=== PATIENT | male | born 1965 | race Caucasian/White ===

== ENCOUNTER 2017-04-25 11:39 | Observation (INO) ==
[2017-04-25] MEDS ORDERED: 0.9 % Sodium Chloride 1,000 ML IVC ONE (11:46)
--- NOTE | 2017-04-25 11:48 | Emergency Department Note ---
Disposition Clinical Impression: Generalized seizure Disposition: Admitted As Inpatient Seizure HPI - General Chief Complaint: ED Seizure Stated Complaint: Seizure Time Seen by Provider: 04/25/17 11:42 Source: patient, EMS Limitations: no limitations Nursing Notes Reviewed: Yes Vital Signs Reviewed: Yes - History of Present Illness HPI Narrative: Is a 51-year-old male who presents today with a seizure. Patient admits to not being compliant with his medications he states he filled his meds but he did not take them last 2 days. When he arrives he was no longer postictal he did not receive any medication in the ambulance. He denies any other symptoms chest pain cough fevers chills nausea vomiting diarrhea Pt Subjective Complaint: seizure Description of Episode: tonic-clonic movement, post-event confusion Witnessed: yes - by bystander Associated trauma secondary to event: No Seizure History: known seizure disorder, history of non-compliance with treatment Place: home Associated symptoms: Reports: denies other symptoms Treatments prior to arrival: none - Related Data Home Medications Medication Instructions Recorded Confirmed Budesonide/Formoterol 160/4.5 2 puff IH BIDR PRN 05/14/16 05/14/16 [Symbicort 160/4.5] Previous Rx's Medication Instructions Recorded Folic Acid 1 mg PO DAILY #30 tablet 05/18/16 Multivit/Ca/Min/Fe/FA [Thera M 1 tab PO DAILY tablet 05/18/16 Plus] Thiamine (B-1) [Vitamin B-1] 100 mg PO DAILY tablet 05/18/16 levETIRAcetam [Keppra] 1,000 mg PO Q12HR #60 tablet 05/18/16 Albuterol Neb [Proventil Neb] 2.5 mg IH Q2H PRN #0 inhsol 08/03/16 Chlordiazepoxide [Librium] 100 mg PO TID #15 capsule 08/03/16 Haloperidol Lactate [Haldol] 1 mg IM Q6H PRN #1 vial 08/03/16 Nicotine Patch [Nicoderm] 21 mg TD DAILY patch.td24 08/03/16 Omeprazole [PriLOSEC] 40 mg PO DAILY@0630 capsule. 08/03/16 Phos-NaK [Neutra-Phos] 2 each PO DAILY PRN #0 powd.pack 08/03/16 Potassium Chloride 40 meq PO DAILY PRN #0 tab.er.prt 08/03/16 Quetiapine Fumarate [Seroquel] 50 mg PO QAM tablet 08/03/16 Quetiapine Fumarate [Seroquel] 100 mg PO HS tablet 08/03/16 Allergies Allergy/AdvReac Type Severity Reaction Status Date / Time No Known Allergies Allergy Verified 05/12/16 19:15 All systems ED: reviewed and negative except as stated. Constitutional: Denies: fever, chills, weakness Cardiovascular: Denies: chest pain Respiratory: Denies: cough Past Medical History - Past Medical History Source: patient, old records reviewed, nursing notes reviewed Medical history: Reports: cardiomyopathy, COPD, coronary artery disease, hypertension, liver disease, myocardial infarction, seizures, valvular heart disease, other Surgical history: Reports: coronary bypass (CABG), other Psychiatric history: Reports: no psych history - Social History Smoking Status: Current every day smoker Smokeless Tobacco Status: No Alcohol use: Reports: heavy, recent Drug use: Reports: none Physical Exam - General Limitations: no limitations General appearance: alert, in no apparent distress - Head Head exam: atraumatic, normocephalic, normal inspection - Eye Eye exam: Present: normal appearance, PERRL, EOMI - Expanded Eye Exam Pupils: Left: reactive - ENT ENT exam: normal exam, normal oropharynx, mucous membranes moist - Expanded ENT Exam External ear exam: Present: normal external inspection Mouth exam: Present: normal external inspection Teeth exam: Present: normal inspection Throat exam: Present: normal inspection - Neck Neck exam: Present: normal inspection, full ROM, trachea midline - Chest Chest inspection: Present: normal inspection, symmetric chest wall rise - Respiratory Respiratory exam: Present: normal lung sounds bilaterally - Cardiovascular Cardiovascular exam: Present: regular rate, normal rhythm, normal heart sounds - Abdominal Exam Abdominal exam: Present: soft, Non-Tender. Absent: tenderness, distention, guarding, rebound, rigidity - Extremities Exam Extremities exam: Present: normal inspection, full ROM. Absent: tenderness, pedal edema - Expanded Upper Extremity Exam Shoulder exam: Present: normal inspection, full ROM Arm exam: Present: normal inspection, full ROM Elbow exam: Present: normal inspection, full ROM Forearm/Wrist exam: Present: normal inspection, full ROM Hand exam: Present: normal inspection, full ROM Vascular exam: Normal: capillary refill, radial pulse - Expanded Lower Extremity Exam Hip/Pelvis exam: Present: normal inspection, full ROM Upper leg exam: Present: normal inspection, full ROM Knee exam: Present: normal inspection, full ROM Lower leg exam: Present: normal inspection, full ROM Ankle exam: Present: normal inspection, full ROM Foot/toe exam: Present: normal inspection, full ROM Neurovascular/Tendon exam: Absent: motor deficit, sensory deficit, tendon deficit - Back Exam Back exam: Present: normal inspection, full ROM. Absent: tenderness - Neurological Exam Neurological exam: Present: alert, oriented X3 - Expanded Neurological Exam Patient oriented to: Present: person, place, time Coma Scale Eye Opening: Spontaneous Coma Scale Motor Response: Obeys Commands Coma Scale Verbal Response: Oriented Coma Scale Total: 15 - Psychiatric Psychiatric exam: Present: normal affect, normal mood - Skin Skin exam: Present: warm, dry, intact, normal color Course Course Narrative: While patient was being administered Keppra he had another generalized seizure last approximately minute 1 mg of Ativan was given. Patient was reassessed again he is awake alert was unaware of the event IV Keppra has been infused. Vital Signs Temperature 98.2 F 04/25/17 11:41 Pulse Rate 98 04/25/17 11:41 Respiratory Rate 18 04/25/17 11:41 Blood Pressure 130/96 04/25/17 11:41 O2 Sat by Pulse Oximetry 100 04/25/17 11:41 Temperature 98.2 F 04/25/17 11:41 Pulse Rate 91 04/25/17 13:03 Respiratory Rate 12 04/25/17 13:03 Blood Pressure 131/89 04/25/17 13:03 O2 Sat by Pulse Oximetry 100 04/25/17 13:03 Oxygen Delivery Oxygen Delivery Non Rebreather Mask Seizure - Lab Data Result diagrams: 04/25/17 12:13 04/25/17 12:13 Lab Results 04/25/17 04/25/17 Range/Units 12:13 12:13 WBC 3.7 L (4.3-11.1) K/mcL RBC 4.82 (4.19-5.50) M/mcL Hgb 15.4 (12.9-16.9) g/dL Hct 44.5 (37.5-50.1) % MCV 92.3 (83.0-100.0) fL MCH 32.0 (28.0-33.3) pg MCHC 34.6 (31.6-35.5) g/dL RDW 14.4 (11.5-14.5) % Plt Count 162 (140-400) K/mcL MPV 11.1 (9.4-12.4) fL Immature Gran % 0.3 (0-4) % Seg Neutrophils % 52.9 % Lymphocytes % 34.3 % Monocytes % 9.5 % Eosinophils % 1.1 % Basophils % 1.9 % Neutrophils # 2.0 (1.6-8.9) K/mcL Lymphocytes # 1.3 (0.6-4.6) K/mcL Monocytes # 0.4 (0.0-1.3) K/mcL Eosinophils # 0.0 (0.0-0.6) K/mcL Basophils # 0.1 (0.0-0.2) K/mcL Sodium 137 (136-145) mEq/L Potassium 4.1 (3.5-4.5) mEq/L Chloride 104 (98-109) mEq/L Carbon Dioxide 18 L (19-29) mEq/L BUN 4 L (8-26) mg/dL Creatinine 0.75 (0.72-1.25) mg/dL Est GFR ( Amer) > 60 (> 60) Est GFR (Non-Af Amer) > 60 (> 60) BUN/Creatinine Ratio 5 L (6-26) Glucose 85 (70-99) mg/dL Calculated Osmolality 280 (280-300) Calcium 9.0 (8.6-10.8) mg/dL Magnesium 1.7 (1.6-2.6) mg/dL Total Bilirubin 0.4 (0.2-1.2) mg/dL AST 117 H (5-34) Units/L ALT 56 H (0-55) Units/L Alkaline Phosphatase 91 (38-126) Units/L Serum Total Protein 7.3 (6.0-8.3) g/dL Albumin 3.7 (3.5-5.0) g/dL Globulin 3.6 H (2.4-3.5) g/dL Albumin/Globulin Ratio 1.0 L (1.1-2.2) Critical Care Time Critical Care Time: Yes Total Critical Care Time: 35 Attestation: Critical care performed: Time is exclusive of separately billable procedures. Time includes: direct patient care, patient reassessment, coordination of patient care, interpretation of data (laboratory data, radiology data, and respiratory data), review of patient's medical records, medical consultation and documentation of patient care. Procedures included in critical care time: Procedures excluded from critical care time:
[2017-04-25] MEDS ORDERED: levETIRAcetam 1,000 MG in 0.9 % Sodium Chloride 100 ML IVPB ONE (11:53)
[2017-04-25 12:21] LABS: Basophils # 0.1 K/mcL (0.0-0.2); Basophils % 1.9 %; Eosinophils % 1.1 %; Hematocrit 44.5 % (37.5-50.1); Hemoglobin 15.4 g/dL (12.9-16.9); Immature Granulocytes % 0.3 % (0-4); Lymphocytes # 1.3 K/mcL (0.6-4.6); Lymphocytes % 34.3 %; Mean Corpuscular HGB Conc 34.6 g/dL (31.6-35.5); Mean Corpuscular Volume 92.3 fL (83.0-100.0); Mean Platelet Volume 11.1 fL (9.4-12.4); Monocytes # 0.4 K/mcL (0.0-1.3); Monocytes % 9.5 %; Platelet Count 162 K/mcL (140-400); Red Blood Count 4.82 M/mcL (4.19-5.50); Red Cell Distribution Width 14.4 % (11.5-14.5); Segmented Neutrophils % 52.9 %
[2017-04-25] MEDS ORDERED: *HR* LORazepam 2 MG/ML VIAL IVP ONE (12:46)
[2017-04-25] MEDS ORDERED: *HR* LORazepam 2 MG/ML VIAL ONE (12:48)
[2017-04-25 12:57] LABS: Alanine Aminotransferase 56 Units/L (0-55); Albumin 3.7 g/dL (3.5-5.0); Alkaline Phosphatase 91 Units/L (38-126); Aspartate Amino Transferase 117 Units/L (5-34); BUN/Creatinine Ratio 5 (6-26); Bilirubin,Total 0.4 mg/dL (0.2-1.2); Blood Urea Nitrogen 4 mg/dL (8-26); Carbon Dioxide 18 mEq/L (19-29); Chloride 104 mEq/L (98-109); Globulin 3.6 g/dL (2.4-3.5); Glucose 85 mg/dL (70-99); Magnesium 1.7 mg/dL (1.6-2.6); Osmolality,Calculated 280 (280-300); Potassium 4.1 mEq/L (3.5-4.5); Sodium 137 mEq/L (136-145); Total Protein 7.3 g/dL (6.0-8.3); eGFR For African Americans > 60 (> 60); eGFR For Non-African Americans > 60 (> 60)
--- NOTE | 2017-04-25 15:46 | Event Note ---
Date of Encounter: 04/25/17 Time of Encounter: 15:43 1. Seizure disorder with multiple episodes today likely secondary to noncompliance of medication Restart Keppra, use Ativan as needed Fall, aspiration and seizure precautions Consider neurology consult if the patient continues to have seizures 2. History of alcohol abuse and withdrawal in the past Use Ativan IV per CIWA scale 3. Tobacco abuse, nicotine patch and smoking cessation counseling 4. CAD, stable 5. History of aortic valve replacement 6. Mild dehydration, can explain tachycardia, continue the fluids Admit for observation, full code. 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
[2017-04-25] MEDS ORDERED: Naloxone 0.4 MG/ML INJ IVP PRN (16:48)
[2017-04-25] MEDS ORDERED: diazePAM 10 MG/2 ML SYRINGE IVP PRN (17:00)
[2017-04-25] MEDS ORDERED: *HR* LORazepam 2 MG/ML VIAL IVP PRN (17:00)
--- NOTE | 2017-04-25 17:11 | Internal Med History&Physical ---
<Ashkan Milian - Last Filed: 04/25/17 17:52> Date of Encounter: 04/25/17 Time of Encounter: 16:30 Assessment and Plan (1) Generalized seizure Current visit: Yes Status: Acute Assess: Patient presents from the ED today with multiple episodes of seizures. Patient states he did not take his Keppra for the past 48 hours but is unable to give a reason why. Patient has a history of seizures. Plan: Restart Keppra CT of the head w/o contrast ordered stat Falls precautions ordered Aspirations precautions ordered Seizure assessment and precautions ordered Consider neurology consult if patient continues to have seizures and/or based on results of CT scan (2) Mild dehydration Current visit: Yes Status: Acute Assess: Patient presents with mild dehydration which may explain his tachycardia. Reason for mild dehydration could be due to EtOH abuse Plan: IV fluids 0.9 NS ordered at 100 ml/HR Follow-up labs ordered and will be reviewed when available for electrolyte status (3) Alcohol abuse Current visit: Yes Status: Chronic Assess: Patient presents with history of alcohol abuse and withdrawal from the past. Plan: CIWA assessment and scale protocol ordered with Ativan PRN per protocol Monitor patient and patient's vital signs for symptoms of withdrawal Falls, aspiration, and seizure precautions ordered (4) CAD (coronary artery disease) Current visit: Yes Status: Chronic Assess: Patient presents with history of chronic coronary artery disease. Plan: Continuous cardiac telemetry ordered Stat EKG ordered Monitor patient/vital signs Cardiac diet Qualifiers: Coronary Disease-Associated Artery/Lesion type: [place] artery [place] vs. transplanted heart: [place] heart Associated angina: without angina Qualified Code(s): I25.10 - Atherosclerotic heart disease of [place] coronary artery without angina pectoris (5) History of aortic valve replacement with bioprosthetic valve Current visit: No Status: Acute Assess: Patient presents with history of chronic coronary artery disease. Plan: Continuous cardiac telemetry ordered Stat EKG ordered Monitor patient and his vital signs Cardiac diet (6) Tobacco abuse Current visit: Yes Status: Chronic Assess: Patient presents with history of chronic tobacco abuse. Patient reports smoking one half pack per day currently. Plan: Smoking cessation counseling provided Nicotine patch 14 mg ordered (7) DVT prophylaxis Current visit: No Status: Acute Assess: Patient received DVT prophylaxis due to inpatient status, history of coronary disease, and bedrest status. Plan: Heparin 5,000 units SQ Q8 ordered Internal Medicine - H&P: HPI Chief complaint: Seizure Admitted From: Emergency Dept Plans for Post Hospital Care: Home History of present illness: Mr. Rose is a 51 year old male who presents from the ED today with multiple episodes of seizures. Patient states he did not take his Keppra for the past 48 hours but is unable to give a reason why. Patient has a history of seizures and a lengthy history of cardiac issues and care including neuropathy, CAD, hypertension, myocardial infarction, valvular heart disease, and open-heart surgery. Patient reports he smokes one half pack per day and drinks approximately 2 beers per day. Mr. Rose states that he is currently experiencing some dizziness but denies shortness of breath, chest pain, cough, fever, chills, nausea, vomiting, diarrhea, recurrent confusion. Patient to be admitted as observation status with fall precautions, aspiration precautions and seizure precautions ordered. See was scale protocol be followed with Ativan when necessary as needed Katelyn was scale. IV fluids 0.9 NS to be continued at 100 mL per hour. Omeprazole ordered 40 mg daily for GI prophylaxis and heparin 5000 units SQ every 8 hours for DVT prophylaxis ordered. Neurological assessments ordered every 2 hours and continuous cardiac telemetry ordered per CIWA scale. Patient to be monitored closely. Past Med Surg Social Fam HX - Past Medical History Source: patient Medical history: cardiomyopathy, COPD, coronary artery disease, hypertension, liver disease, myocardial infarction, seizures, valvular heart disease, other Psychiatric history: no psych history - Past Surgical History Surgical History: coronary bypass (CABG), other - Social History Smoking Status: Current every day smoker Packs per day: 1/2 PPD Smokeless Tobacco Status: No Alcohol use: heavy, recent Drug use: none Occupational status: employed Current living situation: Home Activity Level: Independent ambulation Recent Out of Country Travel Within the Last 8 Weeks: No Exposure or Possible Exposure to Illness During Travel: No - Family History Father Race: Family Member Ethnicity: Non- Living Status: Age at : 70 Cause of : [place] Hx Family Cardiac Disorders: Yes ([place]) Mother Race: Family Member Ethnicity: Non- Living Status: Age at : 51 Cause of : [place] Hx Family Cardiac Disorders: Yes ([place]) Internal Medicine - H&P: Meds LevETIRAcetam [Keppra] 500 mg PO BID 04/25/17 [History] Allergies No Known Allergies Allergy (Verified 05/12/16 19:15) All Systems PM: A 10-system review of systems was performed and is negative for pertinent findings except as documented above in the HPI. - Constitutional Constitutional: no chills, no fever(s), no night sweats - EENT Eyes: no change in vision, no discharge, no pain, no photophobia Ears: no ear discharge, no ear pain, no tinnitus Nose, mouth and throat: no dysphagia, no nasal discharge, no neck pain, no sore throat - Breasts Breasts: as per HPI - Cardiovascular Cardiovascular ROS IM: no chest pain, no diaphoresis, no dyspnea, no lightheadedness, no palpitations, no syncope - Respiratory Respiratory: no cough, no dyspnea, no wheezing, no excessive phlegm production - Gastrointestinal Gastrointestinal: no abdominal pain, no diarrhea, no hematemesis, no hematochezia, no melena, no nausea, no vomiting - Genitourinary Genitourinary ROS male: as per HPI - Musculoskeletal Musculoskeletal ROS IM: no numbness, no tingling - Integumentary Integumentary IM: no rash, no unusual bruising - Neurological Neurological ROS: as per HPI (Multiple episodes of seizures today. Patient reports not taking Keppra for the past 48 hours.), no confusion, no convulsions , no focal weakness, no numbness, no tingling, no tremor(s) - Psychiatric Psychiatric: as per HPI - Endocrine Endocrine IM: as per HPI - Hematologic/Lymphatic Hematologic/Lymphatic: no easy bruising - Allergic/Immunologic Allergic/Immunologic: as per HPI - Constitutional Vitals: Temp Pulse Resp BP Pulse Ox 97.8 F 90 16 126/82 97 04/25/17 15:31 04/25/17 15:31 04/25/17 15:31 04/25/17 15:31 04/25/17 15:31 General appearance: Present: cooperative, A&O X 3, pleasant, no acute distress, answers questions appropriately - Head Head exam: Present: atraumatic, normocephalic - Eye Eye exam: Present: PERRL, conjuntiva pink, sclera anicteric Pupils: Present: PERRL - ENT ENT exam: Present: normal exam, normal external ear exam - Neck Neck exam general surgery: Present: supple, trachea midline. Absent: lymphadenopathy - Respiratory Respiratory exam: Present: CTAB. Absent: accessory muscle use, rales, rhonchi, wheezes - Cardiovascular Cardiovascular exam: Present: RRR, +S1, +S2. Absent: diastolic murmur, gallop, rubs, systolic murmur - GI/Abdominal GI/Abdominal exam: Present: normal bowel sounds, soft, no peritoneal signs. Absent: distended, tenderness - Rectal Rectal exam: Present: deferred - Additional comments: exam deferred. - Extremities Exam Extremities exam: Present: normal capillary refill, normal inspection, warm, radial pulses palpable and symetrical. Absent: calf tenderness, cyanotic, pedal edema - Back Exam Back exam: Present: normal inspection - Neurological Exam Neurological exam: Present: CN II-XII intact, oriented X3, no focal deficits. Absent: pronater drift, facial droop, speech deficit - Psychiatric Psychiatric exam: Present: normal affect, normal mood - Skin Skin exam: Present: dry, intact Internal Med - H&P Results - Labs CBC & Chem 7: 04/25/17 12:13 04/25/17 12:13 - EKG Data EKG comments: 04/25/17 17:29 EKG dated 07/17/16 shows sinus rhythm with diffuse T-wave inversion suggestive of neurological event. Cannot exclude ischemia. Prolonged QT. <Sharad Puente H - Last Filed: 04/25/17 18:18> Date of Encounter: 04/25/17 Internal Medicine - H&P: HPI History of present illness: Mr. Rose is a 51 year old male All Systems PM: A 10-system review of systems was performed and is negative for pertinent findings except as documented above in the HPI. - Constitutional Vitals: Temp Pulse Resp BP Pulse Ox 97.8 F 90 16 126/82 97 04/25/17 15:31 04/25/17 15:31 04/25/17 15:31 04/25/17 15:31 04/25/17 15:31 Internal Med - H&P Results - Labs CBC & Chem 7: 04/25/17 12:13 04/25/17 12:13 - Attending Attestation 1. Seizure disorder with multiple episodes today likely secondary to noncompliance of medication Restart Keppra, use Ativan as needed Fall, aspiration and seizure precautions Consider neurology consult if the patient continues to have seizures 2. History of alcohol abuse and withdrawal in the past Use Ativan IV per CIWA scale 3. Tobacco abuse, nicotine patch and smoking cessation counseling 4. CAD, stable 5. History of aortic valve replacement 6. Mild dehydration, can explain tachycardia, continue the fluids Admit for observation, full code. Time spent on this admission 40 minutes Omeprazole for GI prophylaxis and subcutaneous heparin for DVT prophylaxis I examined this patient and my medical decision-making was reviewed with the CONTRACT LOADER/PA/Advanced Practice Nurse/Resident Physician. I agree with the documented findings, disposition and treatment plan as described except to the extent set forth below.
[2017-04-25] MEDS: 0.9 % Sodium Chloride 1,000 ML IVC SCH (17:23)
[2017-04-25] MEDS: Thiamine (B-1) 100 MG, Folic Acid 1 MG, MVI, adult with vitamin K 10 ML in 0.9 % Sodi... IVPB SCH (17:42)
[2017-04-25 17:52] LABS: Amylase 106 Units/L (25-125); Lipase 26 Units/L (8-78)
[2017-04-25 19:13] LABS: Bilirubin,Urine Negative (Negative); Blood,Urine Negative (Negative); Clarity,Urine Clear (Clear); Color,Urine Yellow (Yellow); Glucose,Urine (UA) Normal (Normal); Ketones,Urine 15 mg/dL (Negative); Leukocyte Esterase,Urine Negative (Negative); Nitrite,Urine Negative (Negative); Protein,Urine Trace mg/dL (Neg-Trace); Specific Gravity,Urine 1.015 (1.010-1.025); Urobilinogen,Urine Normal (Normal)
[2017-04-25 19:14] LABS: Bacteria,Urine None Seen per hpf (None-Few); Hyaline Casts,Urine None Seen per lpf (None-Few); RBC,Urine 0-3 per hpf (0-3); Squamous Epithelial Cell,Urine Few per lpf (None-Few); WBC,Urine 0-3 per hpf (0-3)
[2017-04-25 19:19] LABS: Amphetamine Screen,Urine Negative ng/mL (Cutoff=1000); Barbiturate Screen,Urine Negative ng/mL (Cutoff=200); Benzodiazepines Screen,Urine Negative ng/mL (Cutoff=200); Cannabinoid Screen,Urine Negative ng/mL (Cutoff = 50); Cocaine Screen,Urine Negative ng/mL (Cutoff= 300); Opiate Screen,Urine Negative ng/mL (Cutoff=300); Phencyclidine Screen,Urine Negative ng/mL (Cutoff=25)
[2017-04-25] MEDS: *HR* Heparin 5,000 UNIT/ML VIAL SQ SCH (21:22)
[2017-04-25] MEDS: levETIRAcetam 250 MG TABLET PO SCH (21:22)
[2017-04-26] MEDS: 0.9 % Sodium Chloride 1,000 ML IVC SCH ×3 (03:23→23:37)
[2017-04-26 05:54] LABS: Basophils % 0.6 %; Eosinophils % 0.6 %; Hematocrit 41.8 % (37.5-50.1); Hemoglobin 14.2 g/dL (12.9-16.9); Immature Granulocytes % 0.3 % (0-4); Lymphocytes % 29.8 %; Mean Corpuscular Hemoglobin 31.3 pg (28.0-33.3); Mean Corpuscular Volume 92.3 fL (83.0-100.0); Mean Platelet Volume 11.3 fL (9.4-12.4); Monocytes # 0.6 K/mcL (0.0-1.3); Monocytes % 8.5 %; Platelet Count 143 K/mcL (140-400); Red Blood Count 4.53 M/mcL (4.19-5.50); Segmented Neutrophils % 60.2 %
[2017-04-26 05:57] LABS: INR 1.1; Prothrombin Time 11.4 Seconds (9.4-12.1)
[2017-04-26 06:00] LABS: Activated Partial Thrombo Time 28.9 Seconds (26.0-36.0)
[2017-04-26 06:08] LABS: Alanine Aminotransferase 38 Units/L (0-55); Albumin 3.1 g/dL (3.5-5.0); Albumin/Globulin Ratio 0.9 (1.1-2.2); Alkaline Phosphatase 81 Units/L (38-126); Aspartate Amino Transferase 61 Units/L (5-34); BUN/Creatinine Ratio 8 (6-26); Bilirubin,Direct 0.4 mg/dL (0.0-0.5); Bilirubin,Indirect 0.5 mg/dL (0.0-1.2); Bilirubin,Total 0.9 mg/dL (0.2-1.2); Calcium 8.4 mg/dL (8.6-10.8); Carbon Dioxide 20 mEq/L (19-29); Chloride 104 mEq/L (98-109); Chol/HDL Ratio 2.2 (0-4.9); Cholesterol 175 mg/dL (< 200); Globulin 3.3 g/dL (2.4-3.5); Glucose 76 mg/dL (70-99); HDL Cholesterol 81 mg/dL (40-59); LDL Cholesterol,Calculated 82 mg/dL (0-99); Magnesium 1.3 mg/dL (1.6-2.6); Osmolality,Calculated 274 (280-300); Potassium 3.5 mEq/L (3.5-4.5); Sodium 134 mEq/L (136-145); Total Protein 6.3 g/dL (6.0-8.3); Total Protein 6.4 g/dL (6.0-8.3); Triglycerides 62 mg/dL (< 150); eGFR For African Americans > 60 (> 60); eGFR For Non-African Americans > 60 (> 60)
[2017-04-26 06:10] LABS: Bilirubin,Total 0.9 mg/dL (0.2-1.2); Blood Urea Nitrogen 5 mg/dL (8-26)
[2017-04-26] MEDS: *HR* Heparin 5,000 UNIT/ML VIAL SQ SCH ×3 (06:23→21:17)
[2017-04-26] MEDS: Magnesium Oxide 400 MG TABLET PO SCH (09:46)
[2017-04-26] MEDS: Vitamin B Complex/Vit C/Vit E 1 EACH TABLET PO SCH (09:46)
[2017-04-26] MEDS: levETIRAcetam 250 MG TABLET PO SCH ×2 (09:46→18:37)
[2017-04-26] MEDS: Thiamine (B-1) 100 MG TABLET PO SCH (09:46)
[2017-04-26] MEDS: Nicotine 14 MG PATCH.TD24 TD SCH (09:46)
[2017-04-26] MEDS: Folic Acid 1 MG TABLET PO SCH (09:46)
--- NOTE | 2017-04-26 16:35 | Electrocardiograph Report ---
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
--- NOTE | 2017-04-26 17:08 | Neurology - Consult Note ---
Date of Encounter: 04/26/17 Time of Encounter: 17:04 Assessment and Plan (1) Generalized seizure Current Visit: Yes Status: Acute Seizure disorder likely complicated by alcoholism, since seizures only occurred since the last 2-3 years. Patient has not been compliant with Seizure disorder and has not been fully worked up in the past. Has recurrent seizure activity therefore will keep him on antiepileptic therapy in the form of Keppra 1000mg bid. He will follow up in neurology for an EEG and MRI of brain. History of Present Illness Chief complaint: seizure HPI: Mr. Rose is a 51 year old male with PMH significant for seizure disorder, alcoholism who developed multiple witnessed seizures. Patient says that he started experiencing seizures about 2-3 years ago, after he had open heart surgery about 5 years ago. He averages about 7-8 seizures this year alone. He has no recollection of his seizures. With his typical seizure, he loses his consciousness and has jerking activity. Was once on keppra 500mg bid but does not see a neurologist. has had numerous CT of head in the past. CT of head showed no acute intracranial abnormality, but mild cerebral atrophy noted. Currently he is feeling fine. He drinks alcohol on daily basis. He says that after work he drinks two beers and sometimes he does not. Past Med Surg Social Fam HX - Past Medical History Medical history: cardiomyopathy, COPD, coronary artery disease, hypertension, liver disease, myocardial infarction, seizures, valvular heart disease, other Psychiatric history: no psych history - Past Surgical History Surgical History: coronary bypass (CABG), other - Social History Smoking Status: Current every day smoker Packs per day: 1/2 PPD Smokeless Tobacco Status: No Alcohol use: heavy, recent Drug use: none - Family History Father Race: Family Member Ethnicity: Non- Living Status: Age at : 70 Cause of : [place] Hx Family Cardiac Disorders: Yes ([place]) Mother Race: Family Member Ethnicity: Non- Living Status: Age at : 51 Cause of : [place] Hx Family Cardiac Disorders: Yes ([place]) Medications and Allergies LevETIRAcetam [Keppra] 500 mg PO BID 04/25/17 [History] Allergies No Known Allergies Allergy (Verified 05/12/16 19:15) All Systems: A 10-system review of systems was performed and is negative for pertinent findings except as documented above in the HPI. Physical Examination - Vital Signs Vital Signs: Initial Vital Signs Temp Pulse Resp BP Pulse Ox 98.2 F 98 18 130/96 100 04/25/17 11:41 04/25/17 11:41 04/25/17 11:41 04/25/17 11:41 04/25/17 11:41 - Constitutional General appearance: comfortable - Neurologic Sensorimotor examination: intact Detailed motor examination: grossly full strength in all extremities Motor examination - right side: 5/5: deltoids, biceps, triceps, wrist flexion, wrist extension, teamsite developer, hip flexors, tibialis Anterior, quadriceps, toe extension (EHL), plantarflexion Motor examination - left side: 5/5: deltoids, biceps, triceps, wrist flexion, wrist extension, hip flexors, teamsite developer, quadriceps, tibialis Anterior, toe extension (EHL), plantarflexion Detailed sensory examination: intact Posture: other (None) Reflex and gait examination: intact Reflexes: Biceps: 1+, Triceps: 1+, Brachioradialis: 1+, Patella: 1+, Achilles: 1 + Mental Status Examination: awake, alert, oriented to person, oriented to place, oriented to time, follows commands appropriately, answers questions appropriately, no agnosia, no aphasia, no aproxia Cranial nerve examination: PERRL, EOMI, visual marr intact, corneal reflexes brisk symmetrically, sensory to face intact, mastication intact, no facial asymmetry is present, no dysarthria, hearing is intact symmetrically, soft palate elevates bilaterally upon phonation, gag reflex intact, flexes SCM and trapezius muscles symmetrically with full power, tongue protrudes midline, no atrophy or facial fasiculations present Results - Laboratory Findings CBC and BMP: 04/26/17 05:24 04/26/17 05:24 Abnormal lab findings: Abnormal lab results Sodium 134 mEq/L (136-145) L 04/26/17 05:24 BUN 5 mg/dL (8-26) L 04/26/17 05:24 Creatinine 0.64 mg/dL (0.72-1.25) L 04/26/17 05:24 Calculated Osmolality 274 (280-300) L 04/26/17 05:24 Calcium 8.4 mg/dL (8.6-10.8) L 04/26/17 05:24 Magnesium 1.3 mg/dL (1.6-2.6) L 04/26/17 05:24 AST 61 Units/L (5-34) H 04/26/17 05:24 Albumin 3.0 g/dL (3.5-5.0) L 04/26/17 05:24 Albumin/Globulin Ratio 0.9 (1.1-2.2) L 04/26/17 05:24 HDL Cholesterol 81 mg/dL (40-59) H 04/26/17 05:24 Urine Ketones 15 mg/dL (Negative) H 04/25/17 19:05 [place] < 0.1 mEq/L (0.6-1.2) L 04/25/17 12:12 Ethyl Alcohol 128 mg/dL (0-10) H 04/25/17 12:13 Consult Discharge Plan - Plan Referrals: Alistair Gutiérrez DO [Resident] - 05/08/17 2:00 pm
--- NOTE | 2017-04-26 17:25 | Internal Med Progress Note ---
Date of Encounter: 04/26/17 Time of Encounter: 09:35 - Assessment and plan (1) Generalized seizure Current Visit: Yes Status: Acute Assessment and plan: Patient reports seizure yesterday. Most likely complicated by alcoholism. He says that he drinks 224 ounce beers a day. He denies any recreational drug use. He is neurologically intact and has seizure pads on the bed. He says that his last seizure prior to this almost 2-1/2 months ago, and prior to that was 1 year ago. He was compliant with his medication regimen while he was in the skilled nursing, however when he was discharged 2 months ago he has not been able to keep up with his medications because he has not seen a primary care physician and does not have money for prescriptions. We will attempt to reestablish patient with his primary care physician Keppra 1000 mg twice daily Follow-up with neurology in 2 weeks for an MRI and EEG (2) Alcohol abuse Current Visit: No Status: Chronic Assessment and plan: Patient states that he drinks two 24 ounce beers daily. Says that he is able to go several days without drinking. He is not requiring CIWA protocol at this time. (3) COPD (chronic obstructive pulmonary disease) Current Visit: No Status: Chronic Assessment and plan: No acute exacerbation. Patient does not take any medications for this. May have duo nebs when necessary Qualifiers: COPD type: chronic bronchitis Chronic bronchitis type: unspecified Qualified Code(s): J42 - Unspecified chronic bronchitis (4) Tobacco abuse Current Visit: No Status: Chronic Assessment and plan: Patient states that he smokes approximately 1 pack per day. He is not interested in smoking cessation tools or materials at this time. (5) DVT prophylaxis Current Visit: No Status: Acute Assessment and plan: Heparin subcutaneous daily - Time Spent With Patient less than 15 minutes - Subjective Interval history: Patient was seen and assessed at about 935 this morning. Patient was resting quietly in a darkened room, seizure pads on bed. He says that he has been having seizures for 5-6 years and he has never seen a neurologist. He says he is unable to take his medication for the last 2 months due to not having a primary care physician. He says that someone, he is unsure who, gave him sample boxes of the Keppra that he has been taking. He says that Dr. Flaherty is his primary care physician he has not seen him for 1-1/2 years. He says that he was admitted here and was sent to [facility] for 7 months, he said he got out 2 months ago. He says he was compliant with his medication regimen while he was in [facility], but has not been able to since he was discharged. Patient is unsure why he was even at [facility]. He says he drinks about 224 ounce beers daily and smokes about one pack of cigarettes a day. He denies any recreational drugs. He says there is no pattern to his seizures, his last one was 2-1/2 months ago, prior to that the last one was one year ago. He is alert and oriented, his speech is clear, and he appears to have no deficits. - Constitutional Vitals: Temp Pulse Resp BP Pulse Ox 97.8 F 74 16 124/90 99 04/26/17 15:35 04/26/17 15:35 04/26/17 15:35 04/26/17 15:35 04/26/17 15:35 General appearance: Present: cooperative, A&O X 3, pleasant, no acute distress, answers questions appropriately - Head Head exam: Present: normal inspection - Eye Eye exam: Present: normal appearance, conjuntiva pink - ENT ENT exam: Present: mucous membranes moist, normal exam - Neck Neck exam general surgery: Absent: lymphadenopathy, tenderness - Respiratory Respiratory exam: Present: CTAB. Absent: rales, rhonchi, stridor, wheezes - Cardiovascular Cardiovascular exam: Present: RRR, +S1, +S2. Absent: diastolic murmur, systolic murmur - GI/Abdominal GI/Abdominal exam: Present: soft. Absent: distended, firm, hepatomegaly, tenderness - Neurological Exam Neurological exam: Present: alert, oriented X3, no focal deficits, strengths equal and symetr throughout. Absent: altered, motor sensory deficit, pronater drift, facial droop, speech deficit Internal Medicine: Result - Labs CBC & Chem 7: 04/26/17 05:24 04/26/17 05:24 Labs: Short CBC 04/26/17 Range/Units 05:24 WBC 6.6 D (4.3-11.1) K/mcL Hgb 14.2 (12.9-16.9) g/dL Hct 41.8 (37.5-50.1) % Plt Count 143 (140-400) K/mcL Neutrophils # 4.0 (1.6-8.9) K/mcL BMP 04/26/17 05:24 Sodium 134 L Potassium 3.5 Chloride 104 Carbon Dioxide 20 BUN 5 L Creatinine 0.64 L Glucose 76 Calcium 8.4 L Liver Function 04/26/17 04/26/17 Range/Units 05:24 05:24 Total Bilirubin 0.9 D 0.9 (0.2-1.2) mg/dL Direct Bilirubin 0.4 (0.0-0.5) mg/dL AST 61 H 61 H (5-34) Units/L ALT 38 37 (0-55) Units/L Alkaline Phosphatase 81 81 (38-126) Units/L Albumin 3.0 L 3.1 L (3.5-5.0) g/dL Urine 04/25/17 Range/Units 19:05 Urine Color Yellow (Yellow) Urine Clarity Clear (Clear) Urine pH 7.0 (5.0-8.0) pH Units Ur Specific [place] 1.015 (1.010-1.025) Urine Protein Trace (Neg-Trace) mg/dL Urine Glucose (UA) Normal (Normal) mg/dL - ABG Interpretation ABG results: PT/INR, D-dimer PT 11.4 Seconds (9.4-12.1) 04/26/17 05:24 - Impressions Impressions Head CT 04/25/17 17:32 IMPRESSION: No acute intracranial abnormality. Mild cerebral atrophy prominent for age. Mild chronic ischemic white matter changes age-appropriate. Some additional pontine ischemic changes noted. No significant change from the prior study. D/ / Davonte Melchor MD / Davonte Melchor MD Interpreting Provider: Davonte Melchor MD Consult Discharge Plan - Plan Referrals: Alistair Gutiérrez DO [Resident] - 05/08/17 2:00 pm
[2017-04-26] MEDS: Thiamine (B-1) 100 MG, Folic Acid 1 MG, MVI, adult with vitamin K 10 ML in 0.9 % Sodi... IVPB SCH (18:37)
[2017-04-27] MEDS: levETIRAcetam 250 MG TABLET PO SCH (04:59)
[2017-04-27] MEDS: *HR* Heparin 5,000 UNIT/ML VIAL SQ SCH (05:00)
[2017-04-27] MEDS: Nicotine 14 MG PATCH.TD24 TD SCH (07:39)
[2017-04-27] MEDS: Folic Acid 1 MG TABLET PO SCH (07:40)
[2017-04-27] MEDS: Magnesium Oxide 400 MG TABLET PO SCH (07:40)
[2017-04-27] MEDS: Thiamine (B-1) 100 MG TABLET PO SCH (07:40)
[2017-04-27] MEDS: Vitamin B Complex/Vit C/Vit E 1 EACH TABLET PO SCH (07:40)
--- NOTE | 2017-04-27 07:53 | Discharge Summary ---
Date of Encounter: 04/27/17 Time of Encounter: 07:40 - Discharge Diagnosis (1) Generalized seizure Priority: Primary Status: Acute Comments: Patient states he has been having seizures for 5-6 years. Last seizure was 2 days ago. Last seizure prior to this was 2-1/2 months ago, prior to that was 1 year ago. Patient states that he was in a fdc for 7 months and is unsure why, but he was able to take all of his medications at that time. Since leaving the facility he has had no primary care follow-up and has run out of his medications. Seizures most likely exacerbated by chronic alcoholism. Patient states that he drinks 2 24 ounce beers every day. He states that he used to be a patient of Dr. Flaherty, but has not seen him in about a year and half. He says that he would like to go back to Dr. Flaherty, a request has been entered by nurse discharge. Patient will be sent home with a prescription for Keppra 1000 mg by mouth twice a day. Patient is neurologically intact and gait is steady. He has had no seizure activity since he has been here. (2) Alcohol abuse Priority: Secondary Status: Chronic Comments: Patient drinks 2 24 ounce beers daily. He says that he is able to go several days without drinking. He is not requiring seawall protocol at this time. (3) COPD (chronic obstructive pulmonary disease) Priority: Secondary Status: Chronic Comments: No acute exacerbation. Patient is still a smoker. He is not interested in smoking cessation materials or tools at this time. He does not take any medications for this. Qualifiers: COPD type: chronic bronchitis Chronic bronchitis type: unspecified Qualified Code(s): J42 - Unspecified chronic bronchitis (4) Tobacco abuse Priority: Secondary Status: Chronic Comments: Patient smokes approximately 1 pack per day. He is not interested in smoking cessation at this time. I did discuss this with him again today. (5) DVT prophylaxis Priority: Secondary Status: Acute - Discharge Medications Prescriptions: LevETIRAcetam [Keppra] 1,000 mg PO BID #60 tablet Multivitamin with Folic Acid [Gnp One Daily Essential Tablet] 400 mcg PO DAILY # 30 tablet Home Medications: LevETIRAcetam [Keppra] 1,000 mg PO BID #60 tablet 04/27/17 [Rx] Multivitamin with Folic Acid [Gnp One Daily Essential Tablet] 400 mcg PO DAILY # 30 tablet 04/27/17 [Rx] Allergies/Adverse Reactions: Allergies No Known Allergies Allergy (Verified 05/12/16 19:15) Procedures/tests Complete & Pending: Procedures Performed prior 72 hours Category Date Time Status CT head/brain wo con [CT] Stat Cat Scan 04/25/17 17:32 Completed ECG 12 lead ECG [ECG] Stat Y 04/25/17 16:48 Completed Date of admission: 04/25/17 14:02 Primary care physician: PCP NO Consults: 04/25/17 17:01 Consult to Spool [facility]rier [CONS] Routine Reason for SW Consult: Patient has hx of EtOH abuse 04/26/17 16:06 Consult to Neurology [CONS] Routine Consulting Provider: Neurology [facility] Reason for Consult: Pt has seizures, has never been treated or seen by neurology. Onset about 5-6 years ago, does not follow up with PCP for seizures and does not take his medication regularly Call Completed: No Discharging clinician: Teresa Vernon Anticipated date of discharge: 04/27/17 - Patient Status Disposition: Home, Self-Care Condition: Good Functional capacity at discharge: independent ambulation Overall status at discharge: patient is back to baseline - Discharge Instructions Follow Up With: Alistair Gutiérrez DO [Resident] - 05/08/17 2:00 pm Additional Instructions: Please follow up with Dr. Gutiérrez on May 08 as scheduled at the [facility] Take your Keppra twice daily and your multivitamin every morning Return to the ER as needed for any new problems or concerns. - Diet and Activity Activity: increase activity as tolerated Diet: advance to your usual diet Hospital course: Mr. Rose is a 51 year old male with past medical history of seizures, alcohol use, COPD. Patient has a history of seizures for 5-6 years. He states that he has never seen a neurologist does not follow-up with neurology. Last seizure was 2 days ago on admission. Prior to that, he had a seizure 2-1/2 months ago, prior to that 1 year ago. Patient states that he is unable to take his medications on schedule because he has not followed up with primary care physician. He says that he was at a fdc for an unknown reason for 7 months and was just recently discharged 2-1/2 months ago. He says while he was in the fdc he got his medications every day, however has not had any follow-up image since being discharged from the [facility]. Patient admits to drinking at least two 24 ounce beers daily after work. His chronic alcoholism is most likely exacerbating his seizure disorder. He was seen by Dr. Euceda yesterday and his Keppra dose was increased to 1000 mg by mouth twice a day he will follow up with neurology in the next 2 weeks or so for an MRI and EEG. Patient will be sent home with a prescription for the Keppra increased dose and a multivitamin with folic acid. Labs have remained stable, as have his vital signs. Head CT on arrival showed no acute intracranial abnormality. He does have mild cerebral atrophy and age- appropriate chronic ischemic white matter changes. The CT demonstrates no significant changes from prior studies. 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 I went to see the patient immediately when the nurse said that the patient was going to leave. As I am dictating this now staff is attempting to get him to not leave the unit. He says he needs to go outside to smoke. I encouraged the patient to at least stay for breakfast. He states that he will not be able to call for his ride until 9:30, is now 8:10. He said his ride cannot come until noon. He is refusing to put on a nicotine patch. Patient is stable and appropriate for discharge. Time spent discussing smoking cessation with patient: 3 to 10 minutes - Time Spent with Patient Total time spent providing and/or coordinating discharge services: Less than 30 minutes - Constitutional Vitals: Temp Pulse Resp BP Pulse Ox 97.7 F 81 18 152/92 99 04/26/17 22:46 04/26/17 22:46 04/26/17 22:46 04/26/17 22:46 04/26/17 22:46 General appearance: Present: cooperative, A&O X 3, pleasant, no acute distress, answers questions appropriately - Head Head exam: Present: normal inspection - Eye Eye exam: Present: normal appearance, conjuntiva pink - ENT ENT exam: Present: mucous membranes moist, normal exam - Neck Neck exam general surgery: Present: normal inspection. Absent: lymphadenopathy , tenderness - Respiratory Respiratory exam: Present: decreased breath sounds, CTAB. Absent: rales, respiratory distress, rhonchi, stridor, wheezes - Cardiovascular Cardiovascular exam: Present: RRR, +S1, +S2. Absent: clicks, diastolic murmur, gallop, systolic murmur - GI/Abdominal GI/Abdominal exam: Present: normal bowel sounds, soft. Absent: tenderness - Extremities Exam Extremities exam: Present: warm. Absent: pedal edema - Neurological Exam Neurological exam: Present: alert, oriented X3, no focal deficits, strengths equal and symetr throughout. Absent: facial droop, speech deficit
[2017-04-27 07:56] VITALS: BP 112/76
== END 2017-04-27 09:33 | disposition home or self-care (01) ==
LOC: EMEROO 11:39 → 3BNU 11:39
PROVIDERS: ADMIT Internal Medicine; ATTEND Registered Nurse

== ENCOUNTER 2017-09-25 10:31 | Observation (INO) ==
[2017-09-25] MEDS ORDERED: *HR* LORazepam 2 MG/ML VIAL IVP ONE ×2 (10:39→11:43)
--- NOTE | 2017-09-25 10:42 | Emergency Department Note ---
Disposition Clinical Impression: Alcohol withdrawal seizure Qualifiers: Complication of substance-induced condition: with perceptual disturbance Qualified Code(s): F10.232 - Alcohol dependence with withdrawal with perceptual disturbance Disposition: Admitted As Inpatient Condition: Fair Forms: ED Satisfaction Letter Time of Disposition: 12:29 Seizure HPI - General Chief Complaint: ED Seizure Stated Complaint: Post ictal Time Seen by Provider: 09/25/17 10:37 Source: patient Mode of arrival: ambulatory Limitations: no limitations Nursing Notes Reviewed: Yes Vital Signs Reviewed: Yes - History of Present Illness HPI Narrative: 52-year-old who has had recurrent seizures related to alcohol withdrawal. Apparently had a seizure today. States he hasn't had alcohol since yesterday. Postictal on arrival. Pt Subjective Complaint: seizure Onset (ago): Just PATIENT SUPPORT ASSISTANT Description of Episode: tonic-clonic movement -: other (Unknown) Witnessed: yes - by bystander Associated trauma secondary to event: No Seizure History: history of withdrawal seizures Place: home Possible Precipitating Event: alcohol withdrawal Associated symptoms: Reports: denies other symptoms Treatments prior to arrival: none - Related Data Previous Rx's Medication Instructions Recorded Folic Acid 1 mg PO DAILY #30 tablet 09/12/17 Nicotine Patch [Nicoderm] 21 mg TD DAILY #14 patch.[id number] 09/12/17 Omeprazole 20 mg PO DAILY #30 tablet. 09/12/17 Thiamine (B-1) [Vitamin B-1] 100 mg PO DAILY #30 tablet 09/12/17 levETIRAcetam [Keppra] 1,000 mg PO Q12HR #60 tablet 09/12/17 Allergies Allergy/AdvReac Type Severity Reaction Status Date / Time No Known Allergies Allergy Verified 09/05/17 16:52 All systems ED: reviewed and negative except as stated. Constitutional: Denies: fever, chills, weakness, weight change Eyes: Denies: eye pain, eye discharge, vision change ENT ED: Denies: ear pain, throat pain, dental pain, hearing loss, epistaxis, congestion, dysphagia Cardiovascular: Denies: chest pain, palpitations, dyspnea on exertion, edema, syncope Respiratory: Denies: cough, dyspnea, wheezes, hemoptysis, stridor Gastrointestinal: Denies: abdominal pain, nausea, vomiting, diarrhea, constipation, hematemesis, melena, hematochezia Genitourinary: Denies: urgency, dysuria, frequency, hematuria Musculoskeletal: Denies: back pain, neck pain, arthralgia, myalgia Integumentary: Denies: rash, abrasion, lesions Neurological: Reports: other (Seizure). Denies: headache, weakness, numbness, paresthesias, confusion, abnormal gait, vertigo Psychiatric: Denies: anxiety, depression, suicidal thoughts, homicidal thoughts , auditory hallucinations, visual hallucinations Endocrine: Denies: fatigue Hematological/Lymphatic: Denies: easy bleeding, easy bruising Allergic/Immunologic: Denies: facial swelling, urticaria Past Medical History - Past Medical History Medical history: Reports: cardiomyopathy, CHF, COPD, coronary artery disease, hypertension, liver disease, myocardial infarction, seizures, valvular heart disease, other Surgical history: Reports: heart valve replacement, orthopedic, other Psychiatric history: Reports: no psych history - Social History Smoking Status: Current every day smoker Smokeless Tobacco Status: No Alcohol use: Reports: heavy, recent Drug use: Reports: marijuana Physical Exam - General Limitations: altered mental status (Postictal) General appearance: alert - Head Head exam: atraumatic, normocephalic, normal inspection - Eye Eye exam: Present: normal appearance, PERRL, EOMI - ENT ENT exam: normal exam, normal oropharynx, mucous membranes moist - Neck Neck exam: Present: normal inspection, full ROM, trachea midline - Chest Chest inspection: Present: normal inspection, symmetric chest wall rise - Respiratory Respiratory exam: Present: normal lung sounds bilaterally - Cardiovascular Cardiovascular exam: Present: regular rate, normal rhythm, normal heart sounds - Abdominal Exam Abdominal exam: Present: soft, Non-Tender. Absent: tenderness, distention, guarding, rebound, rigidity - Extremities Exam Extremities exam: Present: normal inspection, full ROM. Absent: tenderness, pedal edema - Expanded Lower Extremity Exam Neurovascular/Tendon exam: Absent: motor deficit, sensory deficit, tendon deficit Gait: not tested/not observed - Back Exam Back exam: Present: normal inspection, full ROM. Absent: tenderness - Neurological Exam Neurological exam: Present: alert, oriented X3 - Psychiatric Psychiatric exam: Present: normal affect, normal mood - Skin Skin exam: Present: warm, dry, intact, normal color Course - Reevaluation(s) Reevaluation #1: 42-year-old who comes in after having seizure and actually had a seizure here in the ER has a history of alcohol withdrawal seizures. Time: 12:28 - Consultations Consultation #1: Discussed with Dr. Mathew, admit Time: 12:29 Vital Signs Temperature 97.9 F 09/25/17 10:33 Pulse Rate 101 09/25/17 10:33 Respiratory Rate 14 09/25/17 10:33 Blood Pressure 147/96 09/25/17 10:33 O2 Sat by Pulse Oximetry 98 09/25/17 10:33 Temperature 97.9 F 09/25/17 10:33 Pulse Rate 92 09/25/17 12:12 Respiratory Rate 16 09/25/17 12:12 Blood Pressure 141/91 09/25/17 12:12 O2 Sat by Pulse Oximetry 100 09/25/17 12:12 Oxygen Delivery Oxygen Delivery Room Air Seizure - Lab Data Result diagrams: 09/25/17 11:16 09/25/17 11:16 Lab Results 09/25/17 09/25/17 Range/Units 11:16 11:16 WBC 7.6 (4.3-11.1) K/mcL RBC 4.41 (4.19-5.50) M/mcL Hgb 15.2 (12.9-16.9) g/dL Hct 44.4 (37.5-50.1) % MCV 100.7 H (83.0-100.0) fL MCH 34.5 H (28.0-33.3) pg MCHC 34.2 (31.6-35.5) g/dL RDW 12.6 (11.5-14.5) % Plt Count 271 (140-400) K/mcL MPV 10.1 (9.4-12.4) fL Immature Gran % 0.5 (0-4) % Seg Neutrophils % 83.1 % Lymphocytes % 9.2 % Monocytes % 5.6 % Eosinophils % 0.4 % Basophils % 1.2 % Neutrophils # 6.3 (1.6-8.9) K/mcL Lymphocytes # 0.7 (0.6-4.6) K/mcL Monocytes # 0.4 (0.0-1.3) K/mcL Eosinophils # 0.0 (0.0-0.6) K/mcL Basophils # 0.1 (0.0-0.2) K/mcL Sodium 141 (136-145) mEq/L Potassium 4.4 (3.5-4.5) mEq/L Chloride 106 (98-109) mEq/L Carbon Dioxide 23 (19-29) mEq/L BUN 5 L (8-26) mg/dL Creatinine 0.81 (0.72-1.25) mg/dL Est GFR ( Amer) > 60 (> 60) Est GFR (Non-Af Amer) > 60 (> 60) BUN/Creatinine Ratio 6 (6-26) Glucose 93 (70-99) mg/dL Calculated Osmolality 289 (280-300) Calcium 9.5 (8.6-10.8) mg/dL
[2017-09-25 11:31] LABS: Basophils # 0.1 K/mcL (0.0-0.2); Basophils % 1.2 %; Eosinophils % 0.4 %; Hematocrit 44.4 % (37.5-50.1); Hemoglobin 15.2 g/dL (12.9-16.9); Immature Granulocytes % 0.5 % (0-4); Lymphocytes # 0.7 K/mcL (0.6-4.6); Lymphocytes % 9.2 %; Mean Corpuscular HGB Conc 34.2 g/dL (31.6-35.5); Mean Corpuscular Hemoglobin 34.5 pg (28.0-33.3); Mean Corpuscular Volume 100.7 fL (83.0-100.0); Mean Platelet Volume 10.1 fL (9.4-12.4); Monocytes # 0.4 K/mcL (0.0-1.3); Monocytes % 5.6 %; Neutrophils # 6.3 K/mcL (1.6-8.9); Platelet Count 271 K/mcL (140-400); Red Blood Count 4.41 M/mcL (4.19-5.50); Red Cell Distribution Width 12.6 % (11.5-14.5); Segmented Neutrophils % 83.1 %
[2017-09-25 11:46] LABS: BUN/Creatinine Ratio 6 (6-26); Calcium 9.5 mg/dL (8.6-10.8); Carbon Dioxide 23 mEq/L (19-29); Chloride 106 mEq/L (98-109); Glucose 93 mg/dL (70-99); Osmolality,Calculated 289 (280-300); Potassium 4.4 mEq/L (3.5-4.5); Sodium 141 mEq/L (136-145); eGFR For African Americans > 60 (> 60); eGFR For Non-African Americans > 60 (> 60)
[2017-09-25 11:47] LABS: Blood Urea Nitrogen 5 mg/dL (8-26)
[2017-09-25] MEDS ORDERED: Ondansetron 4 MG/2 ML VIAL IVP PRN (12:34)
[2017-09-25] MEDS ORDERED: Naloxone 0.4 MG/ML INJ IVP PRN (12:34)
[2017-09-25] MEDS ORDERED: Acetaminophen 325 MG TABLET PO PRN (12:34)
[2017-09-25] MEDS ORDERED: *HR* LORazepam 2 MG/ML VIAL IVP PRN (12:39)
[2017-09-25 12:42] LABS: Ethanol < 10 mg/dL (0-10)
[2017-09-25] MEDS: Thiamine (B-1) 100 MG, Folic Acid 1 MG, MVI, adult with vitamin K 10 ML in 0.9 % Sodi... IVPB SCH (12:58)
[2017-09-25] MEDS ORDERED: 0.9 % Sodium Chloride 1,000 ML IVC SCH (13:00)
[2017-09-25] MEDS ORDERED: levETIRAcetam 1,000 MG in 0.9 % Sodium Chloride 100 ML IVPB ONE (13:10)
--- NOTE | 2017-09-25 13:18 | Internal Med History&Physical ---
Date of Encounter: 09/25/17 Time of Encounter: 12:00 Assessment and Plan (1) Seizure Current visit: Yes Status: Acute Acute on chronic seizure hx likely d/t alcohol abuse and withdrawal. Pt. reports last drinking yesterday. Had one seizure at [facility] today and one in ED. Pt. supposed to take Keppra daily but compliance may be an issue. Hx of heavy drinking per pt. report. Keppra level ordered stat. Will continue IVPB Keppra based on results. CIWA scale for alcohol withdrawal. Seizure precautions. Falls/safety precautions. Continuous telemetry. O2 PRN. NPO. Dysphagia screen ordered with communication order for no PO meds or diet until AMS improves and dysphagia screen passed. Monitor f/u labs. Neurology consult ordered and discussed with Dr. Euceda. EEG ordered. MRI of head/brain ordered to r/ o mass. Pt. high risk for further morbidity d/t current symptoms, hx of alcohol abuse and seizures, risk factors. Observation. (2) Confusion after a seizure Current visit: Yes Status: Acute Acute confusion and AMS following seizure. CIWA scale and seizure precautions ordered. Neuro checks Q2. Falls/safety precautions. NPO w/dysphagia screen. Monitor pt. closely for signs of withdrawal/neurological decline. (3) CHF (congestive heart failure) Current visit: Yes Status: Chronic Hx of chronic CHF. Stable. Pt. placed on continuous telemetry. Monitor patient for fluid overload/SOB. Qualifiers: Congestive heart failure type: unspecified congestive heart failure type Qualified Code(s): I50.9 - Heart failure, unspecified (4) Liver disease Current visit: Yes Status: Chronic Hx of chronic liver disease most likely r/t alcohol abuse. Amylase/lipase ordered. Monitor f/u labs. (5) CAD (coronary artery disease) Current visit: Yes Status: Chronic Hx of chronic CAD, however pt. does not currently take any HTN or HLD medications. Will begin aspirin therapy daily while hospitalized. Lipid panel ordered in a.m. labs. Continuous telemetry. Qualifiers: Coronary Disease-Associated Artery/Lesion type: unspecified vessel or lesion type [place] vs. transplanted heart: [place] heart Associated angina: angina presence unspecified Qualified Code(s): I25.10 - Atherosclerotic heart disease of [place] coronary artery without angina pectoris (6) ETOH abuse Current visit: Yes Status: Chronic Hx of alcohol abuse and alcohol withdrawal/seizures. Pt. reports previously he drinks heavily daily. Ethanol <10 today. Concern is for possible alcohol withdrawal seizures today based on previous hx and current sx. CIWA protocol, seizure precautions, Keppra level ordered stat, SW consult for possible rehabilitation placement post-discharge, Continue B vitamins. Amylase/lipase results pending. IV 0.9 NS @ 60 mL/HR. (7) COPD (chronic obstructive pulmonary disease) Current visit: Yes Status: Chronic Hx of chronic COPD most likely r/t tobacco abuse. DuoNebs Q6 PRN. Pt. currently 96% on RA. O2 PRN for SOB. Qualifiers: COPD type: emphysema Emphysema type: centrilobular Qualified Code(s): J43.2 - Centrilobular emphysema (8) Tobacco abuse Current visit: Yes Status: Chronic Hx of chronic tobacco abuse. Pt. reports smoking 2.5 PPD. No interest for quitting following counseling. Nicotine patch 21 mg daily ordered. (9) DVT prophylaxis Current visit: Yes Status: Acute Heparin 5,000 units SQ Q8 for DVT prophylaxis. Internal Medicine - H&P: HPI Chief complaint: Seizures Admitted From: Emergency Dept Plans for Post Hospital Care: Home History of present illness: Mr. Rose is a 52 year old male with medical history of cardiomyopathy, CHF, COPD, CAD, hypertension, liver disease, previous myocardial infarction, valvular heart disease requiring heart valve replacement, alcoholism, tobacco abuse, and seizures presents from the ED with chief complaint of seizure today 2 (one at [facility] and one in [facility]). States he hasn't had alcohol since yesterday. Pt. previously reported he drinks heavily daily. Postictal on arrival to ED. On exam, patient is difficult to rouse but does offer information after several attempts. Pt. reports seizure, cough, and confusion and is altered and oriented 1. Denies recent illness, fever, chills, nausea, vomiting, diarrhea, abdominal pain, chest pain, palpitations, changes in vision , headache, weakness, numbness, tingling, unusual bleeding, shortness of breath , dizziness, lightheadedness, or vertigo. Past Med Surg Social Fam HX - Past Medical History Source: patient, old records reviewed Medical history: cardiomyopathy, CHF, COPD, coronary artery disease, hypertension, liver disease, myocardial infarction, seizures, valvular heart disease, other Psychiatric history: no psych history - Past Surgical History Surgical History: heart valve replacement, orthopedic, other - Social History Smoking Status: Current every day smoker Packs per day: 2.5 PPD Smokeless Tobacco Status: No Alcohol use: heavy, recent Drug use: marijuana Current living situation: [facility] Activity Level: Independent ambulation Recent Out of Country Travel Within the Last 8 Weeks: No Exposure or Possible Exposure to Illness During Travel: No - Family History Father Race: Family Member Ethnicity: Non- Living Status: Hx Family Cardiac Disorders: Yes ([place]) Mother Race: Family Member Ethnicity: Non- Living Status: Hx Family Cardiac Disorders: Yes ([place]) Internal Medicine - H&P: Meds Unable To Obtain [Unable to Obtain] 09/25/17 [History] 3 Allergy/AdvReac Type Severity Reaction Status Date / Time No Known Allergies Allergy Verified 09/05/17 16:52 All Systems PM: A 10-system review of systems was performed and is negative for pertinent findings except as documented above in the HPI. - Constitutional Constitutional: no chills, no fever(s), no night sweats - EENT Eyes: no change in vision, no discharge, no pain, no photophobia Ears: no ear discharge, no ear pain, no tinnitus Nose, mouth and throat: no dysphagia, no nasal discharge, no neck pain, no sore throat - Breasts Breasts: as per HPI - Cardiovascular Cardiovascular ROS IM: no chest pain, no diaphoresis, no dyspnea, no lightheadedness, no palpitations, no syncope - Respiratory Respiratory: as per HPI, cough, no dyspnea, no wheezing, no excessive phlegm production - Gastrointestinal Gastrointestinal: no abdominal pain, no diarrhea, no hematemesis, no hematochezia, no melena, no nausea, no vomiting - Genitourinary Genitourinary ROS male: as per HPI - Musculoskeletal Musculoskeletal ROS IM: no numbness, no tingling - Integumentary Integumentary IM: no rash, no unusual bruising - Neurological Neurological ROS: as per HPI, confusion - Psychiatric Psychiatric: as per HPI - Endocrine Endocrine IM: as per HPI - Hematologic/Lymphatic Hematologic/Lymphatic: no easy bruising - Allergic/Immunologic Allergic/Immunologic: as per HPI - Constitutional Vitals: Temp Pulse Resp BP Pulse Ox 97.9 F 92 16 141/91 100 09/25/17 10:33 09/25/17 12:12 09/25/17 12:12 09/25/17 12:12 09/25/17 12:12 General appearance: Present: A&O X 1, no acute distress, answers questions appropriately (with multiple attempts) - Head Head exam: Present: atraumatic, normocephalic - Eye Eye exam: Present: PERRL, conjuntiva pink, sclera anicteric Pupils: Present: PERRL - ENT ENT exam: Present: normal exam - Neck Neck exam general surgery: Present: normal inspection - Respiratory Respiratory exam: Present: wheezes - Cardiovascular Cardiovascular exam: Present: RRR, +S1, +S2. Absent: diastolic murmur, gallop, rubs, systolic murmur - GI/Abdominal GI/Abdominal exam: Present: normal bowel sounds, soft, no peritoneal signs. Absent: distended, tenderness - Rectal Rectal exam: Present: deferred - Additional comments: exam deferred. - Extremities Exam Extremities exam: Present: warm, radial pulses palpable and symmetrical. Absent : calf tenderness, cyanotic, pedal edema - Back Exam Back exam: Present: normal inspection - Neurological Exam Neurological exam: Present: altered - Psychiatric Psychiatric exam: Present: flat affect - Skin Skin exam: Present: dry, intact Internal Med - H&P Results - Labs CBC & Chem 7: 09/25/17 11:16 09/25/17 11:16 Labs: Short CBC 09/25/17 Range/Units 11:16 WBC 7.6 (4.3-11.1) K/mcL Hgb 15.2 (12.9-16.9) g/dL Hct 44.4 (37.5-50.1) % Plt Count 271 (140-400) K/mcL Neutrophils # 6.3 (1.6-8.9) K/mcL BMP 09/25/17 11:16 Sodium 141 Potassium 4.4 Chloride 106 Carbon Dioxide 23 BUN 5 L Creatinine 0.81 Glucose 93 Calcium 9.5 - EKG Data EKG shows normal: sinus rhythm Rate: normal - EKG Data Prior EKG available for review: no Interpretation IM: normal EKG EKG comments: 09/25/17 13:47 EKG dated 09/25/17 shows sinus rhythm and normal ECG.
[2017-09-25] MEDS ORDERED: Ipratropium/Albuterol Neb 3 ML IH PRN (14:01)
[2017-09-25 15:52] LABS: Amylase 96 Units/L (25-125); Lipase 29 Units/L (8-78)
--- NOTE | 2017-09-25 16:20 | EEG/EMG/Oth Biometrics Report ---
EEG Procedure Report Date of procedure: 09/25/17 EEG Procedure: Routine EEG Procedure Note: This EEG was acquired with standard international 10-20 electrode placement system plus EKG recording. The background activity during this tracing was replaced by low amplitude fast activity. EEG record was contaminated by EMG activity diffusely. Sleep stages were characterized by the presence of eyeground slowing, presence of vertex waves, K complexes and sleep spindles. There are no electrographic seizures are identified during this tracing. No epileptiform discharges or focal slowing noted during this recording. Photic stimulation and hyperventilation produced no abnormalities. EKG tracing showed no significant cardiac dysrhythmia. Impression: This is normal awake and asleep EEG. Clinical correlation: Normal EEGs, however, does not exclude epilepsy. Clinical correlation is advised.
[2017-09-25] MEDS: Nicotine 21 MG PATCH.TD24 TD SCH (17:05)
[2017-09-25] MEDS: *HR* Heparin 5,000 UNIT/ML VIAL SQ SCH ×2 (17:06→20:37)
[2017-09-25] MEDS: 0.9 % Sodium Chloride 1,000 ML IVC SCH (17:06)
[2017-09-25 17:48] LABS: Bilirubin,Urine Negative (Negative); Blood,Urine Negative (Negative); Clarity,Urine Clear (Clear); Color,Urine Yellow (Yellow); Glucose,Urine (UA) Normal (Normal); Ketones,Urine Trace mg/dL (Negative); Leukocyte Esterase,Urine Negative (Negative); Nitrite,Urine Negative (Negative); Protein,Urine 30 mg/dL (Neg-Trace); Urobilinogen,Urine Normal (Normal)
[2017-09-25 17:57] LABS: Amphetamine Screen,Urine Negative ng/mL (Cutoff=1000); Bacteria,Urine Few per hpf (None-Few); Barbiturate Screen,Urine Negative ng/mL (Cutoff=200); Benzodiazepines Screen,Urine Negative ng/mL (Cutoff=200); Cannabinoid Screen,Urine Negative ng/mL (Cutoff = 50); Cocaine Screen,Urine Negative ng/mL (Cutoff= 300); Opiate Screen,Urine Negative ng/mL (Cutoff=300); Phencyclidine Screen,Urine Negative ng/mL (Cutoff=25); WBC,Urine 0-3 per hpf (0-3)
[2017-09-25] MEDS: Pantoprazole 40 MG VIAL IVP SCH (20:37)
[2017-09-26] MEDS: *HR* Heparin 5,000 UNIT/ML VIAL SQ SCH ×3 (05:07→20:24)
[2017-09-26] MEDS: 0.9 % Sodium Chloride 1,000 ML IVC SCH ×2 (05:08→18:11)
[2017-09-26 05:21] LABS: Basophils % 0.7 %; Eosinophils # 0.1 K/mcL (0.0-0.6); Eosinophils % 0.9 %; Hematocrit 40.4 % (37.5-50.1); Hemoglobin 13.9 g/dL (12.9-16.9); Immature Granulocytes % 0.3 % (0-4); Lymphocytes % 34.4 %; Mean Corpuscular HGB Conc 34.4 g/dL (31.6-35.5); Mean Corpuscular Hemoglobin 34.5 pg (28.0-33.3); Mean Corpuscular Volume 100.2 fL (83.0-100.0); Monocytes # 0.7 K/mcL (0.0-1.3); Monocytes % 11.1 %; Neutrophils # 3.1 K/mcL (1.6-8.9); Platelet Count 200 K/mcL (140-400); Red Blood Count 4.03 M/mcL (4.19-5.50); Red Cell Distribution Width 12.5 % (11.5-14.5); Segmented Neutrophils % 52.6 %
[2017-09-26 05:26] LABS: INR 1.1; Prothrombin Time 11.3 Seconds (9.4-12.1)
[2017-09-26 05:28] LABS: Activated Partial Thrombo Time 25.7 Seconds (26.0-36.0)
[2017-09-26 05:36] LABS: Alanine Aminotransferase 10 Units/L (0-55); Albumin 3.3 g/dL (3.5-5.0); Alkaline Phosphatase 58 Units/L (38-126); Aspartate Amino Transferase 27 Units/L (5-34); BUN/Creatinine Ratio 7 (6-26); Bilirubin,Total 0.8 mg/dL (0.2-1.2); Calcium 8.2 mg/dL (8.6-10.8); Carbon Dioxide 22 mEq/L (19-29); Chloride 107 mEq/L (98-109); Chol/HDL Ratio 2.4 (0-4.9); Cholesterol 175 mg/dL (< 200); Globulin 3.2 g/dL (2.4-3.5); Glucose 79 mg/dL (70-99); HDL Cholesterol 72 mg/dL (40-59); LDL Cholesterol,Calculated 87 mg/dL (0-99); Magnesium 1.7 mg/dL (1.6-2.6); Osmolality,Calculated 282 (280-300); Phosphorous 2.6 mg/dL (2.3-4.7); Sodium 138 mEq/L (136-145); Total Protein 6.5 g/dL (6.0-8.3); Triglycerides 81 mg/dL (< 150); eGFR For African Americans > 60 (> 60); eGFR For Non-African Americans > 60 (> 60)
[2017-09-26 05:39] LABS: Hemoglobin A1C 4.6 %
[2017-09-26 05:52] LABS: Blood Urea Nitrogen 5 mg/dL (8-26); Potassium 3.7 mEq/L (3.5-4.5)
[2017-09-26] MEDS: Aspirin Enteric Coated 81 MG Tablet PO SCH (08:42)
[2017-09-26] MEDS: Folic Acid 1 MG TABLET PO SCH (08:42)
[2017-09-26] MEDS: Pantoprazole 40 MG VIAL IVP SCH ×2 (08:42→20:23)
[2017-09-26] MEDS: Nicotine 21 MG PATCH.TD24 TD SCH (08:42)
--- NOTE | 2017-09-26 10:32 | Neurology - Consult Note ---
Date of Encounter: 09/26/17 Time of Encounter: 10:31 History of Present Illness Chief complaint: seizure HPI: Mr. Rose is a 52 year old male with PMH significant for alcoholism, seizure related to alcohol withdrawal on keppra who developed witnessed seizure. He was admitted to the hospital because he was still postictal after the seizure when in ER. Past Med Surg Social Fam HX - Past Medical History Medical history: cardiomyopathy, CHF, COPD, coronary artery disease, hypertension, liver disease, myocardial infarction, seizures, valvular heart disease, other Psychiatric history: no psych history - Past Surgical History Surgical History: heart valve replacement, orthopedic, other - Social History Smoking Status: Current every day smoker Packs per day: 2.5 PPD Smokeless Tobacco Status: No Alcohol use: heavy, recent Drug use: marijuana - Family History Father Race: Family Member Ethnicity: Non- Living Status: Hx Family Cardiac Disorders: Yes ([place]) Mother Race: Family Member Ethnicity: Non- Living Status: Hx Family Cardiac Disorders: Yes ([place]) Medications and Allergies Unable To Obtain [Unable to Obtain] 09/25/17 [History] 3 Allergy/AdvReac Type Severity Reaction Status Date / Time No Known Allergies Allergy Verified 09/05/17 16:52 All Systems: A 10-system review of systems was performed and is negative for pertinent findings except as documented above in the HPI. Physical Examination - Vital Signs Vital Signs: Initial Vital Signs Temp Pulse Resp BP Pulse Ox 97.9 F 101 14 147/96 98 09/25/17 10:33 09/25/17 10:33 09/25/17 10:33 09/25/17 10:33 09/25/17 10:33 Results - Laboratory Findings CBC and BMP: 09/26/17 05:00 09/26/17 05:00 Abnormal lab findings: Abnormal lab results RBC 4.03 M/mcL (4.19-5.50) L 09/26/17 05:00 MCV 100.2 fL (83.0-100.0) H 09/26/17 05:00 MCH 34.5 pg (28.0-33.3) H 09/26/17 05:00 APTT 25.7 Seconds (26.0-36.0) L 09/26/17 05:00 BUN 5 mg/dL (8-26) L 09/26/17 05:00 Calcium 8.2 mg/dL (8.6-10.8) L 09/26/17 05:00 Albumin 3.3 g/dL (3.5-5.0) L 09/26/17 05:00 Albumin/Globulin Ratio 1.0 (1.1-2.2) L 09/26/17 05:00 HDL Cholesterol 72 mg/dL (40-59) H 09/26/17 05:00 Urine Protein 30 mg/dL (Neg-Trace) H 09/25/17 17:00 Urine Ketones Trace mg/dL (Negative) H 09/25/17 17:00 Consult Discharge Plan - Plan Referrals: NONE,PCP [Primary Care Provider] -
--- NOTE | 2017-09-26 11:16 | Electrocardiograph Report ---
[address] [address] Test Date: 2017-09-25 Pat Name: Iban Rose Department: 103 Room: 3B Gender: M Promotions Intern: AM : 1965 Requested By: Nigel Parker Order Number: [id number] Reading MD: Rafa Estes MD Measurements Intervals [place] Rate: 93 P: 69 TX: 157 QRS: 81 QRSD: 84 T: 63 QT: 357 QTc: 408 Interpretive Statements SINUS RHYTHM Electronically Signed On 09-26-2017 11:14:45 EDT by Rafa Estes MD
--- NOTE | 2017-09-26 12:20 | Neurology - Consult Note ---
Date of Encounter: 09/26/17 Time of Encounter: 12:17 Assessment and Plan (1) Generalized seizure Current Visit: No Status: Acute Seizure likely related to alcohol withdrawal. If history of reduction of alcohol use is true then seizures may be related to alcohol withdrawal. Antiepileptic therapy is only optional and may not provide benefit but will at this time keep him on Keppra 1000mg bid. Continue DT prophylaxis and supportive care. Follow up with PCP. Okay to be discharged home from neurological perspective. Please call if any questions History of Present Illness Chief complaint: seizure HPI: Mr. Rose is a 52 year old male with PMH significant for alcoholism and alcohol withdrawal seizure who was admitted due to witnessed seizure and postictal state. Has known history of alcohlol abuse and had few what were thought to be alcohol withdrawal seizures. However, not sure if he was complaint with Keppra 1000mg bid. Patient is wide awake and alert. Says that he developed seizure for about a year. He has had about 10 seizures all together and he has had three seizures in the last 2 months. He says that he cut down his alcohol use as well. He no longer drinks whiskey and only 2 beer a day. EEG normal Past Med Surg Social Fam HX - Past Medical History Medical history: cardiomyopathy, CHF, COPD, coronary artery disease, hypertension, liver disease, myocardial infarction, seizures, valvular heart disease, other Psychiatric history: no psych history - Past Surgical History Surgical History: heart valve replacement, orthopedic, other - Social History Smoking Status: Current every day smoker Packs per day: 2.5 PPD Smokeless Tobacco Status: No Alcohol use: heavy, recent Drug use: marijuana - Family History Father Race: Family Member Ethnicity: Non- Living Status: Hx Family Cardiac Disorders: Yes ([place]) Mother Race: Family Member Ethnicity: Non- Living Status: Hx Family Cardiac Disorders: Yes ([place]) Medications and Allergies Unable To Obtain [Unable to Obtain] 09/25/17 [History] 3 Allergy/AdvReac Type Severity Reaction Status Date / Time No Known Allergies Allergy Verified 09/05/17 16:52 All Systems: A 10-system review of systems was performed and is negative for pertinent findings except as documented above in the HPI. Physical Examination - Vital Signs Vital Signs: Initial Vital Signs Temp Pulse Resp BP Pulse Ox 97.9 F 101 14 147/96 98 09/25/17 10:33 09/25/17 10:33 09/25/17 10:33 09/25/17 10:33 09/25/17 10:33 - Constitutional General appearance: comfortable - Neurologic Detailed motor examination: full strength in all major muscle groups Motor examination - right side: 5: deltoids, biceps, triceps, wrist flexion, wrist extension, director telemetry, hip flexors, tibialis Anterior, quadriceps, toe extension (EHL), plantarflexion Motor examination - left side: 04/05: deltoids, biceps, triceps, wrist flexion, wrist extension, hip flexors, director telemetry, quadriceps, tibialis Anterior, toe extension (EHL), plantarflexion Mental Status Examination: awake, alert, oriented to person, oriented to place, oriented to time, follows commands appropriately, answers questions appropriately, no agnosia, no aphasia, no aproxia Cranial nerve examination: PERRL, EOMI, visual marr intact, corneal reflexes brisk symmetrically, sensory to face intact, mastication intact, no facial asymmetry is present, no dysarthria, hearing is intact symmetrically, soft palate elevates bilaterally upon phonation, gag reflex intact, flexes SCM and trapezius muscles symmetrically with full power, tongue protrudes midline, no atrophy or facial fasiculations present Cerebellar examination: no dysmetria, performs finger to nose and heel to jeter symmetrically without ataxia, no gait ataxia, no truncal ataxia, no difficulty with rapid alternating movements Results - Laboratory Findings CBC and BMP: 09/26/17 05:00 09/26/17 05:00 Abnormal lab findings: Abnormal lab results RBC 4.03 M/mcL (4.19-5.50) L 09/26/17 05:00 MCV 100.2 fL (83.0-100.0) H 09/26/17 05:00 MCH 34.5 pg (28.0-33.3) H 09/26/17 05:00 APTT 25.7 Seconds (26.0-36.0) L 09/26/17 05:00 BUN 5 mg/dL (8-26) L 09/26/17 05:00 Calcium 8.2 mg/dL (8.6-10.8) L 09/26/17 05:00 Albumin 3.3 g/dL (3.5-5.0) L 09/26/17 05:00 Albumin/Globulin Ratio 1.0 (1.1-2.2) L 09/26/17 05:00 HDL Cholesterol 72 mg/dL (40-59) H 09/26/17 05:00 Urine Protein 30 mg/dL (Neg-Trace) H 09/25/17 17:00 Urine Ketones Trace mg/dL (Negative) H 09/25/17 17:00 Consult Discharge Plan - Plan Referrals: NONE,PCP [Primary Care Provider] -
--- NOTE | 2017-09-26 16:15 | Internal Med Progress Note ---
Date of Encounter: 09/26/17 Time of Encounter: 10:05 - Assessment and plan (1) Generalized seizure Current Visit: Yes Status: Acute Assessment and plan: Patient reports having a seizure where he lives in his longterm on day of admission, then 1 later in the emergency department on the same day. He reports a heavy drinking history and he was given IV Keppra for stabilization. Patient was admitted and CIWA protocol was initiated. Seizure likely due to alcohol withdrawal. Patient states he has been rapidly decreasing his alcohol intake. He says he still 2 beers a day. Says he is not always compliant with taking his antiepileptic therapy. We have restarted him on Keppra 1000 mg by mouth twice a day. Continue CIWA protocol as needed. We will monitor him again overnight to ensure effectiveness. Patient will most likely be discharged tomorrow. He is alert, oriented, answers questions appropriately. His only complaint is that he feels tired. He denies headache, blurred vision, stiff neck, chest pain, shortness of breath, abdominal pain, nausea, vomiting, or diarrhea. Continue Keppra 1000 mg by mouth twice a day Continue seizure precautions Continue CIWA protocol. (2) Alcohol withdrawal Current Visit: Yes Status: Chronic Assessment and plan: Patient reports that he has decreased his daily alcohol intake rather rapidly over time from 2 cases a day, to 2 beers as of the day of admission. Patient denies need for counseling or rehabilitation services or information. Continue CIWA protocol. Qualifiers: Complication of substance-induced condition: with delirium Qualified Code(s ): F10.231 - Alcohol dependence with withdrawal delirium (3) Alcohol abuse Current Visit: Yes Status: Chronic Assessment and plan: Plan as above. (4) Tobacco abuse Current Visit: Yes Status: Chronic Assessment and plan: Patient reports smoking approximately 2-1/2 packs per day. Patient has no interest in quitting. We will continue to encourage smoking cessation throughout admission. Nicotine patch ordered while in hospital. (5) DVT prophylaxis Current Visit: Yes Status: Acute (6) COPD (chronic obstructive pulmonary disease) Current Visit: Yes Status: Chronic Assessment and plan: History of chronic COPD. Duo nebs every 6 hours. Patient requiring supplemental oxygen at this time to maintain sats greater than 92%. Titrate as needed. Chest x-ray is ordered at this time due to increased cough and coarse rhonchi in posterior lung marr. Qualifiers: COPD type: emphysema Emphysema type: centrilobular Qualified Code(s): J43.2 - Centrilobular emphysema - Time Spent With Patient less than 15 minutes - Subjective Interval history: Patient was seen and assessed at 10:05 AM. She was alert, awake, engaging. Patient reports that he feels "down and out" he denies depression, states he just feels tired. He denies any suicidal or homicidal ideations. Patient apparently is incontinent, when I entered the room he was changing his attendant. Patient has rhonchi posteriorly in lung marr. He denies any new or worsening cough. Patient had chest x-ray on September 12, will check another one. - Constitutional Vitals: Temp Pulse Resp BP Pulse Ox 98.0 F 69 19 114/77 98 09/26/17 14:47 09/26/17 14:47 09/26/17 14:47 09/26/17 14:47 09/26/17 14:47 General appearance: Present: cooperative, A&O X 3, pleasant, no acute distress, answers questions appropriately (with multiple attempts) - Head Head exam: Present: atraumatic, normal inspection, normocephalic - Eye Eye exam: Present: normal appearance, conjuntiva pink, sclera anicteric - Neck Neck exam general surgery: Present: normal inspection, supple, trachea midline. Absent: lymphadenopathy, tenderness - Respiratory Respiratory exam: Present: decreased breath sounds, rhonchi. Absent: accessory muscle use, chest wall tenderness, rales, respiratory distress, wheezes - Cardiovascular Cardiovascular exam: Present: RRR, +S1, +S2. Absent: diastolic murmur, gallop, rubs, systolic murmur - GI/Abdominal GI/Abdominal exam: Present: normal bowel sounds, soft, no peritoneal signs. Absent: distended, hepatomegaly, tenderness - Extremities Exam Extremities exam: Present: normal capillary refill, normal inspection, warm, radial pulses palpable and symmetrical. Absent: calf tenderness, cyanotic, pedal edema, tenderness - Neurological Exam Neurological exam: Present: alert, oriented X3, no focal deficits, pronater drift. Absent: facial droop, speech deficit - Skin Skin exam: Present: dry, intact, normal color, warm. Absent: rash Internal Medicine: Result - Labs CBC & Chem 7: 09/26/17 05:00 09/26/17 05:00 Labs: Short CBC 09/26/17 Range/Units 05:00 WBC 5.9 (4.3-11.1) K/mcL Hgb 13.9 (12.9-16.9) g/dL Hct 40.4 (37.5-50.1) % Plt Count 200 (140-400) K/mcL Neutrophils # 3.1 (1.6-8.9) K/mcL BMP 09/26/17 05:00 Sodium 138 Potassium 3.7 Chloride 107 Carbon Dioxide 22 BUN 5 L Creatinine 0.76 Glucose 79 Calcium 8.2 L Liver Function 09/26/17 Range/Units 05:00 Total Bilirubin 0.8 (0.2-1.2) mg/dL AST 27 (5-34) Units/L ALT 10 (0-55) Units/L Alkaline Phosphatase 58 (38-126) Units/L Albumin 3.3 L (3.5-5.0) g/dL Urine 09/25/17 Range/Units 17:00 Urine Color Yellow (Yellow) Urine Clarity Clear (Clear) Urine pH 7.0 (5.0-8.0) pH Units Ur Specific [place] 1.020 (1.010-1.025) Urine Protein 30 H (Neg-Trace) mg/dL Urine Glucose (UA) Normal (Normal) mg/dL - ABG Interpretation ABG results: PT/INR, D-dimer PT 11.3 Seconds (9.4-12.1) 09/26/17 05:00 Consult Discharge Plan - Plan Referrals: NONE,PCP [Primary Care Provider] -
[2017-09-26] MEDS: levETIRAcetam 250 MG TABLET PO SCH (18:10)
[2017-09-26] MEDS: Thiamine (B-1) 100 MG, Folic Acid 1 MG, MVI, adult with vitamin K 10 ML in 0.9 % Sodi... IVPB SCH (18:10)
[2017-09-27] MEDS ORDERED: Nicotine 14 MG PATCH.TD24 TD ONE (00:15)
[2017-09-27] MEDS ORDERED: Haloperidol Lactate 5 MG/ML VIAL IM ONE (00:47)
[2017-09-27] MEDS: levETIRAcetam 250 MG TABLET PO SCH (05:17)
[2017-09-27] MEDS: *HR* Heparin 5,000 UNIT/ML VIAL SQ SCH (05:19)
[2017-09-27 07:16] LABS: Alanine Aminotransferase 13 Units/L (0-55); Albumin 3.8 g/dL (3.5-5.0); Albumin/Globulin Ratio 1.2 (1.1-2.2); Alkaline Phosphatase 60 Units/L (38-126); Aspartate Amino Transferase 35 Units/L (5-34); BUN/Creatinine Ratio 9 (6-26); Bilirubin,Total 0.7 mg/dL (0.2-1.2); Blood Urea Nitrogen 7 mg/dL (8-26); Calcium 9.6 mg/dL (8.6-10.8); Carbon Dioxide 24 mEq/L (19-29); Chloride 105 mEq/L (98-109); Globulin 3.2 g/dL (2.4-3.5); Glucose 89 mg/dL (70-99); Osmolality,Calculated 283 (280-300); Potassium 3.8 mEq/L (3.5-4.5); Sodium 138 mEq/L (136-145); eGFR For African Americans > 60 (> 60); eGFR For Non-African Americans > 60 (> 60)
[2017-09-27 07:43] LABS: Basophils % 0.6 %; Eosinophils # 0.1 K/mcL (0.0-0.6); Eosinophils % 1.5 %; Hematocrit 40.2 % (37.5-50.1); Hemoglobin 13.9 g/dL (12.9-16.9); Immature Granulocytes % 0.2 % (0-4); Lymphocytes # 2.6 K/mcL (0.6-4.6); Lymphocytes % 39.9 %; Mean Corpuscular HGB Conc 34.6 g/dL (31.6-35.5); Mean Corpuscular Hemoglobin 34.5 pg (28.0-33.3); Mean Corpuscular Volume 99.8 fL (83.0-100.0); Mean Platelet Volume 11.2 fL (9.4-12.4); Monocytes # 0.5 K/mcL (0.0-1.3); Monocytes % 7.7 %; Neutrophils # 3.2 K/mcL (1.6-8.9); Platelet Count 203 K/mcL (140-400); Red Blood Count 4.03 M/mcL (4.19-5.50); Red Cell Distribution Width 12.3 % (11.5-14.5); Segmented Neutrophils % 50.1 %
[2017-09-27 08:37] VITALS: BP 103/72
[2017-09-27] MEDS: Folic Acid 1 MG TABLET PO SCH (08:44)
[2017-09-27] MEDS: Aspirin Enteric Coated 81 MG Tablet PO SCH (08:44)
[2017-09-27] MEDS: Pantoprazole 40 MG VIAL IVP SCH (08:45)
--- NOTE | 2017-09-27 10:06 | Discharge Summary ---
Date of Encounter: 09/27/17 Time of Encounter: 08:45 - Discharge Diagnosis (1) Generalized seizure Priority: Primary Status: Chronic Comments: Patient reports having a seizure where he lives in his shelter on day of admission, then 1 later in the emergency department on the same day. He reports a heavy drinking history and he was given IV Keppra for stabilization. Patient was admitted and CIWA protocol was initiated. Seizure likely due to alcohol withdrawal. Patient states he has been rapidly decreasing his alcohol intake. He says he still 2 beers a day. Says he is not always compliant with taking his antiepileptic therapy. We have restarted him on Keppra 1000 mg by mouth twice a day. Continue CIWA protocol as needed. We will monitor him again overnight to ensure effectiveness. He is alert, oriented , answers questions appropriately. He denies headache, blurred vision, stiff neck, chest pain, shortness of breath, abdominal pain, nausea, vomiting, or diarrhea. Patient had normal asleep and awake EEG. Head CT negative for acute intracranial abnormality. Brain MRI negative. Continue Keppra 1000 mg by mouth twice a day Head CT 09/25/17 10:37 IMPRESSION: No acute intracranial abnormality. Mild cerebral atrophy advanced for patient age. Slight to mild chronic ischemic white matter changes probably appropriate for age. No significant change from the prior study. D/ / Davonte Melchor MD / Davonte Melchor MD Interpreting Provider: Davonte Melchor MD Brain MRI 09/25/17 13:24 IMPRESSION: No intracranial mass identified. D/ / Lucas Yi MD / Lucas Yi MD Interpreting Provider: Lucas Yi MD (2) Alcohol withdrawal Priority: Secondary Status: Acute Comments: Patient reports that he has decreased his daily alcohol intake rather rapidly over time from 2 cases a day, to 2 beers as of the day of admission. Patient denies need for counseling or rehabilitation services or information. Qualifiers: Complication of substance-induced condition: with delirium Qualified Code(s ): F10.231 - Alcohol dependence with withdrawal delirium (3) Alcohol abuse Priority: Secondary Status: Chronic Comments: Plan as above. (4) Tobacco abuse Priority: Secondary Status: Chronic Comments: Patient denies desire for smoking cessation. He says he cannot wait to be discharged he can go buy a pack of cigarettes. We discussed benefits of smoking cessation, he does not want any information, medication, patches etc. (5) DVT prophylaxis Priority: Secondary Status: Acute Comments: Patient has been ambulatory. (6) COPD (chronic obstructive pulmonary disease) Priority: Secondary Status: Chronic Comments: History of chronic COPD. Pt with worsening cough, congestion. CXR ordered yesterday, negative. Pt will continue home medications and inhalers as needed. Pt is not interested in smoking cessation. Chest X-Ray 09/26/17 16:14 IMPRESSION: No acute cardiopulmonary process. D/ / 09/26/2017 16:57:25 Joshua Barbosa MD / meagan Interpreting Provider: Joshua Barbosa MD Qualifiers: COPD type: emphysema Emphysema type: centrilobular Qualified Code(s): J43.2 - Centrilobular emphysema - Discharge Medications Prescriptions: LevETIRAcetam [Keppra] 1,000 mg PO BID #60 tablet Home Medications: LevETIRAcetam [Keppra] 1,000 mg PO BID #60 tablet 09/27/17 [Rx] Allergies/Adverse Reactions: 3 Allergy/AdvReac Type Severity Reaction Status Date / Time No Known Allergies Allergy Verified 09/05/17 16:52 Date of admission: 09/25/17 13:55 Primary care physician: PCP NONE Consults: 09/25/17 14:20 Consult to Nutrition [CONS] Routine Comment: Consulting Provider: NUTRITION Reason for Dietary Consult: PO Supplementation Other:: D/T hx of alcohol abuse 09/25/17 16:20 Consult to Weatherization Specialist [CONS] Routine Reason for SW Consult: ETOH 09/25/17 16:22 Consult to Interpret Exam [CONS] Routine Consulting Provider: Charisma Euceda Consult to Interpret Exam: Interpret EEG - Patient Status Disposition: Home, Self-Care Condition: Good Functional capacity at discharge: independent ambulation Overall status at discharge: patient is back to baseline - Discharge Instructions Follow Up With: NONE,PCP [Primary Care Provider] - Additional Instructions: Please follow-up with her primary care provider in the next 7-10 days. I have sent her prescription for Keppra to [facility]. You will need to follow-up with primary care for a refill. Resume your normal activities as tolerated. Please try to stop smoking and drinking alcohol. Return to the emergency department as needed for any other problems or concerns , or if symptoms return or worsen. - Diet and Activity Activity: increase activity as tolerated Diet: advance to your usual diet Hospital course: Mr. Rose is a 52 year old male with history of alcoholism who presented to the emergency department with seizure most likely related to alcohol withdrawal. He had a witnessed seizure at his shelter, as well as in the emergency department. He did have postictal state. Patient reports that he had decreased his alcohol consumption significantly in the last few days. Patient reports that he is not always compliant with taking his antiepileptic medications. He has been started on Keppra 1000 mg twice a day. He is not interested in smoking cessation, and he has not had a pneumonia vaccine, he is not interested in flu vaccine. His vital signs are stable, his labs are within normal limits. Patient is appropriate for discharge. Please see assessment and plan per hospital course. Time spent discussing smoking cessation with patient: 3 to 10 minutes - Time Spent with Patient Total time spent providing and/or coordinating discharge services: Less than 30 minutes - Constitutional Vitals: Temp Pulse Resp BP Pulse Ox 97.5 F L 79 16 103/72 97 09/27/17 08:36 09/27/17 08:36 09/27/17 08:36 09/27/17 08:36 09/27/17 08:36 General appearance: Present: cooperative, A&O X 3, pleasant, no acute distress, answers questions appropriately (with multiple attempts) - Head Head exam: Present: atraumatic, normal inspection, normocephalic - Eye Eye exam: Present: conjuntiva pink, sclera anicteric - Neck Neck exam general surgery: Present: supple, trachea midline. Absent: lymphadenopathy - Respiratory Respiratory exam: Present: CTAB. Absent: accessory muscle use, rales, rhonchi, wheezes - Cardiovascular Cardiovascular exam: Present: RRR, +S1, +S2. Absent: diastolic murmur, gallop, rubs, systolic murmur - GI/Abdominal GI/Abdominal exam: Present: normal bowel sounds, soft. Absent: distended, hepatomegaly, tenderness - Extremities Exam Extremities exam: Present: normal capillary refill, normal inspection, warm, radial pulses palpable and symmetrical. Absent: calf tenderness, cyanotic, pedal edema, tenderness - Neurological Exam Neurological exam: Present: alert, oriented X3, no focal deficits, strengths equal and symetr throughout. Absent: facial droop, speech deficit - Skin Skin exam: Present: dry, intact, normal color, warm. Absent: rash
== END 2017-09-27 12:14 | disposition home or self-care (01) ==
LOC: 3BNU 10:31 → EMEROO 10:31 → 3BNU 14:53
PROVIDERS: ADMIT Registered Nurse; ATTEND Registered Nurse

== ENCOUNTER 2017-10-07 11:26 | Inpatient (IN) ==
[2017-10-07] MEDS ORDERED: 0.9 % Sodium Chloride 1,000 ML IVC ONE (11:35)
[2017-10-07] MEDS ORDERED: Folic Acid 1 MG in D5% in Water 50 ML IVPB STA (11:37)
[2017-10-07] MEDS ORDERED: Thiamine (B-1) 100 MG in D5% in Water 50 ML IVPB STA (11:38)
[2017-10-07] MEDS ORDERED: Folic Acid 1 MG, Thiamine (B-1) 100 MG in D5% in Water 50 ML IVPB STA (11:52)
[2017-10-07] MEDS ORDERED: *HR* LORazepam 2 MG/ML VIAL IVP ONE ×2 (11:53→12:13)
--- NOTE | 2017-10-07 12:03 | Emergency Department Note ---
Disposition Clinical Impression: Generalized seizure, At risk for fall due to comorbid condition Alcohol withdrawal seizure Qualifiers: Complication of substance-induced condition: uncomplicated Qualified Code(s): F10.230 - Alcohol dependence with withdrawal, uncomplicated Alcohol withdrawal Qualifiers: Complication of substance-induced condition: uncomplicated Qualified Code(s): F10.230 - Alcohol dependence with withdrawal, uncomplicated Disposition: Admitted As Inpatient Condition: Fair Time of Disposition: 13:46 Seizure HPI - General Chief Complaint: ED Fall Stated Complaint: seizure/fall Time Seen by Provider: 10/07/17 11:33 Source: patient, EMS Mode of arrival: EMS Limitations: no limitations Nursing Notes Reviewed: Yes Vital Signs Reviewed: Yes - History of Present Illness HPI Narrative: 52-year-old male presents to the ED via EMS after he was found on the ground behind an establishment said to be having a seizure. Patient does have a seizure disorder. When EMS arrived they said he was not postictal. They said he did have a laceration on his forehead and it looked like he did fall. Patient is noted to be a chronic alcoholic. Talk to the patient he states that he did not drink but he does not remember. He does not remember falling or hitting his head. He is not complaining of any pain at this time. Patient does not take any medications for his seizures. Patient does not remember the last time he had a seizure. Patient is not having any other symptoms he slammed no headache, blurry vision, nausea or vomiting, chest pain, shortness of breath, abdominal pain, constipation or diarrhea or pain with urination or pain or tingling going down the arms and legs. There is no numbness. There is no change in mental status. Patient has no other complaints at this time. - Related Data Previous Rx's Medication Instructions Recorded LevETIRAcetam [Keppra] 1,000 mg PO BID #60 tablet 09/27/17 Allergies Allergy/AdvReac Type Severity Reaction Status Date / Time No Known Allergies Allergy Verified 09/05/17 16:52 Review of Systems: 10 point review of systems done and negative unless otherwise stated in history of present illness. All systems ED: reviewed and negative except as stated. Review of Systems: As Per HPI Past Medical History - Past Medical History Attestation: Yes The following information was validated with the patient. Medical history: Reports: cardiomyopathy, CHF, COPD, coronary artery disease, hypertension, liver disease, myocardial infarction, seizures, valvular heart disease, other Surgical history: Reports: heart valve replacement, orthopedic, other Psychiatric history: Reports: no psych history - Social History Smoking Status: Current every day smoker Smokeless Tobacco Status: No Alcohol use: Reports: heavy, recent Drug use: Reports: marijuana Physical Exam - General Limitations: no limitations General appearance: alert - Head Head exam: atraumatic, normocephalic, normal inspection ( in the frontal portion of the head lisy small hematoma around that area.), other - Eye Eye exam: Present: normal appearance, PERRL, EOMI - ENT ENT exam: normal exam, normal oropharynx, mucous membranes moist - Neck Neck exam: Present: normal inspection, full ROM, trachea midline - Chest Chest inspection: Present: normal inspection, symmetric chest wall rise - Respiratory Respiratory exam: Present: wheezes - Expanded Respiratory Exam Location: rhonchi: Left, Right, Upper, Lower - Cardiovascular Cardiovascular exam: Present: regular rate, normal rhythm, normal heart sounds - Abdominal Exam Abdominal exam: Present: soft, Non-Tender. Absent: tenderness, distention, guarding, rebound, rigidity - Extremities Exam Extremities exam: Present: normal inspection, full ROM. Absent: tenderness, pedal edema - Back Exam Back exam: Present: normal inspection, full ROM. Absent: tenderness, CVA tenderness (R), CVA tenderness (L) - Neurological Exam Neurological exam: Present: alert, CN II-XII intact, motor sensory deficit - Expanded Neurological Exam Motor strength - LUE: 5/5 Motor strength - RUE: 5/5 Motor strength - LLE: 5/5 Motor strength - RLE: 5/5 Upper motor neuron exam: giselle neglect: Absent bilaterally, pronator drift: Absent bilaterally, sensory extinction: Absent bilaterally Sensory exam upper extremity: light touch: Normal Sensory exam lower extremity: light touch: Normal Coma Scale Eye Opening: Spontaneous Coma Scale Motor Response: Obeys Commands Coma Scale Verbal Response: Oriented Coma Scale Total: 15 - Skin Skin exam: Present: warm, dry, intact, normal color Course Course Narrative: 52-year-old male presents to the ED after a fall and also seizure-like activity. We will get basic labs including CBC, CMP, lipase and lactate. We will also get urinalysis. We will get a CT of his head and neck to rule out any pathology. Chest x-rays his lung exam did sound like rails. We gave him folate and thiamin to help with his chronic alcoholism. Patient is okay with this plan. - Reevaluation(s) Reevaluation #1: Was witnessed to have a seizure while in bed we gave him 2 mg Ativan he did come out of the seizure he was postictal but now is doing better he is currently on nonrebreather and now satting at 100%. Vital Signs Temperature 97.5 F L 10/07/17 11:29 Pulse Rate 101 10/07/17 11:29 Respiratory Rate 16 10/07/17 11:29 Blood Pressure 137/105 10/07/17 11:29 O2 Sat by Pulse Oximetry 94 10/07/17 11:29 Temperature 97.5 F L 10/07/17 11:29 Pulse Rate 87 10/07/17 13:36 Respiratory Rate 16 10/07/17 13:36 Blood Pressure 138/89 10/07/17 13:36 O2 Sat by Pulse Oximetry 96 10/07/17 13:36 Oxygen Delivery Oxygen Delivery Room Air Seizure - MDM Narrative Medical decision making narrative: 52-year-old male presents to the ED for seizures in a fall. Patient supposedly had a seizure prior to arrival and was found on the ground. EMS said that he was not postictal. Patient supposedly has a history of seizures but does not take any medications. Patient is in chronic alcoholic states his last drink was yesterday at 9 AM. He said he did not drink at all today. We did CT of his head and neck which came back negative. We also did basic labs including ethanol level. CBC and CMP are both normal and he denied any alcohol in his system. While here he did have 1 seizure we did give him 2 mg of Ativan he did not stop the seizure after that. Seizure pads were placed on the bed. We did give him folate and thiamine due to the chronic alcoholism. Also given 1 L of fluid. Due to seizures most likely coming from withdrawal from alcohol will admit the patient under [facility] protocol. Spoke with the hospitalist who agreed to admit the patient Dr. Ambriz. Patient is okay with the admission. Patient admitted in stable condition. Cervical Spine CT 10/07/17 11:35 IMPRESSION: No acute abnormality of the cervical spine. D/ / Rob Vicente MD / Rob Vicente MD Interpreting Provider: Rob Vicente MD Head CT 10/07/17 11:35 IMPRESSION: 1. No acute intracranial abnormality. 2. Anterior soft tissue swelling. No fracture. D/ / Rob Vicente MD / Rob Vicente MD Interpreting Provider: Rob Vicente MD Chest X-Ray 10/07/17 11:55 IMPRESSION: No acute cardiopulmonary disease. D/ / Rob Vicente MD / Rob Vicente MD Interpreting Provider: Rob Vicente MD - Medical Records Medical records reviewed: Yes I reviewed the patient's medical records. - Lab Data Lab results reviewed: Yes I reviewed the patient's lab results. Result diagrams: 10/07/17 12:54 10/07/17 12:54 Lab Results 10/07/17 10/07/17 10/07/17 Range/Units 12:51 12:54 12:54 WBC 7.6 (4.3-11.1) K/mcL RBC 4.24 (4.19-5.50) M/mcL Hgb 14.2 (12.9-16.9) g/dL Hct 42.3 (37.5-50.1) % MCV 99.8 (83.0-100.0) fL MCH 33.5 H (28.0-33.3) pg MCHC 33.6 (31.6-35.5) g/dL RDW 13.0 (11.5-14.5) % Plt Count 174 (140-400) K/mcL MPV 10.3 (9.4-12.4) fL Immature Gran % 0.4 (0-4) % Seg Neutrophils % 83.5 % Lymphocytes % 8.9 % Monocytes % 6.2 % Eosinophils % 0.3 % Basophils % 0.7 % Neutrophils # 6.4 (1.6-8.9) K/mcL Lymphocytes # 0.7 (0.6-4.6) K/mcL Monocytes # 0.5 (0.0-1.3) K/mcL Eosinophils # 0.0 (0.0-0.6) K/mcL Basophils # 0.1 (0.0-0.2) K/mcL Sodium 142 (136-145) mEq/L Potassium 4.2 (3.5-4.5) mEq/L Chloride 107 (98-109) mEq/L Carbon Dioxide 21 (19-29) mEq/L BUN 7 L (8-26) mg/dL Creatinine 0.73 (0.72-1.25) mg/dL Est GFR ( Amer) > 60 (> 60) Est GFR (Non-Af Amer) > 60 (> 60) BUN/Creatinine Ratio 10 (6-26) Glucose 103 H (70-99) mg/dL POC Glucose 99 H (58-89) Calculated Osmolality 292 (280-300) Calcium 8.9 (8.6-10.8) mg/dL Total Bilirubin 0.7 (0.2-1.2) mg/dL AST 34 (5-34) Units/L ALT 16 (0-55) Units/L Alkaline Phosphatase 53 (38-126) Units/L Serum Total Protein 6.6 (6.0-8.3) g/dL Albumin 3.5 (3.5-5.0) g/dL Globulin 3.1 (2.4-3.5) g/dL Albumin/Globulin Ratio 1.1 (1.1-2.2) Ethyl Alcohol < 10 (0-10) mg/dL - Radiology Data Radiology results reviewed: Yes I reviewed the patient's radiology results. - EKG Data EKG attestation: Yes I reviewed and interpreted this EKG. EKG results narrative: EKG done at 1133 reviewed by myself and the attending shows normal sinus rhythm at a rate of 95, WI interval 133, QRS 88, QTC 414 with a normal axis. There is no acute ST changes. No acute T-wave changes. No signs of any heart strain or hypertrophy no signs of heart block. No signs of WPW/Brugada syndrome. Last EKG was compared with was done 09/25/17 also normal sinus rhythm with no acute changes. Attestation Statement - Attestation Attestation: I, Dario Lucero DO, examined this patient [id number] and my medical decision-making was reviewed with Dr. Hernán Nogueira, Resident Physician. I agree with the documented findings, disposition and treatment plan as described except to the extent set forth below. Please see my progress notes for details. 52-year-old chronic alcoholic presents with seizure-like activity 2 events. EMS noted a seizure prior to arrival with a fall closed head injury. Patient also had one seizure in the emergency room a focal [id number] episodes. He responded to Ativan and then came back to baseline within several minutes to half hour. Vital signs are reviewed and otherwise a normal. Patient has multiple medical issues including COPD and cardiac disease. Thiamine and Carrera given at this time Accu-Chek collected. Ativan started. Concern is noted for withdrawal seizure secondary to alcohol abuse. Screening workup and evaluation to be completed at this time. Patient will most likely need admission after CT imaging of the head and neck are completed and chest x-ray. Patient has had 2 witnessed seizures here today with unknown etiology in a closed head injury. Disposition pending workup and treatment course. See detailed documentation of physical exam, medical intervention, medical decision making and disposition and the resident physician's note 1400 Patient found to have negative alcohol at this time. Labs otherwise unremarkable. CT of the head and neck are negative. Patient will be admitted for what appears to be withdrawal seizure and 2 episodes today a closed head injury.
[2017-10-07] MEDS ORDERED: *HR* LORazepam 2 MG/ML VIAL ONE (12:15)
[2017-10-07 13:05] LABS: Basophils # 0.1 K/mcL (0.0-0.2); Basophils % 0.7 %; Eosinophils % 0.3 %; Hematocrit 42.3 % (37.5-50.1); Hemoglobin 14.2 g/dL (12.9-16.9); Immature Granulocytes % 0.4 % (0-4); Lymphocytes # 0.7 K/mcL (0.6-4.6); Lymphocytes % 8.9 %; Mean Corpuscular HGB Conc 33.6 g/dL (31.6-35.5); Mean Corpuscular Hemoglobin 33.5 pg (28.0-33.3); Mean Corpuscular Volume 99.8 fL (83.0-100.0); Mean Platelet Volume 10.3 fL (9.4-12.4); Monocytes # 0.5 K/mcL (0.0-1.3); Monocytes % 6.2 %; Neutrophils # 6.4 K/mcL (1.6-8.9); Platelet Count 174 K/mcL (140-400); Red Blood Count 4.24 M/mcL (4.19-5.50); Segmented Neutrophils % 83.5 %
[2017-10-07 13:18] LABS: Alanine Aminotransferase 16 Units/L (0-55); Albumin 3.5 g/dL (3.5-5.0); Albumin/Globulin Ratio 1.1 (1.1-2.2); Alkaline Phosphatase 53 Units/L (38-126); Aspartate Amino Transferase 34 Units/L (5-34); BUN/Creatinine Ratio 10 (6-26); Bilirubin,Total 0.7 mg/dL (0.2-1.2); Blood Urea Nitrogen 7 mg/dL (8-26); Calcium 8.9 mg/dL (8.6-10.8); Carbon Dioxide 21 mEq/L (19-29); Chloride 107 mEq/L (98-109); Ethanol < 10 mg/dL (0-10); Globulin 3.1 g/dL (2.4-3.5); Glucose 103 mg/dL (70-99); Osmolality,Calculated 292 (280-300); Potassium 4.2 mEq/L (3.5-4.5); Sodium 142 mEq/L (136-145); Total Protein 6.6 g/dL (6.0-8.3); eGFR For African Americans > 60 (> 60); eGFR For Non-African Americans > 60 (> 60)
[2017-10-07] MEDS ORDERED: Naloxone 0.4 MG/ML INJ IVP PRN (14:12)
[2017-10-07] MEDS ORDERED: diazePAM 10 MG/2 ML SYRINGE IVP PRN ×5 (14:18)
[2017-10-07] MEDS ORDERED: *HR* OxyCODONE/APAP 5/325 TABLET PO PRN (14:24)
--- NOTE | 2017-10-07 14:24 | Internal Med History&Physical ---
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 transplanted heart: [place] heart Associated angina: angina presence unspecified Qualified Code(s): I25.10 - Atherosclerotic heart disease of [place] coronary artery without angina pectoris Internal Medicine - H&P: HPI Chief complaint: seizure History of present illness: Mr. Rose is a 52 year old male who presents with a witnessed seizure. Patient is in postictal state with limited history. But based upon collateral reports and limited patient history he does have a history of CAD status post CABG. He also reported a history of seizure several years ago but is not on AED. He is unable to recall his medicine list but he is on pain medicines, heart medicines, Valium per patient report. He tells me that he drinks 2 beers / day , last drink yesterday morning. He was found down on the streets and was taken to the ED. In the ED, he developed a witnessed and what was reported as a grand mal seizure ? lasting 1 min that got better with abortive valium. He is currently post-ictal and medicated. He was able to tell me that he has another episode of seizure 2 days ago at home. EKG personally reviewed with rate of 95, normal sinus. XR/XR chest 1V portable IMPRESSION: No acute cardiopulmonary disease. CT/CT head/brain wo con IMPRESSION: 1. No acute intracranial abnormality. 2. Anterior soft tissue swelling. No fracture. CT/CT cervical spine wo con IMPRESSION: No acute abnormality of the cervical spine. Past Med Surg Social Fam HX - Past Medical History Medical history: cardiomyopathy, CHF, COPD, coronary artery disease, hypertension, liver disease, myocardial infarction, seizures, valvular heart disease, other Psychiatric history: no psych history - Past Surgical History Surgical History: heart valve replacement, orthopedic, other - Social History Smoking Status: Current every day smoker Smokeless Tobacco Status: No Alcohol use: heavy, recent Drug use: marijuana - Family History Father Family Member Ethnicity: Non- Living Status: Hx Family Cardiac Disorders: Yes ([place]) Mother Family Member Ethnicity: Non- Living Status: Hx Family Cardiac Disorders: Yes ([place]) Internal Medicine - H&P: Meds LevETIRAcetam [Keppra] 1,000 mg PO BID #60 tablet 09/27/17 [Rx] 3 Allergy/AdvReac Type Severity Reaction Status Date / Time No Known Allergies Allergy Verified 09/05/17 16:52 All Systems PM: A 10-system review of systems was performed and is negative for pertinent findings except as documented above in the HPI. - Constitutional Vitals: Temp Pulse Resp BP Pulse Ox 97.5 F L 87 16 138/89 96 10/07/17 11:29 10/07/17 13:36 10/07/17 13:36 10/07/17 13:36 10/07/17 13:36 Internal Med - H&P Results - Labs CBC & Chem 7: 10/07/17 12:54 10/07/17 12:54
[2017-10-07] MEDS ORDERED: levETIRAcetam 750 MG in 0.9 % Sodium Chloride 100 ML IVPB SCH (15:00)
[2017-10-07] MEDS: 0.9 % Sodium Chloride 1,000 ML IVC SCH (15:52)
[2017-10-07] MEDS: levETIRAcetam 750 MG in 0.9 % Sodium Chloride 100 ML IVPB SCH (15:53)
--- NOTE | 2017-10-07 16:36 | Electrocardiograph Report ---
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
--- NOTE | 2017-10-07 16:40 | Neurology - Consult Note ---
Date of Encounter: 10/07/17 Time of Encounter: 16:37 Assessment and Plan (1) Generalized seizure Current Visit: Yes Status: Chronic It is quite possible that this gentleman may be experiencing alcohol withdrawal seizures, however he does have a tremendous amount of cortical atrophy likely due to excessive alcohol abuse over the years. This in and of itself can cause seizures. I recommend that he should be on an antiepileptic medication indefinitely. Apparently he was supposedly taking levetiracetam and so I will check a level. Certainly this gentleman will likely continue to have problems with compliance) seizures whether or not due to alcohol withdrawal or otherwise. Further recommendations will be made pending the levetiracetam level. I do not believe is necessary to order EEGs or other testing at this juncture. History of Present Illness HPI: Mr. Rose is a 52 year old male who is being seen for neurologic evaluation secondary to seizure. He has a long history of ethanol abuse, was recently seen here at [facility] at the end of September for seizures. At that time he was seen by my associate Dr. Escoto. He is a chronic alcoholic, the question is whether or not he is having withdrawal seizures or whether or not he is developing epilepsy. I did review the MRI scan of his brain completed on 09/25/2017 which revealed significant cortical atrophy particularly considering he is only 52. He looks much older than his stated age. CT scan of the brain completed today reveals significant cortical atrophy however no evidence of acute infarct, hemorrhage, mass effect. He was last year he had an EEG performed and read by Dr. Escoto and it was normal. Apparently at some point he was started on levetiracetam and however has been noncompliant with taking it as it was subtherapeutic when his level was checked at the time of last admission. He was sleeping when I entered the room however was easily arousable to voice and was able to follow commands. He does seem a bit lethargic and perhaps postictal. He has had several lacerations and bruises on his forehead apparently he fell with this episode of seizure. Past Med Surg Social Fam HX - Past Medical History Medical history: cardiomyopathy, CHF, COPD, coronary artery disease, hypertension, liver disease, myocardial infarction, seizures, valvular heart disease, other Psychiatric history: no psych history - Past Surgical History Surgical History: heart valve replacement, orthopedic, other - Social History Smoking Status: Current every day smoker Smokeless Tobacco Status: No Alcohol use: heavy, recent Drug use: marijuana - Family History Father Family Member Ethnicity: Non- Living Status: Hx Family Cardiac Disorders: Yes ([place]) Mother Family Member Ethnicity: Non- Living Status: Hx Family Cardiac Disorders: Yes Medications and Allergies LevETIRAcetam [Keppra] 1,000 mg PO BID #60 tablet 09/27/17 [Rx] 3 Allergy/AdvReac Type Severity Reaction Status Date / Time No Known Allergies Allergy Verified 09/05/17 16:52 All Systems: A 10-system review of systems was performed and is negative for pertinent findings except as documented above in the HPI. Review of Systems: 10 point review of systems is consistent with history of present illness and is otherwise negative. Physical Examination - Vital Signs Vital Signs: Initial Vital Signs Temp Pulse Resp BP Pulse Ox 97.5 F L 101 16 137/105 94 10/07/17 11:29 10/07/17 11:29 10/07/17 11:29 10/07/17 11:29 10/07/17 11:29 - Neurologic Detailed motor examination: full strength in all major muscle groups Motor examination - right side: 5/5: deltoids, biceps, triceps, wrist flexion, wrist extension, metalworking specialist, hip flexors, tibialis Anterior, quadriceps, toe extension (EHL), plantarflexion Motor examination - left side: 5/5: deltoids, biceps, triceps, wrist flexion, wrist extension, hip flexors, metalworking specialist, quadriceps, tibialis Anterior, toe extension (EHL), plantarflexion Reflexes: Biceps: 1+, Triceps: 1+, Brachioradialis: 1+, Patella: 1+, Achilles: 1 + Mental Status Examination: oriented to person, oriented to place, oriented to time, follows commands appropriately, answers questions appropriately, no agnosia, no aphasia, no aproxia, drowsy Cranial nerve examination: PERRL, EOMI, visual marr intact, corneal reflexes brisk symmetrically, sensory to face intact, mastication intact, no facial asymmetry is present, no dysarthria, hearing is intact symmetrically, soft palate elevates bilaterally upon phonation, gag reflex intact, flexes SCM and trapezius muscles symmetrically with full power, tongue protrudes midline, no atrophy or facial fasiculations present Cerebellar examination: no dysmetria, performs finger to nose and heel to jeter symmetrically without ataxia, no gait ataxia, no truncal ataxia, no difficulty with rapid alternating movements Results - Laboratory Findings CBC and BMP: 10/07/17 12:54 10/07/17 12:54 Abnormal lab findings: Abnormal lab results MCH 33.5 pg (28.0-33.3) H 10/07/17 12:54 BUN 7 mg/dL (8-26) L 10/07/17 12:54 Glucose 103 mg/dL (70-99) H 10/07/17 12:54 POC Glucose 99 (58-89) H 10/07/17 12:51 Consult Discharge Plan - Plan Referrals: NONE,PCP [Primary Care Provider] -
[2017-10-08] MEDS: levETIRAcetam 750 MG in 0.9 % Sodium Chloride 100 ML IVPB SCH (04:20)
[2017-10-08] MEDS: 0.9 % Sodium Chloride 1,000 ML IVC SCH ×2 (04:21→08:02)
[2017-10-08 05:16] LABS: Basophils # 0.1 K/mcL (0.0-0.2); Basophils % 0.7 %; Eosinophils # 0.1 K/mcL (0.0-0.6); Eosinophils % 1.3 %; Hematocrit 43.3 % (37.5-50.1); Hemoglobin 14.9 g/dL (12.9-16.9); Immature Granulocytes % 0.3 % (0-4); Lymphocytes # 2.2 K/mcL (0.6-4.6); Lymphocytes % 32.4 %; Mean Corpuscular HGB Conc 34.4 g/dL (31.6-35.5); Mean Corpuscular Hemoglobin 34.3 pg (28.0-33.3); Mean Corpuscular Volume 99.8 fL (83.0-100.0); Mean Platelet Volume 10.5 fL (9.4-12.4); Monocytes # 0.7 K/mcL (0.0-1.3); Monocytes % 10.3 %; Neutrophils # 3.7 K/mcL (1.6-8.9); Platelet Count 149 K/mcL (140-400); Red Blood Count 4.34 M/mcL (4.19-5.50); Red Cell Distribution Width 12.5 % (11.5-14.5)
[2017-10-08 05:31] LABS: BUN/Creatinine Ratio 11 (6-26); Bilirubin,Total 0.8 mg/dL (0.2-1.2); Blood Urea Nitrogen 7 mg/dL (8-26); Calcium 8.5 mg/dL (8.6-10.8); Carbon Dioxide 21 mEq/L (19-29); Chloride 106 mEq/L (98-109); Glucose 77 mg/dL (70-99); Magnesium 1.7 mg/dL (1.6-2.6); Osmolality,Calculated 279 (280-300); Potassium 3.6 mEq/L (3.5-4.5); Sodium 136 mEq/L (136-145); eGFR For African Americans > 60 (> 60); eGFR For Non-African Americans > 60 (> 60)
[2017-10-08 05:32] LABS: Alanine Aminotransferase 13 Units/L (0-55); Albumin 3.2 g/dL (3.5-5.0); Albumin/Globulin Ratio 1.1 (1.1-2.2); Alkaline Phosphatase 51 Units/L (38-126); Aspartate Amino Transferase 27 Units/L (5-34); Total Protein 6.2 g/dL (6.0-8.3)
[2017-10-08] MEDS ORDERED: *HR* Enoxaparin 40 MG/0.4 ML SYRINGE SQ SCH (06:00)
--- NOTE | 2017-10-08 09:21 | Discharge Summary ---
Date of Encounter: 10/08/17 Time of Encounter: 08:25 - Discharge Diagnosis (1) Generalized seizure Priority: Primary Status: Chronic Comments: Patient was brought to the emergency department by EMS after he was found in the street. In the emergency department he had a witnessed, reported grand mal seizure lasting approximately 1 minute that was resolved with Valium. When he was seen by the admitting physician he was postictal. He reports another episode of seizures at home 2 days prior to admission. He has been seen by neurology again this visit. Dr. Viera suggested that on MRI from 09/25/17, he has a tremendous amount of cortical atrophy, which could be the cause of seizures. He recommended the patient be on antiepileptic medication indefinitely. Keppra level has been received by the lab result is pending. This is the third time this year have seen this patient for generalized seizures. Each time he has been given a prescription for Keppra. I spoke with the pharmacist at [facility] who states that the prescriptions have been E prescribed, and they have had to put the medications back on the shelf due to patient never picking them up. Patient reports compliance with taking Keppra and states that he takes 17 medications daily and reports that he has been "eating his pills like I'm supposed to." He reports he gets his medications filled at [facility], [facility] has not filled any medications for him since prior to when I saw him the first time. When questioned again, he states that he uses [facility]. I called [facility] pharmacy, they have never filled a prescription for him. On discharge, patient will be given a hard copy prescription this time. I discussed alcohol cessation with him, he rolled his eyes and told me no. Patient has no white count, he is afebrile, pulse is within normal limits, respirations are within normal limits, he is normotensive. He is not requiring supple oxygen. There are no signs of infection. Head CT 10/07/17 11:35 IMPRESSION: 1. No acute intracranial abnormality. 2. Anterior soft tissue swelling. No fracture. D/ / Rob Vicente MD / Rob Vicente MD Interpreting Provider: Rob Vicente MD Chest X-Ray 10/07/17 11:55 IMPRESSION: No acute cardiopulmonary disease. D/ / Rob Vicente MD / Rob Vicente MD Interpreting Provider: Rob Vicente MD (2) Alcohol withdrawal Priority: Secondary Status: Acute Comments: Patient is not requiring any medication for the CIWA protocol. Patient does not have any tremors, diaphoresis, anxiety. He reports to me he does not remember when his last drink was. Qualifiers: Complication of substance-induced condition: with delirium Qualified Code(s ): F10.231 - Alcohol dependence with withdrawal delirium (3) Alcohol abuse Priority: Secondary Status: Chronic Comments: Patient admits to chronic alcoholism, states he has been drinking for 10+ years. He reports drinking daily, "whenever I get my hands on". I discussed cessation with him, he shook his head and said no. (4) Tobacco abuse Priority: Secondary Status: Chronic Comments: Patient smokes daily. Says he is not ready to quit smoking. He does not have a nicotine patch here, denies needing one. (5) COPD (chronic obstructive pulmonary disease) Priority: Secondary Status: Chronic Comments: No acute exacerbation at this time. Lungs are clear diminished throughout. Patient is still active smoker. Qualifiers: COPD type: emphysema Emphysema type: centrilobular Qualified Code(s): J43.2 - Centrilobular emphysema (6) DVT prophylaxis Priority: Secondary Status: Acute Comments: Lovenox SQ daily. - Discharge Medications Prescriptions: LevETIRAcetam [Keppra] 1,000 mg PO BID #60 tablet Home Medications: LevETIRAcetam [Keppra] 1,000 mg PO BID #60 tablet 10/08/17 [Rx] Allergies/Adverse Reactions: 3 Allergy/AdvReac Type Severity Reaction Status Date / Time No Known Allergies Allergy Verified 09/05/17 16:52 Date of admission: 10/07/17 15:33 Primary care physician: PCP NONE Discharging clinician: Teresa Vernon Anticipated date of discharge: 10/08/17 - Patient Status Disposition: Home, Self-Care Condition: Fair Functional capacity at discharge: independent ambulation Overall status at discharge: patient is back to baseline - Discharge Instructions Follow Up With: NONE,PCP [Primary Care Provider] - Additional Instructions: Please start taking your Keppra. Take your prescription to the pharmacy when you leave. Take the Keppra as written. Please return to the emergency department as needed for any other problems or concerns, or if symptoms return or worsen. Follow-up with your primary care provider for continued evaluation and monitoring and medication refills. Please stop drinking and please stop smoking. - Diet and Activity Activity: increase activity as tolerated Diet: advance to your usual diet Hospital course: Mr. Rose is a 52 year old male with past medical history of COPD, chronic alcoholism, hypertension, seizure disorder. It is unclear if patient is developing epilepsy or if these are alcohol withdrawal seizure. This is the third time this year have seen the patient for the same. He has been given prescriptions for Keppra 1000 mg by mouth twice a day each time he has been here , the pharmacy indicates that he uses denies that he has picked up any of the prescriptions after they have been filled. Patient states he takes 17 pills a day, however the pharmacy states that they do not feel any medications for him. His home list also indicates that he is not taking any medications other than the Keppra. Patient states that he does not want to stop smoking or drinking. Compliance is certainly going to be an issue with this patient. He denies headache, nausea, vomiting, diarrhea, shortness of breath, chest pain , dizziness, diaphoresis. He states that he feels well. His vital signs are stable, labs are within normal limits. Please see assessment and plan for hospital course. Time spent discussing smoking cessation with patient: 3 to 10 minutes - Time Spent with Patient Total time spent providing and/or coordinating discharge services: Less than 30 minutes - Constitutional Vitals: Temp Pulse Resp BP Pulse Ox 98.1 F 81 16 125/78 97 10/08/17 06:52 10/08/17 06:52 10/08/17 06:52 10/08/17 06:52 10/08/17 06:52 General appearance: Present: cooperative, disheveled, A&O X 3, pleasant, no acute distress, answers questions appropriately - Head Head exam: Present: normocephalic. Absent: atraumatic - Eye Eye exam: Present: normal appearance, conjuntiva pink, sclera anicteric Pupils: Present: PERRL - Neck Neck exam general surgery: Present: supple, trachea midline. Absent: lymphadenopathy - Respiratory Respiratory exam: Present: CTAB. Absent: accessory muscle use, rales, rhonchi, wheezes - Cardiovascular Cardiovascular exam: Present: RRR, +S1, +S2. Absent: diastolic murmur, gallop, rubs, systolic murmur - GI/Abdominal GI/Abdominal exam: Present: normal bowel sounds, soft, no peritoneal signs. Absent: distended, tenderness - Extremities Exam Extremities exam: Present: warm, radial pulses palpable and symmetrical. Absent : calf tenderness, cyanotic, pedal edema - Neurological Exam Neurological exam: Present: alert, oriented X3, no focal deficits. Absent: pronater drift, facial droop, speech deficit - Skin Skin exam: Present: abrasion, dry, normal color, warm. Absent: rash Additional comments: Abrasion noted to mid forehead. No drainage, bleeding, or signs of infection.
[2017-10-08 14:37] VITALS: BP 130/77
== END 2017-10-08 16:38 | disposition home or self-care (01) | DRG 53 ==
LOC: 3BNU 11:26 → EMEROO 11:26 → 3BNU 15:05
PROVIDERS: ADMIT Registered Nurse; ATTEND Registered Nurse

== ENCOUNTER 2017-11-28 13:36 | Observation (INO) ==
[2017-11-28] MEDS ORDERED: levETIRAcetam 250 MG TABLET PO ONE (13:57)
[2017-11-28 14:08] LABS: Basophils # 0.1 K/mcL (0.0-0.2); Basophils % 0.8 %; Eosinophils % 0.1 %; Hematocrit 43.5 % (37.5-50.1); Hemoglobin 14.9 g/dL (12.9-16.9); Immature Granulocytes % 0.4 % (0-4); Lymphocytes # 0.9 K/mcL (0.6-4.6); Lymphocytes % 12.7 %; Mean Corpuscular HGB Conc 34.3 g/dL (31.6-35.5); Mean Corpuscular Hemoglobin 33.7 pg (28.0-33.3); Mean Corpuscular Volume 98.4 fL (83.0-100.0); Mean Platelet Volume 10.3 fL (9.4-12.4); Monocytes # 0.5 K/mcL (0.0-1.3); Monocytes % 7.2 %; Neutrophils # 5.8 K/mcL (1.6-8.9); Platelet Count 152 K/mcL (140-400); Red Blood Count 4.42 M/mcL (4.19-5.50); Red Cell Distribution Width 13.7 % (11.5-14.5); Segmented Neutrophils % 78.8 %
[2017-11-28 14:21] LABS: Alanine Aminotransferase 49 Units/L (7-52); Albumin 4.7 g/dL (3.5-5.7); Albumin/Globulin Ratio 1.8 (1.1-2.2); Alkaline Phosphatase 70 Units/L (34-104); Aspartate Amino Transferase 111 Units/L (13-39); BUN/Creatinine Ratio 11 (6-26); Bilirubin,Total 0.6 mg/dL (0.3-1.0); Blood Urea Nitrogen 8 mg/dL (6-20); Calcium 9.5 mg/dL (8.6-10.3); Carbon Dioxide 19 mEq/L (23-29); Chloride 105 mEq/L (98-107); Globulin 2.6 g/dL (2.4-3.5); Glucose 104 mg/dL (70-105); Magnesium 1.7 mg/dL (1.6-2.6); Osmolality,Calculated 285 (280-300); Phosphorous 3.5 mg/dL (2.7-4.5); Potassium 4.1 mEq/L (3.5-5.1); Sodium 138 mEq/L (136-145); Total Protein 7.3 g/dL (6.4-8.9); eGFR For African Americans > 60 (> 60); eGFR For Non-African Americans > 60 (> 60)
[2017-11-28] MEDS ORDERED: *HR* LORazepam 2 MG/ML VIAL IM STA (14:23)
[2017-11-28] MEDS ORDERED: *HR* LORazepam 2 MG/ML VIAL ONE (14:23)
--- NOTE | 2017-11-28 16:53 | Emergency Department Note ---
Disposition Clinical Impression: Seizures, Noncompliance with medication regimen, Alcohol abuse Disposition: Admitted As Inpatient Condition: Good Time of Disposition: 17:00 Seizure HPI - General Chief Complaint: ED Seizure Stated Complaint: Seizure Time Seen by Provider: 11/28/17 13:39 Source: EMS Mode of arrival: EMS Limitations: no limitations Nursing Notes Reviewed: Yes Vital Signs Reviewed: Yes - History of Present Illness HPI Narrative: 52-year-old male brought in secondary to seizure. Patient is noncompliant on medications and continues to abuse alcohol. Patient states he knows he is supposed to be on Keppra but does not take it. Patient is noncompliant on any his cardiac meds or hypertensive medications. Patient was found in his home with empty beer bottles. - Related Data Home Medications Medication Instructions Recorded Confirmed Unable To Obtain [Unable to Obtain] 11/28/17 11/28/17 Allergies Allergy/AdvReac Type Severity Reaction Status Date / Time No Known Allergies Allergy Verified 09/05/17 16:52 All systems ED: reviewed and negative except as stated. Review of Systems: As Per HPI Constitutional: Denies: fever, weakness ENT ED: Denies: congestion Cardiovascular: Denies: chest pain Respiratory: Denies: cough Gastrointestinal: Denies: abdominal pain, nausea, vomiting, diarrhea Past Medical History - Past Medical History Attestation: Yes The following information was validated with the patient. Source: patient, nursing notes reviewed Medical history: Reports: cardiomyopathy, CHF, COPD, coronary artery disease, hypertension, liver disease, myocardial infarction, seizures, valvular heart disease, other Surgical history: Reports: heart valve replacement, orthopedic, other Psychiatric history: Reports: no psych history - Social History Smoking Status: Current every day smoker Smokeless Tobacco Status: No Alcohol use: Reports: heavy, recent Drug use: Reports: marijuana Physical Exam Vital Signs Temperature 97.9 F 11/28/17 13:45 Pulse Rate 107 11/28/17 13:45 Respiratory Rate 14 11/28/17 13:45 Blood Pressure 138/90 11/28/17 13:45 O2 Sat by Pulse Oximetry 96 11/28/17 13:45 Temperature 98.9 F 11/28/17 23:17 Pulse Rate 68 11/28/17 23:17 Respiratory Rate 18 11/28/17 23:17 Blood Pressure 125/83 11/28/17 23:17 O2 Sat by Pulse Oximetry 98 11/28/17 23:17 Oxygen Delivery Oxygen Delivery Room Air 52-year-old male very thin but alert and oriented 3 and in no acute distress. Patient had urinary incontinence and has soiled pants - General Limitations: no limitations General appearance: alert, in no apparent distress - Head Head exam: atraumatic, normocephalic, normal inspection - Eye Eye exam: Present: normal appearance, PERRL, EOMI - ENT ENT exam: normal exam, normal oropharynx, mucous membranes moist, other (No bite cesar on the tongue) - Neck Neck exam: Present: normal inspection, full ROM, trachea midline - Respiratory Respiratory exam: Present: normal lung sounds bilaterally - Cardiovascular Cardiovascular exam: Present: normal rhythm, tachycardia, normal heart sounds - Abdominal Exam Abdominal exam: Present: soft, Non-Tender. Absent: tenderness, distention, guarding, rebound, rigidity - Extremities Exam Extremities exam: Present: normal inspection, full ROM, normal capillary refill. Absent: tenderness, pedal edema - Back Exam Back exam: Present: normal inspection, full ROM. Absent: tenderness, CVA tenderness (R), CVA tenderness (L) - Neurological Exam Neurological exam: Present: alert, oriented X3 Course Vital Signs Temperature 97.9 F 11/28/17 13:45 Pulse Rate 107 11/28/17 13:45 Respiratory Rate 14 11/28/17 13:45 Blood Pressure 138/90 11/28/17 13:45 O2 Sat by Pulse Oximetry 96 11/28/17 13:45 Temperature 98.9 F 11/28/17 23:17 Pulse Rate 68 11/28/17 23:17 Respiratory Rate 18 11/28/17 23:17 Blood Pressure 125/83 11/28/17 23:17 O2 Sat by Pulse Oximetry 98 11/28/17 23:17 Oxygen Delivery Oxygen Delivery Room Air Seizure - MDM Narrative Medical decision making narrative: Seizure secondary to medication noncompliance and continued alcohol abuse. Patient sent for CT head to rule out any acute intracranial abnormalities. Patient was given Keppra 1 g by mouth after review of patient's previous notes by Dr. Viera who requests the patient be placed on Keppra 1 g twice a day indefinitely. Patient had witnessed seizure. Patient came out of seizure before requiring Ativan. Patient was watched closely and have any more seizures. Patient being admitted for seizure activity and I will call intoxication. Patient seizure refractory to Keppra. Patient will need monitoring and observation and continued treatment to help with seizure prevention. I discussed the case with Dr. Euceda of neurology states patient will be seen once he is admitted. Patient's labs were unremarkable. Patient's tox screen was negative with exception of having an ethyl alcohol level of 95. Patient accepts the decision for admission. Patient was accepted for admission by Dr. Kowalski the hospitalist. - Lab Data Result diagrams: 11/28/17 13:58 11/28/17 13:58 Lab Results 11/28/17 11/28/17 11/28/17 Range/Units 13:58 13:58 13:58 WBC 7.4 (4.3-11.1) K/mcL RBC 4.42 (4.19-5.50) M/mcL Hgb 14.9 (12.9-16.9) g/dL Hct 43.5 (37.5-50.1) % MCV 98.4 (83.0-100.0) fL MCH 33.7 H (28.0-33.3) pg MCHC 34.3 (31.6-35.5) g/dL RDW 13.7 (11.5-14.5) % Plt Count 152 (140-400) K/mcL MPV 10.3 (9.4-12.4) fL Immature Gran % 0.4 (0-4) % Seg Neutrophils % 78.8 % Lymphocytes % 12.7 % Monocytes % 7.2 % Eosinophils % 0.1 % Basophils % 0.8 % Neutrophils # 5.8 (1.6-8.9) K/mcL Lymphocytes # 0.9 (0.6-4.6) K/mcL Monocytes # 0.5 (0.0-1.3) K/mcL Eosinophils # 0.0 (0.0-0.6) K/mcL Basophils # 0.1 (0.0-0.2) K/mcL Sodium 138 (136-145) mEq/L Potassium 4.1 (3.5-5.1) mEq/L Chloride 105 (98-107) mEq/L Carbon Dioxide 19 L (23-29) mEq/L BUN 8 (6-20) mg/dL Creatinine 0.72 (0.70-1.30) mg/dL Est GFR ( Amer) > 60 (> 60) Est GFR (Non-Af Amer) > 60 (> 60) BUN/Creatinine Ratio 11 (6-26) Glucose 104 (70-105) mg/dL POC Glucose (58-89) Calculated Osmolality 285 (280-300) Calcium 9.5 (8.6-10.3) mg/dL Phosphorus 3.5 (2.7-4.5) mg/dL Magnesium 1.7 (1.6-2.6) mg/dL Total Bilirubin 0.6 (0.3-1.0) mg/dL AST 111 H (13-39) Units/L ALT 49 (7-52) Units/L Alkaline Phosphatase 70 (34-104) Units/L Serum Total Protein 7.3 (6.4-8.9) g/dL Albumin 4.7 (3.5-5.7) g/dL Globulin 2.6 (2.4-3.5) g/dL Albumin/Globulin Ratio 1.8 (1.1-2.2) Urine Color (Yellow) Urine Clarity (Clear) Urine pH (5.0-8.0) pH Units Ur Specific Jackson (1.010-1.025) Urine Protein (Neg-Trace) mg/dL Urine Glucose (UA) (Normal) mg/dL Urine Ketones (Negative) mg/dL Urine Blood (Negative) Urine Nitrite (Negative) Urine Bilirubin (Negative) Urine Urobilinogen (Normal) mg/dL Ur Leukocyte Esterase (Negative) Urine Microscopic RBC (0-3) per hpf Urine Microscopic WBC (0-3) per hpf Ur Squamous Epith Cells (None-Few) per lpf Urine Bacteria (None-Few) per hpf Hyaline Casts (None-Few) per lpf Urine Opiates Screen (Rlnhlz=249) ng/mL Ur Barbiturates Screen (Cqzvty=485) ng/mL Ur Phencyclidine Scrn (Cutoff=25) ng/mL Ur Amphetamines Screen (Oizwft=9073) ng/mL U Benzodiazepines Scrn (Yfypcf=520) ng/mL Urine Cocaine Screen (Cutoff= 300) ng/mL U Marijuana (THC) Screen (Cutoff = 50) ng/mL Ethyl Alcohol 95 H (0-10) mg/dL 11/28/17 11/28/17 11/28/17 Range/Units 14:09 16:41 16:41 WBC (4.3-11.1) K/mcL RBC (4.19-5.50) M/mcL Hgb (12.9-16.9) g/dL Hct (37.5-50.1) % MCV (83.0-100.0) fL MCH (28.0-33.3) pg MCHC (31.6-35.5) g/dL RDW (11.5-14.5) % Plt Count (140-400) K/mcL MPV (9.4-12.4) fL Immature Gran % (0-4) % Seg Neutrophils % % Lymphocytes % % Monocytes % % Eosinophils % % Basophils % % Neutrophils # (1.6-8.9) K/mcL Lymphocytes # (0.6-4.6) K/mcL Monocytes # (0.0-1.3) K/mcL Eosinophils # (0.0-0.6) K/mcL Basophils # (0.0-0.2) K/mcL Sodium (136-145) mEq/L Potassium (3.5-5.1) mEq/L Chloride (98-107) mEq/L Carbon Dioxide (23-29) mEq/L BUN (6-20) mg/dL Creatinine (0.70-1.30) mg/dL Est GFR ( Amer) (> 60) Est GFR (Non-Af Amer) (> 60) BUN/Creatinine Ratio (6-26) Glucose (70-105) mg/dL POC Glucose 87 (58-89) Calculated Osmolality (280-300) Calcium (8.6-10.3) mg/dL Phosphorus (2.7-4.5) mg/dL Magnesium (1.6-2.6) mg/dL Total Bilirubin (0.3-1.0) mg/dL AST (13-39) Units/L ALT (7-52) Units/L Alkaline Phosphatase (34-104) Units/L Serum Total Protein (6.4-8.9) g/dL Albumin (3.5-5.7) g/dL Globulin (2.4-3.5) g/dL Albumin/Globulin Ratio (1.1-2.2) Urine Color Yellow (Yellow) Urine Clarity Clear (Clear) Urine pH 6.5 (5.0-8.0) pH Units Ur Specific Jackson 1.020 (1.010-1.025) Urine Protein 30 H (Neg-Trace) mg/dL Urine Glucose (UA) Normal (Normal) mg/dL Urine Ketones 15 H (Negative) mg/dL Urine Blood Negative (Negative) Urine Nitrite Negative (Negative) Urine Bilirubin Negative (Negative) Urine Urobilinogen Normal (Normal) mg/dL Ur Leukocyte Esterase Negative (Negative) Urine Microscopic RBC 0-3 (0-3) per hpf Urine Microscopic WBC 0-3 (0-3) per hpf Ur Squamous Epith Cells Moderate H (None-Few) per lpf Urine Bacteria None Seen (None-Few) per hpf Hyaline Casts None Seen (None-Few) per lpf Urine Opiates Screen Negative (Nfepnt=206) ng/mL Ur Barbiturates Screen Negative (Citzhj=600) ng/mL Ur Phencyclidine Scrn Negative (Cutoff=25) ng/mL Ur Amphetamines Screen Negative (Kldcjy=3507) ng/mL U Benzodiazepines Scrn Negative (Ilawjf=209) ng/mL Urine Cocaine Screen Negative (Cutoff= 300) ng/mL U Marijuana (THC) Screen Negative (Cutoff = 50) ng/mL Ethyl Alcohol (0-10) mg/dL - Radiology Data Radiology results reviewed: Yes I reviewed the patient's radiology results. Head CT 11/28/17 13:42 IMPRESSION: No acute intracranial abnormality. D/ / Renate Heller MD / Renate Heller MD Interpreting Provider: Renate Heller MD - EKG Data EKG attestation: Yes I reviewed and interpreted this EKG. EKG shows normal: sinus rhythm Rate: normal When compared to previous EKG there are: previous EKG unavailable Interpretation: normal EKG Attestation Statement - Attestation Attestation: I examined this patient and my medical decision-making was reviewed with the Resident Physician, Dr. Miranda. I agree with the documented findings, disposition and treatment plan as described except to the extent set forth below. Patient is a 52-year-old homeless white male who is brought to us by EMS today for generalized seizure activity. Patient has been here on prior occasions brought in for breakthrough seizures due to medication noncompliance as he cannot afford his Keppra. Patient is also a chronic alcoholic although has not had seizures related to withdrawal. Patient has been hospitalized here in the past and seen by neurology who recommended he is on lifelong Keppra due to diffuse cerebral atrophy but they feel is causing his seizure activity. EMS report that they were called to the scene for his seizure activity when they arrived patient was postictal but responsive, on arrival to the ED patient was awake alert and oriented 4 with a GCS of 15 and no focal neurologic deficits. Patient was complaining of some tongue abrasions and he did have urinary incontinence during the episode. Patient states he has no recollection of what happened he just remembers waking up on the ground and based on his incontinence and tongue biting new he had another seizure. Patient states he has not been taking his Keppra and carried him for the last time he took a dose. Patient has no complaints of pain or trauma secondary to seizure activity. I agree patient's physical exam findings as documented. For me patient has normal neurologic function and no acute abnormalities with the exception of poor hygiene. Shortly after patient arrived he had a subsequent generalized tonic-clonic seizure lasting one to 2 minutes in stopping spontaneously. Patient was placed on desk monitor and continuous pulse ox and following a brief postictal period had returned to baseline of his mental status without any focal deficits. Patient was loaded on Keppra orally. Patient underwent CT imaging and chest x-ray which was unremarkable. EKG was normal sinus rhythm without acute ischemia. Labs were within normal limits. Patient with positive EtOH. Patient will be hospitalized for further neurologic evaluation and social media content specialist assistance for help with his medications. Case was discussed with the hospitalist who accepted the patient for admission.
[2017-11-28 16:57] LABS: Bilirubin,Urine Negative (Negative); Blood,Urine Negative (Negative); Clarity,Urine Clear (Clear); Color,Urine Yellow (Yellow); Glucose,Urine (UA) Normal (Normal); Ketones,Urine 15 mg/dL (Negative); Leukocyte Esterase,Urine Negative (Negative); Nitrite,Urine Negative (Negative); PH,Urine 6.5 pH Units (5.0-8.0); Protein,Urine 30 mg/dL (Neg-Trace); Urobilinogen,Urine Normal (Normal)
[2017-11-28 16:58] LABS: Bacteria,Urine None Seen per hpf (None-Few); Hyaline Casts,Urine None Seen per lpf (None-Few); RBC,Urine 0-3 per hpf (0-3); Squamous Epithelial Cell,Urine Moderate per lpf (None-Few); WBC,Urine 0-3 per hpf (0-3)
[2017-11-28 17:08] LABS: Amphetamine Screen,Urine Negative ng/mL (Cutoff=1000); Barbiturate Screen,Urine Negative ng/mL (Cutoff=200); Benzodiazepines Screen,Urine Negative ng/mL (Cutoff=200); Cannabinoid Screen,Urine Negative ng/mL (Cutoff = 50); Cocaine Screen,Urine Negative ng/mL (Cutoff= 300); Opiate Screen,Urine Negative ng/mL (Cutoff=300); Phencyclidine Screen,Urine Negative ng/mL (Cutoff=25)
[2017-11-28] MEDS ORDERED: *HR* OxyCODONE Immed Rel 5 MG TABLET PO PRN (17:13)
[2017-11-28] MEDS ORDERED: *HR* Promethazine 25 MG/ML VIAL IVP PRN (17:13)
[2017-11-28] MEDS ORDERED: *HR* Morphine 2 MG/ML SYRINGE IVP PRN (17:13)
[2017-11-28] MEDS ORDERED: Ondansetron 4 MG/2 ML VIAL IVP PRN (17:13)
[2017-11-28] MEDS ORDERED: Naloxone 0.4 MG/ML INJ IVP PRN (17:13)
[2017-11-28] MEDS ORDERED: *HR* LORazepam 2 MG/ML VIAL IVP PRN ×2 (17:15)
--- NOTE | 2017-11-28 17:42 | Internal Med History&Physical ---
Date of Encounter: 11/28/17 Time of Encounter: 17:38 Assessment and Plan (1) Alcohol withdrawal seizure Current visit: No Status: Acute Will place the pt into Tele for observation his seizure activity is due to alcohol intoxication and non compliance with medication I counseled the pt important of taking his medication on regular basis. He mentioned some social issues and unable to afford his Keppra Resumed his Keppra at 100mg BID Reviewed his EEG from 09/25/2017 showed normal awake and asleep EEG Will consult SW to provide rx for him to go home in AM will place him on seizure precautions Qualifiers: Complication of substance-induced condition: with delirium Qualified Code(s ): F10.231 - Alcohol dependence with withdrawal delirium (2) Alcohol intoxication Current visit: No Status: Acute His alcohol level @ 95 Started him on IV fluids CIWA protocol thiamine , folic acid Scheduled librium on monitor does not look like he is in any active withdrawl symptoms now Qualifiers: Complication of substance-induced condition: with unspecified complication Qualified Code(s): F10.929 - Alcohol use, unspecified with intoxication, unspecified (3) Recurrent seizures Current visit: No Status: Chronic due to non compliance with meds counseled the pt (4) COPD (chronic obstructive pulmonary disease) Current visit: No Status: Chronic stable not in exacerbation Qualifiers: COPD type: chronic bronchitis Chronic bronchitis type: unspecified Qualified Code(s): J42 - Unspecified chronic bronchitis (5) Generalized seizure Current visit: No Status: Chronic (6) Tobacco abuse Current visit: No Status: Chronic counseled to quit on nicotine patch (7) Hypertension Current visit: No Status: Chronic stable and well controlled with out any medications Qualifiers: Hypertension type: essential hypertension Qualified Code(s): I10 - Essential (primary) hypertension Internal Medicine - H&P: HPI Chief complaint: Seizure Admitted From: Emergency Dept Plans for Post Hospital Care: Home History of present illness: Mr. Rose is a 52 year old male with known PMH of HTN, Cardiomyopathy, COPD, not home O2 dependent, chronic heavy alcoholic, who had alcoholic withdrawal seizure disorder and non compliance with medication was brought into ER by EMS stating that he was found to have generalized tonic clonic seizure at home. Also there were few empty beer bottles next to him. He does seem to be alcohol intoxicated with alcohol level in 90's, he also had another brief clonic seizure episode in the ER. Now he is alert, awake and O x 3. Denied any CP / SOB. he does not remember about seizure episode. Past Med Surg Social Fam HX - Past Medical History Medical history: cardiomyopathy, CHF, COPD, coronary artery disease, hypertension, liver disease, myocardial infarction, seizures, valvular heart disease, other Psychiatric history: no psych history - Past Surgical History Surgical History: heart valve replacement, orthopedic, other - Social History Smoking Status: Current every day smoker Smokeless Tobacco Status: No Alcohol use: heavy, recent Drug use: marijuana - Family History Father Family Member Ethnicity: Non- Living Status: Hx Family Cardiac Disorders: Yes ([place]) Mother Family Member Ethnicity: Non- Living Status: Hx Family Cardiac Disorders: Yes Internal Medicine - H&P: Meds LevETIRAcetam [Keppra] 1,000 mg PO BID #60 tablet 11/29/17 [Rx] Nicotine Patch [Nicoderm] 21 mg TD DAILY #30 patch.td24 11/29/17 [Rx] 3 Allergy/AdvReac Type Severity Reaction Status Date / Time No Known Allergies Allergy Verified 09/05/17 16:52 All Systems PM: A 10-system review of systems was performed and is negative for pertinent findings except as documented above in the HPI. Review of systems: Reviewed all the systems everything is benign except the systems and symptoms I mentioned in HPI - Constitutional Vitals: Temp Pulse Resp BP Pulse Ox 97.9 F 107 14 147/92 96 11/28/17 13:45 11/28/17 13:45 11/28/17 17:09 11/28/17 17:09 11/28/17 13:45 General appearance: Present: A&O X 3, no acute distress, answers questions appropriately - Head Head exam: Present: atraumatic, normal inspection - Neck Neck exam general surgery: Present: supple - Respiratory Respiratory exam: Present: decreased breath sounds. Absent: rales, respiratory distress, rhonchi, wheezes - Cardiovascular Cardiovascular exam: Present: RRR, +S1, +S2. Absent: tachycardia - GI/Abdominal GI/Abdominal exam: Present: normal bowel sounds, soft. Absent: rebound, rigid, tenderness - Extremities Exam Extremities exam: Absent: calf tenderness, pedal edema, tenderness - Back Exam Back exam: Absent: CVA tenderness (L), CVA tenderness (R) - Neurological Exam Neurological exam: Present: alert, CN II-XII intact, oriented X3, no focal deficits, strengths equal and symetr throughout. Absent: pronater drift, facial droop, speech deficit - Psychiatric Psychiatric exam: Present: normal affect, normal mood - Skin Skin exam: Absent: rash Internal Med - H&P Results - Labs CBC & Chem 7: 11/29/17 03:29 11/29/17 03:29
[2017-11-28] MEDS: levETIRAcetam 250 MG TABLET PO SCH (18:29)
[2017-11-28] MEDS: 0.9 % Sodium Chloride 1,000 ML IVC SCH (18:30)
[2017-11-28] MEDS ORDERED: Benzonatate 100 MG CAPSULE PO PRN (23:27)
[2017-11-29 04:38] LABS: Basophils # 0.1 K/mcL (0.0-0.2); Basophils % 0.9 %; Eosinophils % 0.4 %; Hematocrit 41.4 % (37.5-50.1); Hemoglobin 14.3 g/dL (12.9-16.9); Immature Granulocytes % 0.4 % (0-4); Lymphocytes # 1.8 K/mcL (0.6-4.6); Lymphocytes % 31.4 %; Mean Corpuscular HGB Conc 34.5 g/dL (31.6-35.5); Mean Corpuscular Hemoglobin 33.9 pg (28.0-33.3); Mean Corpuscular Volume 98.1 fL (83.0-100.0); Mean Platelet Volume 11.5 fL (9.4-12.4); Monocytes # 0.7 K/mcL (0.0-1.3); Monocytes % 11.7 %; Neutrophils # 3.1 K/mcL (1.6-8.9); Platelet Count 126 K/mcL (140-400); Red Blood Count 4.22 M/mcL (4.19-5.50); Red Cell Distribution Width 13.2 % (11.5-14.5); Segmented Neutrophils % 55.2 %
[2017-11-29 04:52] LABS: Alanine Aminotransferase 37 Units/L (7-52); Albumin 3.9 g/dL (3.5-5.7); Albumin/Globulin Ratio 1.6 (1.1-2.2); Alkaline Phosphatase 63 Units/L (34-104); Aspartate Amino Transferase 69 Units/L (13-39); BUN/Creatinine Ratio 13 (6-26); Bilirubin,Total 0.9 mg/dL (0.3-1.0); Blood Urea Nitrogen 8 mg/dL (6-20); Calcium 8.8 mg/dL (8.6-10.3); Carbon Dioxide 23 mEq/L (23-29); Chloride 107 mEq/L (98-107); Globulin 2.4 g/dL (2.4-3.5); Glucose 68 mg/dL (70-105); Magnesium 1.6 mg/dL (1.6-2.6); Osmolality,Calculated 279 (280-300); Potassium 3.7 mEq/L (3.5-5.1); Sodium 136 mEq/L (136-145); Total Protein 6.3 g/dL (6.4-8.9); eGFR For African Americans > 60 (> 60); eGFR For Non-African Americans > 60 (> 60)
[2017-11-29] MEDS: levETIRAcetam 250 MG TABLET PO SCH (05:48)
[2017-11-29] MEDS: 0.9 % Sodium Chloride 1,000 ML IVC SCH (05:50)
--- NOTE | 2017-11-29 06:44 | Electrocardiograph Report ---
[place] [employer] Test Date: 2017-11-28 Pat Name: Iban Rose Department: 104 Room: [facility] Gender: M Registration Representative: : [id number] Requested By: Marbella Reyes Order Number: [id number] Reading MD: Sameer Flaherty MD Measurements Intervals [place] Rate: 85 P: 74 MO: 163 QRS: 80 QRSD: 86 T: 72 QT: 359 QTc: 401 Interpretive Statements SINUS RHYTHM Electronically Signed On 11-29-2017 6:43:05 EST by Sameer Flaherty MD
[2017-11-29] MEDS ORDERED: Folic Acid 1 MG TABLET PO SCH (09:00)
[2017-11-29] MEDS ORDERED: Thiamine (B-1) 100 MG TABLET PO SCH (09:00)
[2017-11-29 11:12] VITALS: BP 119/75
--- NOTE | 2017-11-29 11:55 | Discharge Summary ---
Date of Encounter: 11/29/17 Time of Encounter: 11:53 - Discharge Diagnosis (1) Alcohol intoxication Priority: Primary Status: Acute Qualifiers: Complication of substance-induced condition: with unspecified complication Qualified Code(s): F10.929 - Alcohol use, unspecified with intoxication, unspecified (2) Alcohol withdrawal seizure Priority: Primary Status: Acute Qualifiers: Complication of substance-induced condition: with delirium Qualified Code(s ): F10.231 - Alcohol dependence with withdrawal delirium (3) Recurrent seizures Priority: Primary Status: Chronic (4) COPD (chronic obstructive pulmonary disease) Priority: Secondary Status: Chronic Qualifiers: COPD type: chronic bronchitis Chronic bronchitis type: unspecified Qualified Code(s): J42 - Unspecified chronic bronchitis (5) Generalized seizure Priority: Secondary Status: Chronic (6) Tobacco abuse Priority: Secondary Status: Chronic - Discharge Medications Prescriptions: LevETIRAcetam [Keppra] 1,000 mg PO BID #60 tablet Nicotine Patch [Nicoderm] 21 mg TD DAILY #30 patch.td24 Home Medications: LevETIRAcetam [Keppra] 1,000 mg PO BID #60 tablet 11/29/17 [Rx] Nicotine Patch [Nicoderm] 21 mg TD DAILY #30 patch.td24 11/29/17 [Rx] Allergies/Adverse Reactions: 3 Allergy/AdvReac Type Severity Reaction Status Date / Time No Known Allergies Allergy Verified 09/05/17 16:52 Date of admission: 11/28/17 17:03 Primary care physician: PCP NONE Consults: 11/28/17 17:15 Consult to [employer] [CONS] Routine Reason for SW Consult: alcohol dependence - Patient Status Disposition: Home, Self-Care Condition: Good Overall status at discharge: patient is back to baseline - Discharge Instructions Follow Up With: NONE,PCP [Primary Care Provider] - Charisma Euceda MD [Partnered Physician] - - Diet and Activity Activity: increase activity as tolerated Diet: low salt diet Hospital course: Mr. Rose is a 52 year old male with known PMH of HTN, Cardiomyopathy, COPD, not home O2 dependent, chronic heavy alcoholic, who had alcoholic withdrawal seizure disorder and non compliance with medication was brought into ER by EMS stating that he was found to have generalized tonic clonic seizure at home. Also there were few empty beer bottles next to him. He does seem to be alcohol intoxicated with alcohol level in 90's, he also had another brief clonic seizure episode in the ER. Now he is alert, awake and O x 3. Denied any CP / SOB. he does not remember about seizure episode.Pt was admitted in the hospital and started him on CIWA protocol and placed him n electrician underground. Performed frequent neuro checks, he did not have any more seizure activity. I did counseled the pt to quit drinking alcohol, however he refused to quit and refused to go any rehab center also. I did consult SW to provide him rx for Seizure medication Keppra, since pt mentioned he was not able afford his seizure medication. So we did fill his next month supply through our pharmacy here and provided all the instructions to pt. Will d/c him home in stable condition today. - Time Spent with Patient Total time spent providing and/or coordinating discharge services: - Constitutional Vitals: Temp Pulse Resp BP Pulse Ox 98.1 F 55 14 119/75 98 11/29/17 11:11 11/29/17 11:11 11/29/17 11:11 11/29/17 11:11 11/29/17 11:11 General appearance: Present: A&O X 3, no acute distress, answers questions appropriately - Head Head exam: Present: atraumatic, normal inspection - Neck Neck exam general surgery: Present: supple - Respiratory Respiratory exam: Present: decreased breath sounds. Absent: rales, respiratory distress, rhonchi, wheezes - Cardiovascular Cardiovascular exam: Present: RRR, +S1, +S2. Absent: diastolic murmur, gallop, rubs, systolic murmur - GI/Abdominal GI/Abdominal exam: Present: normal bowel sounds, soft. Absent: rebound, rigid, tenderness - Extremities Exam Extremities exam: Absent: calf tenderness, pedal edema, tenderness - Back Exam Back exam: Absent: CVA tenderness (L), CVA tenderness (R) - Neurological Exam Neurological exam: Present: alert, oriented X3 - Psychiatric Psychiatric exam: Present: normal affect, normal mood
== END 2017-11-29 16:09 | disposition home or self-care (01) ==
LOC: EMEROO 13:36 → 2NENU 13:36
PROVIDERS: ADMIT Internal Medicine Nephrology; ATTEND Family Medicine

== ENCOUNTER 2018-01-06 14:17 | Observation (INO) ==
--- NOTE | 2018-01-06 14:56 | Emergency Department Note ---
Disposition Clinical Impression: Auditory hallucinations, Visual hallucinations, History of alcoholism, Acute kidney injury Disposition: Admitted As Inpatient Condition: Good Referrals: Sameer Flaherty MD [Primary Care Provider] - Forms: ED Satisfaction Letter Time of Disposition: 17:43 Psych HPI - General Chief Complaint: ED Psychiatric Symptoms Stated Complaint: Hallucinations Time Seen by Provider: 01/06/18 14:27 Source: patient, police Mode of arrival: other Limitations: no limitations Nursing Notes Reviewed: Yes Vital Signs Reviewed: Yes - History of Present Illness HPI Narrative: Patient is a 52-year-old male who presented today via police due to visual and auditory hallucinations. The patient states that his brother called police because he has been seeing things that are not there, hearing voices. He will not tell me what the voices are telling him. Denies any suicidal or homicidal ideation. He denies any history of bipolar disorder, anxiety, depression, any other psychiatric history. Denies any chest pain, shortness breath, nausea, vomiting, diarrhea, abdominal pain. He does admit to chronic drinking history. He states he drinks 6 beers a day. However, he says that he has not had any alcohol since the beginning of December due to being incarcerated for being intoxicated in public. He said that he had his first 1-2 drinks last night for the first time since the beginning of December. Denies any shaking, any symptoms of withdrawal at this time. - Related Data Previous Rx's Medication Instructions Recorded LevETIRAcetam [Keppra] 1,000 mg PO BID #60 tablet 11/29/17 Allergies Allergy/AdvReac Type Severity Reaction Status Date / Time No Known Allergies Allergy Verified 09/05/17 16:52 All systems ED: reviewed and negative except as stated. Constitutional: Denies: fever Cardiovascular: Denies: chest pain Respiratory: Denies: dyspnea Gastrointestinal: Denies: abdominal pain, nausea, vomiting, diarrhea, constipation Genitourinary: Denies: urgency, dysuria, frequency Integumentary: Denies: rash Neurological: Denies: headache, weakness, numbness, paresthesias Psychiatric: Reports: auditory hallucinations, visual hallucinations. Denies: anxiety, depression, suicidal thoughts, homicidal thoughts Past Medical History - Past Medical History Attestation: Yes The following information was validated with the patient. Source: patient Medical history: Reports: cardiomyopathy, CHF, COPD, coronary artery disease, hypertension, liver disease, myocardial infarction, seizures, valvular heart disease, other Surgical history: Reports: heart valve replacement, orthopedic, other Psychiatric history: Reports: no psych history - Social History Smoking Status: Current every day smoker Smokeless Tobacco Status: No Alcohol use: Reports: heavy, recent Drug use: Reports: marijuana Physical Exam - General Limitations: no limitations General appearance: alert, in no apparent distress, other (disheveled, unkempt) - Head Head exam: atraumatic, normocephalic, normal inspection - Eye Eye exam: Present: normal appearance, PERRL, EOMI - ENT ENT exam: normal exam, normal oropharynx, mucous membranes moist - Neck Neck exam: Present: normal inspection, full ROM, trachea midline - Chest Chest inspection: Present: normal inspection, symmetric chest wall rise - Respiratory Respiratory exam: Present: normal lung sounds bilaterally. Absent: respiratory distress, wheezes, stridor, accessory muscle use - Cardiovascular Cardiovascular exam: Present: normal rhythm, tachycardia, normal heart sounds - Abdominal Exam Abdominal exam: Present: soft, Non-Tender. Absent: tenderness, distention, guarding, rebound, rigidity - Extremities Exam Extremities exam: Present: normal inspection, full ROM. Absent: tenderness, pedal edema - Neurological Exam Neurological exam: Present: alert, oriented X3. Absent: motor sensory deficit - Psychiatric Psychiatric exam: Present: normal mood, flat affect. Absent: homicidal ideation , suicidal ideation - Skin Skin exam: Present: warm, dry, intact, normal color Course Course Narrative: Patient was mildly tachycardic, mildly hypertensive. Otherwise, the rest of the vitals were within normal limits. Physical exam shows a disheveled patient is having active visual and auditory hallucinations. Denies any homicidal or suicidal ideation at this time. Otherwise, lungs clear to auscultation, heart regular rate and rhythm, abdomen soft and nontender. We will obtain medical clearance labs along with head CT and chest x-ray to assess for any source of hallucinations. We will then have 1A see the patient. 17:37 Patient has evidence of IVANA on labs, otherwise, no other major abnormalities. CXR and CT head negative for acute processes. Cannot medically clear the patient for 1A eval. WIll start the patient on maintenance fluids and banana bag with thiamine. Currently waiting on urine tox and then will admit for further care. Patient is [place] slipped due to hallucinations, being mildly combative, possible danger to self. He has been given 1mg ativan and is now noncombative, sitting calmly on bed. Sitter ordered. WIll admit to hospitalist after urine tox back. Vital Signs Temperature 98.3 F 01/06/18 14:18 Pulse Rate 103 01/06/18 14:18 Respiratory Rate 18 01/06/18 14:18 Blood Pressure 130/83 01/06/18 14:18 O2 Sat by Pulse Oximetry 95 01/06/18 14:18 Temperature 98.3 F 01/06/18 14:18 Pulse Rate 103 01/06/18 14:18 Respiratory Rate 18 01/06/18 14:18 Blood Pressure 130/83 01/06/18 14:18 O2 Sat by Pulse Oximetry 95 01/06/18 14:18 Oxygen Delivery Oxygen Delivery Room Air Psych - MDM Narrative Medical decision making narrative: Patient was mildly tachycardic, mildly hypertensive. Otherwise, the rest of the vitals were within normal limits. Physical exam shows a disheveled patient is having active visual and auditory hallucinations. Denies any homicidal or suicidal ideation at this time. Otherwise, lungs clear to auscultation, heart regular rate and rhythm, abdomen soft and nontender. We will obtain medical clearance labs along with head CT and chest x-ray to assess for any source of hallucinations. We will then have 1A see the patient. 17:37 Patient has evidence of IVANA on labs, otherwise, no other major abnormalities. CXR and CT head negative for acute processes. Cannot medically clear the patient for 1A eval. WIll start the patient on maintenance fluids and banana bag with thiamine. Currently waiting on urine tox and then will admit for further care. Patient is [place] slipped due to hallucinations, being mildly combative, possible danger to self. He has been given 1mg ativan and is now noncombative, sitting calmly on bed. Sitter ordered. WIll admit to hospitalist after urine tox back. 17:54 Urine tox negative. Will proceed with above plan. - Medical Records Medical records reviewed: Yes I reviewed the patient's medical records. - Lab Data Lab results reviewed: Yes I reviewed the patient's lab results. Result diagrams: 01/06/18 15:35 01/06/18 15:35 Lab Results 01/06/18 01/06/18 01/06/18 Range/Units 15:35 15:35 17:00 WBC 11.5 H (4.3-11.1) K/mcL RBC 4.39 (4.19-5.50) M/mcL Hgb 15.1 (12.9-16.9) g/dL Hct 43.3 (37.5-50.1) % MCV 98.6 (83.0-100.0) fL MCH 34.4 H (28.0-33.3) pg MCHC 34.9 (31.6-35.5) g/dL RDW 12.6 (11.5-14.5) % Plt Count 140 (140-400) K/mcL MPV 11.0 (9.4-12.4) fL Immature Gran % 0.5 (0-4) % Seg Neutrophils % 79.2 % Lymphocytes % 8.6 % Monocytes % 11.4 % Eosinophils % 0.0 % Basophils % 0.3 % Neutrophils # 9.1 H (1.6-8.9) K/mcL Lymphocytes # 1.0 (0.6-4.6) K/mcL Monocytes # 1.3 (0.0-1.3) K/mcL Eosinophils # 0.0 (0.0-0.6) K/mcL Basophils # 0.0 (0.0-0.2) K/mcL Sodium 145 (136-145) mEq/L Potassium 3.6 (3.5-5.1) mEq/L Chloride 109 H (98-107) mEq/L Carbon Dioxide 21 L (23-29) mEq/L BUN 42 H (6-20) mg/dL Creatinine 2.19 H (0.70-1.30) mg/dL Est GFR ( Amer) 38 L (> 60) Est GFR (Non-Af Amer) 32 L (> 60) BUN/Creatinine Ratio 19 (6-26) Glucose 86 (70-105) mg/dL Calculated Osmolality 310 H (280-300) Calcium 10.4 H (8.6-10.3) mg/dL Urine Color Dark Yellow (Yellow) Urine Clarity Cloudy A (Clear) Urine pH 5.5 (5.0-8.0) pH Units Ur Specific [place] > 1.030 H (1.010-1.025) Urine Protein 100 H (Neg-Trace) mg/dL Urine Glucose (UA) Normal (Normal) mg/dL Urine Ketones Trace H (Negative) mg/dL Urine Blood Negative (Negative) Urine Nitrite Negative (Negative) Urine Bilirubin Small H (Negative) Urine Urobilinogen Normal (Normal) mg/dL Ur Leukocyte Esterase Negative (Negative) Urine Microscopic RBC 5-15 H (0-3) per hpf Urine Microscopic WBC 3-5 H (0-3) per hpf Ur Squamous Epith Cells Many H (None-Few) per lpf Urine Bacteria None Seen (None-Few) per hpf Hyaline Casts Moderate H (None-Few) per lpf Salicylates < 5.0 L (15.0-30.0) mg/dL Urine Opiates Screen (Urjufa=681) ng/mL Acetaminophen < 1.0 L (10-30) mcg/mL Ur Barbiturates Screen (Hvxizx=030) ng/mL Ur Phencyclidine Scrn (Cutoff=25) ng/mL Ur Amphetamines Screen (Awrkbr=3787) ng/mL U Benzodiazepines Scrn (Hplzgi=347) ng/mL Urine Cocaine Screen (Cutoff= 300) ng/mL U Marijuana (THC) Screen (Cutoff = 50) ng/mL Ethyl Alcohol < 10 (0-10) mg/dL 01/06/18 Range/Units 17:00 WBC (4.3-11.1) K/mcL RBC (4.19-5.50) M/mcL Hgb (12.9-16.9) g/dL Hct (37.5-50.1) % MCV (83.0-100.0) fL MCH (28.0-33.3) pg MCHC (31.6-35.5) g/dL RDW (11.5-14.5) % Plt Count (140-400) K/mcL MPV (9.4-12.4) fL Immature Gran % (0-4) % Seg Neutrophils % % Lymphocytes % % Monocytes % % Eosinophils % % Basophils % % Neutrophils # (1.6-8.9) K/mcL Lymphocytes # (0.6-4.6) K/mcL Monocytes # (0.0-1.3) K/mcL Eosinophils # (0.0-0.6) K/mcL Basophils # (0.0-0.2) K/mcL Sodium (136-145) mEq/L Potassium (3.5-5.1) mEq/L Chloride (98-107) mEq/L Carbon Dioxide (23-29) mEq/L BUN (6-20) mg/dL Creatinine (0.70-1.30) mg/dL Est GFR ( Amer) (> 60) Est GFR (Non-Af Amer) (> 60) BUN/Creatinine Ratio (6-26) Glucose (70-105) mg/dL Calculated Osmolality (280-300) Calcium (8.6-10.3) mg/dL Urine Color (Yellow) Urine Clarity (Clear) Urine pH (5.0-8.0) pH Units Ur Specific [place] (1.010-1.025) Urine Protein (Neg-Trace) mg/dL Urine Glucose (UA) (Normal) mg/dL Urine Ketones (Negative) mg/dL Urine Blood (Negative) Urine Nitrite (Negative) Urine Bilirubin (Negative) Urine Urobilinogen (Normal) mg/dL Ur Leukocyte Esterase (Negative) Urine Microscopic RBC (0-3) per hpf Urine Microscopic WBC (0-3) per hpf Ur Squamous Epith Cells (None-Few) per lpf Urine Bacteria (None-Few) per hpf Hyaline Casts (None-Few) per lpf Salicylates (15.0-30.0) mg/dL Urine Opiates Screen Negative (Vzkhbc=668) ng/mL Acetaminophen (10-30) mcg/mL Ur Barbiturates Screen Negative (Endcil=059) ng/mL Ur Phencyclidine Scrn Negative (Cutoff=25) ng/mL Ur Amphetamines Screen Negative (Mfhjdj=1586) ng/mL U Benzodiazepines Scrn Negative (Kkzopl=494) ng/mL Urine Cocaine Screen Negative (Cutoff= 300) ng/mL U Marijuana (THC) Screen Negative (Cutoff = 50) ng/mL Ethyl Alcohol (0-10) mg/dL - Radiology Data Radiology results reviewed: Yes I reviewed the patient's radiology results. Chest X-Ray 01/06/18 14:40 IMPRESSION: No acute process. D/ / Gildardo Garcia MD / Gildardo Garcia MD Interpreting Provider: Gildardo Garcia MD Head CT 01/06/18 14:40 IMPRESSION: No evidence of acute intracranial abnormality. D/ / 01/06/2018 15:24:47 Tushar Pritchard MD / guillermo Interpreting Provider: Tushar Pritchard MD Psychiatric Medical Clearance - Medical Clearance Checklist Medical History: Generalized seizure (Chronic) Alcohol withdrawal (Acute) Delirium tremens (Acute) Alcohol abuse (Chronic) Seizure (Acute) Breakthrough seizure (Acute) FTT (failure to thrive) in adult (Acute) UTI (urinary tract infection) (Acute) Thrush, oral (Chronic) Clostridium difficile colitis (Acute) Tobacco abuse (Chronic) Alcoholic encephalopathy (Acute) Protein-calorie malnutrition, severe (Chronic) Debility (Acute) DVT prophylaxis (Acute) Alcohol withdrawal seizure (Acute) COPD (chronic obstructive pulmonary disease) (Chronic) Alcohol withdrawal seizure (Acute) Metabolic acidosis (Resolved) Alcohol withdrawal delirium (Acute) Epileptic seizure (Acute) COPD (chronic obstructive pulmonary disease) (Chronic) Neutrophilic leukocytosis (Acute) Delirium tremens (Acute) Tobacco abuse counseling (Acute) Recurrent seizures (Chronic) Alcohol abuse (Chronic) DVT prophylaxis (Acute) Hypokalemia (Acute) Tobacco abuse (Chronic) Alcohol abuse with other alcohol-induced disorder (Chronic) 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) Ambulatory dysfunction (Acute) Gait disturbance (Acute) At risk for fall due to comorbid condition (Acute) Seizure (Acute) ETOH abuse (Chronic) Status epilepticus (Acute) Seizure (Acute) ETOH abuse (Acute) Metabolic acidosis (Acute) Thrombocytopenia (Chronic) DVT prophylaxis (Acute) Alcohol intoxication (Acute) Alcohol related seizure (Acute) Swelling of scrotum (Acute) Status epilepticus (Acute) Lactic acidosis (Acute) Acute respiratory acidosis (Acute) Toxic metabolic encephalopathy (Acute) Respiratory failure (Resolved) Mild anemia (Acute) Rhabdomyolysis (Acute) Acute metabolic encephalopathy (Acute) Discharge planning issues (Acute) Encephalopathy (Acute) Mild dehydration (Acute) Alcoholic (Acute) Acute psychosis (Acute) Alcohol withdrawal (Acute) Shoulder pain, left (Acute) Ribs, multiple fractures (Acute) Hypertension (Chronic) Altered level of consciousness (Acute) Alcohol withdrawal seizure without complication (Acute) Hypokalemia (Acute) Chest pain (Acute) CHF (congestive heart failure) (Chronic) Liver disease (Chronic) Confusion after a seizure (Acute) CAD (coronary artery disease) (Chronic) Noncompliance with medication regimen (Acute) Auditory hallucinations (Acute) Visual hallucinations (Acute) History of alcoholism (Acute) Alcohol abuse (Inactive) Non compliance w medication regimen (Inactive) Seizure (Inactive) No Social History Section defined Current Vitals: Last Vital Signs Temp 98.3 F 01/06/18 14:18 Pulse 103 01/06/18 14:18 Resp 18 01/06/18 14:18 BP 130/83 01/06/18 14:18 Pulse Ox 95 01/06/18 14:18 Psychiatric Lab Panel: Drug Levels and Toxicity 01/06/18 01/06/18 15:35 17:00 Urine Opiates Screen Negative Acetaminophen < 1.0 L Ur Barbiturates Screen Negative Ur Phencyclidine Scrn Negative Ur Amphetamines Screen Negative U Benzodiazepines Scrn Negative Urine Cocaine Screen Negative U Marijuana (THC) Screen Negative Ethyl Alcohol < 10 Abnormal Labs: Abnormal lab results WBC 11.5 K/mcL (4.3-11.1) H 01/06/18 15:35 MCH 34.4 pg (28.0-33.3) H 01/06/18 15:35 Neutrophils # 9.1 K/mcL (1.6-8.9) H 01/06/18 15:35 Chloride 109 mEq/L (98-107) H 01/06/18 15:35 Carbon Dioxide 21 mEq/L (23-29) L 01/06/18 15:35 BUN 42 mg/dL (6-20) H 01/06/18 15:35 Creatinine 2.19 mg/dL (0.70-1.30) H 01/06/18 15:35 Est GFR ( Amer) 38 (> 60) L 01/06/18 15:35 Est GFR (Non-Af Amer) 32 (> 60) L 01/06/18 15:35 Calculated Osmolality 310 (280-300) H 01/06/18 15:35 Calcium 10.4 mg/dL (8.6-10.3) H 01/06/18 15:35 Urine Clarity Cloudy (Clear) A 01/06/18 17:00 Ur Specific [place] > 1.030 (1.010-1.025) H 01/06/18 17:00 Urine Protein 100 mg/dL (Neg-Trace) H 01/06/18 17:00 Urine Ketones Trace mg/dL (Negative) H 01/06/18 17:00 Urine Bilirubin Small (Negative) H 01/06/18 17:00 Urine Microscopic RBC 5-15 per hpf (0-3) H 01/06/18 17:00 Urine Microscopic WBC 3-5 per hpf (0-3) H 01/06/18 17:00 Ur Squamous Epith Cells Many per lpf (None-Few) H 01/06/18 17:00 Hyaline Casts Moderate per lpf (None-Few) H 01/06/18 17:00 Salicylates < 5.0 mg/dL (15.0-30.0) L 01/06/18 15:35 Acetaminophen < 1.0 mcg/mL (10-30) L 01/06/18 15:35 Statement of Medical Clearance: I have evaluated the patient, reviewed diagnostic information, and certify that the patient's medical condition is sufficiently stable that transfer to the psychiatric unit does not pose a significant risk of deterioration.
--- NOTE | 2018-01-06 15:34 | Emergency Department Note ---
START Narrative - START START: I examined this patient and my medical decision-making was reviewed with the Resident Physician. I agree with the documented findings, disposition and treatment plan as described except to the extent set forth below. 52-year-old male presented to the ER for hallucinations. Patient's family member called the police as he has been having some auditory and visual hallucinations. Patient is seeing and hearing things that are not there. He does have a history of psychiatric disease. He is currently not homicidal or suicidal. We will do a complete medical workup on him including a head CT as well as lab work and urinalysis. If all that is okay patient can be cleared from medical standpoint to go to psychiatry for further treatment.
[2018-01-06 15:42] LABS: Basophils % 0.3 %; Hematocrit 43.3 % (37.5-50.1); Hemoglobin 15.1 g/dL (12.9-16.9); Immature Granulocytes % 0.5 % (0-4); Lymphocytes % 8.6 %; Mean Corpuscular HGB Conc 34.9 g/dL (31.6-35.5); Mean Corpuscular Hemoglobin 34.4 pg (28.0-33.3); Mean Corpuscular Volume 98.6 fL (83.0-100.0); Monocytes # 1.3 K/mcL (0.0-1.3); Monocytes % 11.4 %; Neutrophils # 9.1 K/mcL (1.6-8.9); Platelet Count 140 K/mcL (140-400); Red Blood Count 4.39 M/mcL (4.19-5.50); Red Cell Distribution Width 12.6 % (11.5-14.5); Segmented Neutrophils % 79.2 %
[2018-01-06 16:00] LABS: Acetaminophen < 1.0 mcg/mL (10-30); Ethanol < 10 mg/dL (0-10); Salicylate < 5.0 mg/dL (15.0-30.0)
[2018-01-06] MEDS: *HR* LORazepam 2 MG/ML VIAL IM ONE (16:02)
[2018-01-06 16:08] LABS: BUN/Creatinine Ratio 19 (6-26); Blood Urea Nitrogen 42 mg/dL (6-20); Calcium 10.4 mg/dL (8.6-10.3); Carbon Dioxide 21 mEq/L (23-29); Chloride 109 mEq/L (98-107); Glucose 86 mg/dL (70-105); Osmolality,Calculated 310 (280-300); Potassium 3.6 mEq/L (3.5-5.1); Sodium 145 mEq/L (136-145); eGFR For African Americans 38 (> 60); eGFR For Non-African Americans 32 (> 60)
[2018-01-06] MEDS ORDERED: *HR* LORazepam 2 MG/ML VIAL IM ONE (17:07)
[2018-01-06 17:17] LABS: Bilirubin,Urine Small (Negative); Blood,Urine Negative (Negative); Clarity,Urine Cloudy (Clear); Color,Urine Dark Yellow (Yellow); Glucose,Urine (UA) Normal (Normal); Ketones,Urine Trace mg/dL (Negative); Leukocyte Esterase,Urine Negative (Negative); Nitrite,Urine Negative (Negative); PH,Urine 5.5 pH Units (5.0-8.0); Protein,Urine 100 mg/dL (Neg-Trace); Specific Gravity,Urine > 1.030 (1.010-1.025); Urobilinogen,Urine Normal (Normal)
[2018-01-06 17:19] LABS: Bacteria,Urine None Seen per hpf (None-Few); Squamous Epithelial Cell,Urine Many per lpf (None-Few)
[2018-01-06 17:35] LABS: Hyaline Casts,Urine Moderate per lpf (None-Few)
[2018-01-06 17:47] LABS: Amphetamine Screen,Urine Negative ng/mL (Cutoff=1000); Barbiturate Screen,Urine Negative ng/mL (Cutoff=200); Benzodiazepines Screen,Urine Negative ng/mL (Cutoff=200); Cannabinoid Screen,Urine Negative ng/mL (Cutoff = 50); Cocaine Screen,Urine Negative ng/mL (Cutoff= 300); Opiate Screen,Urine Negative ng/mL (Cutoff=300); Phencyclidine Screen,Urine Negative ng/mL (Cutoff=25)
[2018-01-06] MEDS: Thiamine (B-1) 100 MG, Folic Acid 1 MG, MVI, adult with vitamin K 10 ML in 0.9 % Sodi... IVPB SCH (18:57)
[2018-01-06] MEDS ORDERED: Naloxone 0.4 MG/ML INJ IVP PRN (20:04)
[2018-01-06] MEDS ORDERED: *HR* LORazepam 2 MG/ML VIAL IVP PRN ×3 (20:08)
--- NOTE | 2018-01-06 20:50 | Internal Med History&Physical ---
Date of Encounter: 01/06/18 Time of Encounter: 19:30 Assessment and Plan (1) Acute renal failure Current visit: Yes Status: Acute Pt has acute renal failure with Cr increase from baseline wnl to 2.19. Etiology is undetermined. - Assuming prerenal and will cont IVF 125 ml/hr, pt has empty bladder on exam. - US retroperitoneal to r/o obstruction. - Avoid nephrotoxic meds. - Consider nephro consult if renal function not improve after hydration. Qualifiers: Acute renal failure type: unspecified Qualified Code(s): N17.9 - Acute kidney failure, unspecified (2) History of alcoholism Current visit: Yes Status: Acute Place pt on CIWA protocol, no signs of withdraw now. (3) Acute psychosis Current visit: No Status: Acute Etiology is undetermined. - Closely monitoring to prevent alcohol withdraw. - Cont 1:1 sitter - Consult psychiatry (4) Alcohol related seizure Current visit: No Status: Acute Cont home meds keppra. (5) DVT prophylaxis Current visit: No Status: Acute Heparin sc. (6) CAD (coronary artery disease) Current visit: No Status: Chronic Denies chest pain. Not on any home meds?, need pharmacy to further confirm home meds in AM Qualifiers: Coronary Disease-Associated Artery/Lesion type: bypass graft [place] vs. transplanted heart: [place] heart Associated angina: angina presence unspecified Qualified Code(s): I25.810 - Atherosclerosis of coronary artery bypass graft(s) without angina pectoris (7) Tobacco abuse Current visit: No Status: Chronic Smoking cessation education, place pt on nicotine patch. Internal Medicine - H&P: HPI Chief complaint: Hallucination Admitted From: Home Plans for Post Hospital Care: Home History of present illness: Mr. Rose is a 52 year old male with Hx of CAD s/p CABG, HTN, Alcoholism, and tobacco abuse, sent to ER by family for hallucination. When I saw pt in ER, he is AAO x3, denies hallucination but keep talking to "Estefani" although there is only pt and me in the room. Pt denies nausea, vomiting, tremor, or diaphoresis. Pt denies any discomfort. When asked why he is in ER, he said he come for cardiac checking but denies any CP or SOB. Pt denies suicidal idea or homicidal idea. Pt was admitted for concern of alcohol withdraw. Past Med Surg Social Fam HX - Past Medical History Medical history: cardiomyopathy, CHF, COPD, coronary artery disease, hypertension, liver disease, myocardial infarction, seizures, valvular heart disease, other Psychiatric history: no psych history - Past Surgical History Surgical History: heart valve replacement, orthopedic, other - Social History Smoking Status: Current every day smoker Smokeless Tobacco Status: No Alcohol use: heavy, recent Drug use: marijuana - Family History Father Family Member Ethnicity: Non- Living Status: Hx Family Cardiac Disorders: Yes ([place]) Mother Family Member Ethnicity: Non- Living Status: Hx Family Cardiac Disorders: Yes Internal Medicine - H&P: Meds LevETIRAcetam [Keppra] 1,000 mg PO BID #60 tablet 11/29/17 [Rx] 3 Allergy/AdvReac Type Severity Reaction Status Date / Time No Known Allergies Allergy Verified 09/05/17 16:52 All Systems PM: A 10-system review of systems was performed and is negative for pertinent findings except as documented above in the HPI. - Constitutional Vitals: Temp Pulse Resp BP Pulse Ox 97.8 F 93 17 114/81 97 01/06/18 20:05 01/06/18 20:05 01/06/18 20:05 01/06/18 20:05 01/06/18 20:05 General appearance: Present: A&O X 3, no acute distress, answers questions appropriately - Head Head exam: Present: atraumatic, normocephalic - Eye Eye exam: Present: PERRL, conjuntiva pink, sclera anicteric Pupils: Present: PERRL - Neck Neck exam general surgery: Present: supple, trachea midline. Absent: lymphadenopathy - Respiratory Respiratory exam: Present: CTAB. Absent: accessory muscle use, rales, rhonchi, wheezes - Cardiovascular Cardiovascular exam: Present: RRR, +S1, +S2. Absent: diastolic murmur, gallop, rubs, systolic murmur - GI/Abdominal GI/Abdominal exam: Present: normal bowel sounds, soft, no peritoneal signs. Absent: distended, tenderness - Extremities Exam Extremities exam: Present: warm, radial pulses palpable and symmetrical. Absent : calf tenderness, cyanotic, pedal edema - Neurological Exam Neurological exam: Present: CN II-XII intact, oriented X3, no focal deficits. Absent: pronater drift, facial droop, speech deficit - Skin Skin exam: Present: dry, intact Internal Med - H&P Results - Labs CBC & Chem 7: 01/06/18 15:35 01/06/18 15:35
[2018-01-06] MEDS: Nicotine 21 MG PATCH.TD24 TD SCH (21:59)
[2018-01-06] MEDS: levETIRAcetam 250 MG TABLET PO SCH (21:59)
[2018-01-06] MEDS ORDERED: Haloperidol Lactate 5 MG/ML VIAL IVP ONE (22:33)
[2018-01-06] MEDS ORDERED: Dexmedetomidine HCl 400 MCG/100 ML MLS IVC ONE (23:54)
[2018-01-07] MEDS: *HR* LORazepam 2 MG/ML VIAL IM ONE (00:01)
[2018-01-07] MEDS: Dexmedetomidine HCl 400 MCG/100 ML MLS IVC SCH ×2 (00:04→09:56)
[2018-01-07] MEDS: 0.9 % Sodium Chloride 1,000 ML IVC SCH ×4 (00:07→20:52)
[2018-01-07] MEDS: *HR* Heparin 5,000 UNIT/ML VIAL SQ SCH ×2 (05:02→17:23)
[2018-01-07 05:30] LABS: Basophils # 0.1 K/mcL (0.0-0.2); Basophils % 0.9 %; Eosinophils % 0.6 %; Hematocrit 38.1 % (37.5-50.1); Immature Granulocytes % 0.3 % (0-4); Lymphocytes % 28.4 %; Mean Corpuscular HGB Conc 35.2 g/dL (31.6-35.5); Mean Corpuscular Hemoglobin 34.6 pg (28.0-33.3); Mean Corpuscular Volume 98.4 fL (83.0-100.0); Mean Platelet Volume 11.1 fL (9.4-12.4); Monocytes # 0.8 K/mcL (0.0-1.3); Platelet Count 114 K/mcL (140-400); Red Blood Count 3.87 M/mcL (4.19-5.50); Red Cell Distribution Width 12.6 % (11.5-14.5); Segmented Neutrophils % 57.8 %
[2018-01-07 05:31] LABS: Hemoglobin 13.4 g/dL (12.9-16.9)
[2018-01-07 05:45] LABS: BUN/Creatinine Ratio 33 (6-26); Blood Urea Nitrogen 37 mg/dL (6-20); Calcium 8.6 mg/dL (8.6-10.3); Carbon Dioxide 20 mEq/L (23-29); Chloride 112 mEq/L (98-107); Glucose 84 mg/dL (70-105); Magnesium 2.2 mg/dL (1.6-2.6); Osmolality,Calculated 298 (280-300); Potassium 3.5 mEq/L (3.5-5.1); Sodium 140 mEq/L (136-145); eGFR For African Americans > 60 (> 60); eGFR For Non-African Americans > 60 (> 60)
[2018-01-07] MEDS: levETIRAcetam 250 MG TABLET PO SCH ×2 (08:00→20:01)
[2018-01-07] MEDS: Nicotine 21 MG PATCH.TD24 TD SCH (08:01)
[2018-01-07] MEDS: Thiamine (B-1) 100 MG, Folic Acid 1 MG, MVI, adult with vitamin K 10 ML in 0.9 % Sodi... IVPB SCH (17:23)
--- NOTE | 2018-01-07 17:45 | Internal Med Progress Note ---
Date of Encounter: 01/07/18 Time of Encounter: 08:30 - Assessment and plan (1) Acute kidney injury Current Visit: Yes Status: Resolved Assessment and plan: Due to alcohol abuse. Serum creatinine currently improved with IV hydration. Renal ultrasound showed prostatomegaly, normal kidneys. Continue to monitor serum creatinine and urine output. (2) Acute metabolic encephalopathy Current Visit: Yes Status: Acute Assessment and plan: Urine drug screen, serum alcohol level negative. Likely due to alcohol withdrawal. Continue supportive care and when necessary IV Ativan. (3) Acute psychosis Current Visit: Yes Status: Acute Assessment and plan: Probably due to chronic alcohol abuse, consider underlying psychiatric issue. No evidence of agitation at this time. Continue one-on-one sitter for patient safety. Follow-up psychiatric consult. (4) Alcohol dependence Current Visit: Yes Status: Chronic Assessment and plan: Patient is noted to have multiple similar admissions with alcohol withdrawal and delirium. Does not seem to have close family. Has been provided with resources regarding alcohol rehabilitation in the past. We will consult social services aide when patient is more alert. Qualifiers: Substance use status: in withdrawal Complication of substance-induced condition: with delirium Qualified Code(s): F10.231 - Alcohol dependence with withdrawal delirium (5) Alcohol related seizure Current Visit: Yes Status: Chronic Assessment and plan: Continue Keppra. Seizure precautions. (6) CAD (coronary artery disease) Current Visit: Yes Status: Chronic Assessment and plan: Home medication reconciliation not available at this time. Suspect noncompliance. Qualifiers: Coronary Disease-Associated Artery/Lesion type: bypass graft [place] vs. transplanted heart: [place] heart Associated angina: without angina Qualified Code(s): I25.810 - Atherosclerosis of coronary artery bypass graft(s) without angina pectoris (7) COPD (chronic obstructive pulmonary disease) Current Visit: Yes Status: Chronic Assessment and plan: Not in acute exacerbation. Continue when necessary bronchodilators and supplemental oxygen. Qualifiers: COPD type: emphysema Emphysema type: unspecified Qualified Code(s): J43.9 - Emphysema, unspecified (8) Tobacco abuse Current Visit: Yes Status: Chronic Assessment and plan: Continue nicotine transdermal patch. - Subjective Interval history: Noted to be drowsy, keeps eyes closed, cannot provide any history. - Constitutional Vitals: Temp Pulse Resp BP Pulse Ox 97.0 F L 72 20 107/69 92 01/07/18 15:28 01/07/18 17:00 01/07/18 17:00 01/07/18 17:00 01/07/18 17:00 General appearance: Present: A&O X 1, no acute distress. Absent: answers questions appropriately - Respiratory Respiratory exam: Present: CTAB (Coarse breath sounds bilaterally anterolaterally). Absent: accessory muscle use, rales, rhonchi, wheezes - Cardiovascular Cardiovascular exam: Present: RRR, +S1, +S2, tachycardia. Absent: diastolic murmur, gallop, rubs, systolic murmur - GI/Abdominal GI/Abdominal exam: Present: normal bowel sounds, soft, no peritoneal signs. Absent: distended, tenderness - Extremities Exam Extremities exam: Present: full ROM, warm, radial pulses palpable and symmetrical. Absent: calf tenderness, cyanotic, pedal edema - Neurological Exam Neurological exam: Present: altered, no focal deficits (Further exam cannot be completed due to altered mental status. Cannot follow commands.). Absent: pronater drift, facial droop, speech deficit Internal Medicine: Result - Labs CBC & Chem 7: 01/08/18 05:38 01/08/18 05:38 Labs: Short CBC 01/07/18 Range/Units 04:58 WBC 6.9 (4.3-11.1) K/mcL Hgb 13.4 D (12.9-16.9) g/dL Hct 38.1 (37.5-50.1) % Plt Count 114 L (140-400) K/mcL Neutrophils # 4.0 (1.6-8.9) K/mcL BMP 01/07/18 04:58 Sodium 140 Potassium 3.5 Chloride 112 H Carbon Dioxide 20 L BUN 37 H Creatinine 1.11 Glucose 84 Calcium 8.6 - Impressions Impressions Retroperitoneum Ultrasound 01/06/18 22:15 IMPRESSION: 1. Normal kidneys. 2. No hydronephrosis. 3. Urinary bladder volume of 27 cc. The patient was unable to void for the examination. 4. Prostatomegaly. D/ / Ramy Gonzalez / Ramy Gonzalez Interpreting Provider: Ramy Gonzalez - VTE Documentation of Mechanical Device: Intermittent pneumatic compression device Consult Discharge Plan - Plan Additional Instructions: Needs to avoid alcohol use and be compliant with medications. Encourage a rehab center placement but doubt he will go Referrals: Sameer Flaherty MD [Primary Care Provider] -
--- NOTE | 2018-01-07 19:38 | Consult Note ---
Date of Encounter: 01/08/18 Time of Encounter: 19:00 Assessment & Recommendation (1) Delirium tremens Current visit: Yes Status: Acute (2) Alcohol dependence Current visit: Yes Status: Acute Assessment & Recommendation: I did not see a liver function lab assessment in the lab results. With his history of alcohol use/dep, I'd strongly encourage ordering that and reviewing his liver function as well as Vit B1 and B 12 study to consider also a diagnosis of Wernicke's Encephalopathy vs Alcohol related dementia vs Hepatic Encephalopathy as a diagnosis of his current/ongoing cognitive decline and issues. History of Present Illness Patient: new to practice Requesting Physician: Loretta Mathew MD Reason for consult: Hallucinations History of present illness: Mr. Rose is a 52 year old male whom I was asked to consult on secondary to "hallucinations". It is reported that patient when brought into the emergency room and while in his ER bed was talking to 'Cherie' when there was no one else there. I asked the patient how he was doing and he told me "tired". He denied having any mental health problems or treatment. He denies ability to read minds. He is able to repeat back to me with his current location, day and date. He is able to repeat back to me my name after I introduced myself. He is not able to recall historical information. His cognition, attention and concentration are greatly decreased. I asked him if he ever had a history of seizures and he told me no, but records show differently. He tells me he is supposed to be taking medications for something but does not take them. Records show his PCP is Dr. Plata. I asked the patient what happened that brought him to the hospital this time. Review of his history in the last 6 months he has had 7 hospital evaluations and /or admissions for alcohol-related issues, seizures and delirium. He states that he has conversations with people that are not there any sees people that are not in his room. When I asked him about his alcohol use he tells me that he drinks a case a day, but tells me then he quit 3 months ago. When I bring to his attention is recent hospital admissions and his alcohol levels at the time of evaluation, he tells me "well I only drank a 6 pack a day. The case a day get me into trouble". He states when he was drinking a case of day he would have blackouts. He tells me that he has been arrested for 5 times last in the 2 weeks for public intoxication. He states that he was put in senior living Saturday night and got out Saturday. He then came to the ER by ambulance. He is not sure why the ambulance was called for him. He states he was discharged from the hospital on Saturday, went home and then the police showed up to his house and brought him back to the ED. He states that he only had one beer from the time he left Saturday morning before the police showed up and brought him in. (Even though he insists that he quit drinking 3 months ago.) The information that he provides is highly unreliable. When I asked him about his run-ins with the police and he tells me that the FBI is working with the local police, "everybody's out to get me". When I asked him if he understands any of his medical issues and having seizures, he tells me sees Dr. Plata prescribes him medication but he has not been taking them. He states that he does not think that they are helpful nor that he needs. I explained to him that they are seizure medications to help him from having seizures. He tells me "I'm fine". He has a difficult time staying focused on the conversation. While I am was interviewing him, he had a bowel movement while lying in his bed. He is not wearing adult protective undergarments. He tells me he has been having diarrhea which I explained to him is highly likely from alcohol use and going through withdrawal. He states he needs to get cleaned up and does not want to talk anymore. He tells me he is doing fine, he is just waiting to be discharged and ended the intake. CC: Loretta Mathew MD Past Med Surg Social Fam HX - Past Medical History Medical history: cardiomyopathy, CHF, COPD, coronary artery disease, hypertension, liver disease, myocardial infarction, seizures, valvular heart disease, other - Past Psychiatric History Psychiatric history: Reports: other (Alcohol Delirium/Dependence ) Family psychiatric history: Unknown Family History of Suicide: Unknown - Past Surgical History Surgical History: heart valve replacement, orthopedic, other - Social History Smoking Status: Current every day smoker Smokeless Tobacco Status: No Alcohol use: heavy, recent Drug use: marijuana - Family History Father Family Member Ethnicity: Non- Living Status: Hx Family Cardiac Disorders: Yes ([place]) Mother Family Member Ethnicity: Non- Living Status: Hx Family Cardiac Disorders: Yes Medications & Allergies LevETIRAcetam [Keppra] 1,000 mg PO BID #60 tablet 11/29/17 [Rx] 3 Allergy/AdvReac Type Severity Reaction Status Date / Time No Known Allergies Allergy Verified 09/05/17 16:52 Review of Systems Genitourinary male: Reports: other (Acute Renal Failure) Mental Status Exam Patient orientation: Yes Person, Yes Time, Yes Place Level of alertness: Sedated Patient appearance: Disheveled, Thin Additional observations: He drank two large cups of coffee during the time I was there for the interview. He appears much older than his reported age. He was unable to hold his bowels and had a bowel movement while lying in his bed while I was there interviewing him. Behavior: nervous Psychomotor activity: Increased Eye contact: Fleeting Contact Mood description: Anxious Affect description: congruent with mood Speech pattern: Normal rate, Normal rhythm, Normal tone, Confabulation Speech volume: Soft/Quiet Thought process: Tangential, Evasive Thought content: Yes Paranoid delusion (Regarding the FBI working with the local police to arrest him.) Attention span: Unable to Focus, Unable to Sustain Attention Memory description: Immediate Intact, Recent Impaired, Remote Impaired Patient reliability: Not Reliable Historian Intelligence estimate: Below Average Judgment: Poor Insight: Minimal Results - Vital Signs Vital signs: Temp Pulse Resp BP Pulse Ox 97.0 F L 75 20 98/73 97 01/07/18 15:28 01/07/18 18:56 01/07/18 18:56 01/07/18 18:56 01/07/18 18:56 - Labs Labs: Laboratory Last Values WBC 6.9 K/mcL (4.3-11.1) 01/07/18 04:58 RBC 3.87 M/mcL (4.19-5.50) L 01/07/18 04:58 Hgb 13.4 g/dL (12.9-16.9) D 01/07/18 04:58 Hct 38.1 % (37.5-50.1) 01/07/18 04:58 MCV 98.4 fL (83.0-100.0) 01/07/18 04:58 MCH 34.6 pg (28.0-33.3) H 01/07/18 04:58 MCHC 35.2 g/dL (31.6-35.5) 01/07/18 04:58 RDW 12.6 % (11.5-14.5) 01/07/18 04:58 Plt Count 114 K/mcL (140-400) L 01/07/18 04:58 MPV 11.1 fL (9.4-12.4) 01/07/18 04:58 Immature Gran % 0.3 % (0-4) 01/07/18 04:58 Seg Neutrophils % 57.8 % 01/07/18 04:58 Lymphocytes % 28.4 % 01/07/18 04:58 Monocytes % 12.0 % 01/07/18 04:58 Eosinophils % 0.6 % 01/07/18 04:58 Basophils % 0.9 % 01/07/18 04:58 Neutrophils # 4.0 K/mcL (1.6-8.9) 01/07/18 04:58 Lymphocytes # 2.0 K/mcL (0.6-4.6) 01/07/18 04:58 Monocytes # 0.8 K/mcL (0.0-1.3) 01/07/18 04:58 Eosinophils # 0.0 K/mcL (0.0-0.6) 01/07/18 04:58 Basophils # 0.1 K/mcL (0.0-0.2) 01/07/18 04:58 Sodium 140 mEq/L (136-145) 01/07/18 04:58 Potassium 3.5 mEq/L (3.5-5.1) 01/07/18 04:58 Chloride 112 mEq/L (98-107) H 01/07/18 04:58 Carbon Dioxide 20 mEq/L (23-29) L 01/07/18 04:58 BUN 37 mg/dL (6-20) H 01/07/18 04:58 Creatinine 1.11 mg/dL (0.70-1.30) 01/07/18 04:58 Est GFR ( Amer) > 60 (> 60) 01/07/18 04:58 Est GFR (Non-Af Amer) > 60 (> 60) 01/07/18 04:58 BUN/Creatinine Ratio 33 (6-26) H 01/07/18 04:58 Glucose 84 mg/dL (70-105) 01/07/18 04:58 POC Glucose 111 (58-89) H 01/07/18 15:27 Calculated Osmolality 298 (280-300) 01/07/18 04:58 Calcium 8.6 mg/dL (8.6-10.3) 01/07/18 04:58 Magnesium 2.2 mg/dL (1.6-2.6) 01/07/18 04:58 Urine Color Dark Yellow (Yellow) 01/06/18 17:00 Urine Clarity Cloudy (Clear) A 01/06/18 17:00 Urine pH 5.5 pH Units (5.0-8.0) 01/06/18 17:00 Ur Specific [place] > 1.030 (1.010-1.025) H 01/06/18 17:00 Urine Protein 100 mg/dL (Neg-Trace) H 01/06/18 17:00 Urine Glucose (UA) Normal mg/dL (Normal) 01/06/18 17:00 Urine Ketones Trace mg/dL (Negative) H 01/06/18 17:00 Urine Blood Negative (Negative) 01/06/18 17:00 Urine Nitrite Negative (Negative) 01/06/18 17:00 Urine Bilirubin Small (Negative) H 01/06/18 17:00 Urine Urobilinogen Normal mg/dL (Normal) 01/06/18 17:00 Ur Leukocyte Esterase Negative (Negative) 01/06/18 17:00 Urine Microscopic RBC 5-15 per hpf (0-3) H 01/06/18 17:00 Urine Microscopic WBC 3-5 per hpf (0-3) H 01/06/18 17:00 Ur Squamous Epith Cells Many per lpf (None-Few) H 01/06/18 17:00 Urine Bacteria None Seen per hpf (None-Few) 01/06/18 17:00 Hyaline Casts Moderate per lpf (None-Few) H 01/06/18 17:00 Salicylates < 5.0 mg/dL (15.0-30.0) L 01/06/18 15:35 Urine Opiates Screen Negative ng/mL (Jiynhm=950) 01/06/18 17:00 Acetaminophen < 1.0 mcg/mL (10-30) L 01/06/18 15:35 Ur Barbiturates Screen Negative ng/mL (Uwtihs=039) 01/06/18 17:00 Ur Phencyclidine Scrn Negative ng/mL (Cutoff=25) 01/06/18 17:00 Ur Amphetamines Screen Negative ng/mL (Tqynyj=9878) 01/06/18 17:00 U Benzodiazepines Scrn Negative ng/mL (Pwddvy=121) 01/06/18 17:00 Urine Cocaine Screen Negative ng/mL (Cutoff= 300) 01/06/18 17:00 U Marijuana (THC) Screen Negative ng/mL (Cutoff = 50) 01/06/18 17:00 Ethyl Alcohol < 10 mg/dL (0-10) 01/06/18 15:35 - Impressions Impressions Retroperitoneum Ultrasound 01/06/18 22:15 IMPRESSION: 1. Normal kidneys. 2. No hydronephrosis. 3. Urinary bladder volume of 27 cc. The patient was unable to void for the examination. 4. Prostatomegaly. D/ / Ramy Gonzalez / Ramy Gonzalez Interpreting Provider: Ramy Gonzalez Consult Discharge Plan - Plan Additional Instructions: Needs to avoid alcohol use and be compliant with medications. Encourage a rehab center placement but doubt he will go Referrals: Sameer Flaherty MD [Primary Care Provider] -
[2018-01-08] MEDS: 0.9 % Sodium Chloride 1,000 ML IVC SCH ×3 (02:12→23:17)
[2018-01-08] MEDS: Dexmedetomidine HCl 400 MCG/100 ML MLS IVC SCH ×2 (02:13→03:13)
[2018-01-08] MEDS: *HR* Heparin 5,000 UNIT/ML VIAL SQ SCH ×2 (05:33→17:47)
[2018-01-08 06:04] LABS: Basophils # 0.1 K/mcL (0.0-0.2); Eosinophils # 0.1 K/mcL (0.0-0.6); Eosinophils % 1.4 %; Hematocrit 36.8 % (37.5-50.1); Hemoglobin 12.5 g/dL (12.9-16.9); Immature Granulocytes % 0.3 % (0-4); Lymphocytes # 1.7 K/mcL (0.6-4.6); Lymphocytes % 28.9 %; Mean Corpuscular Hemoglobin 34.1 pg (28.0-33.3); Mean Corpuscular Volume 100.3 fL (83.0-100.0); Mean Platelet Volume 10.8 fL (9.4-12.4); Monocytes # 0.6 K/mcL (0.0-1.3); Neutrophils # 3.4 K/mcL (1.6-8.9); Platelet Count 109 K/mcL (140-400); Red Blood Count 3.67 M/mcL (4.19-5.50); Red Cell Distribution Width 12.5 % (11.5-14.5); Segmented Neutrophils % 58.4 %
[2018-01-08 06:32] LABS: BUN/Creatinine Ratio 21 (6-26); Blood Urea Nitrogen 15 mg/dL (6-20); Calcium 7.9 mg/dL (8.6-10.3); Carbon Dioxide 22 mEq/L (23-29); Chloride 110 mEq/L (98-107); Glucose 112 mg/dL (70-105); Magnesium 1.8 mg/dL (1.6-2.6); Osmolality,Calculated 282 (280-300); Potassium 3.3 mEq/L (3.5-5.1); Sodium 135 mEq/L (136-145); eGFR For African Americans > 60 (> 60); eGFR For Non-African Americans > 60 (> 60)
[2018-01-08] MEDS ORDERED: Potassium Chloride Elixir 20 MEQ/15 ML UDC PO ONE (08:55)
[2018-01-08] MEDS: Nicotine 21 MG PATCH.TD24 TD SCH (09:10)
[2018-01-08] MEDS: levETIRAcetam 250 MG TABLET PO SCH ×2 (09:10→20:17)
[2018-01-08 09:51] LABS: Albumin 3.2 g/dL (3.5-5.7); Albumin/Globulin Ratio 1.4 (1.1-2.2); Bilirubin,Direct 0.2 mg/dL (0.0-0.2); Bilirubin,Indirect 0.3 mg/dL (0.0-1.2); Bilirubin,Total 0.5 mg/dL (0.3-1.0); Globulin 2.3 g/dL (2.4-3.5); Total Protein 5.5 g/dL (6.4-8.9)
--- NOTE | 2018-01-08 17:01 | Internal Med Progress Note ---
Date of Encounter: 01/08/18 Time of Encounter: 09:20 - Assessment and plan (1) Acute kidney injury Current Visit: Yes Status: Resolved (2) Acute metabolic encephalopathy Current Visit: Yes Status: Resolved Assessment and plan: Improving mental status, at baseline currently. Continue supportive care and IV hydration. (3) Acute psychosis Current Visit: Yes Status: Resolved Assessment and plan: Psychiatric evaluation appreciated. Recommend to rule out Wernicke's encephalopathy, alcohol related dementia. Hepatic function panel noted to be normal, serum vitamin B12 normal, pending vitamin B1 levels. (4) Alcohol dependence Current Visit: Yes Status: Chronic Assessment and plan: Improving. No evidence of withdrawal at this time. [facility] protocol. Physical and occupational therapy evaluation. financial services representative consult. Continue thiamine and folate supplements. IV hydration, PPI. Continue to monitor and replete electrolytes. Qualifiers: Substance use status: in withdrawal Complication of substance-induced condition: with delirium Qualified Code(s): F10.231 - Alcohol dependence with withdrawal delirium (5) Alcohol related seizure Current Visit: Yes Status: Chronic Assessment and plan: Continue Keppra. Seizure precautions. (6) CAD (coronary artery disease) Current Visit: Yes Status: Chronic Assessment and plan: Home medication reconciliation not available at this time. Patient reports that he does take cardiac medications but he does not remember the names. Suspect noncompliance. Qualifiers: Coronary Disease-Associated Artery/Lesion type: bypass graft [place] vs. transplanted heart: [place] heart Associated angina: without angina Qualified Code(s): I25.810 - Atherosclerosis of coronary artery bypass graft(s) without angina pectoris (7) COPD (chronic obstructive pulmonary disease) Current Visit: Yes Status: Chronic Assessment and plan: Not in acute exacerbation. Continue when necessary bronchodilators and supplemental oxygen. Qualifiers: COPD type: emphysema Emphysema type: unspecified Qualified Code(s): J43.9 - Emphysema, unspecified (8) Tobacco abuse Current Visit: Yes Status: Chronic Assessment and plan: Continue nicotine transdermal patch. - Subjective Interval history: Alert and oriented today, answers appropriately. Feels lousy. Reports nausea and generalized weakness. No chest or abdominal pain, vomiting or diarrhea. - Constitutional Vitals: Temp Pulse Resp BP Pulse Ox 97.6 F 73 18 91/59 97 01/08/18 11:59 01/08/18 15:00 01/08/18 15:00 01/08/18 15:00 01/08/18 12:00 General appearance: Present: A&O X 2, no acute distress, answers questions appropriately - Respiratory Respiratory exam: Present: CTAB. Absent: accessory muscle use, rales, rhonchi, wheezes - Cardiovascular Cardiovascular exam: Present: RRR, +S1, +S2. Absent: diastolic murmur, gallop, rubs, systolic murmur - GI/Abdominal GI/Abdominal exam: Present: normal bowel sounds, soft, no peritoneal signs. Absent: distended, tenderness - Extremities Exam Extremities exam: Present: full ROM, warm, radial pulses palpable and symmetrical. Absent: calf tenderness, cyanotic, pedal edema - Neurological Exam Neurological exam: Present: CN II-XII intact, oriented X3, no focal deficits. Absent: pronater drift, facial droop, speech deficit Internal Medicine: Result - Labs CBC & Chem 7: 01/08/18 05:38 01/08/18 05:38 Labs: Short CBC 01/08/18 Range/Units 05:38 WBC 5.9 (4.3-11.1) K/mcL Hgb 12.5 L (12.9-16.9) g/dL Hct 36.8 L (37.5-50.1) % Plt Count 109 L (140-400) K/mcL Neutrophils # 3.4 (1.6-8.9) K/mcL BMP 01/08/18 05:38 Sodium 135 L Potassium 3.3 L Chloride 110 H Carbon Dioxide 22 L BUN 15 Creatinine 0.71 Glucose 112 H Calcium 7.9 L Liver Function 01/08/18 Range/Units 09:16 Total Bilirubin 0.5 (0.3-1.0) mg/dL Direct Bilirubin 0.2 (0.0-0.2) mg/dL AST 36 (13-39) Units/L ALT 19 (7-52) Units/L Alkaline Phosphatase 59 (34-104) Units/L Albumin 3.2 L (3.5-5.7) g/dL - VTE Documentation of Mechanical Device: Intermittent pneumatic compression device Consult Discharge Plan - Plan Additional Instructions: Needs to avoid alcohol use and be compliant with medications. Encourage a rehab center placement but doubt he will go Referrals: Sameer Flaherty MD [Primary Care Provider] -
[2018-01-08] MEDS: Thiamine (B-1) 100 MG, Folic Acid 1 MG, MVI, adult with vitamin K 10 ML in 0.9 % Sodi... IVPB SCH (17:47)
[2018-01-09 08:23] LABS: Basophils % 0.8 %; Eosinophils # 0.1 K/mcL (0.0-0.6); Eosinophils % 1.2 %; Hematocrit 38.8 % (37.5-50.1); Hemoglobin 12.8 g/dL (12.9-16.9); Immature Granulocytes % 0.2 % (0-4); Lymphocytes # 1.9 K/mcL (0.6-4.6); Lymphocytes % 36.2 %; Mean Corpuscular Volume 102.9 fL (83.0-100.0); Mean Platelet Volume 10.9 fL (9.4-12.4); Monocytes # 0.9 K/mcL (0.0-1.3); Monocytes % 16.5 %; Neutrophils # 2.3 K/mcL (1.6-8.9); Platelet Count 128 K/mcL (140-400); Red Blood Count 3.77 M/mcL (4.19-5.50); Red Cell Distribution Width 12.6 % (11.5-14.5); Segmented Neutrophils % 45.1 %
[2018-01-09 08:41] LABS: Alanine Aminotransferase 19 Units/L (7-52); Albumin/Globulin Ratio 1.3 (1.1-2.2); Alkaline Phosphatase 51 Units/L (34-104); Aspartate Amino Transferase 30 Units/L (13-39); BUN/Creatinine Ratio 12 (6-26); Bilirubin,Total 0.4 mg/dL (0.3-1.0); Blood Urea Nitrogen 7 mg/dL (6-20); Calcium 7.9 mg/dL (8.6-10.3); Carbon Dioxide 23 mEq/L (23-29); Chloride 113 mEq/L (98-107); Globulin 2.4 g/dL (2.4-3.5); Glucose 91 mg/dL (70-105); Magnesium 1.5 mg/dL (1.6-2.6); Osmolality,Calculated 286 (280-300); Potassium 3.8 mEq/L (3.5-5.1); Sodium 139 mEq/L (136-145); Total Protein 5.4 g/dL (6.4-8.9); eGFR For African Americans > 60 (> 60); eGFR For Non-African Americans > 60 (> 60)
--- NOTE | 2018-01-09 08:55 | Discharge Summary ---
Date of Encounter: 01/09/18 Time of Encounter: 08:53 - Discharge Diagnosis (1) Acute kidney injury Priority: Primary Status: Resolved (2) Acute metabolic encephalopathy Priority: Primary Status: Resolved (3) Acute psychosis Priority: Primary Status: Resolved (4) Alcohol dependence Priority: Secondary Status: Chronic Qualifiers: Substance use status: unspecified alcohol-induced disorder Qualified Code(s ): F10.29 - Alcohol dependence with unspecified alcohol-induced disorder (5) Alcohol related seizure Priority: Secondary Status: Chronic (6) CAD (coronary artery disease) Priority: Secondary Status: Chronic Qualifiers: Coronary Disease-Associated Artery/Lesion type: bypass graft [place] vs. transplanted heart: [place] heart Associated angina: without angina Qualified Code(s): I25.810 - Atherosclerosis of coronary artery bypass graft(s) without angina pectoris (7) COPD (chronic obstructive pulmonary disease) Priority: Secondary Status: Chronic Qualifiers: COPD type: emphysema Emphysema type: unspecified Qualified Code(s): J43.9 - Emphysema, unspecified (8) Tobacco abuse Priority: Secondary Status: Chronic - Discharge Medications Prescriptions: Folic Acid 1 mg PO DAILY #30 tablet Thiamine (B-1) [Vitamin B-1] 100 mg PO DAILY #30 tablet Home Medications: LevETIRAcetam [Keppra] 1,000 mg PO BID #60 tablet 11/29/17 [Rx] Folic Acid 1 mg PO DAILY #30 tablet 01/09/18 [Rx] Thiamine (B-1) [Vitamin B-1] 100 mg PO DAILY #30 tablet 01/09/18 [Rx] Allergies/Adverse Reactions: 3 Allergy/AdvReac Type Severity Reaction Status Date / Time No Known Allergies Allergy Verified 09/05/17 16:52 Procedures/tests Complete & Pending: Procedures Performed prior 72 hours Category Date Time Status US retroperitoneal comp [US] Stat Exams 01/06/18 22:15 Completed Date of admission: 01/06/18 19:33 Primary care physician: Sameer Flaherty MD Consults: 01/06/18 20:08 Consult to Psychiatry [CONS] Routine Consulting Provider: Silvia Stack Reason for Consult: hallucination Call Completed: No 01/06/18 20:09 Consult to Hardware Assembler [CONS] Routine Reason for SW Consult: Alcoholism 01/08/18 12:21 Consult to Occupational Therapy [CONS] Routine Comment: Evaluate, develop and implement POC Reason for Consult: Generalized weakness, deconditioning, alcoholism Consult to Physical Therapy [CONS] Routine Comment: Evaluate, develop and implement POC Reason for Consult: Generalized weakness, deconditioning, alcoholism Discharging clinician: Loretta Mathew Anticipated date of discharge: 01/09/18 - Patient Status Disposition: Home, Self-Care Condition: Good Functional capacity at discharge: independent ambulation Overall status at discharge: patient is progressing back to baseline - Discharge Instructions Instructions: Chronic Obstructive Pulmonary Disease (DC) Follow Up With: Sameer Flaherty MD [Primary Care Provider] - Additional Instructions: Needs to avoid alcohol use and be compliant with medications. Encourage a rehab center placement but doubt he will go - Diet and Activity Activity: resume usual activities as tolerated Diet: advance to your usual diet, low fat, low cholesterol, low salt diet Hospital course: Mr. Rose is a 52 year old male with the above medical problems including alcohol abuse, was admitted with altered mental status and hallucinations. Patient was noted to have auditory and visual hallucinations along with mild psychosis in the emergency room. There was concern for alcohol withdrawal and delirium tremens due to his chronic history of heavy alcohol consumption. Patient was started on CIWA protocol but continued to improve and did not require any IV Ativan doses. He was initially maintained on IV Precedex strip for agitation, which was later weaned off. He was noted to have electrolyte abnormalities like hypokalemia and hypomagnesemia and electrolytes were repleted appropriately. Psychiatry was consulted and recommended checking liver function tests, serum vitamin B1 and B12 to rule out Wernicke's encephalopathy, alcohol related dementia. Liver enzymes and vitamin B12 noted to be normal. Patient's mental status gradually returned to baseline, he is noted to be alert and oriented. He refuses to participate in physical therapy as he wanted to rest. He was not interested in outpatient alcohol rehabilitation as he claims that he has cut down a lot on his own and would continue to do so. Patient is noted to have a long history of medical noncompliance with missed PCP appointments, noncompliance with home medications. He was encouraged to keep up his next follow-up appointment with his PCP. He is otherwise medically stable for discharge. - Time Spent with Patient Total time spent providing and/or coordinating discharge services: Greater than 30 minutes (40 min) - Constitutional Vitals: Temp Pulse Resp BP Pulse Ox 98.6 F 72 18 123/76 97 01/09/18 07:00 01/09/18 07:30 01/09/18 07:00 01/09/18 07:00 01/08/18 12:00 General appearance: Present: A&O X 2, answers questions appropriately - Cardiovascular Cardiovascular exam: Present: RRR, +S1, +S2. Absent: diastolic murmur, gallop, rubs, systolic murmur - VTE Documentation of Mechanical Device: Intermittent pneumatic compression device
[2018-01-09] MEDS ORDERED: Multivit/Ca/Min/Fe/FA 1 TAB TABLET PO SCH (09:00)
[2018-01-09] MEDS ORDERED: Folic Acid 1 MG TABLET PO SCH (09:00)
[2018-01-09] MEDS ORDERED: Thiamine (B-1) 100 MG TABLET PO SCH (09:00)
[2018-01-09] MEDS: *HR* Heparin 5,000 UNIT/ML VIAL SQ SCH (09:28)
[2018-01-09] MEDS: levETIRAcetam 250 MG TABLET PO SCH (09:39)
[2018-01-09] MEDS: Nicotine 21 MG PATCH.TD24 TD SCH (09:39)
[2018-01-09 12:38] VITALS: BP 125/82
== END 2018-01-09 14:00 | disposition home or self-care (01) ==
LOC: 3BNU 14:17 → EMEROO 14:17 → SUATTDRO 19:33 → 3BNU 19:47 → ICNU 01-07 00:05
PROVIDERS: ADMIT Internal Medicine; ATTEND Internal Medicine

== ENCOUNTER 2018-01-15 14:48 | Observation (INO) ==
[2018-01-15] MEDS ORDERED: levETIRAcetam 250 MG TABLET PO STA (15:32)
--- NOTE | 2018-01-15 15:38 | Emergency Department Note ---
Disposition Clinical Impression: Seizure Disposition: Admitted As Inpatient Condition: Good Seizure HPI - General Chief Complaint: ED Seizure Stated Complaint: Multiple Seizures Time Seen by Provider: 01/15/18 14:59 Source: EMS Limitations: no limitations Nursing Notes Reviewed: Yes Vital Signs Reviewed: Yes - History of Present Illness HPI Narrative: Patient presents today for evaluation of seizure and "possible cold". Patient states that he had a seizure earlier today around 12:00. Family called EMS. Patient is unable to give significant history of what happened. EMS reports postictal period. The patient did not have any tongue biting or urinary incontinence. Patient on my evaluation is awake alert oriented 3 without any distress. Patient is at normal mental baseline. Patient complains of a cold which he describes as a runny nose for the past 2 days. Patient has had occasional nonproductive cough which he uses from stuff running down the back of his throat. Patient has had no respiratory distress or wheezing. Cough is nonproductive. Patient has not had any fevers or chills. Patient has no other complaints. - Related Data Previous Rx's Medication Instructions Recorded LevETIRAcetam [Keppra] 1,000 mg PO BID #60 tablet 01/15/18 Allergies Allergy/AdvReac Type Severity Reaction Status Date / Time No Known Allergies Allergy Verified 09/05/17 16:52 Review of Systems: CONSTITUTIONAL: No weight loss, fever, chills, weakness or fatigue. HEENT: Eyes: No visual changes. Ears, Nose, Throat: Rhinorrhea No hearing loss, difficulty talking or unable to swallow. SKIN: No rash or itching. CARDIOVASCULAR: No chest pain, chest pressure or chest discomfort. No palpitations or edema. RESPIRATORY: No shortness of breath, cough or sputum. GASTROINTESTINAL: No anorexia, nausea, vomiting or diarrhea. No abdominal pain or blood. GENITOURINARY: No burning on urination or hematuria. NEUROLOGICAL: Seizure No headache, dizziness, paralysis, ataxia, numbness or tingling in the extremities. No change in bowel or bladder control. MUSCULOSKELETAL: No muscle pain, back pain, joint pain or stiffness. Past Medical History - Past Medical History Medical history: Reports: cardiomyopathy, CHF, COPD, coronary artery disease, hypertension, liver disease, myocardial infarction, seizures, valvular heart disease, other Surgical history: Reports: heart valve replacement, orthopedic, other Psychiatric history: Reports: other - Social History Smoking Status: Current every day smoker Smokeless Tobacco Status: No Alcohol use: Reports: heavy, recent Drug use: Reports: marijuana Physical Exam General: Well appearing, nontoxic, no acute distress Head: Normocephalic Atraumatic Eyes: PERRL, EOMI ENT: Airway patent, no stridor; TMs clear bilaterally. Nasal turbinates without congestion. Neck: supple, no meningismus Chest: Lungs clear to auscultation bilateral Cardiac: Regular rate and rhythm, no murmurs, rubs or gallops Abdomen: soft, nontender, nondistended; no guarding, rebound, or tenderness to percussion Musculoskeletal: Calves symmetric, nontender, no palpable cord Skin: No rash, normal skin tone Neuro: Alert and Oriented to person, place, and time; No focal deficit, CN 2-12 symmetric and intact - General Limitations: no limitations General appearance: alert, in no apparent distress Course Course Narrative: Seizures that will likely need seizure medication indefinitely. The patient was recently admitted to the hospital and was treated for that of ENCEPHALOPATHY thought to be related to alcohol use. The patient did not require significant benzos while in the hospital. Patient continues to cut down on alcohol use and is down to 2 beers per week. The patient has no signs of encephalopathy. Patient is no longer postictal and is at baseline mentation. Patient has not been taking medications and did not realize that he had a seizure disorder he should be taking medications for. The Keppra prescription of 1 g twice a day as previously recommended by neurology has been given to the patient by mouth while in the emergency department. His prescription was sent to social work who sent this to pharmacy so that the patient will pick this up upon leaving. Significant bedside education regards to seizure precautions as well as a few medications been given. Patient understands that his prescription is waiting for him upon discharge. Vital Signs Temperature 98.1 F 01/15/18 14:49 Pulse Rate 85 01/15/18 14:49 Respiratory Rate 18 01/15/18 14:49 Blood Pressure 144/94 01/15/18 14:49 O2 Sat by Pulse Oximetry 98 01/15/18 14:49 Temperature 98.8 F 01/15/18 19:59 Pulse Rate 80 01/15/18 19:59 Respiratory Rate 16 01/15/18 19:59 Blood Pressure 136/85 01/15/18 19:59 O2 Sat by Pulse Oximetry 98 01/15/18 19:59 Oxygen Delivery Oxygen Delivery Room Air Seizure - Lab Data Result diagrams: 01/15/18 16:46 01/15/18 16:46 Lab Results 01/15/18 01/15/18 01/15/18 Range/Units 16:46 16:46 17:34 WBC 7.6 (4.3-11.1) K/mcL RBC 3.89 L (4.19-5.50) M/mcL Hgb 13.2 (12.9-16.9) g/dL Hct 39.4 (37.5-50.1) % MCV 101.3 H (83.0-100.0) fL MCH 33.9 H (28.0-33.3) pg MCHC 33.5 (31.6-35.5) g/dL RDW 12.9 (11.5-14.5) % Plt Count 224 D (140-400) K/mcL MPV 10.6 (9.4-12.4) fL Immature Gran % 0.3 (0-4) % Seg Neutrophils % 71.3 % Lymphocytes % 16.2 % Monocytes % 10.8 % Eosinophils % 0.1 % Basophils % 1.3 % Neutrophils # 5.4 (1.6-8.9) K/mcL Lymphocytes # 1.2 (0.6-4.6) K/mcL Monocytes # 0.8 (0.0-1.3) K/mcL Eosinophils # 0.0 (0.0-0.6) K/mcL Basophils # 0.1 (0.0-0.2) K/mcL VBG pH (7.32-7.42) pH Units VBG pCO2 (41-51) mmHg VBG pO2 (25-50) mmHg VBG HCO3 (21-27) mEq/L Sodium 137 (136-145) mEq/L Potassium 4.1 (3.5-5.1) mEq/L Chloride 105 (98-107) mEq/L Carbon Dioxide 22 L (23-29) mEq/L BUN 8 (6-20) mg/dL Creatinine 0.77 (0.70-1.30) mg/dL Est GFR ( Amer) > 60 (> 60) Est GFR (Non-Af Amer) > 60 (> 60) BUN/Creatinine Ratio 10 (6-26) Glucose 93 (70-105) mg/dL Calculated Osmolality 282 (280-300) Calcium 9.2 (8.6-10.3) mg/dL Total Bilirubin 0.5 (0.3-1.0) mg/dL AST 29 (13-39) Units/L ALT 20 (7-52) Units/L Alkaline Phosphatase 59 (34-104) Units/L Ammonia 38 (16-53) mcmol/L Serum Total Protein 6.9 (6.4-8.9) g/dL Albumin 4.0 (3.5-5.7) g/dL Globulin 2.9 (2.4-3.5) g/dL Albumin/Globulin Ratio 1.4 (1.1-2.2) TSH (0.340-5.600) mcIU/mL Salicylates (15.0-30.0) mg/dL Acetaminophen (10-30) mcg/mL 01/15/18 01/15/18 Range/Units 17:34 17:55 WBC (4.3-11.1) K/mcL RBC (4.19-5.50) M/mcL Hgb (12.9-16.9) g/dL Hct (37.5-50.1) % MCV (83.0-100.0) fL MCH (28.0-33.3) pg MCHC (31.6-35.5) g/dL RDW (11.5-14.5) % Plt Count (140-400) K/mcL MPV (9.4-12.4) fL Immature Gran % (0-4) % Seg Neutrophils % % Lymphocytes % % Monocytes % % Eosinophils % % Basophils % % Neutrophils # (1.6-8.9) K/mcL Lymphocytes # (0.6-4.6) K/mcL Monocytes # (0.0-1.3) K/mcL Eosinophils # (0.0-0.6) K/mcL Basophils # (0.0-0.2) K/mcL VBG pH 7.41 (7.32-7.42) pH Units VBG pCO2 43 (41-51) mmHg VBG pO2 89 H (25-50) mmHg VBG HCO3 27 (21-27) mEq/L Sodium (136-145) mEq/L Potassium (3.5-5.1) mEq/L Chloride (98-107) mEq/L Carbon Dioxide (23-29) mEq/L BUN (6-20) mg/dL Creatinine (0.70-1.30) mg/dL Est GFR ( Amer) (> 60) Est GFR (Non-Af Amer) (> 60) BUN/Creatinine Ratio (6-26) Glucose (70-105) mg/dL Calculated Osmolality (280-300) Calcium (8.6-10.3) mg/dL Total Bilirubin (0.3-1.0) mg/dL AST (13-39) Units/L ALT (7-52) Units/L Alkaline Phosphatase (34-104) Units/L Ammonia (16-53) mcmol/L Serum Total Protein (6.4-8.9) g/dL Albumin (3.5-5.7) g/dL Globulin (2.4-3.5) g/dL Albumin/Globulin Ratio (1.1-2.2) TSH 1.227 (0.340-5.600) mcIU/mL Salicylates < 5.0 L (15.0-30.0) mg/dL Acetaminophen < 1.0 L (10-30) mcg/mL Attestation Statement - Attestation Attestation: I examined this patient and my medical decision-making was reviewed with the Resident Physician. I agree with the documented findings, disposition and treatment plan as described except to the extent set forth below. Findings consistent with seizure disorder. We will admit for EEG. Patient was loaded with Keppra. Patient had prolonged postictal period. Critical care performed:35 Time is exclusive of separately billable procedures. Time includes: direct patient care, patient reassessment, coordination of patient care, interpretation of data (laboratory data, radiology data, and respiratory data), review of patient's medical records, medical consultation and documentation of patient care. Procedures included in critical care time:0 Procedures excluded from critical care time:0 .
[2018-01-15] MEDS ORDERED: levETIRAcetam 1,000 MG in 0.9 % Sodium Chloride 100 ML IVPB ONE (16:08)
[2018-01-15] MEDS ORDERED: 0.9 % Sodium Chloride 1,000 ML IVC ONE (16:08)
[2018-01-15] MEDS ORDERED: *HR* LORazepam 2 MG/ML VIAL IVP ONE (16:22)
--- NOTE | 2018-01-15 16:22 | Emergency Department Note ---
Disposition Clinical Impression: Seizure Disposition: Admitted As Inpatient Condition: Good Instructions: Recurrent Seizures in Adults (ED) Reasons to Return/Additional Instructions: You have a history of seizures that were evaluated and treated by Neurology ( brain specialist). You have been placed on medication in the past. This medication is Keppra. It needs to be taken twice a day. You need to have a primary care physician to follow-up on this and provide you with refills of this medication. Please call the below number to obtain primary care. Prescriptions: LevETIRAcetam [Keppra] 1,000 mg PO BID #60 tablet Referrals: [facility] [Outside] Sameer Flaherty MD [Primary Care Provider] - Forms: ED Satisfaction Letter Seizure HPI - General Chief Complaint: ED Seizure Stated Complaint: Multiple Seizures Time Seen by Provider: 01/15/18 14:59 Source: EMS Limitations: no limitations - Related Data Previous Rx's Medication Instructions Recorded LevETIRAcetam [Keppra] 1,000 mg PO BID #60 tablet 01/15/18 Allergies Allergy/AdvReac Type Severity Reaction Status Date / Time No Known Allergies Allergy Verified 09/05/17 16:52 ENT ED: Reports: epistaxis Past Medical History - Past Medical History Medical history: Reports: cardiomyopathy, CHF, COPD, coronary artery disease, hypertension, liver disease, myocardial infarction, seizures, valvular heart disease, other Surgical history: Reports: heart valve replacement, orthopedic, other Psychiatric history: Reports: other - Social History Smoking Status: Current every day smoker Smokeless Tobacco Status: No Alcohol use: Reports: heavy, recent Drug use: Reports: marijuana Physical Exam - General Limitations: no limitations General appearance: alert, in no apparent distress Course Course Narrative: Please see previous note for further history and physical exam. Prior to the patient being discharged patient had a seizure. The seizure lasted for minutes and resolved. Patient is currently postictal. Patient has a history of seizures and had a seizure earlier in the day which had returned to baseline. Patient was going to be loaded with a gram of Keppra by mouth monitored and then discharged. The patient's recurrent seizure is now going to require 2 mg IV Ativan as well as IV loading dose Keppra. Patient will receive head CT and blood work as well as urinalysis prior to admission to the hospital for further evaluation. His seizure medications which been sent to pharmacy will be given to the patient so that he may have them upon discharge. - Consultations Consultation #1: Discussed with hospitalist. Patient accepted for admission. Vital Signs Temperature 98.1 F 01/15/18 14:49 Pulse Rate 85 01/15/18 14:49 Respiratory Rate 18 01/15/18 14:49 Blood Pressure 144/94 01/15/18 14:49 O2 Sat by Pulse Oximetry 98 01/15/18 14:49 Temperature 98.1 F 01/15/18 14:49 Pulse Rate 76 01/15/18 17:17 Respiratory Rate 18 01/15/18 17:17 Blood Pressure 138/87 01/15/18 17:17 O2 Sat by Pulse Oximetry 100 01/15/18 17:17 Oxygen Delivery Oxygen Delivery Room Air Seizure - Medical Records Medical records reviewed: Yes I reviewed the patient's medical records. - Lab Data Lab results reviewed: Yes I reviewed the patient's lab results. Result diagrams: 01/15/18 16:46 01/15/18 16:46 Lab Results 01/15/18 01/15/18 01/15/18 Range/Units 16:46 16:46 17:34 WBC 7.6 (4.3-11.1) K/mcL RBC 3.89 L (4.19-5.50) M/mcL Hgb 13.2 (12.9-16.9) g/dL Hct 39.4 (37.5-50.1) % MCV 101.3 H (83.0-100.0) fL MCH 33.9 H (28.0-33.3) pg MCHC 33.5 (31.6-35.5) g/dL RDW 12.9 (11.5-14.5) % Plt Count 224 D (140-400) K/mcL MPV 10.6 (9.4-12.4) fL Immature Gran % 0.3 (0-4) % Seg Neutrophils % 71.3 % Lymphocytes % 16.2 % Monocytes % 10.8 % Eosinophils % 0.1 % Basophils % 1.3 % Neutrophils # 5.4 (1.6-8.9) K/mcL Lymphocytes # 1.2 (0.6-4.6) K/mcL Monocytes # 0.8 (0.0-1.3) K/mcL Eosinophils # 0.0 (0.0-0.6) K/mcL Basophils # 0.1 (0.0-0.2) K/mcL VBG pH (7.32-7.42) pH Units VBG pCO2 (41-51) mmHg VBG pO2 (25-50) mmHg VBG HCO3 (21-27) mEq/L Sodium 137 (136-145) mEq/L Potassium 4.1 (3.5-5.1) mEq/L Chloride 105 (98-107) mEq/L Carbon Dioxide 22 L (23-29) mEq/L BUN 8 (6-20) mg/dL Creatinine 0.77 (0.70-1.30) mg/dL Est GFR ( Amer) > 60 (> 60) Est GFR (Non-Af Amer) > 60 (> 60) BUN/Creatinine Ratio 10 (6-26) Glucose 93 (70-105) mg/dL Calculated Osmolality 282 (280-300) Calcium 9.2 (8.6-10.3) mg/dL Total Bilirubin 0.5 (0.3-1.0) mg/dL AST 29 (13-39) Units/L ALT 20 (7-52) Units/L Alkaline Phosphatase 59 (34-104) Units/L Ammonia 38 (16-53) mcmol/L Serum Total Protein 6.9 (6.4-8.9) g/dL Albumin 4.0 (3.5-5.7) g/dL Globulin 2.9 (2.4-3.5) g/dL Albumin/Globulin Ratio 1.4 (1.1-2.2) TSH (0.340-5.600) mcIU/mL Salicylates (15.0-30.0) mg/dL Acetaminophen (10-30) mcg/mL 01/15/18 01/15/18 Range/Units 17:34 17:55 WBC (4.3-11.1) K/mcL RBC (4.19-5.50) M/mcL Hgb (12.9-16.9) g/dL Hct (37.5-50.1) % MCV (83.0-100.0) fL MCH (28.0-33.3) pg MCHC (31.6-35.5) g/dL RDW (11.5-14.5) % Plt Count (140-400) K/mcL MPV (9.4-12.4) fL Immature Gran % (0-4) % Seg Neutrophils % % Lymphocytes % % Monocytes % % Eosinophils % % Basophils % % Neutrophils # (1.6-8.9) K/mcL Lymphocytes # (0.6-4.6) K/mcL Monocytes # (0.0-1.3) K/mcL Eosinophils # (0.0-0.6) K/mcL Basophils # (0.0-0.2) K/mcL VBG pH 7.41 (7.32-7.42) pH Units VBG pCO2 43 (41-51) mmHg VBG pO2 89 H (25-50) mmHg VBG HCO3 27 (21-27) mEq/L Sodium (136-145) mEq/L Potassium (3.5-5.1) mEq/L Chloride (98-107) mEq/L Carbon Dioxide (23-29) mEq/L BUN (6-20) mg/dL Creatinine (0.70-1.30) mg/dL Est GFR ( Amer) (> 60) Est GFR (Non-Af Amer) (> 60) BUN/Creatinine Ratio (6-26) Glucose (70-105) mg/dL Calculated Osmolality (280-300) Calcium (8.6-10.3) mg/dL Total Bilirubin (0.3-1.0) mg/dL AST (13-39) Units/L ALT (7-52) Units/L Alkaline Phosphatase (34-104) Units/L Ammonia (16-53) mcmol/L Serum Total Protein (6.4-8.9) g/dL Albumin (3.5-5.7) g/dL Globulin (2.4-3.5) g/dL Albumin/Globulin Ratio (1.1-2.2) TSH 1.227 (0.340-5.600) mcIU/mL Salicylates < 5.0 L (15.0-30.0) mg/dL Acetaminophen < 1.0 L (10-30) mcg/mL - Radiology Data Radiology results reviewed: Yes I reviewed the patient's radiology results. - EKG Data EKG attestation: Yes I reviewed and interpreted this EKG. EKG results narrative: EKG shows sinus rhythm with ventricular rate of 79. PR166. QRS 80. QTC 405. No evidence of arrhythmia or ischemia
[2018-01-15 17:05] LABS: Basophils # 0.1 K/mcL (0.0-0.2); Basophils % 1.3 %; Eosinophils % 0.1 %; Hematocrit 39.4 % (37.5-50.1); Hemoglobin 13.2 g/dL (12.9-16.9); Immature Granulocytes % 0.3 % (0-4); Lymphocytes # 1.2 K/mcL (0.6-4.6); Lymphocytes % 16.2 %; Mean Corpuscular HGB Conc 33.5 g/dL (31.6-35.5); Mean Corpuscular Hemoglobin 33.9 pg (28.0-33.3); Mean Corpuscular Volume 101.3 fL (83.0-100.0); Mean Platelet Volume 10.6 fL (9.4-12.4); Monocytes # 0.8 K/mcL (0.0-1.3); Monocytes % 10.8 %; Neutrophils # 5.4 K/mcL (1.6-8.9); Platelet Count 224 K/mcL (140-400); Red Blood Count 3.89 M/mcL (4.19-5.50); Red Cell Distribution Width 12.9 % (11.5-14.5); Segmented Neutrophils % 71.3 %
[2018-01-15 17:50] LABS: Alanine Aminotransferase 20 Units/L (7-52); Albumin/Globulin Ratio 1.4 (1.1-2.2); Alkaline Phosphatase 59 Units/L (34-104); Aspartate Amino Transferase 29 Units/L (13-39); BUN/Creatinine Ratio 10 (6-26); Bilirubin,Total 0.5 mg/dL (0.3-1.0); Blood Urea Nitrogen 8 mg/dL (6-20); Calcium 9.2 mg/dL (8.6-10.3); Carbon Dioxide 22 mEq/L (23-29); Chloride 105 mEq/L (98-107); Globulin 2.9 g/dL (2.4-3.5); Glucose 93 mg/dL (70-105); Osmolality,Calculated 282 (280-300); Potassium 4.1 mEq/L (3.5-5.1); Sodium 137 mEq/L (136-145); Total Protein 6.9 g/dL (6.4-8.9); eGFR For African Americans > 60 (> 60); eGFR For Non-African Americans > 60 (> 60)
[2018-01-15 18:00] LABS: VBG HCO3 27 mEq/L (21-27); VBG PCO2 43 mmHg (41-51); VBG PH 7.41 pH Units (7.32-7.42); VBG PO2 89 mmHg (25-50)
[2018-01-15 18:13] LABS: Acetaminophen < 1.0 mcg/mL (10-30); Salicylate < 5.0 mg/dL (15.0-30.0)
[2018-01-15 18:20] LABS: Thyroid Stimulating Hormone 1.227 mcIU/mL (0.340-5.600)
[2018-01-15 19:01] LABS: Bilirubin,Urine Negative (Negative); Blood,Urine Negative (Negative); Clarity,Urine Clear (Clear); Color,Urine Yellow (Yellow); Glucose,Urine (UA) Normal (Normal); Ketones,Urine Negative (Negative); Leukocyte Esterase,Urine Negative (Negative); Nitrite,Urine Negative (Negative); PH,Urine 7.5 pH Units (5.0-8.0); Protein,Urine 30 mg/dL (Neg-Trace); Specific Gravity,Urine 1.016 (1.010-1.025); Urobilinogen,Urine Normal (Normal)
[2018-01-15 19:03] LABS: Bacteria,Urine None Seen per hpf (None-Few); Hyaline Casts,Urine None Seen per lpf (None-Few); Squamous Epithelial Cell,Urine Moderate per lpf (None-Few); WBC,Urine 0-3 per hpf (0-3)
--- NOTE | 2018-01-15 20:48 | Internal Med History&Physical ---
<Jameson Guevara - Last Filed: 01/15/18 22:26> Date of Encounter: 01/15/18 Internal Medicine - H&P: HPI History of present illness: Mr. Rose is a 52 year old male Internal Medicine - H&P: Meds LevETIRAcetam [Keppra] 1,000 mg PO BID #60 tablet 01/15/18 [Rx] 3 Allergy/AdvReac Type Severity Reaction Status Date / Time No Known Allergies Allergy Verified 09/05/17 16:52 All Systems PM: A 10-system review of systems was performed and is negative for pertinent findings except as documented above in the HPI. - Constitutional Vitals: Temp Pulse Resp BP Pulse Ox 98.8 F 80 16 136/85 98 01/15/18 19:59 01/15/18 19:59 01/15/18 19:59 01/15/18 19:59 01/15/18 19:59 Internal Med - H&P Results - Labs CBC & Chem 7: 01/15/18 16:46 01/15/18 16:46 Labs: Urine 01/15/18 Range/Units 18:46 Urine Color Yellow (Yellow) Urine Clarity Clear (Clear) Urine pH 7.5 (5.0-8.0) pH Units Ur Specific Goehner 1.016 (1.010-1.025) Urine Protein 30 H (Neg-Trace) mg/dL Urine Glucose (UA) Normal (Normal) mg/dL - Attending Attestation I examined this patient and my medical decision-making was reviewed with the Resident Physician. I agree with the documented findings, disposition and treatment plan as described except to the extent set forth below. Findings consistent with seizure disorder. We will admit for EEG. Patient was loaded with Keppra. Patient had prolonged postictal period. Critical care performed:35 Time is exclusive of separately billable procedures. Time includes: direct patient care, patient reassessment, coordination of patient care, interpretation of data (laboratory data, radiology data, and respiratory data), review of patient's medical records, medical consultation and documentation of patient care. Procedures included in critical care time:0 Procedures excluded from critical care time:0 <Anirudh Campbell - Last Filed: 01/15/18 22:47> Date of Encounter: 01/15/18 Time of Encounter: 20:43 Assessment and Plan (1) Seizure Current visit: No Status: Acute secondary to medication noncompliance. patient loaded with Keppra in the ED after second seizure. Continue home keppra regimen of 1g BID. No need for CIWA protocol at this time. PRN ativan incase of breakthrough seizure, but unlikely now that he has been loaded. Internal Medicine - H&P: HPI Chief complaint: Seizure Admitted From: Emergency Dept Plans for Post Hospital Care: Home History of present illness: Mr. Rose is a 52 year old male c PMHx of Seizure disorder, CHF, COPD, CAD, HTN , Liver Disease, Alcohol abuse reports to the [facility] ED Brought in by EMS for a seizure. Patient has a long standing history of seizures. Based on chart review initially seizure history was in the setting of alcohol withdrawl seizures, however developed non withdrawl seizures over the years. Patient is supposed to be on Keppra at home but has not been taking it or any other medications. He has no showed or canceled his last 13 out patient appointments. He has not been seen as an out patient since 2013. Today patient had witnessed seizure at home. Patient was evaluated in the ED restarted on his home Keppra dose and set to be discharged, but patient had a second seizure in the ED. Patient was loaded with IV keppra and admitted. Patient has no complaints at this time. Patient's blood work was unremarkable. CT head showed no acute pathology and no changes from prior. Patient reports cutting down his alcohol consumption and reports only drinking 2 beers a week. Patient did not require significant benzos during last hospitalization. Past Med Surg Social Fam HX - Past Medical History Medical history: cardiomyopathy, CHF, COPD, coronary artery disease, hypertension, liver disease, myocardial infarction, seizures, valvular heart disease, other Psychiatric history: other - Past Surgical History Surgical History: heart valve replacement, orthopedic, other - Social History Smoking Status: Current every day smoker Smokeless Tobacco Status: No Alcohol use: heavy, recent Drug use: marijuana - Family History Father Family Member Ethnicity: Non- Living Status: Hx Family Cardiac Disorders: Yes ([place]) Mother Family Member Ethnicity: Non- Living Status: Hx Family Cardiac Disorders: Yes All Systems PM: A 10-system review of systems was performed and is negative for pertinent findings except as documented above in the HPI. - Constitutional Vitals: Temp Pulse Resp BP Pulse Ox 98.8 F 80 16 136/85 98 01/15/18 19:59 01/15/18 19:59 01/15/18 19:59 01/15/18 19:59 01/15/18 19:59 General appearance: Present: A&O X 3, no acute distress, answers questions appropriately Exam: appears older than stated age - Head Head exam: Present: atraumatic, normocephalic - Eye Eye exam: Present: PERRL, conjuntiva pink, sclera anicteric Pupils: Present: PERRL - Neck Neck exam general surgery: Present: supple, trachea midline. Absent: lymphadenopathy - Respiratory Respiratory exam: Present: CTAB. Absent: accessory muscle use, rales, rhonchi, wheezes - Cardiovascular Cardiovascular exam: Present: RRR, +S1, +S2. Absent: diastolic murmur, gallop, rubs, systolic murmur - GI/Abdominal GI/Abdominal exam: Present: normal bowel sounds, soft, no peritoneal signs. Absent: distended, tenderness - Extremities Exam Extremities exam: Present: warm, radial pulses palpable and symmetrical. Absent : calf tenderness, cyanotic, pedal edema - Neurological Exam Neurological exam: Present: alert, CN II-XII intact, oriented X3, no focal deficits. Absent: facial droop, speech deficit - Skin Skin exam: Present: dry, intact Internal Med - H&P Results - Labs CBC & Chem 7: 01/15/18 16:46 01/15/18 16:46 Labs: Urine 01/15/18 Range/Units 18:46 Urine Color Yellow (Yellow) Urine Clarity Clear (Clear) Urine pH 7.5 (5.0-8.0) pH Units Ur Specific Goehner 1.016 (1.010-1.025) Urine Protein 30 H (Neg-Trace) mg/dL Urine Glucose (UA) Normal (Normal) mg/dL <Hebert Erickson P - Last Filed: 01/16/18 05:09> Date of Encounter: 01/16/18 Internal Medicine - H&P: HPI History of present illness: Mr. Rose is a 52 year old male All Systems PM: A 10-system review of systems was performed and is negative for pertinent findings except as documented above in the HPI. - Constitutional Vitals: Temp Pulse Resp BP Pulse Ox 98.5 F 81 16 122/79 98 01/16/18 04:10 01/16/18 04:10 01/16/18 04:10 01/16/18 04:10 01/16/18 04:10 Internal Med - H&P Results - Labs CBC & Chem 7: 01/15/18 16:46 01/15/18 16:46 Labs: Urine 01/15/18 Range/Units 18:46 Urine Color Yellow (Yellow) Urine Clarity Clear (Clear) Urine pH 7.5 (5.0-8.0) pH Units Ur Specific Goehner 1.016 (1.010-1.025) Urine Protein 30 H (Neg-Trace) mg/dL Urine Glucose (UA) Normal (Normal) mg/dL - Attending Attestation I examined this patient and my medical decision-making was reviewed with the Resident Physician. I agree with the documented findings, disposition and treatment plan as described except to the extent set forth below. I have examined this patient on 01/16/2018. I agree with the assessment and plan drawn by the resident physician. If needed please consider a neurology opinion.
[2018-01-15] MEDS ORDERED: *HR* LORazepam 2 MG/ML VIAL IVP PRN (21:19)
[2018-01-16] MEDS: levETIRAcetam 250 MG TABLET PO SCH ×2 (05:08→17:22)
[2018-01-16] MEDS ORDERED: *HR* LORazepam 2 MG/ML VIAL IVP PRN (08:08)
[2018-01-16] MEDS: Vitamin B Complex/Vit C/Vit E 1 EACH TABLET PO SCH (09:36)
[2018-01-16] MEDS: Thiamine (B-1) 100 MG TABLET PO SCH (09:37)
[2018-01-16] MEDS: Folic Acid 1 MG TABLET PO SCH (09:37)
[2018-01-16] MEDS: *HR* LORazepam 2 MG/ML VIAL IVP PRN ×2 (15:29→20:21)
[2018-01-16] MEDS ORDERED: Ondansetron 4 MG/2 ML VIAL IVP PRN (20:05)
[2018-01-17 05:43] LABS: Basophils # 0.1 K/mcL (0.0-0.2); Basophils % 1.1 %; Eosinophils # 0.1 K/mcL (0.0-0.6); Eosinophils % 1.2 %; Hematocrit 44.2 % (37.5-50.1); Immature Granulocytes % 0.3 % (0-4); Lymphocytes # 1.8 K/mcL (0.6-4.6); Lymphocytes % 27.5 %; Mean Corpuscular HGB Conc 33.5 g/dL (31.6-35.5); Mean Corpuscular Hemoglobin 33.6 pg (28.0-33.3); Mean Corpuscular Volume 100.2 fL (83.0-100.0); Mean Platelet Volume 10.4 fL (9.4-12.4); Monocytes # 0.6 K/mcL (0.0-1.3); Monocytes % 9.2 %; Platelet Count 265 K/mcL (140-400); Red Blood Count 4.41 M/mcL (4.19-5.50); Red Cell Distribution Width 12.2 % (11.5-14.5); Segmented Neutrophils % 60.7 %
[2018-01-17] MEDS: levETIRAcetam 250 MG TABLET PO SCH (05:43)
[2018-01-17 06:03] LABS: Hemoglobin 14.8 g/dL (12.9-16.9)
[2018-01-17 06:15] LABS: BUN/Creatinine Ratio 17 (6-26); Blood Urea Nitrogen 11 mg/dL (6-20); Calcium 9.5 mg/dL (8.6-10.3); Carbon Dioxide 22 mEq/L (23-29); Chloride 106 mEq/L (98-107); Glucose 109 mg/dL (70-105); Osmolality,Calculated 280 (280-300); Potassium 4.4 mEq/L (3.5-5.1); Sodium 135 mEq/L (136-145); eGFR For African Americans > 60 (> 60); eGFR For Non-African Americans > 60 (> 60)
[2018-01-17 07:40] VITALS: BP 146/80
[2018-01-17] MEDS: Thiamine (B-1) 100 MG TABLET PO SCH (09:03)
[2018-01-17] MEDS: Folic Acid 1 MG TABLET PO SCH (09:03)
[2018-01-17] MEDS: Vitamin B Complex/Vit C/Vit E 1 EACH TABLET PO SCH (09:03)
--- NOTE | 2018-01-17 09:52 | Discharge Summary ---
Date of Encounter: 01/17/18 Time of Encounter: 09:49 - Discharge Diagnosis (1) Seizure Priority: Primary Status: Acute (2) Debility Priority: Secondary Status: Acute (3) ETOH abuse Priority: Primary Status: Acute - Discharge Medications Prescriptions: LevETIRAcetam [Keppra] 1,000 mg PO BID #60 tablet Home Medications: LevETIRAcetam [Keppra] 1,000 mg PO BID #60 tablet 01/17/18 [Rx] Allergies/Adverse Reactions: 3 Allergy/AdvReac Type Severity Reaction Status Date / Time No Known Allergies Allergy Verified 09/05/17 16:52 Procedures/tests Complete & Pending: Procedures Performed prior 72 hours Category Date Time Status EKG [ECG 12 lead ECG] [ECG] Stat Y 01/16/18 12:41 Completed Date of admission: 01/15/18 18:38 Primary care physician: Sameer Flaherty MD Consults: 01/16/18 10:33 Consult to Neurology [CONS] Routine Consulting Provider: Neurology [facility] Reason for Consult: seizures Call Completed: No Consult to Physical Therapy [CONS] Routine Comment: Evaluate, develop and implement POC Reason for Consult: PT eval - Patient Status Disposition: Home, Self-Care Condition: Fair Overall status at discharge: patient is progressing back to baseline - Discharge Instructions Instructions: Levetiracetam (By mouth) Follow Up With: Sameer Flaherty MD [Primary Care Provider] - Danis Viera DO [Partnered Physician] - (2 weeks) - Diet and Activity Activity: increase activity as tolerated Diet: regular diet Hospital course: Mr. Rose is a 52 year old male with PMHx of Seizure disorder, CHF, COPD, CAD, HTN, Liver Disease, Alcohol abuse is at 2 [facility] ED as he was Brought in by EMS for a seizure. Patient has a long standing history of seizures. Based on chart review , initial seizure history was in the setting of alcohol withdrawl seizures, however developed non withdrawal seizures over the years. Patient was supposed to be on Keppra at home but has not been taking it or any other medications. He has not showed up or canceled his last 13 out patient appointments. He has not been seen as an out patient since 2013. He had a witnessed seizure at home. Patient was evaluated in the ED and restarted on his home Keppra dose and set to be discharged, but patient had a second seizure in the ED. Patient was loaded with IV keppra and admitted. He had no recurrence of his seizures while admitted. We spoke to neurology saw the patient previously and recommended no changes. The patient was discharged on Keppra with recommendations to follow-up. He was stable for discharge on 01/17/2018. - Time Spent with Patient Total time spent providing and/or coordinating discharge services: Greater than 30 minutes - Constitutional Vitals: Temp Pulse Resp BP Pulse Ox 98.3 F 73 18 146/80 98 01/17/18 07:39 01/17/18 07:39 01/17/18 07:39 01/17/18 07:39 01/17/18 07:39 General appearance: Present: A&O X 3, no acute distress, answers questions appropriately Exam: GEN: NAD CVS: RRR. S1, S2, No m/r/g RESP: CTAB ABD: Soft, NT, ND, +BS EXT: No edema. 2+ DP. No rashes NEURO: Nonfocal
--- NOTE | 2018-01-19 11:31 | Electrocardiograph Report ---
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
--- NOTE | 2018-01-19 18:04 | Electrocardiograph Report ---
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
== END 2018-01-17 10:49 | disposition home or self-care (01) ==
LOC: 3BNU 14:48 → EMEROO 14:48 → 3BNU 19:21
PROVIDERS: ADMIT Internal Medicine; ATTEND Registered Nurse

== ENCOUNTER 2018-01-17 22:25 | Inpatient (IN) ==
[2018-01-17 23:05] LABS: Bilirubin,Urine Negative (Negative); Blood,Urine Negative (Negative); Clarity,Urine Clear (Clear); Color,Urine Yellow (Yellow); Glucose,Urine (UA) Normal (Normal); Ketones,Urine Negative (Negative); Leukocyte Esterase,Urine Negative (Negative); Nitrite,Urine Negative (Negative); PH,Urine 6.5 pH Units (5.0-8.0); Protein,Urine Negative (Neg-Trace); Specific Gravity,Urine 1.013 (1.010-1.025); Urobilinogen,Urine Normal (Normal)
[2018-01-17 23:08] LABS: Amphetamine Screen,Urine Negative ng/mL (Cutoff=1000); Barbiturate Screen,Urine Negative ng/mL (Cutoff=200); Benzodiazepines Screen,Urine Negative ng/mL (Cutoff=200); Cannabinoid Screen,Urine Negative ng/mL (Cutoff = 50); Cocaine Screen,Urine Negative ng/mL (Cutoff= 300); Opiate Screen,Urine Negative ng/mL (Cutoff=300); Phencyclidine Screen,Urine Negative ng/mL (Cutoff=25)
[2018-01-17 23:13] LABS: Basophils # 0.1 K/mcL (0.0-0.2); Basophils % 1.1 %; Eosinophils # 0.1 K/mcL (0.0-0.6); Hematocrit 48.1 % (37.5-50.1); Hemoglobin 16.2 g/dL (12.9-16.9); Immature Granulocytes % 0.4 % (0-4); Lymphocytes # 2.7 K/mcL (0.6-4.6); Mean Corpuscular HGB Conc 33.7 g/dL (31.6-35.5); Mean Corpuscular Volume 101.1 fL (83.0-100.0); Mean Platelet Volume 10.1 fL (9.4-12.4); Monocytes # 0.7 K/mcL (0.0-1.3); Monocytes % 8.3 %; Neutrophils # 4.6 K/mcL (1.6-8.9); Platelet Count 308 K/mcL (140-400); Red Blood Count 4.76 M/mcL (4.19-5.50); Red Cell Distribution Width 12.3 % (11.5-14.5); Segmented Neutrophils % 56.2 %
[2018-01-17 23:30] LABS: BUN/Creatinine Ratio 10 (6-26); Blood Urea Nitrogen 8 mg/dL (6-20); Calcium 10.3 mg/dL (8.6-10.3); Carbon Dioxide 24 mEq/L (23-29); Chloride 107 mEq/L (98-107); Glucose 96 mg/dL (70-105); Osmolality,Calculated 290 (280-300); Potassium 4.8 mEq/L (3.5-5.1); Sodium 141 mEq/L (136-145); eGFR For African Americans > 60 (> 60); eGFR For Non-African Americans > 60 (> 60)
[2018-01-17 23:31] LABS: Ethanol 266 mg/dL (0-10)
[2018-01-17 23:46] LABS: Thyroid Stimulating Hormone 1.552 mcIU/mL (0.340-5.600)
[2018-01-17 23:54] LABS: Acetaminophen < 1.0 mcg/mL (10-30); Salicylate < 5.0 mg/dL (15.0-30.0)
[2018-01-18] MEDS ORDERED: *HR* LORazepam 2 MG/ML VIAL IM ONE (00:08)
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
[2018-01-18] MEDS ORDERED: Ziprasidone injection 20 MG/ML VIAL IM ONE ×2 (01:28→01:29)
[2018-01-18] MEDS ORDERED: *HR* LORazepam 2 MG/ML VIAL ONE (01:28)
[2018-01-18] MEDS ORDERED: Water for inj. (sterile) 10 ML IV ONE ×2 (01:29→01:32)
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
[2018-01-18] MEDS ORDERED: Thiamine (B-1) 100 MG in D5% in Water 50 ML IVPB ONE (06:58)
[2018-01-18] MEDS ORDERED: MVI, adult with vitamin K 10 ML, Folic Acid 1 MG, Thiamine (B-1) 100 MG in 0.9 % Sodi... IVC ONE (06:58)
[2018-01-18] MEDS ORDERED: Folic Acid 1 MG in D5% in Water 50 ML IVPB ONE (06:58)
[2018-01-18 07:27] LABS: Magnesium 1.8 mg/dL (1.6-2.6); Phosphorous 4.4 mg/dL (2.7-4.5)
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
[2018-01-18] MEDS ORDERED: Naloxone 0.4 MG/ML INJ IVP PRN (10:23)
[2018-01-18] MEDS ORDERED: Acetaminophen 325 MG TABLET PO PRN (10:23)
[2018-01-18] MEDS ORDERED: *HR* LORazepam 2 MG/ML VIAL IVP PRN (10:26)
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
[2018-01-19] MEDS: Folic Acid 1 MG TABLET PO SCH (08:29)
[2018-01-19] MEDS: Thiamine (B-1) 100 MG TABLET PO SCH (08:29)
[2018-01-19] MEDS: Vitamin B Complex/Vit C/Vit E 1 EACH TABLET PO SCH (08:29)
--- NOTE | 2018-01-19 10:44 | Internal Med Progress Note ---
Date of Encounter: 01/19/18 Time of Encounter: 08:45 - Assessment and plan (1) Acute psychosis Current Visit: Yes Status: Acute Assessment and plan: Resolved. Pt is calm, pleasant, oriented, alert. Continue to monitor for withdrawl symptoms (2) Elevated ETOH level Current Visit: Yes Status: Acute Assessment and plan: ETOH mildly elevated this a.m. at 67. Recheck level and monitor for safety. Qualifiers: Blood alcohol level: 240 mg/100 ml or more Qualified Code(s): Y90.8 - Blood alcohol level of 240 mg/100 ml or more (3) Alcohol intoxication Current Visit: Yes Status: Acute Assessment and plan: Pt presented to the ED with etoh intoxication. Encourage po intake. Monitor for safety. Pt has been evaluated by psychiatry, no mental health issues and recommend providing referrals for inpatient rehab. May use low dose Haldol if eh becomes aggressive again. Monitor labs. Continue Thiamine and B complex vitamins po Qualifiers: Complication of substance-induced condition: with delirium Qualified Code(s ): F10.921 - Alcohol use, unspecified with intoxication delirium (4) Alcohol withdrawal Current Visit: Yes Status: Acute Assessment and plan: Pt with obvious tremors and visual hallucinations. CIWA protocol in place. Pt has had seizures in the past when withdrawing. Monitor for safety. Qualifiers: Complication of substance-induced condition: with delirium Qualified Code(s ): F10.231 - Alcohol dependence with withdrawal delirium (5) ETOH abuse Current Visit: Yes Status: Chronic Assessment and plan: Chronic. Plan as above. (6) Tobacco abuse Current Visit: Yes Status: Chronic Assessment and plan: Nicotine patch for replacement therapy. Pt was found smoking cigarette in a side hallway by nursing staff. Cigarettes removed from room. (7) DVT prophylaxis Current Visit: Yes Status: Acute Assessment and plan: Pt ambulatory, encourage ambulation with assistance. - Time Spent With Patient less than 15 minutes - Subjective Interval history: Pt was seen and assessed at 0845. He was pleasant and calm. Pt reports that he is having visual hallucinations and thought that his IV pole was a man on the roof. He states that he thought the mirror in his room was a TV. He denies headache, n/v/d, diaphoresis, abdominal pain, chest pain or SOB. He reports normal appetite and is eating breakfast during assessment. Pt was given the option to go home and he states that he doesn't feel well enough to go home and would like to stay. - Constitutional Vitals: Temp Pulse Resp BP Pulse Ox 97.4 F L 79 16 143/90 99 01/19/18 08:58 01/19/18 08:58 01/19/18 08:58 01/19/18 08:58 01/19/18 08:58 General appearance: Present: cooperative, A&O X 3, pleasant, no acute distress, answers questions appropriately - Head Head exam: Present: atraumatic, normal inspection, normocephalic - Eye Eye exam: Present: normal appearance, conjuntiva pink, sclera anicteric - Neck Neck exam general surgery: Present: normal inspection, supple, trachea midline. Absent: lymphadenopathy, tenderness - Respiratory Respiratory exam: Present: decreased breath sounds, CTAB. Absent: accessory muscle use, chest wall tenderness, rales, respiratory distress, rhonchi, wheezes - Cardiovascular Cardiovascular exam: Present: RRR, +S1, +S2. Absent: diastolic murmur, gallop, rubs, systolic murmur - GI/Abdominal GI/Abdominal exam: Present: normal bowel sounds, soft. Absent: distended, hepatomegaly, tenderness - Extremities Exam Extremities exam: Present: normal capillary refill, normal inspection, warm, radial pulses palpable and symmetrical. Absent: calf tenderness, cyanotic, pedal edema, tenderness - Neurological Exam Neurological exam: Present: alert, oriented X3, no focal deficits. Absent: facial droop, speech deficit - Skin Skin exam: Present: dry, intact, normal color, warm. Absent: rash Internal Medicine: Result - Labs CBC & Chem 7: 01/17/18 23:04 01/17/18 23:04 Consult Discharge Plan - Plan Referrals: Sameer Flaherty MD [Primary Care Provider] -
[2018-01-19] MEDS: Nicotine 21 MG PATCH.TD24 TD SCH (10:54)
[2018-01-19] MEDS ORDERED: *HR* Promethazine 25 MG/ML VIAL IVP PRN (20:05)
[2018-01-20 05:06] LABS: BUN/Creatinine Ratio 20 (6-26); Blood Urea Nitrogen 18 mg/dL (6-20); Calcium 9.4 mg/dL (8.6-10.3); Carbon Dioxide 23 mEq/L (23-29); Chloride 108 mEq/L (98-107); Glucose 103 mg/dL (70-105); Osmolality,Calculated 288 (280-300); Potassium 3.6 mEq/L (3.5-5.1); Sodium 138 mEq/L (136-145); eGFR For African Americans > 60 (> 60); eGFR For Non-African Americans > 60 (> 60)
[2018-01-20 07:11] VITALS: BP 111/74
[2018-01-20] MEDS: Thiamine (B-1) 100 MG TABLET PO SCH (09:19)
[2018-01-20] MEDS: Vitamin B Complex/Vit C/Vit E 1 EACH TABLET PO SCH (09:19)
[2018-01-20] MEDS: Folic Acid 1 MG TABLET PO SCH (09:19)
[2018-01-20] MEDS: Nicotine 21 MG PATCH.TD24 TD SCH (09:19)
--- NOTE | 2018-01-20 10:45 | Discharge Summary ---
Date of Encounter: 01/20/18 Time of Encounter: 08:10 - Discharge Diagnosis (1) Acute psychosis Priority: Secondary Status: Resolved Comments: Acute psychosis related to alcohol intoxication. Pt has returned to baseline. Resolved. (2) Elevated ETOH level Priority: Secondary Status: Acute Comments: Resolved. Qualifiers: Blood alcohol level: 240 mg/100 ml or more Qualified Code(s): Y90.8 - Blood alcohol level of 240 mg/100 ml or more (3) Alcohol intoxication Priority: Primary Status: Chronic Comments: Presented to ED with ETOH intoxication. Chronic. Pt reports that he normally drinks daily. Pt expresses desire to stop "at times" and "will think about" AA meetings or inpatient rehab. Pt denies acute withdrawl symptoms and utilized CITX protocol once. Pt is alert and awake, interactive, and pleasant. Safe for discharge. Qualifiers: Complication of substance-induced condition: with delirium Qualified Code(s ): F10.921 - Alcohol use, unspecified with intoxication delirium (4) Alcohol withdrawal Priority: Secondary Status: Acute Comments: Plan as above. Qualifiers: Complication of substance-induced condition: with delirium Qualified Code(s ): F10.231 - Alcohol dependence with withdrawal delirium (5) ETOH abuse Priority: Secondary Status: Chronic Comments: Chronic. Plan as above. (6) Tobacco abuse Priority: Secondary Status: Chronic Comments: Chronic. Nicotine patch while here. Pt admits that he will not use them at home and is not ready to stop smoking. Pt was found smoking in the corner of a hallway by nursing staff during admission. (7) DVT prophylaxis Priority: Secondary Status: Acute Comments: Pt is ambulatory. - Discharge Medications Home Medications: LevETIRAcetam [Keppra] 1,000 mg PO BID #60 tablet 01/17/18 [Rx] Allergies/Adverse Reactions: 3 Allergy/AdvReac Type Severity Reaction Status Date / Time No Known Allergies Allergy Verified 09/05/17 16:52 Date of admission: 01/19/18 14:05 Primary care physician: Sameer Flaherty MD Discharging clinician: Teresa Vernon Anticipated date of discharge: 01/20/18 - Patient Status Disposition: Home, Self-Care Condition: Good Functional capacity at discharge: independent ambulation Overall status at discharge: patient is back to baseline - Discharge Instructions Follow Up With: Sameer Flaherty MD [Primary Care Provider] - Additional Instructions: Continue to take more Keppra as directed. Follow up with your primary care provider. Please try to stop drinking. Return to the emergency department as needed for any other problems or concerns Return to your normal diet and activities as tolerated. - Diet and Activity Activity: increase activity as tolerated Diet: advance to your usual diet Hospital course: Mr. Rose is a 52 year old male - Time Spent with Patient Total time spent providing and/or coordinating discharge services: - Constitutional Vitals: Temp Pulse Resp BP Pulse Ox 97.6 F 82 20 111/74 98 01/20/18 07:10 01/20/18 07:10 01/20/18 07:10 01/20/18 07:10 01/20/18 07:10 General appearance: Present: cooperative, A&O X 3, pleasant, no acute distress, answers questions appropriately - Head Head exam: Present: atraumatic, normal inspection, normocephalic - Eye Eye exam: Present: normal appearance, conjuntiva pink, sclera anicteric - Neck Neck exam general surgery: Present: supple, trachea midline. Absent: lymphadenopathy - Respiratory Respiratory exam: Present: decreased breath sounds, CTAB. Absent: accessory muscle use, rales, respiratory distress, rhonchi, wheezes - Cardiovascular Cardiovascular exam: Present: RRR, +S1, +S2. Absent: diastolic murmur, gallop, rubs, systolic murmur - GI/Abdominal GI/Abdominal exam: Present: normal bowel sounds, soft. Absent: distended, hepatomegaly, tenderness - Extremities Exam Extremities exam: Present: normal capillary refill, normal inspection, warm, radial pulses palpable and symmetrical. Absent: calf tenderness, cyanotic, pedal edema, tenderness - Neurological Exam Neurological exam: Present: alert, oriented X3, no focal deficits. Absent: facial droop, speech deficit - Skin Skin exam: Present: dry, intact, normal color, warm. Absent: rash
== END 2018-01-20 17:20 | disposition home or self-care (01) | DRG 775 ==
LOC: 3BNU 22:25 → EMEROO 22:25 → 3BNU 01-18 09:06
PROVIDERS: ADMIT Internal Medicine; ATTEND Registered Nurse

== ENCOUNTER 2018-03-14 11:22 | Observation (INO) ==
[2018-03-14] MEDS ORDERED: *HR* LORazepam 2 MG/ML VIAL ONE (11:45)
[2018-03-14] MEDS ORDERED: *HR* LORazepam 2 MG/ML VIAL IVP ONE (11:51)
--- NOTE | 2018-03-14 11:55 | Emergency Department Note ---
Disposition Clinical Impression: Generalized seizure Alcohol withdrawal Qualifiers: Complication of substance-induced condition: with unspecified complication Qualified Code(s): F10.239 - Alcohol dependence with withdrawal, unspecified Disposition: Admitted As Inpatient Condition: Fair General Adult HPI - General Chief complaint: ED Seizure Stated complaint: Seizure Time Seen by Provider: 03/14/18 11:36 Source: EMS - History of Present Illness Pain Scale: 0 - Related Data Previous Rx's Medication Instructions Recorded LevETIRAcetam [Keppra] 1,000 mg PO BID #60 tablet 01/17/18 Allergies Allergy/AdvReac Type Severity Reaction Status Date / Time No Known Allergies Allergy Verified 03/14/18 12:34 Past Medical History - Past Medical History Medical history: Reports: cardiomyopathy, CHF, COPD, coronary artery disease, hypertension, liver disease, myocardial infarction, seizures, valvular heart disease, other Surgical history: Reports: heart valve replacement, orthopedic, other Psychiatric history: Reports: no psych history - Social History Smoking Status: Current every day smoker Smokeless Tobacco Status: No Alcohol use: Reports: heavy, recent Drug use: Reports: none Physical Exam - General General appearance: alert, in no apparent distress Course Vital Signs Temperature 98.2 F 03/14/18 11:23 Pulse Rate 76 03/14/18 11:23 Respiratory Rate 18 03/14/18 11:23 Blood Pressure 146/90 03/14/18 11:23 O2 Sat by Pulse Oximetry 96 03/14/18 11:23 Temperature 98.0 F 03/14/18 15:55 Pulse Rate 79 03/14/18 15:55 Respiratory Rate 16 03/14/18 15:55 Blood Pressure 146/84 03/14/18 15:55 O2 Sat by Pulse Oximetry 91 03/14/18 15:55 Oxygen Delivery Oxygen Delivery Room Air Medical Decision Making - Lab Data Result diagrams: 03/14/18 11:58 03/14/18 11:58 Lab Results 03/14/18 03/14/18 03/14/18 Range/Units 11:29 11:58 11:58 WBC (4.3-11.1) K/mcL RBC (4.19-5.50) M/mcL Hgb (12.9-16.9) g/dL Hct (37.5-50.1) % MCV (83.0-100.0) fL MCH (28.0-33.3) pg MCHC (31.6-35.5) g/dL RDW (11.5-14.5) % Plt Count (140-400) K/mcL MPV (9.4-12.4) fL Immature Gran % (0-4) % Seg Neutrophils % % Lymphocytes % % Monocytes % % Eosinophils % % Basophils % % Neutrophils # (1.6-8.9) K/mcL Lymphocytes # (0.6-4.6) K/mcL Monocytes # (0.0-1.3) K/mcL Eosinophils # (0.0-0.6) K/mcL Basophils # (0.0-0.2) K/mcL Sodium 137 (136-145) mEq/L Potassium 3.9 (3.5-5.1) mEq/L Chloride 103 (98-107) mEq/L Carbon Dioxide 17 L (23-29) mEq/L BUN 7 (6-20) mg/dL Creatinine 0.75 (0.70-1.30) mg/dL Est GFR ( Amer) > 60 (> 60) Est GFR (Non-Af Amer) > 60 (> 60) BUN/Creatinine Ratio 9 (6-26) Glucose 99 (70-105) mg/dL POC Glucose 113 H (70-99) mg/dL Calculated Osmolality 282 (280-300) Calcium 9.4 (8.6-10.3) mg/dL Magnesium 1.8 (1.6-2.6) mg/dL Urine Color (Yellow) Urine Clarity (Clear) Urine pH (5.0-8.0) pH Units Ur Specific Wright (1.010-1.025) Urine Protein (Neg-Trace) mg/dL Urine Glucose (UA) (Normal) mg/dL Urine Ketones (Negative) mg/dL Urine Blood (Negative) Urine Nitrite (Negative) Urine Bilirubin (Negative) Urine Urobilinogen (Normal) mg/dL Ur Leukocyte Esterase (Negative) Urine Microscopic RBC (0-3) per hpf Urine Microscopic WBC (0-3) per hpf Ur Squamous Epith Cells (None-Few) per lpf Urine Bacteria (None-Few) per hpf Hyaline Casts (None-Few) per lpf Urine Opiates Screen (Zzxzup=937) ng/mL Ur Barbiturates Screen (Wvmnns=211) ng/mL Ur Phencyclidine Scrn (Cutoff=25) ng/mL Ur Amphetamines Screen (Bmdujn=1616) ng/mL U Benzodiazepines Scrn (Okikhu=775) ng/mL Urine Cocaine Screen (Cutoff= 300) ng/mL U Marijuana (THC) Screen (Cutoff = 50) ng/mL Ethyl Alcohol 28 H (Less than 10) mg/dL 03/14/18 03/14/18 03/14/18 Range/Units 11:58 13:37 13:37 WBC 7.6 (4.3-11.1) K/mcL RBC 4.29 (4.19-5.50) M/mcL Hgb 15.0 (12.9-16.9) g/dL Hct 45.0 (37.5-50.1) % MCV 104.9 H (83.0-100.0) fL MCH 35.0 H (28.0-33.3) pg MCHC 33.3 (31.6-35.5) g/dL RDW 13.2 (11.5-14.5) % Plt Count 156 (140-400) K/mcL MPV 10.6 (9.4-12.4) fL Immature Gran % 0.7 (0-4) % Seg Neutrophils % 71.3 % Lymphocytes % 16.0 % Monocytes % 11.0 % Eosinophils % 0.1 % Basophils % 0.9 % Neutrophils # 5.4 (1.6-8.9) K/mcL Lymphocytes # 1.2 (0.6-4.6) K/mcL Monocytes # 0.8 (0.0-1.3) K/mcL Eosinophils # 0.0 (0.0-0.6) K/mcL Basophils # 0.1 (0.0-0.2) K/mcL Sodium (136-145) mEq/L Potassium (3.5-5.1) mEq/L Chloride (98-107) mEq/L Carbon Dioxide (23-29) mEq/L BUN (6-20) mg/dL Creatinine (0.70-1.30) mg/dL Est GFR ( Amer) (> 60) Est GFR (Non-Af Amer) (> 60) BUN/Creatinine Ratio (6-26) Glucose (70-105) mg/dL POC Glucose (70-99) mg/dL Calculated Osmolality (280-300) Calcium (8.6-10.3) mg/dL Magnesium (1.6-2.6) mg/dL Urine Color Yellow (Yellow) Urine Clarity Clear (Clear) Urine pH 6.0 (5.0-8.0) pH Units Ur Specific Wright 1.023 (1.010-1.025) Urine Protein 100 H (Neg-Trace) mg/dL Urine Glucose (UA) Normal (Normal) mg/dL Urine Ketones Negative (Negative) mg/dL Urine Blood Trace H (Negative) Urine Nitrite Negative (Negative) Urine Bilirubin Negative (Negative) Urine Urobilinogen Normal (Normal) mg/dL Ur Leukocyte Esterase Negative (Negative) Urine Microscopic RBC 0-3 (0-3) per hpf Urine Microscopic WBC 0-3 (0-3) per hpf Ur Squamous Epith Cells Few (None-Few) per lpf Urine Bacteria None Seen (None-Few) per hpf Hyaline Casts None Seen (None-Few) per lpf Urine Opiates Screen Negative (Afuvpy=651) ng/mL Ur Barbiturates Screen Negative (Xlttif=981) ng/mL Ur Phencyclidine Scrn Negative (Cutoff=25) ng/mL Ur Amphetamines Screen Negative (Frddvd=3762) ng/mL U Benzodiazepines Scrn Negative (Cacpnb=620) ng/mL Urine Cocaine Screen Negative (Cutoff= 300) ng/mL U Marijuana (THC) Screen Negative (Cutoff = 50) ng/mL Ethyl Alcohol (Less than 10) mg/dL Attestation Statement - Attestation Attestation: I examined this patient and my medical decision-making was reviewed with the MANAGER FITNESS/PA/Advanced Practice Nurse/Resident Physician. I agree with the documented findings, disposition and treatment plan as described except to the extent set forth below. I did see the patient in the [facility] and the patient does have a history of heavy alcohol use and I did review his record did have a seizure at 1040 per his roommate who is not here this is the report and then just a few minutes ago had another generalized tonic-clonic seizure which lasted for 1 minute with some frothing at the mouth and the patient was placed on oxygen and he will be given Ativan 2 mg IM. The patient does have a history of intravenous drug use in the distant past initial attempt at IV placement was not successful. To room #10 is time. The patient will be admitted due to concern for alcohol withdrawal seizure. He says he has not drank today. [id number]
[2018-03-14] MEDS ORDERED: *HR* LORazepam 2 MG/ML VIAL IM ONE (12:02)
[2018-03-14 12:26] LABS: Basophils # 0.1 K/mcL (0.0-0.2); Basophils % 0.9 %; Eosinophils % 0.1 %; Immature Granulocytes % 0.7 % (0-4); Lymphocytes # 1.2 K/mcL (0.6-4.6); Mean Corpuscular HGB Conc 33.3 g/dL (31.6-35.5); Mean Corpuscular Volume 104.9 fL (83.0-100.0); Mean Platelet Volume 10.6 fL (9.4-12.4); Monocytes # 0.8 K/mcL (0.0-1.3); Neutrophils # 5.4 K/mcL (1.6-8.9); Platelet Count 156 K/mcL (140-400); Red Blood Count 4.29 M/mcL (4.19-5.50); Red Cell Distribution Width 13.2 % (11.5-14.5); Segmented Neutrophils % 71.3 %
[2018-03-14 12:42] LABS: BUN/Creatinine Ratio 9 (6-26); Blood Urea Nitrogen 7 mg/dL (6-20); Calcium 9.4 mg/dL (8.6-10.3); Carbon Dioxide 17 mEq/L (23-29); Chloride 103 mEq/L (98-107); Glucose 99 mg/dL (70-105); Magnesium 1.8 mg/dL (1.6-2.6); Osmolality,Calculated 282 (280-300); Potassium 3.9 mEq/L (3.5-5.1); Sodium 137 mEq/L (136-145); eGFR For African Americans > 60 (> 60); eGFR For Non-African Americans > 60 (> 60)
[2018-03-14 13:53] LABS: Bilirubin,Urine Negative (Negative); Blood,Urine Trace (Negative); Clarity,Urine Clear (Clear); Color,Urine Yellow (Yellow); Glucose,Urine (UA) Normal (Normal); Ketones,Urine Negative (Negative); Leukocyte Esterase,Urine Negative (Negative); Nitrite,Urine Negative (Negative); Protein,Urine 100 mg/dL (Neg-Trace); Specific Gravity,Urine 1.023 (1.010-1.025); Urobilinogen,Urine Normal (Normal)
[2018-03-14 13:59] LABS: Bacteria,Urine None Seen per hpf (None-Few); Hyaline Casts,Urine None Seen per lpf (None-Few); RBC,Urine 0-3 per hpf (0-3); Squamous Epithelial Cell,Urine Few per lpf (None-Few); WBC,Urine 0-3 per hpf (0-3)
[2018-03-14 14:20] LABS: Amphetamine Screen,Urine Negative ng/mL (Cutoff=1000); Barbiturate Screen,Urine Negative ng/mL (Cutoff=200); Benzodiazepines Screen,Urine Negative ng/mL (Cutoff=200); Cannabinoid Screen,Urine Negative ng/mL (Cutoff = 50); Cocaine Screen,Urine Negative ng/mL (Cutoff= 300); Opiate Screen,Urine Negative ng/mL (Cutoff=300); Phencyclidine Screen,Urine Negative ng/mL (Cutoff=25)
--- NOTE | 2018-03-14 14:44 | Emergency Department Note ---
Disposition Clinical Impression: Generalized seizure Alcohol withdrawal Qualifiers: Complication of substance-induced condition: with unspecified complication Qualified Code(s): F10.239 - Alcohol dependence with withdrawal, unspecified Disposition: Admitted As Inpatient Condition: Fair Forms: ED Satisfaction Letter Time of Disposition: 14:44 Seizure HPI - General Chief Complaint: ED Seizure Stated Complaint: Seizure Time Seen by Provider: 03/14/18 11:36 Source: EMS Mode of arrival: EMS Limitations: altered mental status Nursing Notes Reviewed: Yes Vital Signs Reviewed: Yes - History of Present Illness HPI Narrative: Patient is a 42-year-old male who presents to [facility] ED with a chief complaint of recurrent seizure. Patient has a past medical history of seizures and is supposed to be on Keppra. However patient denies being on any medications. States he does not know why he is here and feels fine. Patient's roommate called EMS because patient had a seizure. Unsure of details of the actual seizure. Patient is also daily alcohol drinker. States his last drink was yesterday. Patient currently denying any chest pain, difficulty breathing, abdominal pain, problems with urination or bowel movements. Pt Subjective Complaint: seizure Onset (ago): Just [employer]ARD [employer]UR[employer] Description of Episode: tonic-clonic movement Duration of Episode: 1 -: minutes(s) Witnessed: yes - by bystander Associated trauma secondary to event: No Seizure History: known seizure disorder, history of withdrawal seizures Place: home Possible Precipitating Event: alcohol withdrawal Associated symptoms: Denies: chest pain, cough, fever/chills, loss of appetite, shortness of breath, weakness Pain Scale: 0 Treatments prior to arrival: none - Related Data Previous Rx's Medication Instructions Recorded LevETIRAcetam [Keppra] 1,000 mg PO BID #60 tablet 01/17/18 Allergies Allergy/AdvReac Type Severity Reaction Status Date / Time No Known Allergies Allergy Verified 03/14/18 12:34 All systems ED: reviewed and negative except as stated. Past Medical History - Past Medical History Attestation: Yes The following information was validated with the patient. Source: patient Medical history: Reports: cardiomyopathy, CHF, COPD, coronary artery disease, hypertension, liver disease, myocardial infarction, seizures, valvular heart disease, other Surgical history: Reports: heart valve replacement, orthopedic, other Psychiatric history: Reports: no psych history - Social History Smoking Status: Current every day smoker Smokeless Tobacco Status: No Alcohol use: Reports: heavy, recent Drug use: Reports: none Physical Exam - General Limitations: altered mental status General appearance: alert, in no apparent distress - Head Head exam: atraumatic, normocephalic, normal inspection - Eye Eye exam: Present: normal appearance, PERRL, EOMI - ENT ENT exam: normal exam, normal oropharynx, mucous membranes moist - Neck Neck exam: Present: normal inspection, full ROM, trachea midline - Chest Chest inspection: Present: normal inspection, symmetric chest wall rise - Respiratory Respiratory exam: Present: normal lung sounds bilaterally - Cardiovascular Cardiovascular exam: Present: regular rate, normal rhythm, normal heart sounds - Abdominal Exam Abdominal exam: Present: soft, Non-Tender. Absent: tenderness, distention, guarding, rebound, rigidity - Extremities Exam Extremities exam: Present: normal inspection, full ROM. Absent: tenderness, pedal edema - Back Exam Back exam: Present: normal inspection, full ROM. Absent: tenderness - Neurological Exam Neurological exam: Present: alert, other (oriented to self and president; thought year 2014) - Expanded Neurological Exam Patient oriented to: Present: person Speech: Present: fluid speech Motor strength - LUE: 5/5 Motor strength - RUE: 5/5 Motor strength - LLE: 5/5 Motor strength - RLE: 5/5 Coma Scale Eye Opening: Spontaneous Coma Scale Motor Response: Obeys Commands Coma Scale Verbal Response: Confused Coma Scale Total: 14 - Psychiatric Psychiatric exam: Present: normal affect, normal mood - Skin Skin exam: Present: warm, dry, intact, normal color Course Course Narrative: Patient seen and examined. Recurrent seizure. Due to patient's history of alcohol abuse, we will go ahead and get labwork, ethanol level, CT of the head. Unknown if patient had any trauma. We did witness a second seizure after my initial evaluation. Witness approximately 1 minute laying of tonic-clonic movements. Patient was post ictal afterwards. Patient was given 2 mg of IM Ativan to prophylactically treat as alcohol withdrawal. - Reevaluation(s) Reevaluation #1: Labwork unremarkable. CT of the head unremarkable. I discussed with the hospitalist Dr. Ordoñez who has accepted patient for admission. Time: 14:44 Vital Signs Temperature 98.2 F 03/14/18 11:23 Pulse Rate 76 03/14/18 11:23 Respiratory Rate 18 03/14/18 11:23 Blood Pressure 146/90 03/14/18 11:23 O2 Sat by Pulse Oximetry 96 03/14/18 11:23 Temperature 98.2 F 03/14/18 11:23 Pulse Rate 75 03/14/18 13:48 Respiratory Rate 15 03/14/18 13:48 Blood Pressure 157/103 03/14/18 13:48 O2 Sat by Pulse Oximetry 94 03/14/18 13:48 Oxygen Delivery Oxygen Delivery Room Air Seizure - Medical Records Medical records reviewed: Yes I reviewed the patient's medical records. - Lab Data Lab results reviewed: Yes I reviewed the patient's lab results. Result diagrams: 03/14/18 11:58 03/14/18 11:58 Lab Results 03/14/18 03/14/18 03/14/18 Range/Units 11:29 11:58 11:58 WBC (4.3-11.1) K/mcL RBC (4.19-5.50) M/mcL Hgb (12.9-16.9) g/dL Hct (37.5-50.1) % MCV (83.0-100.0) fL MCH (28.0-33.3) pg MCHC (31.6-35.5) g/dL RDW (11.5-14.5) % Plt Count (140-400) K/mcL MPV (9.4-12.4) fL Immature Gran % (0-4) % Seg Neutrophils % % Lymphocytes % % Monocytes % % Eosinophils % % Basophils % % Neutrophils # (1.6-8.9) K/mcL Lymphocytes # (0.6-4.6) K/mcL Monocytes # (0.0-1.3) K/mcL Eosinophils # (0.0-0.6) K/mcL Basophils # (0.0-0.2) K/mcL Sodium 137 (136-145) mEq/L Potassium 3.9 (3.5-5.1) mEq/L Chloride 103 (98-107) mEq/L Carbon Dioxide 17 L (23-29) mEq/L BUN 7 (6-20) mg/dL Creatinine 0.75 (0.70-1.30) mg/dL Est GFR ( Amer) > 60 (> 60) Est GFR (Non-Af Amer) > 60 (> 60) BUN/Creatinine Ratio 9 (6-26) Glucose 99 (70-105) mg/dL POC Glucose 113 H (70-99) mg/dL Calculated Osmolality 282 (280-300) Calcium 9.4 (8.6-10.3) mg/dL Magnesium 1.8 (1.6-2.6) mg/dL Urine Color (Yellow) Urine Clarity (Clear) Urine pH (5.0-8.0) pH Units Ur Specific [place] (1.010-1.025) Urine Protein (Neg-Trace) mg/dL Urine Glucose (UA) (Normal) mg/dL Urine Ketones (Negative) mg/dL Urine Blood (Negative) Urine Nitrite (Negative) Urine Bilirubin (Negative) Urine Urobilinogen (Normal) mg/dL Ur Leukocyte Esterase (Negative) Urine Microscopic RBC (0-3) per hpf Urine Microscopic WBC (0-3) per hpf Ur Squamous Epith Cells (None-Few) per lpf Urine Bacteria (None-Few) per hpf Hyaline Casts (None-Few) per lpf Urine Opiates Screen (Myzxwi=651) ng/mL Ur Barbiturates Screen (Kwzopn=482) ng/mL Ur Phencyclidine Scrn (Cutoff=25) ng/mL Ur Amphetamines Screen (Wbdtub=2065) ng/mL U Benzodiazepines Scrn (Tfvgqk=360) ng/mL Urine Cocaine Screen (Cutoff= 300) ng/mL U Marijuana (THC) Screen (Cutoff = 50) ng/mL Ethyl Alcohol 28 H (Less than 10) mg/dL 03/14/18 03/14/18 03/14/18 Range/Units 11:58 13:37 13:37 WBC 7.6 (4.3-11.1) K/mcL RBC 4.29 (4.19-5.50) M/mcL Hgb 15.0 (12.9-16.9) g/dL Hct 45.0 (37.5-50.1) % MCV 104.9 H (83.0-100.0) fL MCH 35.0 H (28.0-33.3) pg MCHC 33.3 (31.6-35.5) g/dL RDW 13.2 (11.5-14.5) % Plt Count 156 (140-400) K/mcL MPV 10.6 (9.4-12.4) fL Immature Gran % 0.7 (0-4) % Seg Neutrophils % 71.3 % Lymphocytes % 16.0 % Monocytes % 11.0 % Eosinophils % 0.1 % Basophils % 0.9 % Neutrophils # 5.4 (1.6-8.9) K/mcL Lymphocytes # 1.2 (0.6-4.6) K/mcL Monocytes # 0.8 (0.0-1.3) K/mcL Eosinophils # 0.0 (0.0-0.6) K/mcL Basophils # 0.1 (0.0-0.2) K/mcL Sodium (136-145) mEq/L Potassium (3.5-5.1) mEq/L Chloride (98-107) mEq/L Carbon Dioxide (23-29) mEq/L BUN (6-20) mg/dL Creatinine (0.70-1.30) mg/dL Est GFR ( Amer) (> 60) Est GFR (Non-Af Amer) (> 60) BUN/Creatinine Ratio (6-26) Glucose (70-105) mg/dL POC Glucose (70-99) mg/dL Calculated Osmolality (280-300) Calcium (8.6-10.3) mg/dL Magnesium (1.6-2.6) mg/dL Urine Color Yellow (Yellow) Urine Clarity Clear (Clear) Urine pH 6.0 (5.0-8.0) pH Units Ur Specific [place] 1.023 (1.010-1.025) Urine Protein 100 H (Neg-Trace) mg/dL Urine Glucose (UA) Normal (Normal) mg/dL Urine Ketones Negative (Negative) mg/dL Urine Blood Trace H (Negative) Urine Nitrite Negative (Negative) Urine Bilirubin Negative (Negative) Urine Urobilinogen Normal (Normal) mg/dL Ur Leukocyte Esterase Negative (Negative) Urine Microscopic RBC 0-3 (0-3) per hpf Urine Microscopic WBC 0-3 (0-3) per hpf Ur Squamous Epith Cells Few (None-Few) per lpf Urine Bacteria None Seen (None-Few) per hpf Hyaline Casts None Seen (None-Few) per lpf Urine Opiates Screen Negative (Hqhndg=663) ng/mL Ur Barbiturates Screen Negative (Ftpzhp=859) ng/mL Ur Phencyclidine Scrn Negative (Cutoff=25) ng/mL Ur Amphetamines Screen Negative (Hrtvco=4594) ng/mL U Benzodiazepines Scrn Negative (Dssjrd=672) ng/mL Urine Cocaine Screen Negative (Cutoff= 300) ng/mL U Marijuana (THC) Screen Negative (Cutoff = 50) ng/mL Ethyl Alcohol (Less than 10) mg/dL - Radiology Data Radiology results reviewed: Yes I reviewed the patient's radiology results. Head CT 03/14/18 11:55 IMPRESSION: No acute intracranial abnormality. Mild cerebral atrophy. D/ / Julio Cesar Moraes MD / Julio Cesar Moraes MD Interpreting Provider: Julio Cesar Moraes MD
[2018-03-14] MEDS ORDERED: Naloxone 0.4 MG/ML INJ IVP PRN (17:22)
[2018-03-14] MEDS ORDERED: *HR* LORazepam 2 MG/ML VIAL IVP PRN (20:01)
--- NOTE | 2018-03-14 21:48 | Internal Med History&Physical ---
Date of Encounter: 03/14/18 Time of Encounter: 21:46 Internal Medicine - H&P: HPI Chief complaint: seizure History of present illness: Mr. Rose is a 52 year old male history of alcohol abuse who presents with seizure-like activity witnessed by his roommate. Patient was brought to the hospital for further evaluation. In the emergency department patient had a seizure per ER report. Patient given Ativan. This time patient mental status appears to be improving. Patient notes that his last drink was approximately 2 days ago. Patient notes that he is also taking Keppra as well. At this time patient denies headache, visual disturbance, neck pain or focal weakness. He denies chest pain, shortness of breath or palpitations. Denies abdominal pain, nausea or vomiting. He denies fever, chills or rigors. Patient voices no other complaints. Patient to be admitted for further evaluation. Past Med Surg Social Fam HX - Past Medical History Medical history: cardiomyopathy, CHF, COPD, coronary artery disease, hypertension, liver disease, myocardial infarction, seizures, valvular heart disease, other Psychiatric history: no psych history - Past Surgical History Surgical History: heart valve replacement, orthopedic, other - Social History Smoking Status: Current every day smoker Smokeless Tobacco Status: No Alcohol use: heavy, recent Drug use: none - Family History Father Family Member Ethnicity: Non- Living Status: Hx Family Cardiac Disorders: Yes ([place]) Mother Family Member Ethnicity: Non- Living Status: Cause of : heart atttack Hx Family Cardiac Disorders: Yes (mother heart atttack) Hx Family Respiratory Disorders: No Hx Family Cancer: No Hx Family GI Disorders: No Hx Family Genitourinary Disorders: No Hx Family Endocrine Disorder: No Hx Family Musculoskeletal Disorders: No Hx Family Neuromuscular Disorders: No Hx Family Neurologic Disorders: No Hx Family HEENT Disorders: No Hx Family Autoimmune Disorders: No Hx Family Reproductive Disorders: No Hx Family Psychosocial Disorders: No Hx Family Medical Disorders: No Internal Medicine - H&P: Meds LevETIRAcetam [Keppra] 1,000 mg PO BID #60 tablet 01/17/18 [Rx] 3 Allergy/AdvReac Type Severity Reaction Status Date / Time No Known Allergies Allergy Verified 03/14/18 12:34 All Systems PM: A 10-system review of systems was performed and is negative for pertinent findings except as documented above in the HPI. Review of systems: All systems reviewed and negative except for as mentioned in history of present illness. - Constitutional Vitals: Temp Pulse Resp BP Pulse Ox 97.2 F L 78 18 135/82 97 03/14/18 18:42 03/14/18 18:42 03/14/18 18:42 03/14/18 18:42 03/14/18 18:42 Vital signs as above Gen.: On process, cooperative, able to speak in full sentences HEENT: Atraumatic, normocephalic, extra movements are intact, PERRL, there is no scleral icterus Neck: No JVD, no pain to palpation, full range of motion Heart: Normal S1-S2 regular rate and rhythm Lungs: Clear to auscultation Abdomen: Soft, nontender, nondistended, positive bowel sounds, no guarding, no rigidity Musculoskeletal: Patient moves all 4 extremities freely Neuro: This time patient is alert and oriented 3, nonfocal, no lateralization, able to move all 4 extremities. Postictal state appears to be improving. Psychiatry: Normal affect, currently no signs of withdrawal Internal Med - H&P Results - Labs CBC & Chem 7: 03/14/18 11:58 03/14/18 11:58 Labs: Cardiac Enzymes 03/14/18 Range/Units 17:49 Troponin I 0.03 (< 0.04) ng/mL - Assessment and plan (1) Breakthrough seizure Current Visit: No Status: Acute Assessment and plan: The patient patient has history of epilepsy Patient also has a component of ETOH abuse, possible alcohol withdrawal seizure. CT brain negative for acute intracranial pathology. Patient admits mediates currently taking his Keppra We will continue Keppra Alcohol withdrawal protocol, seizure precautions (2) Alcohol abuse Current Visit: No Status: Chronic Assessment and plan: Check drug screen ETOH withdrawal protocol Nutritional support (3) DVT prophylaxis Current Visit: Yes Status: Acute Assessment and plan: SCD's Hold chemical prophylaxis for now pending stable CBC. - Time Spent With Patient Total time spent is greater than 50% in coordination of care (as documented) at patient's floor/unit and/or counseling patient:
[2018-03-14] MEDS: Nicotine 14 MG PATCH.TD24 TD SCH (23:34)
[2018-03-15 05:56] LABS: INR 1.1; Prothrombin Time 11.8 Seconds (9.4-12.1)
[2018-03-15 06:07] LABS: Basophils % 0.6 %; Eosinophils % 0.3 %; Hematocrit 43.6 % (37.5-50.1); Hemoglobin 15.6 g/dL (12.9-16.9); Immature Granulocytes % 0.3 % (0-4); Lymphocytes # 1.5 K/mcL (0.6-4.6); Lymphocytes % 22.8 %; Mean Corpuscular HGB Conc 35.8 g/dL (31.6-35.5); Mean Corpuscular Hemoglobin 35.3 pg (28.0-33.3); Mean Corpuscular Volume 98.6 fL (83.0-100.0); Mean Platelet Volume 11.3 fL (9.4-12.4); Monocytes # 0.7 K/mcL (0.0-1.3); Monocytes % 10.7 %; Neutrophils # 4.4 K/mcL (1.6-8.9); Platelet Count 159 K/mcL (140-400); Red Blood Count 4.42 M/mcL (4.19-5.50); Red Cell Distribution Width 12.6 % (11.5-14.5); Segmented Neutrophils % 65.3 %
[2018-03-15 06:12] LABS: Alanine Aminotransferase 29 Units/L (7-52); Albumin 4.3 g/dL (3.5-5.7); Albumin/Globulin Ratio 1.3 (1.1-2.2); Alkaline Phosphatase 89 Units/L (34-104); Aspartate Amino Transferase 49 Units/L (13-39); BUN/Creatinine Ratio 12 (6-26); Bilirubin,Total 1.1 mg/dL (0.3-1.0); Blood Urea Nitrogen 8 mg/dL (6-20); Calcium 9.3 mg/dL (8.6-10.3); Carbon Dioxide 22 mEq/L (23-29); Chloride 103 mEq/L (98-107); Chol/HDL Ratio 1.8 (0-4.9); Cholesterol 205 mg/dL (< 200); Globulin 3.2 g/dL (2.4-3.5); Glucose 90 mg/dL (70-105); HDL Cholesterol 116 mg/dL (40-59); LDL Cholesterol,Calculated 72 mg/dL (0-99); Magnesium 1.8 mg/dL (1.6-2.6); Osmolality,Calculated 274 (280-300); Potassium 3.5 mEq/L (3.5-5.1); Sodium 133 mEq/L (136-145); Total Protein 7.5 g/dL (6.4-8.9); Triglycerides 85 mg/dL (< 150); eGFR For African Americans > 60 (> 60); eGFR For Non-African Americans > 60 (> 60)
[2018-03-15] MEDS: Nicotine 14 MG PATCH.TD24 TD SCH (07:19)
[2018-03-15 07:48] VITALS: BP 128/67
--- NOTE | 2018-03-15 08:40 | Discharge Summary ---
Orders not resulted at time of discharge: Pending orders 03/14/18 20:01 Drug Screen, Urine [UCHEM] Routine Date of Encounter: 03/15/18 Time of Encounter: 08:38 - Discharge Diagnosis (1) Alcohol abuse Priority: Primary Status: Chronic (2) Breakthrough seizure Priority: Primary Status: Acute Hospital course: Mr. Rose is a 52 year old male history of alcohol abuse and seizures who presents with seizure-like activity witnessed by his roommate. Patient was brought to the hospital for further evaluation. In the emergency department patient had a seizure per ER report. Patient given Ativan. He was admitted to the hospitalist service. CT head with nothing acute. He is supposed to be on Keppra but he admitted noncompliance. He has had previous issues with noncompliance in the past. He had extensive workup for seizures in the past 4 months including EEG and an MRI of brain which were all unremarkable. He was seen by neurology at some point while he was hospitalized here in the past. This time around I spoke to Dr. Ahmadi from neurology over the phone about the patient and he recommended no further workup. The patient was advised to be compliant with his Keppra and was advised not to drive as well. He was also advised to stop alcohol use as well. He was discharged on 03/15 in a stable condition. - Time Spent with Patient Total time spent providing and/or coordinating discharge services: Greater than 30 minutes - Discharge Medications Prescriptions: Folic Acid 1 mg PO DAILY #30 tablet LevETIRAcetam [Keppra] 1,000 mg PO BID #60 tablet Thiamine (B-1) [Vitamin B-1] 100 mg PO DAILY #30 tablet Home Medications: Folic Acid 1 mg PO DAILY #30 tablet 03/15/18 [Rx] LevETIRAcetam [Keppra] 1,000 mg PO BID #60 tablet 03/15/18 [Rx] Thiamine (B-1) [Vitamin B-1] 100 mg PO DAILY #30 tablet 03/15/18 [Rx] Allergies/Adverse Reactions: 3 Allergy/AdvReac Type Severity Reaction Status Date / Time No Known Allergies Allergy Verified 03/14/18 12:34 Date of admission: 03/14/18 15:07 Primary care physician: Sameer Flaherty MD - Constitutional Vitals: Temp Pulse Resp BP Pulse Ox 97.8 F 62 18 128/67 97 03/15/18 07:43 03/15/18 07:43 03/15/18 07:43 03/15/18 07:43 03/15/18 07:43 Exam: GEN: NAD CVS: RRR. S1, S2, No m/r/g RESP: CTAB ABD: Soft, NT, ND, +BS EXT: No edema. 2+ DP. No rashes NEURO: Nonfocal - Patient Status Disposition: Home, Self-Care Condition: Fair Overall status at discharge: patient is progressing back to baseline - Discharge Instructions Instructions: Thiamine (Vitamin B-1) (By mouth), Folic Acid (By mouth), Levetiracetam (By mouth) Follow Up With: Sameer Flaherty MD [Primary Care Provider] - (web request sent on 03/15/18. Please call your PCP on Saturday morning if they have not called and scheduled you an appointment ye. Thank you!) Additional Instructions: You are not permitted to drive due to risk of seizures - Diet and Activity Activity: increase activity as tolerated Diet: regular diet
[2018-03-15] MEDS ORDERED: Thiamine (B-1) 100 MG, Folic Acid 1 MG, MVI, adult with vitamin K 10 ML in 0.9 % Sodi... IVPB SCH (18:00)
[2018-03-15] MEDS ORDERED: levETIRAcetam 250 MG TABLET PO SCH (18:00)
[2018-03-15] MEDS ORDERED: Folic Acid 1 MG TABLET PO SCH (20:15)
== END 2018-03-15 11:03 | disposition home or self-care (01) ==
LOC: EMEROO 11:22 → 2ANU 11:22
PROVIDERS: ADMIT Internal Medicine; ATTEND Internal Medicine

== ENCOUNTER 2018-03-17 05:02 | Observation (INO) ==
[2018-03-17] MEDS ORDERED: 0.9 % Sodium Chloride 1,000 ML IVC ONE (05:04)
[2018-03-17 05:42] LABS: Basophils # 0.1 K/mcL (0.0-0.2); Basophils % 0.5 %; Hematocrit 38.9 % (37.5-50.1); Immature Granulocytes % 0.5 % (0-4); Lymphocytes # 1.7 K/mcL (0.6-4.6); Lymphocytes % 16.9 %; Mean Corpuscular HGB Conc 35.5 g/dL (31.6-35.5); Mean Corpuscular Hemoglobin 35.1 pg (28.0-33.3); Mean Platelet Volume 11.1 fL (9.4-12.4); Monocytes # 1.2 K/mcL (0.0-1.3); Monocytes % 11.8 %; Neutrophils # 6.9 K/mcL (1.6-8.9); Platelet Count 191 K/mcL (140-400); Red Blood Count 3.93 M/mcL (4.19-5.50); Red Cell Distribution Width 12.5 % (11.5-14.5); Segmented Neutrophils % 70.3 %
[2018-03-17 05:44] LABS: Hemoglobin 13.8 g/dL (12.9-16.9)
[2018-03-17] MEDS ORDERED: *HR* LORazepam 2 MG/ML VIAL IVP ONE (05:44)
[2018-03-17] MEDS ORDERED: Thiamine (B-1) 100 MG, Folic Acid 1 MG in 0.9 % Sodium Chloride 50 ML IVPB ONE (05:48)
--- NOTE | 2018-03-17 05:49 | Emergency Department Note ---
Disposition Clinical Impression: Acute psychosis Disposition: Still a Patient Condition: Undetermined Referrals: NONE,PCP [Primary Care Provider] - Forms: ED Satisfaction Letter General Adult HPI - General Chief complaint: ED Psychiatric Symptoms Stated complaint: Psych Eval Time Seen by Provider: 03/17/18 05:04 Source: patient, EMS Mode of arrival: EMS Limitations: altered mental status Nursing Notes Reviewed: Yes Vital Signs Reviewed: Yes - History of Present Illness HPI Narrative: Patient presents to ED via EMS with the chief complaint of altered mental status and sent for psychiatric evaluation. There is conflicting stories from EMS which states that the patient was found at the [facility] alcohol intoxication holding tank and brought in for potential alcohol intoxication. However, the patient denies this. He does state that he was just admitted to our psychiatric unit here, but was discharged recently. He is denying any alcohol use or drug ingestion. Not really making any sense. I do not think he is a reliable historian. Essentially, they were called for odd behavior strange speech and suspected intoxication as the patient is a known alcoholic. Pain Scale: 0 - Related Data Previous Rx's Medication Instructions Recorded Folic Acid 1 mg PO DAILY #30 tablet 03/15/18 LevETIRAcetam [Keppra] 1,000 mg PO BID #60 tablet 03/15/18 Thiamine (B-1) [Vitamin B-1] 100 mg PO DAILY #30 tablet 03/15/18 Allergies Allergy/AdvReac Type Severity Reaction Status Date / Time No Known Allergies Allergy Verified 03/17/18 05:05 Limitations: ROS unobtainable due to patients medical condition Past Medical History - Past Medical History Source: old records reviewed Medical history: Reports: cardiomyopathy, CHF, COPD, coronary artery disease, hypertension, liver disease, myocardial infarction, seizures, valvular heart disease, other Surgical history: Reports: heart valve replacement, orthopedic, other Psychiatric history: Reports: no psych history - Social History Smoking Status: Current every day smoker Smokeless Tobacco Status: No Alcohol use: Reports: heavy Drug use: Reports: none Physical Exam - General Limitations: altered mental status General appearance: alert, appears intoxicated - Head Head exam: atraumatic - Eye Eye exam: Present: normal appearance, PERRL - ENT ENT exam: mucous membranes moist - Respiratory Respiratory exam: Present: normal lung sounds bilaterally - Cardiovascular Cardiovascular exam: Present: regular rate, normal rhythm, normal heart sounds - Abdominal Exam Abdominal exam: Present: soft, Non-Tender. Absent: tenderness, distention, guarding, rebound, rigidity - Extremities Exam Extremities exam: Present: normal inspection, full ROM. Absent: tenderness, pedal edema - Neurological Exam Neurological exam: Present: alert. Absent: normal gait - Expanded Neurological Exam Patient oriented to: Present: person, place. Absent: time Speech: Present: fluid speech (Some slurring of speech) Cerebellar function: wide-based gait, ataxic gait Coma Scale Eye Opening: Spontaneous Coma Scale Motor Response: Obeys Commands Coma Scale Verbal Response: Oriented Coma Scale Total: 15 - Skin Skin exam: Present: warm, dry, intact, normal color Course - Reevaluation(s) Reevaluation #1: patient signed out to oncoming day team, Dr. Lucero. Time: 06:49 Vital Signs Temperature 97.7 F 03/17/18 05:12 Pulse Rate 99 03/17/18 05:12 Respiratory Rate 16 03/17/18 05:12 Blood Pressure 130/83 03/17/18 05:12 O2 Sat by Pulse Oximetry 99 03/17/18 05:12 Temperature 97.7 F 03/17/18 05:12 Pulse Rate 93 03/17/18 06:26 Respiratory Rate 17 03/17/18 06:26 Blood Pressure 128/84 03/17/18 06:26 O2 Sat by Pulse Oximetry 95 03/17/18 06:26 Oxygen Delivery Oxygen Delivery Room Air Medical Decision Making - Medical Records Medical records reviewed: Yes I reviewed the patient's medical records. - Lab Data Lab results reviewed: Yes I reviewed the patient's lab results. Result diagrams: 03/17/18 05:35 03/17/18 05:35 Lab Results 03/17/18 03/17/18 03/17/18 Range/Units 05:35 05:35 05:51 WBC 9.9 (4.3-11.1) K/mcL RBC 3.93 L (4.19-5.50) M/mcL Hgb 13.8 D (12.9-16.9) g/dL Hct 38.9 (37.5-50.1) % MCV 99.0 (83.0-100.0) fL MCH 35.1 H (28.0-33.3) pg MCHC 35.5 (31.6-35.5) g/dL RDW 12.5 (11.5-14.5) % Plt Count 191 (140-400) K/mcL MPV 11.1 (9.4-12.4) fL Immature Gran % 0.5 (0-4) % Seg Neutrophils % 70.3 % Lymphocytes % 16.9 % Monocytes % 11.8 % Eosinophils % 0.0 % Basophils % 0.5 % Neutrophils # 6.9 (1.6-8.9) K/mcL Lymphocytes # 1.7 (0.6-4.6) K/mcL Monocytes # 1.2 (0.0-1.3) K/mcL Eosinophils # 0.0 (0.0-0.6) K/mcL Basophils # 0.1 (0.0-0.2) K/mcL Sodium Cancelled Potassium Cancelled Chloride Cancelled Carbon Dioxide Cancelled BUN Cancelled Creatinine Cancelled Est GFR ( Amer) Cancelled Est GFR (Non-Af Amer) Cancelled BUN/Creatinine Ratio Cancelled Glucose Cancelled Calculated Osmolality Cancelled Calcium Cancelled Total Bilirubin Cancelled Direct Bilirubin Cancelled Indirect Bilirubin Cancelled AST Cancelled ALT Cancelled Alkaline Phosphatase Cancelled Serum Total Protein Cancelled Albumin Cancelled Globulin Cancelled Albumin/Globulin Ratio Cancelled Urine Color Dark Yellow (Yellow) Urine Clarity Clear (Clear) Urine pH 5.5 (5.0-8.0) pH Units Ur Specific [place] 1.026 H (1.010-1.025) Urine Protein 30 H (Neg-Trace) mg/dL Urine Glucose (UA) Normal (Normal) mg/dL Urine Ketones 15 H (Negative) mg/dL Urine Blood Negative (Negative) Urine Nitrite Negative (Negative) Urine Bilirubin Small H (Negative) Urine Urobilinogen Normal (Normal) mg/dL Ur Leukocyte Esterase Negative (Negative) Urine Microscopic RBC 3-5 H (0-3) per hpf Urine Microscopic WBC 0-3 (0-3) per hpf Ur Squamous Epith Cells Moderate H (None-Few) per lpf Urine Bacteria None Seen (None-Few) per hpf Hyaline Casts None Seen (None-Few) per lpf Salicylates < 2.5 L (15.0-30.0) mg/dL Urine Opiates Screen (Nsfacn=347) ng/mL Acetaminophen < 10 L (10-20) mcg/mL Ur Barbiturates Screen (Azeyht=674) ng/mL Ur Phencyclidine Scrn (Cutoff=25) ng/mL Ur Amphetamines Screen (Wkpbzm=8270) ng/mL U Benzodiazepines Scrn (Qyurpb=438) ng/mL Urine Cocaine Screen (Cutoff= 300) ng/mL U Marijuana (THC) Screen (Cutoff = 50) ng/mL Ethyl Alcohol < 10 (Less than 10) mg/dL Specimen Rejected 03/17/18 03/17/18 Range/Units 05:51 06:21 WBC (4.3-11.1) K/mcL RBC (4.19-5.50) M/mcL Hgb (12.9-16.9) g/dL Hct (37.5-50.1) % MCV (83.0-100.0) fL MCH (28.0-33.3) pg MCHC (31.6-35.5) g/dL RDW (11.5-14.5) % Plt Count (140-400) K/mcL MPV (9.4-12.4) fL Immature Gran % (0-4) % Seg Neutrophils % % Lymphocytes % % Monocytes % % Eosinophils % % Basophils % % Neutrophils # (1.6-8.9) K/mcL Lymphocytes # (0.6-4.6) K/mcL Monocytes # (0.0-1.3) K/mcL Eosinophils # (0.0-0.6) K/mcL Basophils # (0.0-0.2) K/mcL Sodium Potassium Chloride Carbon Dioxide BUN Creatinine Est GFR ( Amer) Est GFR (Non-Af Amer) BUN/Creatinine Ratio Glucose Calculated Osmolality Calcium Total Bilirubin Direct Bilirubin Indirect Bilirubin AST ALT Alkaline Phosphatase Serum Total Protein Albumin Globulin Albumin/Globulin Ratio Urine Color (Yellow) Urine Clarity (Clear) Urine pH (5.0-8.0) pH Units Ur Specific [place] (1.010-1.025) Urine Protein (Neg-Trace) mg/dL Urine Glucose (UA) (Normal) mg/dL Urine Ketones (Negative) mg/dL Urine Blood (Negative) Urine Nitrite (Negative) Urine Bilirubin (Negative) Urine Urobilinogen (Normal) mg/dL Ur Leukocyte Esterase (Negative) Urine Microscopic RBC (0-3) per hpf Urine Microscopic WBC (0-3) per hpf Ur Squamous Epith Cells (None-Few) per lpf Urine Bacteria (None-Few) per hpf Hyaline Casts (None-Few) per lpf Salicylates (15.0-30.0) mg/dL Urine Opiates Screen Negative (Xumhlj=455) ng/mL Acetaminophen (10-20) mcg/mL Ur Barbiturates Screen Negative (Dcdods=393) ng/mL Ur Phencyclidine Scrn Negative (Cutoff=25) ng/mL Ur Amphetamines Screen Negative (Gmgigg=6192) ng/mL U Benzodiazepines Scrn Negative (Joaemw=421) ng/mL Urine Cocaine Screen Negative (Cutoff= 300) ng/mL U Marijuana (THC) Screen Negative (Cutoff = 50) ng/mL Ethyl Alcohol (Less than 10) mg/dL Specimen Rejected Hemolyzed - Radiology Data Radiology results reviewed: Yes I reviewed the patient's radiology results. - EKG Data EKG #1 EKG attestation: Yes I reviewed and interpreted this EKG. EKG results narrative: Sinus rhythm, rate 94, KS interval 162, QRS 85, QTC 422, normal axis, no acute ischemic changes
[2018-03-17 06:04] LABS: Bilirubin,Urine Small (Negative); Blood,Urine Negative (Negative); Clarity,Urine Clear (Clear); Color,Urine Dark Yellow (Yellow); Glucose,Urine (UA) Normal (Normal); Ketones,Urine 15 mg/dL (Negative); Leukocyte Esterase,Urine Negative (Negative); Nitrite,Urine Negative (Negative); PH,Urine 5.5 pH Units (5.0-8.0); Protein,Urine 30 mg/dL (Neg-Trace); Specific Gravity,Urine 1.026 (1.010-1.025); Urobilinogen,Urine Normal (Normal)
[2018-03-17 06:05] LABS: Acetaminophen < 10 mcg/mL (10-20)
[2018-03-17 06:07] LABS: Bacteria,Urine None Seen per hpf (None-Few); Hyaline Casts,Urine None Seen per lpf (None-Few); Squamous Epithelial Cell,Urine Moderate per lpf (None-Few); WBC,Urine 0-3 per hpf (0-3)
[2018-03-17 06:23] LABS: Ethanol < 10 mg/dL (Less than 10); Salicylate < 2.5 mg/dL (15.0-30.0)
[2018-03-17 06:28] LABS: Amphetamine Screen,Urine Negative ng/mL (Cutoff=1000); Barbiturate Screen,Urine Negative ng/mL (Cutoff=200); Benzodiazepines Screen,Urine Negative ng/mL (Cutoff=200); Cannabinoid Screen,Urine Negative ng/mL (Cutoff = 50); Cocaine Screen,Urine Negative ng/mL (Cutoff= 300); Opiate Screen,Urine Negative ng/mL (Cutoff=300); Phencyclidine Screen,Urine Negative ng/mL (Cutoff=25)
--- NOTE | 2018-03-17 06:37 | Emergency Department Note ---
Disposition Clinical Impression: Acute psychosis Disposition: Still a Patient Condition: Undetermined Referrals: NONE,PCP [Primary Care Provider] - Forms: ED Satisfaction Letter General Adult HPI - General Chief complaint: ED Psychiatric Symptoms Stated complaint: Psych Eval Time Seen by Provider: 03/17/18 05:04 Source: patient, EMS Mode of arrival: EMS Limitations: altered mental status Nursing Notes Reviewed: Yes Vital Signs Reviewed: Yes - History of Present Illness Pain Scale: 0 - Related Data Previous Rx's Medication Instructions Recorded Folic Acid 1 mg PO DAILY #30 tablet 03/15/18 LevETIRAcetam [Keppra] 1,000 mg PO BID #60 tablet 03/15/18 Thiamine (B-1) [Vitamin B-1] 100 mg PO DAILY #30 tablet 03/15/18 Allergies Allergy/AdvReac Type Severity Reaction Status Date / Time No Known Allergies Allergy Verified 03/17/18 05:05 Past Medical History - Past Medical History Medical history: Reports: cardiomyopathy, CHF, COPD, coronary artery disease, hypertension, liver disease, myocardial infarction, seizures, valvular heart disease, other Surgical history: Reports: heart valve replacement, orthopedic, other Psychiatric history: Reports: no psych history - Social History Smoking Status: Current every day smoker Smokeless Tobacco Status: No Alcohol use: Reports: heavy Drug use: Reports: none Physical Exam - General Limitations: altered mental status General appearance: alert, appears intoxicated Course Vital Signs Temperature 97.7 F 03/17/18 05:12 Pulse Rate 99 03/17/18 05:12 Respiratory Rate 16 03/17/18 05:12 Blood Pressure 130/83 03/17/18 05:12 O2 Sat by Pulse Oximetry 99 03/17/18 05:12 Temperature 97.7 F 03/17/18 05:12 Pulse Rate 93 03/17/18 06:26 Respiratory Rate 17 03/17/18 06:26 Blood Pressure 128/84 03/17/18 06:26 O2 Sat by Pulse Oximetry 95 03/17/18 06:26 Oxygen Delivery Oxygen Delivery Room Air Medical Decision Making - Lab Data Result diagrams: 03/17/18 05:35 03/17/18 05:35 Lab Results 03/17/18 03/17/18 03/17/18 Range/Units 05:35 05:35 05:51 WBC 9.9 (4.3-11.1) K/mcL RBC 3.93 L (4.19-5.50) M/mcL Hgb 13.8 D (12.9-16.9) g/dL Hct 38.9 (37.5-50.1) % MCV 99.0 (83.0-100.0) fL MCH 35.1 H (28.0-33.3) pg MCHC 35.5 (31.6-35.5) g/dL RDW 12.5 (11.5-14.5) % Plt Count 191 (140-400) K/mcL MPV 11.1 (9.4-12.4) fL Immature Gran % 0.5 (0-4) % Seg Neutrophils % 70.3 % Lymphocytes % 16.9 % Monocytes % 11.8 % Eosinophils % 0.0 % Basophils % 0.5 % Neutrophils # 6.9 (1.6-8.9) K/mcL Lymphocytes # 1.7 (0.6-4.6) K/mcL Monocytes # 1.2 (0.0-1.3) K/mcL Eosinophils # 0.0 (0.0-0.6) K/mcL Basophils # 0.1 (0.0-0.2) K/mcL Sodium Cancelled Potassium Cancelled Chloride Cancelled Carbon Dioxide Cancelled BUN Cancelled Creatinine Cancelled Est GFR ( Amer) Cancelled Est GFR (Non-Af Amer) Cancelled BUN/Creatinine Ratio Cancelled Glucose Cancelled Calculated Osmolality Cancelled Calcium Cancelled Total Bilirubin Cancelled Direct Bilirubin Cancelled Indirect Bilirubin Cancelled AST Cancelled ALT Cancelled Alkaline Phosphatase Cancelled Serum Total Protein Cancelled Albumin Cancelled Globulin Cancelled Albumin/Globulin Ratio Cancelled Urine Color Dark Yellow (Yellow) Urine Clarity Clear (Clear) Urine pH 5.5 (5.0-8.0) pH Units Ur Specific [place] 1.026 H (1.010-1.025) Urine Protein 30 H (Neg-Trace) mg/dL Urine Glucose (UA) Normal (Normal) mg/dL Urine Ketones 15 H (Negative) mg/dL Urine Blood Negative (Negative) Urine Nitrite Negative (Negative) Urine Bilirubin Small H (Negative) Urine Urobilinogen Normal (Normal) mg/dL Ur Leukocyte Esterase Negative (Negative) Urine Microscopic RBC 3-5 H (0-3) per hpf Urine Microscopic WBC 0-3 (0-3) per hpf Ur Squamous Epith Cells Moderate H (None-Few) per lpf Urine Bacteria None Seen (None-Few) per hpf Hyaline Casts None Seen (None-Few) per lpf Salicylates < 2.5 L (15.0-30.0) mg/dL Urine Opiates Screen (Fhlclt=275) ng/mL Acetaminophen < 10 L (10-20) mcg/mL Ur Barbiturates Screen (Voueol=208) ng/mL Ur Phencyclidine Scrn (Cutoff=25) ng/mL Ur Amphetamines Screen (Tlykdd=6909) ng/mL U Benzodiazepines Scrn (Oulhmj=885) ng/mL Urine Cocaine Screen (Cutoff= 300) ng/mL U Marijuana (THC) Screen (Cutoff = 50) ng/mL Ethyl Alcohol < 10 (Less than 10) mg/dL Specimen Rejected 03/17/18 03/17/18 Range/Units 05:51 06:21 WBC (4.3-11.1) K/mcL RBC (4.19-5.50) M/mcL Hgb (12.9-16.9) g/dL Hct (37.5-50.1) % MCV (83.0-100.0) fL MCH (28.0-33.3) pg MCHC (31.6-35.5) g/dL RDW (11.5-14.5) % Plt Count (140-400) K/mcL MPV (9.4-12.4) fL Immature Gran % (0-4) % Seg Neutrophils % % Lymphocytes % % Monocytes % % Eosinophils % % Basophils % % Neutrophils # (1.6-8.9) K/mcL Lymphocytes # (0.6-4.6) K/mcL Monocytes # (0.0-1.3) K/mcL Eosinophils # (0.0-0.6) K/mcL Basophils # (0.0-0.2) K/mcL Sodium Potassium Chloride Carbon Dioxide BUN Creatinine Est GFR ( Amer) Est GFR (Non-Af Amer) BUN/Creatinine Ratio Glucose Calculated Osmolality Calcium Total Bilirubin Direct Bilirubin Indirect Bilirubin AST ALT Alkaline Phosphatase Serum Total Protein Albumin Globulin Albumin/Globulin Ratio Urine Color (Yellow) Urine Clarity (Clear) Urine pH (5.0-8.0) pH Units Ur Specific [place] (1.010-1.025) Urine Protein (Neg-Trace) mg/dL Urine Glucose (UA) (Normal) mg/dL Urine Ketones (Negative) mg/dL Urine Blood (Negative) Urine Nitrite (Negative) Urine Bilirubin (Negative) Urine Urobilinogen (Normal) mg/dL Ur Leukocyte Esterase (Negative) Urine Microscopic RBC (0-3) per hpf Urine Microscopic WBC (0-3) per hpf Ur Squamous Epith Cells (None-Few) per lpf Urine Bacteria (None-Few) per hpf Hyaline Casts (None-Few) per lpf Salicylates (15.0-30.0) mg/dL Urine Opiates Screen Negative (Pwtztj=262) ng/mL Acetaminophen (10-20) mcg/mL Ur Barbiturates Screen Negative (Ntidep=380) ng/mL Ur Phencyclidine Scrn Negative (Cutoff=25) ng/mL Ur Amphetamines Screen Negative (Rxswie=7668) ng/mL U Benzodiazepines Scrn Negative (Cgnhlg=882) ng/mL Urine Cocaine Screen Negative (Cutoff= 300) ng/mL U Marijuana (THC) Screen Negative (Cutoff = 50) ng/mL Ethyl Alcohol (Less than 10) mg/dL Specimen Rejected Hemolyzed Attestation Statement - Attestation Attestation: I, Shamar Kenny MD, personally evaluated this patient and discussed their management with the resident physician. I reviewed the resident's note and agree with the documented findings, medical decision making, and plan of care. 52-year-old male brought to the emergency department from the retirement for psychiatric evaluation. Patient has history of psychiatric issues. He denies suicidal ideation. He does admit to homicidal ideation and states that he just wants to kill everyone. On examination patient is a well-developed well-nourished male in no acute distress. He is alert and oriented 3. There is no cyanosis or diaphoresis. Breath sounds are clear and equal bilaterally. Heart regular rate and rhythm. Abdomen is soft and nontender with normal bowel sounds. EKG shows a normal sinus rhythm with ventricular rate of 94. No ST segment elevation or depression. No arrhythmia or ectopy. Labs reviewed other than chemistries which are still pending as the patient's initial lab draw was apparently hemolyzed and had to be redrawn. After labs return and patient is medically cleared he will need 1A psychiatric evaluation. At shift change patient is being [facility], Dr. Dario Lucero.
[2018-03-17 07:09] LABS: Alanine Aminotransferase 31 Units/L (7-52); Albumin 4.5 g/dL (3.5-5.7); Albumin/Globulin Ratio 1.5 (1.1-2.2); Alkaline Phosphatase 85 Units/L (34-104); Aspartate Amino Transferase 70 Units/L (13-39); BUN/Creatinine Ratio 29 (6-26); Bilirubin,Direct 0.4 mg/dL (0.0-0.2); Bilirubin,Indirect 0.9 mg/dL (0.0-1.2); Bilirubin,Total 1.3 mg/dL (0.3-1.0); Blood Urea Nitrogen 22 mg/dL (6-20); Calcium 9.5 mg/dL (8.6-10.3); Carbon Dioxide 23 mEq/L (23-29); Chloride 108 mEq/L (98-107); Globulin 3.1 g/dL (2.4-3.5); Glucose 71 mg/dL (70-105); Osmolality,Calculated 286 (280-300); Potassium 3.7 mEq/L (3.5-5.1); Sodium 137 mEq/L (136-145); Total Protein 7.6 g/dL (6.4-8.9); eGFR For African Americans > 60 (> 60); eGFR For Non-African Americans > 60 (> 60)
--- NOTE | 2018-03-17 07:37 | Emergency Department Note ---
Disposition Clinical Impression: Acute psychosis, Hallucinations Disposition: Admitted As Inpatient Condition: Good Referrals: NONE,PCP [Primary Care Provider] - Forms: ED Satisfaction Letter Time of Disposition: 10:55 General Adult HPI - General Chief complaint: ED Psychiatric Symptoms Stated complaint: Psych Eval Time Seen by Provider: 03/17/18 05:04 Source: patient, EMS Mode of arrival: EMS Limitations: altered mental status - History of Present Illness Pain Scale: 0 - Related Data Previous Rx's Medication Instructions Recorded Folic Acid 1 mg PO DAILY #30 tablet 03/15/18 LevETIRAcetam [Keppra] 1,000 mg PO BID #60 tablet 03/15/18 Thiamine (B-1) [Vitamin B-1] 100 mg PO DAILY #30 tablet 03/15/18 Allergies Allergy/AdvReac Type Severity Reaction Status Date / Time No Known Allergies Allergy Verified 03/17/18 05:05 Past Medical History - Past Medical History Medical history: Reports: cardiomyopathy, CHF, COPD, coronary artery disease, hypertension, liver disease, myocardial infarction, seizures, valvular heart disease, other Surgical history: Reports: heart valve replacement, orthopedic, other Psychiatric history: Reports: no psych history - Social History Smoking Status: Current every day smoker Smokeless Tobacco Status: No Alcohol use: Reports: heavy Drug use: Reports: none Physical Exam - General Limitations: altered mental status General appearance: alert, appears intoxicated Course Course Narrative: Patient received signout from the nighttime physicians Dr. Kenny. See detailed documentation of the physical exam medical intervention and their charting. Patient has been clinically stable here. Laboratory workup is unremarkable. Patient is describing hallucinations and homicidal ideation at this point. Patient will be observed a master the emergency room by the psychiatric team as well as ourselves. Patient will be evaluated by our psychiatric team and disposition will be determined. Patient does not require any intervention at this time. Drug screen is negative. Patient has been clinically stable throughout the treatment course here in the emergency room. - Reevaluation(s) Reevaluation #1: Patient is somnolent. He wakes up and answers the majority of his questions appropriately appears to be oriented but he is confused will happen last night. We will provide him breakfast reevaluated at this time and discuss disposition reevaluation with psychiatric team. If there is a prolonged time. Workup entirely the patient may require medical admission secondary to his alcohol abuse and possible withdrawal syndrome. Patient's CT of his head is unremarkable and so was his chest x-ray. Time: 07:52 Reevaluation #2: Psychiatry team evaluated the patient felt is pertinent for the patient to be admitted for IV thiamine and folate and evaluation inpatient setting. Patient has been stable here in the emergency room. Concern is for 1 acute encephalopathy despite the patient mentating appropriately. He does have hallucinations at this time. Admission process is completed with conversation with Dr. Curtis Time: 10:55 Vital Signs Temperature 97.7 F 03/17/18 05:12 Pulse Rate 99 03/17/18 05:12 Respiratory Rate 16 03/17/18 05:12 Blood Pressure 130/83 03/17/18 05:12 O2 Sat by Pulse Oximetry 99 03/17/18 05:12 Temperature 97.7 F 03/17/18 05:12 Pulse Rate 96 03/17/18 08:50 Respiratory Rate 24 03/17/18 08:50 Blood Pressure 126/88 03/17/18 08:50 O2 Sat by Pulse Oximetry 99 03/17/18 08:50 Oxygen Delivery Oxygen Delivery Room Air Medical Decision Making - Lab Data Result diagrams: 03/17/18 05:35 03/17/18 06:38 Lab Results 03/17/18 03/17/18 03/17/18 Range/Units 05:35 05:35 05:51 WBC 9.9 (4.3-11.1) K/mcL RBC 3.93 L (4.19-5.50) M/mcL Hgb 13.8 D (12.9-16.9) g/dL Hct 38.9 (37.5-50.1) % MCV 99.0 (83.0-100.0) fL MCH 35.1 H (28.0-33.3) pg MCHC 35.5 (31.6-35.5) g/dL RDW 12.5 (11.5-14.5) % Plt Count 191 (140-400) K/mcL MPV 11.1 (9.4-12.4) fL Immature Gran % 0.5 (0-4) % Seg Neutrophils % 70.3 % Lymphocytes % 16.9 % Monocytes % 11.8 % Eosinophils % 0.0 % Basophils % 0.5 % Neutrophils # 6.9 (1.6-8.9) K/mcL Lymphocytes # 1.7 (0.6-4.6) K/mcL Monocytes # 1.2 (0.0-1.3) K/mcL Eosinophils # 0.0 (0.0-0.6) K/mcL Basophils # 0.1 (0.0-0.2) K/mcL Sodium Cancelled Potassium Cancelled Chloride Cancelled Carbon Dioxide Cancelled BUN Cancelled Creatinine Cancelled Est GFR ( Amer) Cancelled Est GFR (Non-Af Amer) Cancelled BUN/Creatinine Ratio Cancelled Glucose Cancelled Calculated Osmolality Cancelled Calcium Cancelled Total Bilirubin Cancelled Direct Bilirubin Cancelled Indirect Bilirubin Cancelled AST Cancelled ALT Cancelled Alkaline Phosphatase Cancelled Serum Total Protein Cancelled Albumin Cancelled Globulin Cancelled Albumin/Globulin Ratio Cancelled Urine Color Dark Yellow (Yellow) Urine Clarity Clear (Clear) Urine pH 5.5 (5.0-8.0) pH Units Ur Specific [place] 1.026 H (1.010-1.025) Urine Protein 30 H (Neg-Trace) mg/dL Urine Glucose (UA) Normal (Normal) mg/dL Urine Ketones 15 H (Negative) mg/dL Urine Blood Negative (Negative) Urine Nitrite Negative (Negative) Urine Bilirubin Small H (Negative) Urine Urobilinogen Normal (Normal) mg/dL Ur Leukocyte Esterase Negative (Negative) Urine Microscopic RBC 3-5 H (0-3) per hpf Urine Microscopic WBC 0-3 (0-3) per hpf Ur Squamous Epith Cells Moderate H (None-Few) per lpf Urine Bacteria None Seen (None-Few) per hpf Hyaline Casts None Seen (None-Few) per lpf Salicylates < 2.5 L (15.0-30.0) mg/dL Urine Opiates Screen (Pzvvro=751) ng/mL Acetaminophen < 10 L (10-20) mcg/mL Ur Barbiturates Screen (Viffbh=327) ng/mL Ur Phencyclidine Scrn (Cutoff=25) ng/mL Ur Amphetamines Screen (Tiigfo=5519) ng/mL U Benzodiazepines Scrn (Smrqux=897) ng/mL Urine Cocaine Screen (Cutoff= 300) ng/mL U Marijuana (THC) Screen (Cutoff = 50) ng/mL Ethyl Alcohol < 10 (Less than 10) mg/dL Specimen Rejected 03/17/18 03/17/18 03/17/18 Range/Units 05:51 06:21 06:38 WBC (4.3-11.1) K/mcL RBC (4.19-5.50) M/mcL Hgb (12.9-16.9) g/dL Hct (37.5-50.1) % MCV (83.0-100.0) fL MCH (28.0-33.3) pg MCHC (31.6-35.5) g/dL RDW (11.5-14.5) % Plt Count (140-400) K/mcL MPV (9.4-12.4) fL Immature Gran % (0-4) % Seg Neutrophils % % Lymphocytes % % Monocytes % % Eosinophils % % Basophils % % Neutrophils # (1.6-8.9) K/mcL Lymphocytes # (0.6-4.6) K/mcL Monocytes # (0.0-1.3) K/mcL Eosinophils # (0.0-0.6) K/mcL Basophils # (0.0-0.2) K/mcL Sodium 137 Potassium 3.7 Chloride 108 H Carbon Dioxide 23 BUN 22 H Creatinine 0.77 Est GFR ( Amer) > 60 Est GFR (Non-Af Amer) > 60 BUN/Creatinine Ratio 29 H Glucose 71 Calculated Osmolality 286 Calcium 9.5 Total Bilirubin 1.3 H Direct Bilirubin 0.4 H Indirect Bilirubin 0.9 AST 70 H ALT 31 Alkaline Phosphatase 85 Serum Total Protein 7.6 Albumin 4.5 Globulin 3.1 Albumin/Globulin Ratio 1.5 Urine Color (Yellow) Urine Clarity (Clear) Urine pH (5.0-8.0) pH Units Ur Specific [place] (1.010-1.025) Urine Protein (Neg-Trace) mg/dL Urine Glucose (UA) (Normal) mg/dL Urine Ketones (Negative) mg/dL Urine Blood (Negative) Urine Nitrite (Negative) Urine Bilirubin (Negative) Urine Urobilinogen (Normal) mg/dL Ur Leukocyte Esterase (Negative) Urine Microscopic RBC (0-3) per hpf Urine Microscopic WBC (0-3) per hpf Ur Squamous Epith Cells (None-Few) per lpf Urine Bacteria (None-Few) per hpf Hyaline Casts (None-Few) per lpf Salicylates (15.0-30.0) mg/dL Urine Opiates Screen Negative (Nsuhlr=296) ng/mL Acetaminophen (10-20) mcg/mL Ur Barbiturates Screen Negative (Poldbg=018) ng/mL Ur Phencyclidine Scrn Negative (Cutoff=25) ng/mL Ur Amphetamines Screen Negative (Eyjymf=0691) ng/mL U Benzodiazepines Scrn Negative (Wdspdt=691) ng/mL Urine Cocaine Screen Negative (Cutoff= 300) ng/mL U Marijuana (THC) Screen Negative (Cutoff = 50) ng/mL Ethyl Alcohol (Less than 10) mg/dL Specimen Rejected Hemolyzed
[2018-03-17] MEDS ORDERED: Thiamine (B-1) 100 MG in D5% in Water 50 ML IVPB STA (10:41)
[2018-03-17] MEDS ORDERED: Folic Acid 1 MG in D5% in Water 50 ML IVPB ONE (10:43)
[2018-03-17] MEDS ORDERED: Naloxone 0.4 MG/ML INJ IVP PRN (11:28)
--- NOTE | 2018-03-17 11:36 | Internal Med History&Physical ---
Date of Encounter: 03/17/18 Time of Encounter: 11:35 Internal Medicine - H&P: HPI Chief complaint: I'm seeing stuff Plans for Post Hospital Care: Home History of present illness: Mr. Rose is a 52 year old male history of alcohol abuse who presents with altered mentation. History taken per chart. Patient has history of alcohol abuse recurrent admissions. Patient's history is unreliable. Patient notes his last drink was over a month ago. Patient notes he sometimes sees visual hallucinations. Patient also notes he has thought of hurting people but does not mention who these people are. At this time patient has no new complaints. He denies headache, visual disturbance, neck pain or focal weakness. He denies chest pain, shortness of breath or palpitations. Denies abdominal pain, nausea or vomiting. There is no dysuria or diarrhea. He denies fever, chills or rigors. He denies coughing. Patient has no other concerns. Patient to be admitted for further evaluation. Per ER report patient has been evaluated by psychiatry in the emergency department. Past Med Surg Social Fam HX - Past Medical History Medical history: cardiomyopathy, CHF, COPD, coronary artery disease, hypertension, liver disease, myocardial infarction, seizures, valvular heart disease, other Psychiatric history: no psych history - Past Surgical History Surgical History: heart valve replacement, orthopedic, other - Social History Smoking Status: Current every day smoker Smokeless Tobacco Status: No Alcohol use: heavy Drug use: none - Family History Father Family Member Ethnicity: Non- Living Status: Hx Family Cardiac Disorders: Yes ([place]) Mother Family Member Ethnicity: Non- Living Status: Hx Family Cardiac Disorders: Yes (mother heart atttack) Hx Family Respiratory Disorders: No Hx Family Cancer: No Hx Family GI Disorders: No Hx Family Endocrine Disorder: No Hx Family Neuromuscular Disorders: No Hx Family Neurologic Disorders: No Hx Family HEENT Disorders: No Hx Family Autoimmune Disorders: No Internal Medicine - H&P: Meds Folic Acid 1 mg PO DAILY #30 tablet 03/15/18 [Rx] LevETIRAcetam [Keppra] 1,000 mg PO BID #60 tablet 03/15/18 [Rx] Thiamine (B-1) [Vitamin B-1] 100 mg PO DAILY #30 tablet 03/15/18 [Rx] 3 Allergy/AdvReac Type Severity Reaction Status Date / Time No Known Allergies Allergy Verified 03/17/18 05:05 All Systems PM: A 10-system review of systems was performed and is negative for pertinent findings except as documented above in the HPI. Review of systems: All systems reviewed and negative for as mentioned in history of present illness - Constitutional Vitals: Temp Pulse Resp BP Pulse Ox 97.7 F 96 24 126/88 99 03/17/18 05:12 03/17/18 08:50 03/17/18 08:50 03/17/18 08:50 03/17/18 08:50 Vital signs as above Gen.: No acute distress, calm, cooperative, able to speak in full sentences HEENT: Atraumatic, normocephalic, extraocular movements are intact, PERRL, there is no scleral icterus Neck: No JVD no pain to palpation, full range of motion Heart: Normal S1-S2, regular rate and rhythm Lungs: Clear to auscultation Abdomen: Soft, nontender, nondistended, positive bowel sounds, no guarding, no rigidity Musculoskeletal: Patient will function me freely, pinna palpation large joints, tenderness, no pedal edema Neuro: Nonfocal, no lateralization, patient, ambulates without difficulty , strength appears to be intact upper and lower extremities Psychiatry: Visual hallucinations, some anxiety, no overt signs of withdrawal Internal Med - H&P Results - Labs CBC & Chem 7: 03/17/18 05:35 03/17/18 06:38 - Assessment and plan (1) Hallucinations Current Visit: Yes Status: Acute Assessment and plan: Patient having visual hallucinations Patient has known history of ETOH abuse At this time did not appear to be increased tremor there is mild anxiety, no diaphoresis, no palpitations or headache. No evidence of seizure at this time. Possible alcoholic hallucinosis? Of his time there is no evidence of severe alcohol withdrawal, patient remains afebrile without tachycardia, without tachypnea, normotensive Continue close observation, CIWA ordered, richarde valentina Patient evaluated by psychiatry in the emergency department. Patient will need psychiatry evaluation on the medical floor. Patient has been pink slipped for wanting to leave the setting of hallucinations , mentioning that he wants to hurt others, at risk for self harm (2) DVT prophylaxis Current Visit: No Status: Acute Assessment and plan: SCD's, ambulate with assistance (3) Seizure Current Visit: No Status: Acute Assessment and plan: Continue keppra , seizure precautions No evidence of seizure at this time - Time Spent With Patient Total time spent is greater than 50% in coordination of care (as documented) at patient's floor/unit and/or counseling patient:
[2018-03-17] MEDS: *HR* LORazepam 2 MG/ML VIAL IVP PRN ×2 (12:39→20:49)
--- NOTE | 2018-03-17 23:21 | Event Note ---
Date of Encounter: 03/17/18 Time of Encounter: 23:09 Alerted by pts. nurse that pt. refuses to wear telemetry and is continuing to take it off. Went to assess pt. who is admitted for EtOH withdrawal. Explained the importance of telemetry in his present condition and how we are monitoring his heart. Stated he wants his heart to stop. Reiterated about the importance of telemetry and pt. agreed to keep it on. Sitter in place. Psych consult ordered and discussed w/1A d/t concerns for suicidal ideations. Pt. to be monitored closely.
[2018-03-18] MEDS: *HR* LORazepam 2 MG/ML VIAL IVP PRN ×2 (01:42→06:32)
[2018-03-18] MEDS ORDERED: *HR* LORazepam 2 MG/ML VIAL IVP ONE (03:58)
[2018-03-18 05:17] LABS: Basophils # 0.1 K/mcL (0.0-0.2); Eosinophils # 0.1 K/mcL (0.0-0.6); Eosinophils % 1.3 %; Hematocrit 38.1 % (37.5-50.1); Hemoglobin 13.2 g/dL (12.9-16.9); Immature Granulocytes % 0.3 % (0-4); Lymphocytes # 1.8 K/mcL (0.6-4.6); Lymphocytes % 25.5 %; Mean Corpuscular HGB Conc 34.6 g/dL (31.6-35.5); Mean Corpuscular Volume 101.1 fL (83.0-100.0); Monocytes # 0.9 K/mcL (0.0-1.3); Monocytes % 12.9 %; Neutrophils # 4.1 K/mcL (1.6-8.9); Platelet Count 146 K/mcL (140-400); Red Blood Count 3.77 M/mcL (4.19-5.50); Red Cell Distribution Width 12.6 % (11.5-14.5)
[2018-03-18 05:24] LABS: Prothrombin Time 11.1 Seconds (9.4-12.1)
[2018-03-18 05:35] LABS: Alanine Aminotransferase 24 Units/L (7-52); Albumin/Globulin Ratio 1.5 (1.1-2.2); Alkaline Phosphatase 76 Units/L (34-104); Aspartate Amino Transferase 45 Units/L (13-39); BUN/Creatinine Ratio 24 (6-26); Bilirubin,Total 0.9 mg/dL (0.3-1.0); Blood Urea Nitrogen 17 mg/dL (6-20); Calcium 8.9 mg/dL (8.6-10.3); Carbon Dioxide 25 mEq/L (23-29); Chloride 105 mEq/L (98-107); Chol/HDL Ratio 1.9 (0-4.9); Cholesterol 176 mg/dL (< 200); Globulin 2.7 g/dL (2.4-3.5); Glucose 108 mg/dL (70-105); HDL Cholesterol 94 mg/dL (40-59); LDL Cholesterol,Calculated 74 mg/dL (0-99); Magnesium 1.8 mg/dL (1.6-2.6); Osmolality,Calculated 280 (280-300); Potassium 4.1 mEq/L (3.5-5.1); Sodium 134 mEq/L (136-145); Total Protein 6.7 g/dL (6.4-8.9); Triglycerides 42 mg/dL (< 150); eGFR For African Americans > 60 (> 60); eGFR For Non-African Americans > 60 (> 60)
[2018-03-18] MEDS: Thiamine (B-1) 100 MG in 0.9 % Sodium Chloride 50 ML IVPB SCH (09:45)
[2018-03-18] MEDS: Folic Acid 1 MG TABLET PO SCH (09:50)
[2018-03-18] MEDS: Vitamin B Complex/Vit C/Vit E 1 EACH TABLET PO SCH (09:51)
--- NOTE | 2018-03-18 11:25 | Electrocardiograph Report ---
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
--- NOTE | 2018-03-18 16:04 | Internal Med Progress Note ---
Date of Encounter: 03/18/18 Time of Encounter: 16:01 - Assessment and plan (1) Alcohol withdrawal Current Visit: Yes Status: Acute Assessment and plan: Continue thiamine, folic acid, CIWA protocol Qualifiers: Complication of substance-induced condition: with delirium Qualified Code(s ): F10.231 - Alcohol dependence with withdrawal delirium (2) Seizure Current Visit: Yes Status: Chronic Assessment and plan: continue keppra (3) Hallucinations Current Visit: Yes Status: Acute Assessment and plan: add zyprexa at night - Time Spent With Patient 25 - 35 minutes - Subjective Interval history: Mr. Rose is a 52 year old male history of alcohol abuse who presents with altered mentation. History taken per chart. Patient has history of alcohol abuse recurrent admissions. Patient's history is unreliable. Patient does state his last drink was yesterday, he had 2 beers. Normally he drinks 4 packs daily. He denies active hallucinations at this point. He knows he is in hospital confused about dates. Continues he CIWA protocol At the [facility] for anti-hallucination - Constitutional Vitals: Temp Pulse Resp BP Pulse Ox 97.5 F L 65 16 117/64 97 03/18/18 12:23 03/18/18 12:23 03/18/18 12:23 03/18/18 12:23 03/18/18 12:23 General appearance: Present: A&O X 2, no acute distress Exam: CONSTITUTIONAL: Patient appears as an age appropriate male well developed, in no acute distress. EYES Clear sclerae, bilateral pupils are equal, reactive to light and accommodation. Extraocular movements are intact RESPIRATORY: No accessory muscle use, bilateral clear to auscultation, no wheezing, no crackles/rales. CARDIOVASCULAR: Regular heart rate, normal S1 and S2, no murmurs GASTROINTESTINAL: bowel sounds present, soft, no tenderness. No hepatosplenomegaly. No bilateral CVA tenderness MUSCULOSKELETAL: Joints in normal range of motion, no clubbing, no edema, no cyanosis. Bilateral peripheral pulses 2+ LYMPHATIC no lymphadenopathy in neck, groin and axilla bilaterally, no thyromegaly. NEUROLOGIC: CN II to XII are grossly intact, no focal neurological deficit. Deep tendon reflexes 2+ bilaterally. Normal light touch sensation to upper and lower extremity PSYCHIATRIC: Oriented x2, with good insight, mood is euthymic. No hallucinations or delusions. SKIN: Skin warm and dry, no rashes, no open wound. Internal Medicine: Result - Labs CBC & Chem 7: 03/18/18 04:00 03/18/18 04:00 Labs: Short CBC 03/18/18 Range/Units 04:00 WBC 6.9 (4.3-11.1) K/mcL Hgb 13.2 (12.9-16.9) g/dL Hct 38.1 (37.5-50.1) % Plt Count 146 (140-400) K/mcL Neutrophils # 4.1 (1.6-8.9) K/mcL BMP 03/18/18 04:00 Sodium 134 L Potassium 4.1 Chloride 105 Carbon Dioxide 25 BUN 17 Creatinine 0.71 Glucose 108 H Calcium 8.9 Liver Function 03/18/18 Range/Units 04:00 Total Bilirubin 0.9 (0.3-1.0) mg/dL AST 45 H (13-39) Units/L ALT 24 (7-52) Units/L Alkaline Phosphatase 76 (34-104) Units/L Albumin 4.0 (3.5-5.7) g/dL - ABG Interpretation ABG results: PT/INR, D-dimer PT 11.1 Seconds (9.4-12.1) 03/18/18 04:00 Consult Discharge Plan - Plan Referrals: Sameer Flaherty MD [Partnered Physician] - 03/21/18 9:45 am
--- NOTE | 2018-03-18 16:18 | Electrocardiograph Report ---
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
--- NOTE | 2018-03-18 16:28 | Consult Note ---
Date of Encounter: 03/18/18 Time of Encounter: 15:30 Assessment & Recommendation (1) Wernicke's encephalopathy Current visit: Yes Status: Acute (2) Delirium due to another medical condition Current visit: Yes Status: Acute (3) Alcohol dependence Current visit: No Status: Chronic Qualifiers: Substance use status: unspecified alcohol-induced disorder Qualified Code(s ): F10.29 - Alcohol dependence with unspecified alcohol-induced disorder History of Present Illness Patient: new to practice Requesting Physician: Kimmy Tucker MD Reason for consult: AMS History of present illness: Mr. Rose is a 52 year old male This patient's case was reviewed at the time of his admission. It is important to note that both Dr. Payne and Dr. Claudio felt that the patient presented with working encephalopathy. He was unable to be responsive to me in the interview. He was somewhat sedated when awoken was shaky and tremulous he had dysmetria. I could not test for nystagmus or ophthalmoplegia. The patient has been alert and oriented but has said that he is not going to school. In the interview he said that he seen me before he ( suggesting confabulation) CC: Kimmy Tucker MD Past Med Surg Social Fam HX - Past Medical History Medical history: cardiomyopathy, CHF, COPD, coronary artery disease, hypertension, liver disease, myocardial infarction, seizures, valvular heart disease, other - Past Surgical History Surgical History: heart valve replacement, orthopedic, other - Social History Smoking Status: Current every day smoker Smokeless Tobacco Status: No Alcohol use: heavy Drug use: none - Family History Father Family Member Ethnicity: Non- Living Status: Hx Family Cardiac Disorders: Yes ([place]) Mother Family Member Ethnicity: Non- Living Status: Hx Family Cardiac Disorders: Yes (mother heart atttack) Hx Family Respiratory Disorders: No Hx Family Cancer: No Hx Family GI Disorders: No Hx Family Endocrine Disorder: No Hx Family Neuromuscular Disorders: No Hx Family Neurologic Disorders: No Hx Family HEENT Disorders: No Hx Family Autoimmune Disorders: No Medications & Allergies Folic Acid 1 mg PO DAILY #30 tablet 03/15/18 [Rx] LevETIRAcetam [Keppra] 1,000 mg PO BID #60 tablet 03/15/18 [Rx] Thiamine (B-1) [Vitamin B-1] 100 mg PO DAILY #30 tablet 03/15/18 [Rx] 3 Allergy/AdvReac Type Severity Reaction Status Date / Time No Known Allergies Allergy Verified 03/17/18 05:05 Review of Systems ROS unobtainable: due to patient condition Constitutional: Denies: fever, chills, weakness, weight change Eyes: Denies: eye pain, vision change Ears, Nose, Throat: Denies: ear pain, throat pain, dental pain, hearing loss, congestion Cardiovascular: Denies: chest pain, palpitations, dyspnea on exertion Respiratory: Denies: cough, dyspnea, wheezes Gastrointestinal: Denies: abdominal pain, nausea, vomiting, diarrhea, constipation Genitourinary male: Denies: urgency, dysuria, frequency, genital lesions Musculoskeletal: Denies: joint swelling, joint pain Integumentary: Denies: rash, lesions, pruritus Neurological: Denies: headache, weakness, numbness, memory loss Endocrine: Denies: fatigue, heat or cold intolerance Hematologic/Lymphatic: Denies: easy bruising, lymphadenopathy Allergic/Immunologic: Denies: urticaria, itchy eyes Psychiatry Exam - Constitutional Vitals: Temp Pulse Resp BP Pulse Ox 97.5 F L 65 16 117/64 97 03/18/18 12:23 03/18/18 12:23 03/18/18 12:23 03/18/18 12:23 03/18/18 12:23 General appearance: well-nourished, unkempt - Psychiatric Patient Orientation: Yes Person, Yes Time, Yes Place Level of alertness: Sedated, Responds to painful stimuli Behavior: uncooperative, guarded Psychomotor activity: Slowed Eye Contact: Maintains Eye Contact Mood Description: Other Affect description: congruent with mood Speech Volume: No variation in volume, No speech Intelligence Estimate: Average Judgment: Poor Insight: None Results - Labs Labs: Laboratory Last Values WBC 6.9 K/mcL (4.3-11.1) 03/18/18 04:00 RBC 3.77 M/mcL (4.19-5.50) L 03/18/18 04:00 Hgb 13.2 g/dL (12.9-16.9) 03/18/18 04:00 Hct 38.1 % (37.5-50.1) 03/18/18 04:00 MCV 101.1 fL (83.0-100.0) H 03/18/18 04:00 MCH 35.0 pg (28.0-33.3) H 03/18/18 04:00 MCHC 34.6 g/dL (31.6-35.5) 03/18/18 04:00 RDW 12.6 % (11.5-14.5) 03/18/18 04:00 Plt Count 146 K/mcL (140-400) 03/18/18 04:00 MPV 11.0 fL (9.4-12.4) 03/18/18 04:00 Immature Gran % 0.3 % (0-4) 03/18/18 04:00 Seg Neutrophils % 59.0 % 03/18/18 04:00 Lymphocytes % 25.5 % 03/18/18 04:00 Monocytes % 12.9 % 03/18/18 04:00 Eosinophils % 1.3 % 03/18/18 04:00 Basophils % 1.0 % 03/18/18 04:00 Neutrophils # 4.1 K/mcL (1.6-8.9) 03/18/18 04:00 Lymphocytes # 1.8 K/mcL (0.6-4.6) 03/18/18 04:00 Monocytes # 0.9 K/mcL (0.0-1.3) 03/18/18 04:00 Eosinophils # 0.1 K/mcL (0.0-0.6) 03/18/18 04:00 Basophils # 0.1 K/mcL (0.0-0.2) 03/18/18 04:00 PT 11.1 Seconds (9.4-12.1) 03/18/18 04:00 INR 1.0 03/18/18 04:00 Sodium 134 mEq/L (136-145) L 03/18/18 04:00 Potassium 4.1 mEq/L (3.5-5.1) 03/18/18 04:00 Chloride 105 mEq/L (98-107) 03/18/18 04:00 Carbon Dioxide 25 mEq/L (23-29) 03/18/18 04:00 BUN 17 mg/dL (6-20) 03/18/18 04:00 Creatinine 0.71 mg/dL (0.70-1.30) 03/18/18 04:00 Est GFR ( Amer) > 60 (> 60) 03/18/18 04:00 Est GFR (Non-Af Amer) > 60 (> 60) 03/18/18 04:00 BUN/Creatinine Ratio 24 (6-26) 03/18/18 04:00 Glucose 108 mg/dL (70-105) H 03/18/18 04:00 POC Glucose 130 mg/dL (70-99) H 03/17/18 20:20 Calculated Osmolality 280 (280-300) 03/18/18 04:00 Calcium 8.9 mg/dL (8.6-10.3) 03/18/18 04:00 Magnesium 1.8 mg/dL (1.6-2.6) 03/18/18 04:00 Total Bilirubin 0.9 mg/dL (0.3-1.0) 03/18/18 04:00 Direct Bilirubin 0.4 mg/dL (0.0-0.2) H 03/17/18 06:38 Indirect Bilirubin 0.9 mg/dL (0.0-1.2) 03/17/18 06:38 AST 45 Units/L (13-39) H 03/18/18 04:00 ALT 24 Units/L (7-52) 03/18/18 04:00 Alkaline Phosphatase 76 Units/L (34-104) 03/18/18 04:00 Ammonia 65 mcmol/L (16-53) H 03/17/18 20:39 Serum Total Protein 6.7 g/dL (6.4-8.9) 03/18/18 04:00 Albumin 4.0 g/dL (3.5-5.7) 03/18/18 04:00 Globulin 2.7 g/dL (2.4-3.5) 03/18/18 04:00 Albumin/Globulin Ratio 1.5 (1.1-2.2) 03/18/18 04:00 Triglycerides 42 mg/dL (< 150) 03/18/18 04:00 Cholesterol 176 mg/dL (< 200) 03/18/18 04:00 LDL Cholesterol, Calc 74 mg/dL (0-99) 03/18/18 04:00 VLDL Cholesterol, Calc 8 mg/dL (< 31) 03/18/18 04:00 HDL Cholesterol 94 mg/dL (40-59) H 03/18/18 04:00 Cholesterol/HDL Ratio 1.9 (0-4.9) 03/18/18 04:00 Urine Color Dark Yellow (Yellow) 03/17/18 05:51 Urine Clarity Clear (Clear) 03/17/18 05:51 Urine pH 5.5 pH Units (5.0-8.0) 03/17/18 05:51 Ur Specific [place] 1.026 (1.010-1.025) H 03/17/18 05:51 Urine Protein 30 mg/dL (Neg-Trace) H 03/17/18 05:51 Urine Glucose (UA) Normal mg/dL (Normal) 03/17/18 05:51 Urine Ketones 15 mg/dL (Negative) H 03/17/18 05:51 Urine Blood Negative (Negative) 03/17/18 05:51 Urine Nitrite Negative (Negative) 03/17/18 05:51 Urine Bilirubin Small (Negative) H 03/17/18 05:51 Urine Urobilinogen Normal mg/dL (Normal) 03/17/18 05:51 Ur Leukocyte Esterase Negative (Negative) 03/17/18 05:51 Urine Microscopic RBC 3-5 per hpf (0-3) H 03/17/18 05:51 Urine Microscopic WBC 0-3 per hpf (0-3) 03/17/18 05:51 Ur Squamous Epith Cells Moderate per lpf (None-Few) H 03/17/18 05:51 Urine Bacteria None Seen per hpf (None-Few) 03/17/18 05:51 Hyaline Casts None Seen per lpf (None-Few) 03/17/18 05:51 Salicylates < 2.5 mg/dL (15.0-30.0) L 03/17/18 05:35 Urine Opiates Screen Negative ng/mL (Lcaxnz=131) 03/17/18 05:51 Acetaminophen < 10 mcg/mL (10-20) L 03/17/18 05:35 Ur Barbiturates Screen Negative ng/mL (Fnuopl=237) 03/17/18 05:51 Ur Phencyclidine Scrn Negative ng/mL (Cutoff=25) 03/17/18 05:51 Ur Amphetamines Screen Negative ng/mL (Sljeys=2126) 03/17/18 05:51 U Benzodiazepines Scrn Negative ng/mL (Knmlyr=479) 03/17/18 05:51 Urine Cocaine Screen Negative ng/mL (Cutoff= 300) 03/17/18 05:51 U Marijuana (THC) Screen Negative ng/mL (Cutoff = 50) 03/17/18 05:51 Ethyl Alcohol < 10 mg/dL (Less than 10) 03/17/18 05:35 Specimen Rejected Hemolyzed 03/17/18 06:21 Consult Discharge Plan - Plan Referrals: Sameer Flaherty MD [Partnered Physician] - 03/21/18 9:45 am
[2018-03-18] MEDS: levETIRAcetam 250 MG TABLET PO SCH (20:09)
[2018-03-18] MEDS: OLANZapine 5 MG TAB.RAPDIS PO SCH (20:10)
[2018-03-19 03:48] LABS: Basophils # 0.1 K/mcL (0.0-0.2); Basophils % 1.2 %; Eosinophils # 0.1 K/mcL (0.0-0.6); Eosinophils % 1.9 %; Hematocrit 40.4 % (37.5-50.1); Hemoglobin 13.9 g/dL (12.9-16.9); Immature Granulocytes % 0.2 % (0-4); Lymphocytes # 2.1 K/mcL (0.6-4.6); Mean Corpuscular HGB Conc 34.4 g/dL (31.6-35.5); Mean Corpuscular Hemoglobin 34.7 pg (28.0-33.3); Mean Corpuscular Volume 100.7 fL (83.0-100.0); Monocytes # 0.8 K/mcL (0.0-1.3); Monocytes % 13.4 %; Neutrophils # 2.7 K/mcL (1.6-8.9); Platelet Count 165 K/mcL (140-400); Red Blood Count 4.01 M/mcL (4.19-5.50); Red Cell Distribution Width 12.6 % (11.5-14.5); Segmented Neutrophils % 47.3 %
[2018-03-19 04:05] LABS: BUN/Creatinine Ratio 20 (6-26); Blood Urea Nitrogen 13 mg/dL (6-20); Calcium 9.5 mg/dL (8.6-10.3); Carbon Dioxide 22 mEq/L (23-29); Chloride 111 mEq/L (98-107); Glucose 108 mg/dL (70-105); Magnesium 1.9 mg/dL (1.6-2.6); Osmolality,Calculated 287 (280-300); Potassium 4.2 mEq/L (3.5-5.1); Sodium 138 mEq/L (136-145); eGFR For African Americans > 60 (> 60); eGFR For Non-African Americans > 60 (> 60)
[2018-03-19] MEDS: Vitamin B Complex/Vit C/Vit E 1 EACH TABLET PO SCH (10:09)
[2018-03-19] MEDS: Folic Acid 1 MG TABLET PO SCH (10:10)
[2018-03-19] MEDS: levETIRAcetam 250 MG TABLET PO SCH ×2 (10:10→20:20)
[2018-03-19] MEDS: Thiamine (B-1) 100 MG in 0.9 % Sodium Chloride 50 ML IVPB SCH (10:18)
--- NOTE | 2018-03-19 11:10 | Internal Med Progress Note ---
Date of Encounter: 03/19/18 Time of Encounter: 10:00 - Assessment and plan (1) Seizure Current Visit: No Status: Acute Assessment and plan: Continue keppra , seizure precautions No evidence of seizure at this time Suspect this is primarily due to alcohol withdrawal. (2) DVT prophylaxis Current Visit: No Status: Acute Assessment and plan: SCD's, ambulate with assistance (3) Hallucinations Current Visit: Yes Status: Acute Assessment and plan: Patient having visual hallucinations Patient has known history of ETOH abuse At this time did not appear to be increased tremor there is mild anxiety, no diaphoresis, no palpitations or headache. No evidence of seizure at this time. Possible alcoholic hallucinosis? Of his time there is no evidence of severe alcohol withdrawal, patient remains afebrile without tachycardia, without tachypnea, normotensive Continue close observation, CIWA ordered, contine keppra Patient evaluated by psychiatry in the emergency department. Patient will need psychiatry evaluation on the medical floor. Patient has been pink slipped for wanting to leave the setting of hallucinations , mentioning that he wants to hurt others, at risk for self harm 03/19: Likely due to alcohol withdrawal and/or Wernicke's encephalopathy. Continue with vitamin replacement. Librium and CIWA protocol. Patient is been improving. Monitor. We will discuss case with social work. - Time Spent With Patient Total time spent is greater than 50% in coordination of care (as documented) at patient's floor/unit and/or counseling patient: 25 - 35 minutes - Subjective Interval history: CC: Confusion HPI: Mr. Rose is a 52 year old male history of alcohol abuse who presents with altered mentation. History taken per chart. Patient has history of alcohol abuse recurrent admissions. Patient's history is unreliable. Patient notes his last drink was over a month ago. Patient notes he sometimes sees visual hallucinations. Patient also notes he has thought of hurting people but does not mention who these people are. At this time patient has no new complaints. He denies headache, visual disturbance, neck pain or focal weakness. He denies chest pain, shortness of breath or palpitations. Denies abdominal pain, nausea or vomiting. There is no dysuria or diarrhea. He denies fever, chills or rigors. He denies coughing. Patient has no other concerns. Patient to be admitted for further evaluation. Per ER report patient has been evaluated by psychiatry in the emergency department. 03/19: Patient continues to slowly improve. He was seen in consult by psychiatry yesterday who felt that the patient was experiencing Wernicke's encephalopathy. He remains on thiamine replacement therapy. She also has been less agitated. He remains on Librium 25 mg by mouth 4 times a day, and CIWA protocol. Patient currently not voicing any complaints. No chest pain or shortness of breath. No nausea or vomiting. No diarrhea. No fevers or chills. Requesting cup of coffee. Per sitter at bedside patient remains mildly confused but improved. His mechanical restraints have been off for 24 hours. - Constitutional Vitals: Temp Pulse Resp BP Pulse Ox 97.9 F 81 16 104/72 96 03/19/18 07:04 03/19/18 07:04 03/19/18 07:04 03/19/18 07:04 03/19/18 07:04 General appearance: Present: A&O X 2, no acute distress, answers questions appropriately Exam: Slow mentation, difficult to comprehend at times. - Head Head exam: Present: atraumatic, normocephalic - Eye Eye exam: Present: PERRL, conjuntiva pink, sclera anicteric Pupils: Present: PERRL - Neck Neck exam general surgery: Present: supple, trachea midline. Absent: lymphadenopathy - Respiratory Respiratory exam: Present: CTAB. Absent: accessory muscle use, rales, rhonchi, wheezes - GI/Abdominal GI/Abdominal exam: Present: normal bowel sounds, soft, no peritoneal signs. Absent: distended, tenderness - Extremities Exam Extremities exam: Present: warm, radial pulses palpable and symmetrical. Absent : calf tenderness, cyanotic, pedal edema - Neurological Exam Neurological exam: Present: CN II-XII intact, no focal deficits. Absent: pronater drift, facial droop, speech deficit - Skin Additional comments: Multiple excoriations on arms Internal Medicine: Result - Labs CBC & Chem 7: 03/19/18 03:14 03/19/18 03:14 Labs: Short CBC 03/19/18 Range/Units 03:14 WBC 5.8 (4.3-11.1) K/mcL Hgb 13.9 (12.9-16.9) g/dL Hct 40.4 (37.5-50.1) % Plt Count 165 (140-400) K/mcL Neutrophils # 2.7 (1.6-8.9) K/mcL BMP 03/19/18 03:14 Sodium 138 Potassium 4.2 Chloride 111 H Carbon Dioxide 22 L BUN 13 Creatinine 0.66 L Glucose 108 H Calcium 9.5 - ABG Interpretation ABG results: PT/INR, D-dimer PT 11.1 Seconds (9.4-12.1) 03/18/18 04:00 Consult Discharge Plan - Plan Referrals: Sameer Flaherty MD [Partnered Physician] - 03/21/18 9:45 am
--- NOTE | 2018-03-19 16:23 | Consult Note ---
Date of Encounter: 03/19/18 Time of Encounter: 15:15 Assessment & Recommendation (1) Wernicke's encephalopathy Current visit: Yes Status: Acute (2) Delirium due to another medical condition Current visit: Yes Status: Acute (3) Alcohol dependence Current visit: No Status: Chronic Qualifiers: Substance use status: unspecified alcohol-induced disorder Qualified Code(s ): F10.29 - Alcohol dependence with unspecified alcohol-induced disorder (4) Korsakoff psychosis Current visit: Yes Status: Acute (5) Korsakoff's psychosis, alcohol related Current visit: Yes Status: Acute History of Present Illness Patient: known to practice within the last 3 years Requesting Physician: Kimmy Tucker MD Reason for consult: confusion History of present illness: Mr. Rose is a 52 year old male . The patient was seen for follow-up. Today he was alert and responsive. He said he knew me from a year before that I talked to him about his heart and told him to quit smoking. The patient has intact immediate memory but appears to have an anterior grade amnesia for a 6-12 month period of time. The patient has significant alcohol. Today he does not demonstrate ophthalmoplegia but does demonstrate confabulation and some delusional thinking that arises out of confabulation. The patient is able to do some regular tasks and planning but is likely to have difficulty if he returns home without further evaluation. That is to say that the patient has had word acute encephalopathy alcohol withdrawal history of seizures and is now improved. However he continues to have a Korsakoff psychosis. He may have additional cognitive deficits in memory and executive function CC: Kimmy Tucker MD Past Med Surg Social Fam HX - Past Medical History Medical history: cardiomyopathy, CHF, COPD, coronary artery disease, hypertension, liver disease, myocardial infarction, seizures, valvular heart disease, other - Past Surgical History Surgical History: heart valve replacement, orthopedic, other - Social History Smoking Status: Current every day smoker Smokeless Tobacco Status: No Alcohol use: heavy Drug use: none - Family History Father Family Member Ethnicity: Non- Living Status: Hx Family Cardiac Disorders: Yes ([place]) Mother Family Member Ethnicity: Non- Living Status: Hx Family Cardiac Disorders: Yes (mother heart atttack) Hx Family Respiratory Disorders: No Hx Family Cancer: No Hx Family GI Disorders: No Hx Family Endocrine Disorder: No Hx Family Neuromuscular Disorders: No Hx Family Neurologic Disorders: No Hx Family HEENT Disorders: No Hx Family Autoimmune Disorders: No Medications & Allergies Folic Acid 1 mg PO DAILY #30 tablet 03/15/18 [Rx] LevETIRAcetam [Keppra] 1,000 mg PO BID #60 tablet 03/15/18 [Rx] Thiamine (B-1) [Vitamin B-1] 100 mg PO DAILY #30 tablet 03/15/18 [Rx] 3 Allergy/AdvReac Type Severity Reaction Status Date / Time No Known Allergies Allergy Verified 03/17/18 05:05 Psychiatry Exam - Constitutional Vitals: Temp Pulse Resp BP Pulse Ox 97.9 F 85 16 113/75 97 03/19/18 12:23 03/19/18 12:23 03/19/18 12:23 03/19/18 12:23 03/19/18 12:23 General appearance: age & developmentally appropriate, thin - Musculoskeletal Strength & Tone: mild weakness, other - Psychiatric Patient Orientation: Yes Person, Yes Time, Yes Place, Yes Circumstance Level of alertness: Alert Behavior: calm Psychomotor activity: Normal Eye Contact: Maintains Eye Contact Mood Description: Euthymic/stable Affect description: congruent with mood Speech Volume: Soft/Quiet Speech pattern: normal rate, normal rhythm Language & Vocabulary: consistent with education Thought Process: Logical, Linear, Confabulation Thought Content: Yes Overt delusions Attention Span Ability: Capable of Focused Attention Memory Description: Immediate Intact, Recent Intact, Remote Impaired Patient Reliability: Questionable Historian Fund of knowledge: Yes average Intelligence Estimate: Average Judgment: Limited Insight: Minimal Results - Labs Labs: Laboratory Last Values WBC 5.8 K/mcL (4.3-11.1) 03/19/18 03:14 RBC 4.01 M/mcL (4.19-5.50) L 03/19/18 03:14 Hgb 13.9 g/dL (12.9-16.9) 03/19/18 03:14 Hct 40.4 % (37.5-50.1) 03/19/18 03:14 MCV 100.7 fL (83.0-100.0) H 03/19/18 03:14 MCH 34.7 pg (28.0-33.3) H 03/19/18 03:14 MCHC 34.4 g/dL (31.6-35.5) 03/19/18 03:14 RDW 12.6 % (11.5-14.5) 03/19/18 03:14 Plt Count 165 K/mcL (140-400) 03/19/18 03:14 MPV 11.0 fL (9.4-12.4) 03/19/18 03:14 Immature Gran % 0.2 % (0-4) 03/19/18 03:14 Seg Neutrophils % 47.3 % 03/19/18 03:14 Lymphocytes % 36.0 % 03/19/18 03:14 Monocytes % 13.4 % 03/19/18 03:14 Eosinophils % 1.9 % 03/19/18 03:14 Basophils % 1.2 % 03/19/18 03:14 Neutrophils # 2.7 K/mcL (1.6-8.9) 03/19/18 03:14 Lymphocytes # 2.1 K/mcL (0.6-4.6) 03/19/18 03:14 Monocytes # 0.8 K/mcL (0.0-1.3) 03/19/18 03:14 Eosinophils # 0.1 K/mcL (0.0-0.6) 03/19/18 03:14 Basophils # 0.1 K/mcL (0.0-0.2) 03/19/18 03:14 PT 11.1 Seconds (9.4-12.1) 03/18/18 04:00 INR 1.0 03/18/18 04:00 Sodium 138 mEq/L (136-145) 03/19/18 03:14 Potassium 4.2 mEq/L (3.5-5.1) 03/19/18 03:14 Chloride 111 mEq/L (98-107) H 03/19/18 03:14 Carbon Dioxide 22 mEq/L (23-29) L 03/19/18 03:14 BUN 13 mg/dL (6-20) 03/19/18 03:14 Creatinine 0.66 mg/dL (0.70-1.30) L 03/19/18 03:14 Est GFR ( Amer) > 60 (> 60) 03/19/18 03:14 Est GFR (Non-Af Amer) > 60 (> 60) 03/19/18 03:14 BUN/Creatinine Ratio 20 (6-26) 03/19/18 03:14 Glucose 108 mg/dL (70-105) H 03/19/18 03:14 POC Glucose 116 mg/dL (70-99) H 03/18/18 19:44 Calculated Osmolality 287 (280-300) 03/19/18 03:14 Calcium 9.5 mg/dL (8.6-10.3) 03/19/18 03:14 Magnesium 1.9 mg/dL (1.6-2.6) 03/19/18 03:14 Total Bilirubin 0.9 mg/dL (0.3-1.0) 03/18/18 04:00 Direct Bilirubin 0.4 mg/dL (0.0-0.2) H 03/17/18 06:38 Indirect Bilirubin 0.9 mg/dL (0.0-1.2) 03/17/18 06:38 AST 45 Units/L (13-39) H 03/18/18 04:00 ALT 24 Units/L (7-52) 03/18/18 04:00 Alkaline Phosphatase 76 Units/L (34-104) 03/18/18 04:00 Ammonia 65 mcmol/L (16-53) H 03/17/18 20:39 Serum Total Protein 6.7 g/dL (6.4-8.9) 03/18/18 04:00 Albumin 4.0 g/dL (3.5-5.7) 03/18/18 04:00 Globulin 2.7 g/dL (2.4-3.5) 03/18/18 04:00 Albumin/Globulin Ratio 1.5 (1.1-2.2) 03/18/18 04:00 Triglycerides 42 mg/dL (< 150) 03/18/18 04:00 Cholesterol 176 mg/dL (< 200) 03/18/18 04:00 LDL Cholesterol, Calc 74 mg/dL (0-99) 03/18/18 04:00 VLDL Cholesterol, Calc 8 mg/dL (< 31) 03/18/18 04:00 HDL Cholesterol 94 mg/dL (40-59) H 03/18/18 04:00 Cholesterol/HDL Ratio 1.9 (0-4.9) 03/18/18 04:00 Urine Color Dark Yellow (Yellow) 03/17/18 05:51 Urine Clarity Clear (Clear) 03/17/18 05:51 Urine pH 5.5 pH Units (5.0-8.0) 03/17/18 05:51 Ur Specific [place] 1.026 (1.010-1.025) H 03/17/18 05:51 Urine Protein 30 mg/dL (Neg-Trace) H 03/17/18 05:51 Urine Glucose (UA) Normal mg/dL (Normal) 03/17/18 05:51 Urine Ketones 15 mg/dL (Negative) H 03/17/18 05:51 Urine Blood Negative (Negative) 03/17/18 05:51 Urine Nitrite Negative (Negative) 03/17/18 05:51 Urine Bilirubin Small (Negative) H 03/17/18 05:51 Urine Urobilinogen Normal mg/dL (Normal) 03/17/18 05:51 Ur Leukocyte Esterase Negative (Negative) 03/17/18 05:51 Urine Microscopic RBC 3-5 per hpf (0-3) H 03/17/18 05:51 Urine Microscopic WBC 0-3 per hpf (0-3) 03/17/18 05:51 Ur Squamous Epith Cells Moderate per lpf (None-Few) H 03/17/18 05:51 Urine Bacteria None Seen per hpf (None-Few) 03/17/18 05:51 Hyaline Casts None Seen per lpf (None-Few) 03/17/18 05:51 Salicylates < 2.5 mg/dL (15.0-30.0) L 03/17/18 05:35 Urine Opiates Screen Negative ng/mL (Vovdpf=641) 03/17/18 05:51 Acetaminophen < 10 mcg/mL (10-20) L 03/17/18 05:35 Ur Barbiturates Screen Negative ng/mL (Owwoej=444) 03/17/18 05:51 Ur Phencyclidine Scrn Negative ng/mL (Cutoff=25) 03/17/18 05:51 Ur Amphetamines Screen Negative ng/mL (Sqnthn=3610) 03/17/18 05:51 U Benzodiazepines Scrn Negative ng/mL (Nkkgrk=202) 03/17/18 05:51 Urine Cocaine Screen Negative ng/mL (Cutoff= 300) 03/17/18 05:51 U Marijuana (THC) Screen Negative ng/mL (Cutoff = 50) 03/17/18 05:51 Ethyl Alcohol < 10 mg/dL (Less than 10) 03/17/18 05:35 Specimen Rejected Hemolyzed 03/17/18 06:21 Consult Discharge Plan - Plan Referrals: Sameer Flaherty MD [Partnered Physician] - 03/21/18 9:45 am
[2018-03-19] MEDS: OLANZapine 5 MG TAB.RAPDIS PO SCH (20:20)
[2018-03-20] MEDS: Vitamin B Complex/Vit C/Vit E 1 EACH TABLET PO SCH (08:05)
[2018-03-20] MEDS: Folic Acid 1 MG TABLET PO SCH (08:05)
[2018-03-20] MEDS: levETIRAcetam 250 MG TABLET PO SCH ×2 (08:05→19:48)
--- NOTE | 2018-03-20 08:43 | Discharge Summary ---
<Marvin Wells R - Last Filed: 03/20/18 14:40> Date of Encounter: 03/20/18 - Discharge Diagnosis (1) Seizure Status: Acute (2) DVT prophylaxis Status: Acute (3) Hallucinations Status: Acute Hospital course: Mr. Rose is a 52 year old male - Time Spent with Patient Total time spent providing and/or coordinating discharge services: - Discharge Medications Home Medications: Folic Acid 1 mg PO DAILY #30 tablet 03/15/18 [Rx] LevETIRAcetam [Keppra] 1,000 mg PO BID #60 tablet 03/15/18 [Rx] Thiamine (B-1) [Vitamin B-1] 100 mg PO DAILY #30 tablet 03/15/18 [Rx] Folic Acid 1 mg PO DAILY tablet 03/20/18 [Rx] Naloxone [Narcan] 0.4 mg IVP Q2MIN PRN inj 03/20/18 [Rx] OLANZapine [Zyprexa Zydis] 5 mg PO HS #0 tab.rapdis 03/20/18 [Rx] Vitamin B Complex/Vit C/Vit E [Stresstab] 1 each PO DAILY tablet 03/20/18 [Rx] Allergies/Adverse Reactions: 3 Allergy/AdvReac Type Severity Reaction Status Date / Time No Known Allergies Allergy Verified 03/17/18 05:05 Date of admission: 03/17/18 11:24 Primary care physician: PCP NONE Consults: 03/17/18 11:32 Consult to [employer] Hackler [CONS] Routine Reason for SW Consult: etoh abuse 03/17/18 14:27 Consult to Invasive Line Access Team [CONS] Stat Reason for Consult: patient has limited vascular. Two nurses have tried 4 times to stick patient with little result. He is here for ETOH withdrawl and has high history of seizures. Line Type: EPIV 03/17/18 23:22 Consult to Psychiatry [CONS] Routine Consulting Provider: Psychiatry Eldena Reason for Consult: Patient admitted for alcohol withdrawal and is being non- compliant with ordered telemetry. Went to assess pt. who states he doesn't want to wear it because "he wants his heart to stop". Sitter in place. Call Completed: Yes - Constitutional Vitals: Temp Pulse Resp BP Pulse Ox 97.7 F 97 18 103/67 98 03/20/18 10:33 03/20/18 10:33 03/20/18 10:33 03/20/18 10:33 03/20/18 10:33 - Patient Status Disposition: Transfer Psychiatric Hosp Condition: Good - Discharge Instructions Follow Up With: Sameer Flaherty MD [Partnered Physician] - 03/21/18 9:45 am - Attending Attestation I performed an independent interview and examine this patient. Agree with the findings, assessment, and plan of Dr. Scott, internal medicine resident. Patient's delirium has cleared. He is stable for transfer to inpatient psychiatry once arranged. Vitals remained stable. Patient to receive ongoing substance abuse treatment. All else as outlined above. Librium taper. Continue with folate and thiamine replacement therapy. Pt is Stable for transfer. <Joshua Scott - Last Filed: 03/20/18 17:37> - NOTES TO OUTPATIENT PROVIDER Notes to Outpatient Provider: Recommend substance abuse treatment. Date of Encounter: 03/20/18 Time of Encounter: 08:42 - Discharge Diagnosis (1) Wernicke's encephalopathy Priority: Primary Status: Acute (2) Korsakoff's psychosis, alcohol related Priority: Primary Status: Acute (3) Alcoholic encephalopathy Priority: Primary Status: Acute (4) DVT prophylaxis Priority: Secondary Status: Acute Hospital course: Mr. Rose is a 52 year old male with a history of seizures and multiple recurrent admissions due to alcohol abuse who presented with altered mentation. Patient reported visual hallucinations and thoughts of hurting people, but did not mention who those people were. Patient was admitted for CIWA monitoring, seizure precautions, and started on Ativan, and Librium taper. Patient was evaluated by psychiatry in the emergency department due to concerns for homicidal ideations. Psychiatry recommended treatment with thiamine for Wernicke 's encephalopathy. Sitter at bedside noted his mechanical restraints have been off for 24 hours. Patient is currently not voicing any complaints and has been tapered off benzodiazepines. Anticipate transfer to inpatient psychiatry unit for further evaluation once bed becomes available. Patient is stable form a medical standpoint. Discharge discussed with: patient, nurse Time spent discussing smoking cessation with patient: more than 10 minutes - Time Spent with Patient Total time spent providing and/or coordinating discharge services: Date of admission: 03/17/18 11:24 Primary care physician: PCP NONE Consults: 03/17/18 11:32 Consult to [employer] Hackler [CONS] Routine Reason for SW Consult: etoh abuse 03/17/18 14:27 Consult to Invasive Line Access Team [CONS] Stat Reason for Consult: patient has limited vascular. Two nurses have tried 4 times to stick patient with little result. He is here for ETOH withdrawl and has high history of seizures. Line Type: EPIV 03/17/18 23:22 Consult to Psychiatry [CONS] Routine Consulting Provider: Psychiatry Seda Reason for Consult: Patient admitted for alcohol withdrawal and is being non- compliant with ordered telemetry. Went to assess pt. who states he doesn't want to wear it because "he wants his heart to stop". Sitter in place. Call Completed: Yes Discharging clinician: Joshua Scott Anticipated date of discharge: 03/21/18 - Constitutional Vitals: Temp Pulse Resp BP Pulse Ox 98.1 F 75 20 136/80 100 03/20/18 06:26 03/20/18 06:26 03/20/18 06:26 03/20/18 06:26 03/20/18 06:26 General appearance: Present: cooperative, disheveled, A&O X 3, no acute distress , answers questions appropriately - Head Head exam: Present: atraumatic, normocephalic - Eye Eye exam: Present: PERRL, conjuntiva pink, sclera anicteric Pupils: Present: PERRL - ENT ENT exam: Present: mucous membranes moist, normal oropharynx - Neck Neck exam general surgery: Present: supple, trachea midline. Absent: lymphadenopathy - Respiratory Respiratory exam: Present: CTAB. Absent: accessory muscle use, rales, rhonchi, wheezes - Cardiovascular Cardiovascular exam: Present: RRR, +S1, +S2. Absent: diastolic murmur, gallop, rubs, systolic murmur - GI/Abdominal GI/Abdominal exam: Present: normal bowel sounds, soft, no peritoneal signs. Absent: distended, tenderness - Extremities Exam Extremities exam: Present: warm, radial pulses palpable and symmetrical. Absent : calf tenderness, cyanotic, pedal edema - Back Exam Back exam: Present: normal inspection. Absent: tenderness - Neurological Exam Neurological exam: Present: CN II-XII intact, oriented X3, no focal deficits. Absent: pronater drift, facial droop, speech deficit - Psychiatric Psychiatric exam: Present: normal affect, normal mood - Skin Skin exam: Present: dry, intact, normal color, warm - Patient Status Functional capacity at discharge: independent ambulation Overall status at discharge: patient is progressing back to baseline - Diet and Activity Activity: increase activity as tolerated Diet: regular diet
[2018-03-20] MEDS: Thiamine (B-1) 100 MG in 0.9 % Sodium Chloride 50 ML IVPB SCH (09:09)
[2018-03-20] MEDS: *HR* LORazepam 2 MG/ML VIAL IVP PRN (09:09)
[2018-03-20] MEDS: OLANZapine 5 MG TAB.RAPDIS PO SCH (19:47)
[2018-03-21] MEDS: levETIRAcetam 250 MG TABLET PO SCH ×2 (08:49→19:51)
[2018-03-21] MEDS: Vitamin B Complex/Vit C/Vit E 1 EACH TABLET PO SCH (08:49)
[2018-03-21] MEDS: Folic Acid 1 MG TABLET PO SCH (08:49)
--- NOTE | 2018-03-21 09:01 | Internal Med Progress Note ---
<Joshua Scott - Last Filed: 03/21/18 10:33> Date of Encounter: 03/21/18 Time of Encounter: 08:59 - Assessment and plan (1) Wernicke's encephalopathy Current Visit: Yes Status: Acute Assessment and plan: Psychiatry recommended treatment with thiamine for Wernicke's encephalopathy. Sitter at bedside noted, his mechanical restraints have been off Patient is currently not voicing any complaints and has been tapered off benzodiazepines. (2) Alcoholic encephalopathy Current Visit: No Status: Acute Assessment and plan: Resolved. Patient has been tapered off benzodiazepines. (3) DVT prophylaxis Current Visit: No Status: Acute Assessment and plan: SCD's, ambulate (4) Korsakoff's psychosis, alcohol related Current Visit: Yes Status: Acute Assessment and plan: Resolved. Continue vitamin supplementation - Time Spent With Patient Total time spent is greater than 50% in coordination of care (as documented) at patient's floor/unit and/or counseling patient: - Subjective Interval history: Patient seen and examined. He is off benzos and medically stable. Awaiting transfer to 1A inpatient psych unit. - Constitutional Vitals: Temp Pulse Resp BP Pulse Ox 98.1 F 79 16 109/74 94 03/21/18 07:21 03/21/18 07:21 03/21/18 07:21 03/21/18 07:21 03/21/18 07:21 General appearance: Present: cooperative, disheveled, A&O X 3, no acute distress , answers questions appropriately - Head Head exam: Present: atraumatic, normocephalic - Eye Eye exam: Present: PERRL, conjuntiva pink, sclera anicteric Pupils: Present: PERRL - ENT ENT exam: Present: mucous membranes moist, normal oropharynx - Neck Neck exam general surgery: Present: supple, trachea midline. Absent: lymphadenopathy - Respiratory Respiratory exam: Present: CTAB. Absent: accessory muscle use, rales, rhonchi, wheezes - Cardiovascular Cardiovascular exam: Present: RRR, +S1, +S2. Absent: diastolic murmur, gallop, rubs, systolic murmur - GI/Abdominal GI/Abdominal exam: Present: normal bowel sounds, soft, no peritoneal signs. Absent: distended, tenderness - Extremities Exam Extremities exam: Present: warm, radial pulses palpable and symmetrical. Absent : calf tenderness, cyanotic, pedal edema - Back Exam Back exam: Present: normal inspection. Absent: tenderness - Neurological Exam Neurological exam: Present: CN II-XII intact, oriented X3, no focal deficits. Absent: pronater drift, facial droop, speech deficit - Psychiatric Psychiatric exam: Present: normal affect, normal mood - Skin Skin exam: Present: dry, intact Internal Medicine: Result - Labs CBC & Chem 7: 03/19/18 03:14 03/19/18 03:14 - ABG Interpretation ABG results: PT/INR, D-dimer PT 11.1 Seconds (9.4-12.1) 03/18/18 04:00 - Pulse Oximetry Interpretation Digit-Finger Pulse Oximetry Readin (on RA) Consult Discharge Plan - Plan Referrals: Sameer Flaherty MD [Partnered Physician] - 03/21/18 9:45 am <Marvin Wells - Last Filed: 03/21/18 15:24> Date of Encounter: 03/21/18 - Assessment and plan (1) Alcoholic encephalopathy Current Visit: No Status: Acute (2) DVT prophylaxis Current Visit: No Status: Acute (3) Wernicke's encephalopathy Current Visit: Yes Status: Acute (4) Korsakoff's psychosis, alcohol related Current Visit: Yes Status: Acute - Time Spent With Patient Total time spent is greater than 50% in coordination of care (as documented) at patient's floor/unit and/or counseling patient: - Constitutional Vitals: Temp Pulse Resp BP Pulse Ox 97.8 F 81 16 121/75 100 03/21/18 11:20 03/21/18 11:20 03/21/18 11:20 03/21/18 11:20 03/21/18 11:20 Internal Medicine: Result - Labs CBC & Chem 7: 03/19/18 03:14 03/19/18 03:14 - ABG Interpretation ABG results: PT/INR, D-dimer PT 11.1 Seconds (9.4-12.1) 03/18/18 04:00 - Attending Attestation I performed an independent interview and examine this patient. I agree with the findings, assessment, and plan of Dr. Scott, internal medicine resident. We discussed the patient in detail. Pt still requires a sitter. Librium has been stopped. No further evidence of withdrawals. Pt continues on vitamin replacement for Wernicke's Encephalopathy. Patient is stable for transfer once arranged.
[2018-03-21] MEDS: Thiamine (B-1) 100 MG in 0.9 % Sodium Chloride 50 ML IVPB SCH (09:12)
--- NOTE | 2018-03-21 16:48 | Consult Note ---
Date of Encounter: 03/21/18 Time of Encounter: 16:30 Assessment & Recommendation (1) Wernicke's encephalopathy Current visit: Yes Status: Acute (2) Delirium due to another medical condition Current visit: Yes Status: Acute (3) Alcohol dependence Current visit: No Status: Chronic Qualifiers: Substance use status: unspecified alcohol-induced disorder Qualified Code(s ): F10.29 - Alcohol dependence with unspecified alcohol-induced disorder (4) Korsakoff psychosis Current visit: Yes Status: Acute (5) Korsakoff's psychosis, alcohol related Current visit: Yes Status: Acute History of Present Illness Patient: known to practice within the last 3 years Requesting Physician: Kimmy Tucker MD Reason for consult: AMS History of present illness: Mr. Rose is a 52 year old male The patient was seen again today he does not recall me coming yesterday or the day before. He is able to name the current president but not the president before he is able to identify the year the month but not the day or date. The patient has nystagmus he has dysmetria and a slight slurring of speech and some word finding difficulty. The patient does not have suicidal or homicidal ideation but is relatively confused he reports that he has no permanent address and stays with friends. Review of the patient's medical record reveals that he has a head CT with prominent atrophy. This is a global atrophy with ventricular enlargement. The patient has several EEGs to the 5 have significant slowing suggesting a pre- existing delirium. And as I said before the patient has a Wernicke acute encephalopathy and Korsakoff psychosis. I would like to admit him to our psychiatric unit as a voluntary or involuntary patient however we do not have a bed at this time. We would like to seek ageriatric psych unit or other psychiatric unit for his continued treatment further improvement in cognition may occur I recommend continuing thiamine and other supportive measures CC: Kimmy Tucker MD Past Med Surg Social Fam HX - Past Medical History Medical history: cardiomyopathy, CHF, COPD, coronary artery disease, hypertension, liver disease, myocardial infarction, seizures, valvular heart disease, other - Past Surgical History Surgical History: heart valve replacement, orthopedic, other - Social History Smoking Status: Current every day smoker Smokeless Tobacco Status: No Alcohol use: heavy Drug use: none - Family History Father Family Member Ethnicity: Non- Living Status: Hx Family Cardiac Disorders: Yes ([place]) Mother Family Member Ethnicity: Non- Living Status: Hx Family Cardiac Disorders: Yes (mother heart atttack) Hx Family Respiratory Disorders: No Hx Family Cancer: No Hx Family GI Disorders: No Hx Family Endocrine Disorder: No Hx Family Neuromuscular Disorders: No Hx Family Neurologic Disorders: No Hx Family HEENT Disorders: No Hx Family Autoimmune Disorders: No Medications & Allergies Folic Acid 1 mg PO DAILY #30 tablet 03/15/18 [Rx] LevETIRAcetam [Keppra] 1,000 mg PO BID #60 tablet 03/15/18 [Rx] Thiamine (B-1) [Vitamin B-1] 100 mg PO DAILY #30 tablet 03/15/18 [Rx] Folic Acid 1 mg PO DAILY tablet 03/20/18 [Rx] Naloxone [Narcan] 0.4 mg IVP Q2MIN PRN inj 03/20/18 [Rx] OLANZapine [Zyprexa Zydis] 5 mg PO HS #0 tab.rapdis 03/20/18 [Rx] Vitamin B Complex/Vit C/Vit E [Stresstab] 1 each PO DAILY tablet 03/20/18 [Rx] 3 Allergy/AdvReac Type Severity Reaction Status Date / Time No Known Allergies Allergy Verified 03/17/18 05:05 Psychiatry Exam - Constitutional Vitals: Temp Pulse Resp BP Pulse Ox 98.2 F 90 16 124/82 98 03/21/18 16:04 03/21/18 16:04 03/21/18 16:04 03/21/18 16:04 03/21/18 16:04 General appearance: age & developmentally appropriate, disheveled - Psychiatric Patient Orientation: Yes Place Level of alertness: Alert Behavior: calm Speech Volume: Normal Speech pattern: normal rate Thought Process: Logical, Slowed Thinking, Confabulation Thought Content: No Suicidal ideation, No Homicidal ideation, No Overt delusions Perceptual Disturbances: No Auditory hallucinations, No Visual hallucinations Attention Span Ability: Capable of Focused Attention Memory Description: Immediate Impaired, Recent Impaired, Remote Impaired Patient Reliability: Not Reliable Historian Fund of knowledge: Yes average Judgment: Poor Insight: None Results - Labs Labs: Laboratory Last Values WBC 5.8 K/mcL (4.3-11.1) 03/19/18 03:14 RBC 4.01 M/mcL (4.19-5.50) L 03/19/18 03:14 Hgb 13.9 g/dL (12.9-16.9) 03/19/18 03:14 Hct 40.4 % (37.5-50.1) 03/19/18 03:14 MCV 100.7 fL (83.0-100.0) H 03/19/18 03:14 MCH 34.7 pg (28.0-33.3) H 03/19/18 03:14 MCHC 34.4 g/dL (31.6-35.5) 03/19/18 03:14 RDW 12.6 % (11.5-14.5) 03/19/18 03:14 Plt Count 165 K/mcL (140-400) 03/19/18 03:14 MPV 11.0 fL (9.4-12.4) 03/19/18 03:14 Immature Gran % 0.2 % (0-4) 03/19/18 03:14 Seg Neutrophils % 47.3 % 03/19/18 03:14 Lymphocytes % 36.0 % 03/19/18 03:14 Monocytes % 13.4 % 03/19/18 03:14 Eosinophils % 1.9 % 03/19/18 03:14 Basophils % 1.2 % 03/19/18 03:14 Neutrophils # 2.7 K/mcL (1.6-8.9) 03/19/18 03:14 Lymphocytes # 2.1 K/mcL (0.6-4.6) 03/19/18 03:14 Monocytes # 0.8 K/mcL (0.0-1.3) 03/19/18 03:14 Eosinophils # 0.1 K/mcL (0.0-0.6) 03/19/18 03:14 Basophils # 0.1 K/mcL (0.0-0.2) 03/19/18 03:14 PT 11.1 Seconds (9.4-12.1) 03/18/18 04:00 INR 1.0 03/18/18 04:00 Sodium 138 mEq/L (136-145) 03/19/18 03:14 Potassium 4.2 mEq/L (3.5-5.1) 03/19/18 03:14 Chloride 111 mEq/L (98-107) H 03/19/18 03:14 Carbon Dioxide 22 mEq/L (23-29) L 03/19/18 03:14 BUN 13 mg/dL (6-20) 03/19/18 03:14 Creatinine 0.66 mg/dL (0.70-1.30) L 03/19/18 03:14 Est GFR ( Amer) > 60 (> 60) 03/19/18 03:14 Est GFR (Non-Af Amer) > 60 (> 60) 03/19/18 03:14 BUN/Creatinine Ratio 20 (6-26) 03/19/18 03:14 Glucose 108 mg/dL (70-105) H 03/19/18 03:14 POC Glucose 127 mg/dL (70-99) H 03/21/18 07:21 Calculated Osmolality 287 (280-300) 03/19/18 03:14 Calcium 9.5 mg/dL (8.6-10.3) 03/19/18 03:14 Magnesium 1.9 mg/dL (1.6-2.6) 03/19/18 03:14 Total Bilirubin 0.9 mg/dL (0.3-1.0) 03/18/18 04:00 Direct Bilirubin 0.4 mg/dL (0.0-0.2) H 03/17/18 06:38 Indirect Bilirubin 0.9 mg/dL (0.0-1.2) 03/17/18 06:38 AST 45 Units/L (13-39) H 03/18/18 04:00 ALT 24 Units/L (7-52) 03/18/18 04:00 Alkaline Phosphatase 76 Units/L (34-104) 03/18/18 04:00 Ammonia 65 mcmol/L (16-53) H 03/17/18 20:39 Serum Total Protein 6.7 g/dL (6.4-8.9) 03/18/18 04:00 Albumin 4.0 g/dL (3.5-5.7) 03/18/18 04:00 Globulin 2.7 g/dL (2.4-3.5) 03/18/18 04:00 Albumin/Globulin Ratio 1.5 (1.1-2.2) 03/18/18 04:00 Triglycerides 42 mg/dL (< 150) 03/18/18 04:00 Cholesterol 176 mg/dL (< 200) 03/18/18 04:00 LDL Cholesterol, Calc 74 mg/dL (0-99) 03/18/18 04:00 VLDL Cholesterol, Calc 8 mg/dL (< 31) 03/18/18 04:00 HDL Cholesterol 94 mg/dL (40-59) H 03/18/18 04:00 Cholesterol/HDL Ratio 1.9 (0-4.9) 03/18/18 04:00 Urine Color Dark Yellow (Yellow) 03/17/18 05:51 Urine Clarity Clear (Clear) 03/17/18 05:51 Urine pH 5.5 pH Units (5.0-8.0) 03/17/18 05:51 Ur Specific [place] 1.026 (1.010-1.025) H 03/17/18 05:51 Urine Protein 30 mg/dL (Neg-Trace) H 03/17/18 05:51 Urine Glucose (UA) Normal mg/dL (Normal) 03/17/18 05:51 Urine Ketones 15 mg/dL (Negative) H 03/17/18 05:51 Urine Blood Negative (Negative) 03/17/18 05:51 Urine Nitrite Negative (Negative) 03/17/18 05:51 Urine Bilirubin Small (Negative) H 03/17/18 05:51 Urine Urobilinogen Normal mg/dL (Normal) 03/17/18 05:51 Ur Leukocyte Esterase Negative (Negative) 03/17/18 05:51 Urine Microscopic RBC 3-5 per hpf (0-3) H 03/17/18 05:51 Urine Microscopic WBC 0-3 per hpf (0-3) 03/17/18 05:51 Ur Squamous Epith Cells Moderate per lpf (None-Few) H 03/17/18 05:51 Urine Bacteria None Seen per hpf (None-Few) 03/17/18 05:51 Hyaline Casts None Seen per lpf (None-Few) 03/17/18 05:51 Salicylates < 2.5 mg/dL (15.0-30.0) L 03/17/18 05:35 Urine Opiates Screen Negative ng/mL (Vdodhl=580) 03/17/18 05:51 Acetaminophen < 10 mcg/mL (10-20) L 03/17/18 05:35 Ur Barbiturates Screen Negative ng/mL (Fptphi=096) 03/17/18 05:51 Ur Phencyclidine Scrn Negative ng/mL (Cutoff=25) 03/17/18 05:51 Ur Amphetamines Screen Negative ng/mL (Nwsbda=9468) 03/17/18 05:51 U Benzodiazepines Scrn Negative ng/mL (Snhxja=394) 03/17/18 05:51 Urine Cocaine Screen Negative ng/mL (Cutoff= 300) 03/17/18 05:51 U Marijuana (THC) Screen Negative ng/mL (Cutoff = 50) 03/17/18 05:51 Ethyl Alcohol < 10 mg/dL (Less than 10) 03/17/18 05:35 Specimen Rejected Hemolyzed 03/17/18 06:21 Consult Discharge Plan - Plan Referrals: Sameer Flaherty MD [Partnered Physician] - 03/21/18 9:45 am
[2018-03-21] MEDS: OLANZapine 5 MG TAB.RAPDIS PO SCH (19:51)
[2018-03-22] MEDS: Folic Acid 1 MG TABLET PO SCH (09:03)
[2018-03-22] MEDS: Vitamin B Complex/Vit C/Vit E 1 EACH TABLET PO SCH (09:03)
[2018-03-22] MEDS: Thiamine (B-1) 100 MG in 0.9 % Sodium Chloride 50 ML IVPB SCH (09:04)
[2018-03-22] MEDS: levETIRAcetam 250 MG TABLET PO SCH (09:04)
--- NOTE | 2018-03-22 12:40 | Internal Med Progress Note ---
<Joshua Scott - Last Filed: 03/22/18 14:09> Date of Encounter: 03/22/18 Time of Encounter: 12:40 - Assessment and plan (1) Wernicke's encephalopathy Current Visit: Yes Status: Acute Assessment and plan: Psychiatry recommended treatment with thiamine for Wernicke's encephalopathy. Sitter discontinued, his mechanical restraints have been off. Patient is currently not voicing any complaints and has been tapered off benzodiazepines. He is conditionally discharged. Awaiting transfer to geriatric inpatient psych unit. (2) Alcoholic encephalopathy Current Visit: No Status: Acute Assessment and plan: Improved. Patient has been tapered off benzodiazepines. (3) DVT prophylaxis Current Visit: No Status: Acute Assessment and plan: SCD's, ambulate (4) Korsakoff's psychosis, alcohol related Current Visit: Yes Status: Acute Assessment and plan: Resolving. Continue vitamin supplementation - Time Spent With Patient Total time spent is greater than 50% in coordination of care (as documented) at patient's floor/unit and/or counseling patient: - Subjective Interval history: Patient seen and examined. No new c/o. He is off benzos and medically stable. Awaiting transfer to geriatric inpatient psych unit. - Constitutional Vitals: Temp Pulse Resp BP Pulse Ox 98.3 F 90 18 129/82 98 03/22/18 11:55 03/22/18 11:55 03/22/18 11:55 03/22/18 11:55 03/22/18 11:55 General appearance: Present: cooperative, disheveled, A&O X 2, pleasant, no acute distress, answers questions appropriately - Head Head exam: Present: atraumatic, normocephalic - Eye Eye exam: Present: PERRL, conjuntiva pink, sclera anicteric Pupils: Present: PERRL - ENT ENT exam: Present: mucous membranes moist, normal oropharynx - Neck Neck exam general surgery: Present: supple, trachea midline. Absent: lymphadenopathy - Respiratory Respiratory exam: Present: CTAB. Absent: accessory muscle use, rales, rhonchi, wheezes - Cardiovascular Cardiovascular exam: Present: RRR, +S1, +S2. Absent: diastolic murmur, gallop, rubs, systolic murmur - GI/Abdominal GI/Abdominal exam: Present: normal bowel sounds, soft, no peritoneal signs. Absent: distended, tenderness - Extremities Exam Extremities exam: Present: warm, radial pulses palpable and symmetrical. Absent : calf tenderness, cyanotic, pedal edema - Back Exam Back exam: Present: normal inspection. Absent: tenderness - Neurological Exam Neurological exam: Present: CN II-XII intact, oriented X3, no focal deficits. Absent: pronater drift, facial droop, speech deficit - Psychiatric Psychiatric exam: Present: flat affect, normal mood. Absent: agitated, anxious , depressed - Expanded Psychiatric Exam Focused psych exam: Absent: loose associations, mute, paranoid, pressured speech , psychomotor agitation - Skin Skin exam: Present: dry, intact Internal Medicine: Result - Labs CBC & Chem 7: 03/19/18 03:14 03/19/18 03:14 - ABG Interpretation ABG results: PT/INR, D-dimer PT 11.1 Seconds (9.4-12.1) 03/18/18 04:00 - Pulse Oximetry Interpretation Digit-Finger Pulse Oximetry Readin (on RA) Consult Discharge Plan - Plan Referrals: Sameer Flaherty MD [Partnered Physician] - 03/21/18 9:45 am <Marvin Wells - Last Filed: 03/22/18 14:44> Date of Encounter: 03/22/18 - Assessment and plan (1) Alcoholic encephalopathy Current Visit: No Status: Acute (2) DVT prophylaxis Current Visit: No Status: Acute (3) Wernicke's encephalopathy Current Visit: Yes Status: Acute (4) Korsakoff's psychosis, alcohol related Current Visit: Yes Status: Acute - Time Spent With Patient Total time spent is greater than 50% in coordination of care (as documented) at patient's floor/unit and/or counseling patient: - Constitutional Vitals: Temp Pulse Resp BP Pulse Ox 98.3 F 90 18 129/82 98 03/22/18 11:55 03/22/18 11:55 03/22/18 11:55 03/22/18 11:55 03/22/18 11:55 Internal Medicine: Result - Labs CBC & Chem 7: 03/19/18 03:14 03/19/18 03:14 - ABG Interpretation ABG results: PT/INR, D-dimer PT 11.1 Seconds (9.4-12.1) 03/18/18 04:00 - Attending Attestation I performed an independent interview and examine this patient. I agree with the findings, assessment, and plan of Dr. Scott, internal medicine resident. She is much more alert today. He is ambulating and more conversant. Not requiring restraints. Not showing any signs of alcohol withdrawal. He is stable for transfer to inpatient psychiatric facility when arranged. Continue with vitamin replacement.
[2018-03-22 16:36] LABS: Hematocrit 40.6 % (37.5-50.1); Mean Corpuscular HGB Conc 34.5 g/dL (31.6-35.5); Mean Corpuscular Hemoglobin 34.9 pg (28.0-33.3); Mean Corpuscular Volume 101.2 fL (83.0-100.0); Mean Platelet Volume 9.9 fL (9.4-12.4); Platelet Count 228 K/mcL (140-400); Red Blood Count 4.01 M/mcL (4.19-5.50); Red Cell Distribution Width 12.2 % (11.5-14.5)
[2018-03-22 16:55] LABS: BUN/Creatinine Ratio 15 (6-26); Blood Urea Nitrogen 12 mg/dL (6-20); Calcium 9.4 mg/dL (8.6-10.3); Carbon Dioxide 24 mEq/L (23-29); Chloride 107 mEq/L (98-107); Glucose 112 mg/dL (70-105); Osmolality,Calculated 283 (280-300); Potassium 4.3 mEq/L (3.5-5.1); Sodium 136 mEq/L (136-145); eGFR For African Americans > 60 (> 60); eGFR For Non-African Americans > 60 (> 60)
[2018-03-22 17:32] LABS: Bilirubin,Urine Negative (Negative); Blood,Urine Negative (Negative); Clarity,Urine Clear (Clear); Color,Urine Yellow (Yellow); Glucose,Urine (UA) Normal (Normal); Ketones,Urine Negative (Negative); Leukocyte Esterase,Urine Negative (Negative); Nitrite,Urine Negative (Negative); Protein,Urine Negative (Neg-Trace); Specific Gravity,Urine 1.012 (1.010-1.025); Urobilinogen,Urine Normal (Normal)
[2018-03-22 19:03] VITALS: BP 124/80
[2018-03-22] MEDS ORDERED: Folic Acid 1 MG TABLET PO SCH (19:38)
[2018-03-22] MEDS ORDERED: Naloxone 0.4 MG/ML INJ IVP PRN (19:38)
[2018-03-22] MEDS ORDERED: *HR* LORazepam 2 MG/ML VIAL IVP PRN (19:38)
[2018-03-22] MEDS ORDERED: OLANZapine 5 MG TAB.RAPDIS PO SCH (21:00)
[2018-03-22] MEDS ORDERED: levETIRAcetam 250 MG TABLET PO SCH (21:00)
[2018-03-23] MEDS ORDERED: Thiamine (B-1) 100 MG in 0.9 % Sodium Chloride 50 ML IVPB SCH (09:00)
[2018-03-23] MEDS ORDERED: Vitamin B Complex/Vit C/Vit E 1 EACH TABLET PO SCH (09:00)
[2018-03-23] MEDS ORDERED: Folic Acid 1 MG TABLET PO SCH (09:00)
[2018-03-23] MEDS ORDERED: Thiamine (B-1) 100 MG TABLET PO SCH (09:00)
== END 2018-03-22 20:30 ==
LOC: EMEROO 05:02 → 3BNU 05:02 → SUATTDRO 11:24 → 3BNU 12:18
PROVIDERS: ADMIT Internal Medicine; ATTEND Hospitalist

== ENCOUNTER 2018-04-29 07:20 | Inpatient (IN) ==
[2018-04-29] MEDS ORDERED: Ondansetron 4 MG/2 ML VIAL IVP ONE (07:42)
[2018-04-29] MEDS ORDERED: *HR* LORazepam 2 MG/ML VIAL IVP ONE ×2 (07:42→09:25)
[2018-04-29] MEDS: 0.9 % Sodium Chloride 1,000 ML IVC ONE ×2 (07:53→10:33)
[2018-04-29 08:06] LABS: Basophils # 0.1 K/mcL (0.0-0.2); Basophils % 0.9 %; Eosinophils # 0.1 K/mcL (0.0-0.6); Eosinophils % 1.1 %; Hematocrit 43.4 % (37.5-50.1); Hemoglobin 15.2 g/dL (12.9-16.9); Immature Granulocytes % 0.4 % (0-4); Lymphocytes # 0.7 K/mcL (0.6-4.6); Lymphocytes % 12.3 %; Monocytes # 0.5 K/mcL (0.0-1.3); Monocytes % 9.9 %; Neutrophils # 4.1 K/mcL (1.6-8.9); Platelet Count 133 K/mcL (140-400); Red Blood Count 4.34 M/mcL (4.19-5.50); Red Cell Distribution Width 12.9 % (11.5-14.5); Segmented Neutrophils % 75.4 %
--- NOTE | 2018-04-29 08:13 | Emergency Department Note ---
Disposition Clinical Impression: Generalized seizure Alcohol withdrawal seizure Qualifiers: Complication of substance-induced condition: uncomplicated Qualified Code(s): F10.230 - Alcohol dependence with withdrawal, uncomplicated Disposition: Admitted As Inpatient Condition: Fair Referrals: NONE,PCP [Primary Care Provider] - Forms: ED Satisfaction Letter Time of Disposition: 09:30 Seizure HPI - General Chief Complaint: ED Seizure Stated Complaint: seizures Time Seen by Provider: 04/29/18 07:22 Source: patient, EMS Mode of arrival: ambulatory Limitations: no limitations Nursing Notes Reviewed: Yes Vital Signs Reviewed: Yes - History of Present Illness HPI Narrative: 52-year-old male presents to the emergency department after seizure, patient has a history of seizures and has been noncompliant with medications in the past. He also has a long history of EtOH abuse. Per EMS, patient had 2 seizures in his apartment this morning, the second seizure lasted longer than usual and roommate had called EMS. Patient is unable to give a history regarding his case and presentation. He was incontinent of urine and stool. - Related Data Previous Rx's Medication Instructions Recorded RX: LevETIRAcetam [Keppra] 1,000 mg PO BID #60 tablet 03/15/18 RX: Thiamine (B-1) [Vitamin B-1] 100 mg PO DAILY #30 tablet 03/15/18 RX: Folic Acid 1 mg PO DAILY tablet 03/20/18 RX: Naloxone [Narcan] 0.4 mg IVP Q2MIN PRN inj 03/20/18 RX: OLANZapine [Zyprexa Zydis] 5 mg PO HS #0 tab.rapdis 03/20/18 RX: Vitamin B Complex/Vit C/Vit E 1 each PO DAILY tablet 03/20/18 [Stresstab] Allergies Allergy/AdvReac Type Severity Reaction Status Date / Time No Known Allergies Allergy Verified 03/17/18 05:05 Limitations: ROS unobtainable due to patients medical condition Past Medical History - Past Medical History Source: unable to obtain, old records reviewed Medical history: Reports: cardiomyopathy, CHF, COPD, coronary artery disease, hypertension, liver disease, myocardial infarction, seizures, valvular heart disease, other Surgical history: Reports: heart valve replacement, orthopedic, other Psychiatric history: Reports: no psych history - Social History Smoking Status: Current every day smoker Smokeless Tobacco Status: No Alcohol use: Reports: heavy Drug use: Reports: none Physical Exam General: Patient having snoring respirations, likely postictal Skin: Warm, dry, intact Head: Normocephalic and atraumatic Neck: Supple, trachea midline and no tenderness Cardiovascular: RRR, no murmur, normal perfusion Respiratory: CTAB, no wheezing, cough, or respiratory distress Musculoskeletal: Normal strength, no tenderness, swelling or deformity GI: Soft, nontender, nondistended. Bowel sounds present Neuro: Patient unable to follow commands, likely postictal - General Limitations: no limitations General appearance: alert, in no apparent distress Course Vital Signs Temperature 97.6 F 04/29/18 07:35 Pulse Rate 108 04/29/18 07:35 Respiratory Rate 16 04/29/18 07:35 Blood Pressure 128/100 04/29/18 07:35 O2 Sat by Pulse Oximetry 97 04/29/18 07:35 Temperature 97.6 F 04/29/18 07:35 Pulse Rate 88 04/29/18 09:04 Respiratory Rate 18 04/29/18 09:04 Blood Pressure 125/87 04/29/18 09:04 O2 Sat by Pulse Oximetry 100 04/29/18 09:04 Oxygen Delivery Oxygen Delivery Nasal Cannula Seizure - MDM Narrative Medical decision making narrative: Patient has a history of EtOH withdrawal seizure. He has been observed for 2 hours now and is not back to his baseline. His heart rate improved with Ativan. He is able to give 1-2 word answers however he cannot carry a conversation. Patient denies missing any of his antiepileptic medications. Last drink was yesterday. Patient will be admitted to hospitalist for further care and evaluation of his seizures with possible EtOH withdrawal seizure. I spoke with Dr. andrea neal regarding the patient's case and presentation who recommended no new or increased dose of antiepileptic and that we should observe him for 24 hours. Patient told me he had not missed any of his medications however he had told pharmacy that he had not taken his medications within the past few days. - Medical Records Medical records reviewed: Yes I reviewed the patient's medical records. - Lab Data Lab results reviewed: Yes I reviewed the patient's lab results. Result diagrams: 04/29/18 07:56 04/29/18 07:56 Lab Results 04/29/18 04/29/18 04/29/18 Range/Units 07:56 07:56 07:56 WBC 5.4 (4.3-11.1) K/mcL RBC 4.34 (4.19-5.50) M/mcL Hgb 15.2 (12.9-16.9) g/dL Hct 43.4 (37.5-50.1) % MCV 100.0 (83.0-100.0) fL MCH 35.0 H (28.0-33.3) pg MCHC 35.0 (31.6-35.5) g/dL RDW 12.9 (11.5-14.5) % Plt Count 133 L (140-400) K/mcL MPV 11.0 (9.4-12.4) fL Immature Gran % 0.4 (0-4) % Seg Neutrophils % 75.4 % Lymphocytes % 12.3 % Monocytes % 9.9 % Eosinophils % 1.1 % Basophils % 0.9 % Neutrophils # 4.1 (1.6-8.9) K/mcL Lymphocytes # 0.7 (0.6-4.6) K/mcL Monocytes # 0.5 (0.0-1.3) K/mcL Eosinophils # 0.1 (0.0-0.6) K/mcL Basophils # 0.1 (0.0-0.2) K/mcL Sodium 135 L (136-145) mEq/L Potassium 3.9 (3.5-5.1) mEq/L Chloride 99 (98-107) mEq/L Carbon Dioxide 20 L (23-29) mEq/L BUN 6 (6-20) mg/dL Creatinine 0.91 (0.70-1.30) mg/dL Est GFR ( Amer) > 60 (> 60) Est GFR (Non-Af Amer) > 60 (> 60) BUN/Creatinine Ratio 7 (6-26) Glucose 137 H (70-105) mg/dL Calculated Osmolality 280 (280-300) Calcium 9.9 (8.6-10.3) mg/dL Total Bilirubin 1.0 (0.3-1.0) mg/dL AST 80 H (13-39) Units/L ALT 38 (7-52) Units/L Alkaline Phosphatase 94 (34-104) Units/L Serum Total Protein 7.8 (6.4-8.9) g/dL Albumin 4.4 (3.5-5.7) g/dL Globulin 3.4 (2.4-3.5) g/dL Albumin/Globulin Ratio 1.3 (1.1-2.2) Urine Color (Yellow) Urine Clarity (Clear) Urine pH (5.0-8.0) pH Units Ur Specific [place] (1.010-1.025) Urine Protein (Neg-Trace) mg/dL Urine Glucose (UA) (Normal) mg/dL Urine Ketones (Negative) mg/dL Urine Blood (Negative) Urine Nitrite (Negative) Urine Bilirubin (Negative) Urine Urobilinogen (Normal) mg/dL Ur Leukocyte Esterase (Negative) Urine Microscopic RBC (0-3) per hpf Urine Microscopic WBC (0-3) per hpf Ur Squamous Epith Cells (None-Few) per lpf Ur Transition Epith Cell (None-Few) per hpf Urine Bacteria (None-Few) per hpf Hyaline Casts (None-Few) per lpf Urine Mucus (Few) Urine Sperm Urine Opiates Screen (Lllopj=884) ng/mL Acetaminophen < 10 L (10-20) mcg/mL Ur Barbiturates Screen (Tmsfsq=995) ng/mL Ur Phencyclidine Scrn (Cutoff=25) ng/mL Ur Amphetamines Screen (Gpiymx=5743) ng/mL U Benzodiazepines Scrn (Rjlief=958) ng/mL Urine Cocaine Screen (Cutoff= 300) ng/mL U Marijuana (THC) Screen (Cutoff = 50) ng/mL Ethyl Alcohol < 10 (Less than 10) mg/dL 04/29/18 04/29/18 Range/Units 08:30 08:30 WBC (4.3-11.1) K/mcL RBC (4.19-5.50) M/mcL Hgb (12.9-16.9) g/dL Hct (37.5-50.1) % MCV (83.0-100.0) fL MCH (28.0-33.3) pg MCHC (31.6-35.5) g/dL RDW (11.5-14.5) % Plt Count (140-400) K/mcL MPV (9.4-12.4) fL Immature Gran % (0-4) % Seg Neutrophils % % Lymphocytes % % Monocytes % % Eosinophils % % Basophils % % Neutrophils # (1.6-8.9) K/mcL Lymphocytes # (0.6-4.6) K/mcL Monocytes # (0.0-1.3) K/mcL Eosinophils # (0.0-0.6) K/mcL Basophils # (0.0-0.2) K/mcL Sodium (136-145) mEq/L Potassium (3.5-5.1) mEq/L Chloride (98-107) mEq/L Carbon Dioxide (23-29) mEq/L BUN (6-20) mg/dL Creatinine (0.70-1.30) mg/dL Est GFR ( Amer) (> 60) Est GFR (Non-Af Amer) (> 60) BUN/Creatinine Ratio (6-26) Glucose (70-105) mg/dL Calculated Osmolality (280-300) Calcium (8.6-10.3) mg/dL Total Bilirubin (0.3-1.0) mg/dL AST (13-39) Units/L ALT (7-52) Units/L Alkaline Phosphatase (34-104) Units/L Serum Total Protein (6.4-8.9) g/dL Albumin (3.5-5.7) g/dL Globulin (2.4-3.5) g/dL Albumin/Globulin Ratio (1.1-2.2) Urine Color Dark Yellow (Yellow) Urine Clarity Hazy (Clear) Urine pH 5.5 (5.0-8.0) pH Units Ur Specific [place] > 1.030 H (1.010-1.025) Urine Protein 100 H (Neg-Trace) mg/dL Urine Glucose (UA) Normal (Normal) mg/dL Urine Ketones 15 H (Negative) mg/dL Urine Blood Trace H (Negative) Urine Nitrite Negative (Negative) Urine Bilirubin Small H (Negative) Urine Urobilinogen Normal (Normal) mg/dL Ur Leukocyte Esterase Negative (Negative) Urine Microscopic RBC 5-15 H (0-3) per hpf Urine Microscopic WBC 50-100 H (0-3) per hpf Ur Squamous Epith Cells Many H (None-Few) per lpf Ur Transition Epith Cell Few (None-Few) per hpf Urine Bacteria None Seen (None-Few) per hpf Hyaline Casts Moderate H (None-Few) per lpf Urine Mucus Moderate H (Few) Urine Sperm Present Urine Opiates Screen Negative (Wamrsc=111) ng/mL Acetaminophen (10-20) mcg/mL Ur Barbiturates Screen Negative (Fvlhvl=285) ng/mL Ur Phencyclidine Scrn Negative (Cutoff=25) ng/mL Ur Amphetamines Screen Negative (Miefif=2541) ng/mL U Benzodiazepines Scrn Negative (Jifruf=864) ng/mL Urine Cocaine Screen Negative (Cutoff= 300) ng/mL U Marijuana (THC) Screen Negative (Cutoff = 50) ng/mL Ethyl Alcohol (Less than 10) mg/dL - Radiology Data Radiology results reviewed: Yes I reviewed the patient's radiology results. - EKG Data EKG attestation: Yes I reviewed and interpreted this EKG. EKG results narrative: Sinus tachycardia with a rate of 100 without evidence of STEMI or other dysrhythmia.
[2018-04-29 08:30] LABS: Acetaminophen < 10 mcg/mL (10-20); Alanine Aminotransferase 38 Units/L (7-52); Albumin 4.4 g/dL (3.5-5.7); Albumin/Globulin Ratio 1.3 (1.1-2.2); Alkaline Phosphatase 94 Units/L (34-104); Aspartate Amino Transferase 80 Units/L (13-39); BUN/Creatinine Ratio 7 (6-26); Blood Urea Nitrogen 6 mg/dL (6-20); Calcium 9.9 mg/dL (8.6-10.3); Carbon Dioxide 20 mEq/L (23-29); Chloride 99 mEq/L (98-107); Globulin 3.4 g/dL (2.4-3.5); Glucose 137 mg/dL (70-105); Osmolality,Calculated 280 (280-300); Potassium 3.9 mEq/L (3.5-5.1); Sodium 135 mEq/L (136-145); Total Protein 7.8 g/dL (6.4-8.9); eGFR For African Americans > 60 (> 60); eGFR For Non-African Americans > 60 (> 60)
[2018-04-29 08:39] LABS: Bilirubin,Urine Small (Negative); Blood,Urine Trace (Negative); Color,Urine Dark Yellow (Yellow); Glucose,Urine (UA) Normal (Normal); Ketones,Urine 15 mg/dL (Negative); Leukocyte Esterase,Urine Negative (Negative); Nitrite,Urine Negative (Negative); PH,Urine 5.5 pH Units (5.0-8.0); Protein,Urine 100 mg/dL (Neg-Trace); Specific Gravity,Urine > 1.030 (1.010-1.025); Urobilinogen,Urine Normal (Normal)
[2018-04-29 08:42] LABS: Bacteria,Urine None Seen per hpf (None-Few); Clarity,Urine Hazy (Clear); Hyaline Casts,Urine Moderate per lpf (None-Few); Squamous Epithelial Cell,Urine Many per lpf (None-Few); WBC,Urine 50-100 per hpf (0-3)
[2018-04-29 08:53] LABS: Amphetamine Screen,Urine Negative ng/mL (Cutoff=1000); Barbiturate Screen,Urine Negative ng/mL (Cutoff=200); Benzodiazepines Screen,Urine Negative ng/mL (Cutoff=200); Cannabinoid Screen,Urine Negative ng/mL (Cutoff = 50); Cocaine Screen,Urine Negative ng/mL (Cutoff= 300); Opiate Screen,Urine Negative ng/mL (Cutoff=300); Phencyclidine Screen,Urine Negative ng/mL (Cutoff=25)
[2018-04-29 09:05] LABS: Mucus,Urine Moderate (Few)
[2018-04-29 09:07] LABS: Sperm,Urine Present; Transitional Epi Cells,Urine Few per hpf (None-Few)
[2018-04-29] MEDS ORDERED: Ondansetron 4 MG/2 ML VIAL IVP PRN (09:41)
[2018-04-29] MEDS ORDERED: *HR* Promethazine 25 MG/ML VIAL IVP PRN (09:41)
[2018-04-29] MEDS ORDERED: Naloxone 0.4 MG/ML INJ IVP PRN (09:41)
[2018-04-29] MEDS: MVI, adult with vitamin K 10 ML in 0.9 % Sodium Chloride 1,000 ML IVC ONE ×2 (10:02→10:33)
--- NOTE | 2018-04-29 10:28 | Internal Med History&Physical ---
Date of Encounter: 04/29/18 Time of Encounter: 09:50 Internal Medicine - H&P: HPI Chief complaint: Seizure / AMS Admitted From: Emergency Dept Plans for Post Hospital Care: Home History of present illness: Mr. Rose is a 52 year old male with history of COPD, coronary artery disease, hypertension, liver disease, seizures, valvular heart disease and chronic alcohol dependent pt was brought into ER by his roommate this morning after a seizure episode and pt was confused post ictally. Now pt is alert, awake and O x 3, however he looks confused and not able tp provide me complete history what happened at home. He did admit drinking alcohol on daily basis at 2-3 beers, however he has not have alcohol from last 3 days. He denied any CP, does c/o generalized body pain. He also admits taking his seizure medication keppra regularly. Past Med Surg Social Fam HX - Past Medical History Medical history: cardiomyopathy, CHF, COPD, coronary artery disease, hypertension, liver disease, myocardial infarction, seizures, valvular heart disease, other Psychiatric history: no psych history - Past Surgical History Surgical History: heart valve replacement, orthopedic, other - Social History Smoking Status: Current every day smoker Smokeless Tobacco Status: No Alcohol use: heavy Drug use: none - Family History Father Family Member Ethnicity: Non- Living Status: Hx Family Cardiac Disorders: Yes ([place]) Mother Family Member Ethnicity: Non- Living Status: Hx Family Cardiac Disorders: Yes (mother heart atttack) Hx Family Respiratory Disorders: No Hx Family Cancer: No Hx Family GI Disorders: No Hx Family Endocrine Disorder: No Hx Family Neuromuscular Disorders: No Hx Family Neurologic Disorders: No Hx Family HEENT Disorders: No Hx Family Autoimmune Disorders: No Internal Medicine - H&P: Meds LevETIRAcetam [Keppra] 1,000 mg PO BID #60 tablet 03/15/18 [Rx] Thiamine (B-1) [Vitamin B-1] 100 mg PO DAILY #30 tablet 03/15/18 [Rx] Folic Acid 1 mg PO DAILY tablet 03/20/18 [Rx] Naloxone [Narcan] 0.4 mg IVP Q2MIN PRN inj 03/20/18 [Rx] OLANZapine [Zyprexa Zydis] 5 mg PO HS #0 tab.rapdis 03/20/18 [Rx] Vitamin B Complex/Vit C/Vit E [Stresstab] 1 each PO DAILY tablet 03/20/18 [Rx] Gabapentin [Neurontin] 600 mg PO TID 04/29/18 [History] LORazepam [Ativan] 0.5 mg PO DAILY 04/29/18 [History] Lisinopril [Zestril] 10 mg PO DAILY 04/29/18 [History] PHENobarbital [Phenobarbital] 64.8 mg PO HS 04/29/18 [History] 3 Allergy/AdvReac Type Severity Reaction Status Date / Time No Known Allergies Allergy Verified 03/17/18 05:05 All Systems PM: A 10-system review of systems was performed and is negative for pertinent findings except as documented above in the HPI. Review of systems: All the systems are reviewed everything is benign except the systems and symptoms I mentioned in the history of present illness - Constitutional Vitals: Temp Pulse Resp BP Pulse Ox 97.6 F 88 18 125/87 100 04/29/18 07:35 04/29/18 09:04 04/29/18 09:04 04/29/18 09:04 04/29/18 09:04 General appearance: Present: cooperative, A&O X 3, no acute distress. Absent: answers questions appropriately - Head Head exam: Present: atraumatic, normal inspection - Neck Neck exam general surgery: Present: supple - Respiratory Respiratory exam: Present: decreased breath sounds. Absent: rales, respiratory distress, rhonchi, wheezes - Cardiovascular Cardiovascular exam: Present: RRR, +S1, +S2. Absent: tachycardia - GI/Abdominal GI/Abdominal exam: Present: normal bowel sounds, soft. Absent: rebound, rigid, tenderness - Extremities Exam Extremities exam: Absent: calf tenderness, pedal edema, tenderness - Back Exam Back exam: Absent: CVA tenderness (L), CVA tenderness (R) - Neurological Exam Neurological exam: Present: alert, altered, no focal deficits - Psychiatric Psychiatric exam: Present: anxious - Skin Skin exam: Absent: rash Internal Med - H&P Results - Labs CBC & Chem 7: 04/29/18 07:56 04/29/18 07:56 - Assessment and plan (1) Alcohol withdrawal seizure Current Visit: Yes Status: Acute Assessment and plan: Place the pt into Tele for observation Seizure precautions His current seizure episode mostly due to alcohol withdrawal started him on CIWA protocol Ativan IV PRN for withdrawal symptoms Cont home med Keppra will check Keppra level counseled the pt to quit drinking and offered him to go to rehab pt refused to go to rehab SW consulted will check Ammonia level started him on Thiamine and Folic acid Qualifiers: Complication of substance-induced condition: uncomplicated Qualified Code(s ): F10.230 - Alcohol dependence with withdrawal, uncomplicated (2) Altered mental status Current Visit: Yes Status: Acute Assessment and plan: mostly due to post ictal cont close monitoring will check Ammonia level too Qualifiers: Altered mental status type: delirium Qualified Code(s): R41.0 - Disorientation, unspecified (3) Generalized seizure Current Visit: Yes Status: Chronic Assessment and plan: resumed home med Keppra check Keppra level (4) COPD (chronic obstructive pulmonary disease) Current Visit: No Status: Chronic Assessment and plan: Stable Not in exacerbation start him on nebulizers as needed Qualifiers: COPD type: emphysema Emphysema type: unspecified Qualified Code(s): J43.9 - Emphysema, unspecified (5) Tobacco abuse Current Visit: No Status: Chronic Assessment and plan: Counseled to quit smoking placed on nicotine patch (6) History of aortic valve replacement with bioprosthetic valve Current Visit: No Status: Acute - Time Spent With Patient Total time spent is greater than 50% in coordination of care (as documented) at patient's floor/unit and/or counseling patient:
[2018-04-29] MEDS: 0.9 % Sodium Chloride 1,000 ML IVC SCH ×2 (10:45→21:30)
[2018-04-29] MEDS: levETIRAcetam 250 MG TABLET PO SCH ×2 (10:46→21:32)
[2018-04-29] MEDS: Folic Acid 1 MG TABLET PO SCH (10:46)
[2018-04-29] MEDS: Thiamine (B-1) 100 MG TABLET PO SCH (10:46)
[2018-04-29] MEDS: Vitamin B Complex/Vit C/Vit E 1 EACH TABLET PO SCH (10:46)
[2018-04-29] MEDS: Nicotine 21 MG PATCH.TD24 TD SCH (10:58)
--- NOTE | 2018-04-29 13:29 | Neurology - Consult Note ---
<Eliecer Garza - Last Filed: 04/29/18 13:26> Date of Encounter: 04/29/18 Time of Encounter: 11:00 Assessment and Plan (1) Generalized seizure Current Visit: Yes Status: Chronic Seizure of alcoholic patient who has stopped drinking and taking his antiepileptic medication 2 days ago. Alcohol withdrawal seizure versus breakthrough seizure due to medication noncompliance. Levetiracetam level pending. Resume home dose of Keppra. Stress importance of medication compliance. No alcohol on board. Patient has received 2 mg of Ativan thus far. Continue CIWA protocol. (2) Alcohol withdrawal Current Visit: Yes Status: Acute See plan of care above Qualifiers: Complication of substance-induced condition: uncomplicated Qualified Code(s ): F10.230 - Alcohol dependence with withdrawal, uncomplicated History of Present Illness Chief complaint: Seizures HPI: Iban Rose is a 52 year old male with a history of alcohol abuse who presents following a seizure. The patient is very somnolent during my interview, so it is difficult to glean information from him. What information the patient cannot provide is gathered from chart review. Patient states that it has been 2 days since his last drink and also 2 days since his last dose of Keppra. 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 Per chart review patient had 2 seizures witnessed by his roommate, and the second seizure was longer than normal, so he contacted EMS. Past Med Surg Social Fam HX - Past Medical History Medical history: cardiomyopathy, CHF, COPD, coronary artery disease, hypertension, liver disease, myocardial infarction, seizures, valvular heart disease, other Psychiatric history: no psych history - Past Surgical History Surgical History: heart valve replacement, orthopedic, other - Social History Smoking Status: Current every day smoker Smokeless Tobacco Status: No Alcohol use: heavy Drug use: none - Family History Father Family Member Ethnicity: Non- Living Status: Hx Family Cardiac Disorders: Yes ([place]) Mother Family Member Ethnicity: Non- Living Status: Hx Family Cardiac Disorders: Yes (mother heart atttack) Hx Family Respiratory Disorders: No Hx Family Cancer: No Hx Family GI Disorders: No Hx Family Endocrine Disorder: No Hx Family Neuromuscular Disorders: No Hx Family Neurologic Disorders: No Hx Family HEENT Disorders: No Hx Family Autoimmune Disorders: No Medications and Allergies LevETIRAcetam [Keppra] 1,000 mg PO BID #60 tablet 03/15/18 [Rx] Thiamine (B-1) [Vitamin B-1] 100 mg PO DAILY #30 tablet 03/15/18 [Rx] Folic Acid 1 mg PO DAILY tablet 03/20/18 [Rx] Naloxone [Narcan] 0.4 mg IVP Q2MIN PRN inj 03/20/18 [Rx] OLANZapine [Zyprexa Zydis] 5 mg PO HS #0 tab.rapdis 03/20/18 [Rx] Vitamin B Complex/Vit C/Vit E [Stresstab] 1 each PO DAILY tablet 03/20/18 [Rx] Gabapentin [Neurontin] 600 mg PO TID 04/29/18 [History] LORazepam [Ativan] 0.5 mg PO DAILY 04/29/18 [History] Lisinopril [Zestril] 10 mg PO DAILY 04/29/18 [History] PHENobarbital [Phenobarbital] 64.8 mg PO HS 04/29/18 [History] 3 Allergy/AdvReac Type Severity Reaction Status Date / Time No Known Allergies Allergy Verified 03/17/18 05:05 Review of Systems: A 10 point review of systems was completed and was negative except as noted in the HPI. Physical Examination - Vital Signs Vital Signs: Initial Vital Signs Temp Pulse Resp BP Pulse Ox 97.6 F 108 16 128/100 97 04/29/18 07:35 04/29/18 07:35 04/29/18 07:35 04/29/18 07:35 04/29/18 07:35 - Exam Exam: CONSTITUTIONAL: Well-developed and well-nourished. Comfortable and in no acute distress. CARDIOVASCULAR: Regular rate and rhythm. +S1 and S2. CHEST: Normal work of breathing. NEURO: limited to patient cooperation Mental Status: Somnolent. Oriented to person and place. Stated date as June 2013. Follows commands and answers questions only sparingly. Cranial Nerves: PERRL. Symmetrical facial strength. Facial sensation intact. No dysarthria. Hearing intact. Soft palate elevates symmetrically. SCM and trapezius without weakness. Tongue protrudes in midline. Motor: Left - 5/5 in upper and lower extremities. Right - 5/5 in upper and lower extremities. Sensation intact. No tremulousness noted. Results - Laboratory Findings CBC and BMP: 04/29/18 07:56 04/29/18 07:56 Abnormal lab findings: Abnormal lab results MCH 35.0 pg (28.0-33.3) H 04/29/18 07:56 Plt Count 133 K/mcL (140-400) L 04/29/18 07:56 Sodium 135 mEq/L (136-145) L 04/29/18 07:56 Carbon Dioxide 20 mEq/L (23-29) L 04/29/18 07:56 Glucose 137 mg/dL (70-105) H 04/29/18 07:56 AST 80 Units/L (13-39) H 04/29/18 07:56 Ur Specific [place] > 1.030 (1.010-1.025) H 04/29/18 08:30 Urine Protein 100 mg/dL (Neg-Trace) H 04/29/18 08:30 Urine Ketones 15 mg/dL (Negative) H 04/29/18 08:30 Urine Blood Trace (Negative) H 04/29/18 08:30 Urine Bilirubin Small (Negative) H 04/29/18 08:30 Urine Microscopic RBC 5-15 per hpf (0-3) H 04/29/18 08:30 Urine Microscopic WBC 50-100 per hpf (0-3) H 04/29/18 08:30 Ur Squamous Epith Cells Many per lpf (None-Few) H 04/29/18 08:30 Hyaline Casts Moderate per lpf (None-Few) H 04/29/18 08:30 Urine Mucus Moderate (Few) H 04/29/18 08:30 Acetaminophen < 10 mcg/mL (10-20) L 04/29/18 07:56 Consult Discharge Plan - Plan Referrals: NONE,PCP [Primary Care Provider] - <Ayesha Ahmadi I - Last Filed: 04/29/18 15:30> Date of Encounter: 04/29/18 Assessment and Plan (1) Generalized seizure Current Visit: Yes Status: Chronic Pt was seen and examined, my medical decision was reviewed with the Resident Physician, I agree with the documented findings, disposition and treatment plas as described except to the extent set forth below Continue patient on Keppra and continue on all call withdrawal precautions Ayesha Ahmadi MD History of Present Illness HPI: Mr. Rose is a 52 year old male All Systems: The remainder of the systems were reviewed and are negative Physical Examination - Vital Signs Vital Signs: Initial Vital Signs Temp Pulse Resp BP Pulse Ox 97.6 F 108 16 128/100 97 04/29/18 07:35 04/29/18 07:35 04/29/18 07:35 04/29/18 07:35 04/29/18 07:35 Results - Laboratory Findings CBC and BMP: 04/29/18 07:56 04/29/18 07:56 Abnormal lab findings: Abnormal lab results MCH 35.0 pg (28.0-33.3) H 04/29/18 07:56 Plt Count 133 K/mcL (140-400) L 04/29/18 07:56 Sodium 135 mEq/L (136-145) L 04/29/18 07:56 Carbon Dioxide 20 mEq/L (23-29) L 04/29/18 07:56 Glucose 137 mg/dL (70-105) H 04/29/18 07:56 AST 80 Units/L (13-39) H 04/29/18 07:56 Ur Specific [place] > 1.030 (1.010-1.025) H 04/29/18 08:30 Urine Protein 100 mg/dL (Neg-Trace) H 04/29/18 08:30 Urine Ketones 15 mg/dL (Negative) H 04/29/18 08:30 Urine Blood Trace (Negative) H 04/29/18 08:30 Urine Bilirubin Small (Negative) H 04/29/18 08:30 Urine Microscopic RBC 5-15 per hpf (0-3) H 04/29/18 08:30 Urine Microscopic WBC 50-100 per hpf (0-3) H 04/29/18 08:30 Ur Squamous Epith Cells Many per lpf (None-Few) H 04/29/18 08:30 Hyaline Casts Moderate per lpf (None-Few) H 04/29/18 08:30 Urine Mucus Moderate (Few) H 04/29/18 08:30 Acetaminophen < 10 mcg/mL (10-20) L 04/29/18 07:56
[2018-04-29] MEDS: OLANZapine 5 MG TAB.RAPDIS PO SCH (21:31)
[2018-04-30 05:46] LABS: Basophils % 0.7 %; Eosinophils # 0.1 K/mcL (0.0-0.6); Hematocrit 40.6 % (37.5-50.1); Hemoglobin 14.1 g/dL (12.9-16.9); Immature Granulocytes % 0.4 % (0-4); Lymphocytes # 2.2 K/mcL (0.6-4.6); Lymphocytes % 40.1 %; Mean Corpuscular HGB Conc 34.7 g/dL (31.6-35.5); Mean Corpuscular Hemoglobin 35.7 pg (28.0-33.3); Mean Corpuscular Volume 102.8 fL (83.0-100.0); Mean Platelet Volume 10.9 fL (9.4-12.4); Monocytes # 0.5 K/mcL (0.0-1.3); Monocytes % 9.6 %; Neutrophils # 2.6 K/mcL (1.6-8.9); Platelet Count 108 K/mcL (140-400); Red Blood Count 3.95 M/mcL (4.19-5.50); Red Cell Distribution Width 12.9 % (11.5-14.5); Segmented Neutrophils % 47.2 %
[2018-04-30 05:59] LABS: Alanine Aminotransferase 26 Units/L (7-52); Albumin 3.8 g/dL (3.5-5.7); Albumin/Globulin Ratio 1.4 (1.1-2.2); Alkaline Phosphatase 78 Units/L (34-104); Aspartate Amino Transferase 45 Units/L (13-39); BUN/Creatinine Ratio 8 (6-26); Blood Urea Nitrogen 5 mg/dL (6-20); Calcium 8.9 mg/dL (8.6-10.3); Carbon Dioxide 23 mEq/L (23-29); Chloride 106 mEq/L (98-107); Cholesterol 171 mg/dL (< 200); Globulin 2.8 g/dL (2.4-3.5); Glucose 82 mg/dL (70-105); HDL Cholesterol 87 mg/dL (40-59); LDL Cholesterol,Calculated 70 mg/dL (0-99); Magnesium 1.8 mg/dL (1.6-2.6); Osmolality,Calculated 278 (280-300); Phosphorous 2.9 mg/dL (2.7-4.5); Potassium 3.4 mEq/L (3.5-5.1); Sodium 136 mEq/L (136-145); Total Protein 6.6 g/dL (6.4-8.9); Triglycerides 69 mg/dL (< 150); eGFR For African Americans > 60 (> 60); eGFR For Non-African Americans > 60 (> 60)
[2018-04-30] MEDS: Thiamine (B-1) 100 MG TABLET PO SCH (07:44)
[2018-04-30] MEDS: Nicotine 21 MG PATCH.TD24 TD SCH (07:44)
[2018-04-30] MEDS: Folic Acid 1 MG TABLET PO SCH (07:44)
[2018-04-30] MEDS: levETIRAcetam 250 MG TABLET PO SCH ×2 (07:45→20:42)
[2018-04-30] MEDS: Vitamin B Complex/Vit C/Vit E 1 EACH TABLET PO SCH (07:45)
--- NOTE | 2018-04-30 10:16 | Neurology Progress Note ---
<Eliecer Garza - Last Filed: 04/30/18 10:14> Date of Encounter: 04/30/18 Time of Encounter: 08:45 Assessment and Plan (1) Generalized seizure Current Visit: Yes Status: Chronic Seizure in a epileptic, alcoholic patient with a history of noncompliance of antiepileptic medication Recommend continued use of home dose of Keppra. Stressed importance of medication compliance. Recommend outpatient followup with neurology. (2) Alcohol withdrawal Current Visit: Yes Status: Acute See plan of care above Qualifiers: Complication of substance-induced condition: uncomplicated Qualified Code(s ): F10.230 - Alcohol dependence with withdrawal, uncomplicated Subjective Principal diagnosis: Seizure Interval history: Patient has had no further seizures since admission. He appears well and is sitting up in bed eating breakfast at the time of our interview. He states that he still feels "very shaky." Objective - Constitutional Vitals: Temp Pulse Resp BP Pulse Ox 98.0 F 72 16 118/75 97 04/30/18 06:24 04/30/18 06:24 04/30/18 06:24 04/30/18 06:24 04/30/18 06:24 - Other Additional findings: CONSTITUTIONAL: Well-developed and well-nourished. Comfortable and in no acute distress. CARDIOVASCULAR: Regular rate and rhythm. +S1 and S2. CHEST: Normal work of breathing. NEURO: Mental Status: Alert and oriented x3. Follows commands and answers questions. Cranial Nerves: PERRL. EOMI. Visual marr intact. Symmetrical facial strength. Facial sensation intact. No dysarthria. Hearing intact. Soft palate elevates symmetrically. SCM and trapezius without weakness. Tongue protrudes in midline. Motor: Left - 5/5 in upper and lower extremities. Right - 5/5 in upper and lower extremities. Sensation intact. Cerebellar function intact to [id number]. Results - Laboratory Findings CBC and BMP: 04/30/18 05:20 04/30/18 05:20 Abnormal lab findings: Abnormal lab results RBC 3.95 M/mcL (4.19-5.50) L 04/30/18 05:20 MCV 102.8 fL (83.0-100.0) H 04/30/18 05:20 MCH 35.7 pg (28.0-33.3) H 04/30/18 05:20 Plt Count 108 K/mcL (140-400) L 04/30/18 05:20 Potassium 3.4 mEq/L (3.5-5.1) L 04/30/18 05:20 BUN 5 mg/dL (6-20) L 04/30/18 05:20 Creatinine 0.66 mg/dL (0.70-1.30) L 04/30/18 05:20 Calculated Osmolality 278 (280-300) L 04/30/18 05:20 AST 45 Units/L (13-39) H 04/30/18 05:20 HDL Cholesterol 87 mg/dL (40-59) H 04/30/18 05:20 Ur Specific [place] > 1.030 (1.010-1.025) H 04/29/18 08:30 Urine Protein 100 mg/dL (Neg-Trace) H 04/29/18 08:30 Urine Ketones 15 mg/dL (Negative) H 04/29/18 08:30 Urine Blood Trace (Negative) H 04/29/18 08:30 Urine Bilirubin Small (Negative) H 04/29/18 08:30 Urine Microscopic RBC 5-15 per hpf (0-3) H 04/29/18 08:30 Urine Microscopic WBC 50-100 per hpf (0-3) H 04/29/18 08:30 Ur Squamous Epith Cells Many per lpf (None-Few) H 04/29/18 08:30 Hyaline Casts Moderate per lpf (None-Few) H 04/29/18 08:30 Urine Mucus Moderate (Few) H 04/29/18 08:30 Acetaminophen < 10 mcg/mL (10-20) L 04/29/18 07:56 Consult Discharge Plan - Plan Referrals: Joshua Scott DO [Resident] - 05/23/18 2:00 pm NONE,PCP [Primary Care Provider] - <Ayesha Ahmadi I - Last Filed: 04/30/18 14:04> Date of Encounter: 04/30/18 Assessment and Plan (1) Generalized seizure Current Visit: Yes Status: Chronic Pt was seen and examined, my medical decision was reviewed with the Resident Physician, I agree with the documented findings, disposition and treatment plas as described except to the extent set forth below Also suggest that he should be compliant with medication at the same time should not be drinking otherwise he may continue to have these breakthrough seizures Ayesha Ahmadi MD Objective - Constitutional Vitals: Temp Pulse Resp BP Pulse Ox 98.1 F 79 17 107/65 97 04/30/18 10:44 04/30/18 10:44 04/30/18 10:44 04/30/18 10:44 04/30/18 10:44 Results - Laboratory Findings CBC and BMP: 04/30/18 05:20 04/30/18 05:20 Abnormal lab findings: Abnormal lab results RBC 3.95 M/mcL (4.19-5.50) L 04/30/18 05:20 MCV 102.8 fL (83.0-100.0) H 04/30/18 05:20 MCH 35.7 pg (28.0-33.3) H 04/30/18 05:20 Plt Count 108 K/mcL (140-400) L 04/30/18 05:20 Potassium 3.4 mEq/L (3.5-5.1) L 04/30/18 05:20 BUN 5 mg/dL (6-20) L 04/30/18 05:20 Creatinine 0.66 mg/dL (0.70-1.30) L 04/30/18 05:20 Calculated Osmolality 278 (280-300) L 04/30/18 05:20 AST 45 Units/L (13-39) H 04/30/18 05:20 HDL Cholesterol 87 mg/dL (40-59) H 04/30/18 05:20 Ur Specific [place] > 1.030 (1.010-1.025) H 04/29/18 08:30 Urine Protein 100 mg/dL (Neg-Trace) H 04/29/18 08:30 Urine Ketones 15 mg/dL (Negative) H 04/29/18 08:30 Urine Blood Trace (Negative) H 04/29/18 08:30 Urine Bilirubin Small (Negative) H 04/29/18 08:30 Urine Microscopic RBC 5-15 per hpf (0-3) H 04/29/18 08:30 Urine Microscopic WBC 50-100 per hpf (0-3) H 04/29/18 08:30 Ur Squamous Epith Cells Many per lpf (None-Few) H 04/29/18 08:30 Hyaline Casts Moderate per lpf (None-Few) H 04/29/18 08:30 Urine Mucus Moderate (Few) H 04/29/18 08:30 Acetaminophen < 10 mcg/mL (10-20) L 04/29/18 07:56
--- NOTE | 2018-04-30 12:26 | Electrocardiograph Report ---
[place] [id number] Test Date: 2018-04-29 Pat Name: Iban Rose Department: 103 Room: 3B Gender: M Arch Support Maker: : 1965 Requested By: Isak Barreto Order Number: [id number] Reading MD: Rafa Estes Measurements Intervals [place] Rate: 100 P: 74 ND: 153 QRS: 81 QRSD: 91 T: 60 QT: 352 QTc: 409 Interpretive Statements SINUS TACHYCARDIA BASELINE ARTIFACT Electronically Signed On 04-30-2018 12:25:03 EDT by Rafa Estes
[2018-04-30] MEDS: *HR* LORazepam 2 MG/ML VIAL IVP PRN (15:34)
[2018-04-30] MEDS: *HR* HYDROcodone/Acet 5/325 mg TABLET PO PRN (15:34)
--- NOTE | 2018-04-30 18:44 | Internal Med Progress Note ---
Date of Encounter: 04/30/18 Time of Encounter: 18:40 - Assessment and plan (1) Alcohol withdrawal seizure Current Visit: Yes Status: Acute Assessment and plan: Pt evaluated by neurology service and states "seizure in a epileptic, alcoholic patient with a history of noncompliance of antiepileptic medication Recommend continued use of home dose of Keppra. Stressed importance of medication compliance. Recommend outpatient followup with neurology." Qualifiers: Complication of substance-induced condition: uncomplicated Qualified Code(s ): F10.230 - Alcohol dependence with withdrawal, uncomplicated (2) Altered mental status Current Visit: Yes Status: Acute Assessment and plan: improved. Pt appears to be close to his baseline Qualifiers: Altered mental status type: delirium Qualified Code(s): R41.0 - Disorientation, unspecified (3) Generalized seizure Current Visit: Yes Status: Chronic Assessment and plan: See above. Seen by neurologist (4) History of aortic valve replacement with bioprosthetic valve Current Visit: No Status: Chronic (5) Alcohol abuse Current Visit: No Status: Chronic Assessment and plan: cessation strongly advised. (6) Tobacco abuse counseling Current Visit: No Status: Chronic Assessment and plan: Cessation strongly advised. (7) COPD (chronic obstructive pulmonary disease) Current Visit: No Status: Chronic Assessment and plan: not in exacerbation. prn nebs. Qualifiers: COPD type: emphysema Emphysema type: unspecified Qualified Code(s): J43.9 - Emphysema, unspecified - Time Spent With Patient Total time spent is greater than 50% in coordination of care (as documented) at patient's floor/unit and/or counseling patient: 25 - 35 minutes - Subjective Interval history: Pt roaming the floor. informed by nurse that pt was walking the unit naked. Pt states " I'm hallucinating." I'm seeing cats and dogs." Requesting to be discharged tomorrow. States he left his glasses in the ED. Apparently defacated on his jeans so he has no no clean clothes at this time. States he lives with a 73 year old former vet. He reports that he has a bus pass. 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 Absent: answers questions appropriately - Head Head exam: Present: atraumatic, normocephalic - Eye Eye exam: Present: PERRL, conjuntiva pink, sclera anicteric Pupils: Present: PERRL - Neck Neck exam general surgery: Present: supple, trachea midline. Absent: lymphadenopathy - Respiratory Respiratory exam: Present: CTAB. Absent: accessory muscle use, rales, rhonchi, wheezes - Cardiovascular Cardiovascular exam: Present: RRR, +S1, +S2. Absent: diastolic murmur, gallop, rubs, systolic murmur - GI/Abdominal GI/Abdominal exam: Present: normal bowel sounds, soft, no peritoneal signs. Absent: distended, tenderness - Extremities Exam Extremities exam: Present: warm, radial pulses palpable and symmetrical. Absent : calf tenderness, cyanotic, pedal edema - Neurological Exam Neurological exam: Present: CN II-XII intact, oriented X3, no focal deficits. Absent: pronater drift, facial droop, speech deficit - Skin Skin exam: Present: dry, intact Internal Medicine: Result - Labs CBC & Chem 7: 04/30/18 05:20 04/30/18 05:20 Labs: Short CBC 04/30/18 Range/Units 05:20 WBC 5.5 (4.3-11.1) K/mcL Hgb 14.1 (12.9-16.9) g/dL Hct 40.6 (37.5-50.1) % Plt Count 108 L (140-400) K/mcL Neutrophils # 2.6 (1.6-8.9) K/mcL BMP 04/30/18 05:20 Sodium 136 Potassium 3.4 L Chloride 106 Carbon Dioxide 23 BUN 5 L Creatinine 0.66 L Glucose 82 Calcium 8.9 Liver Function 04/30/18 Range/Units 05:20 Total Bilirubin 1.0 (0.3-1.0) mg/dL AST 45 H (13-39) Units/L ALT 26 (7-52) Units/L Alkaline Phosphatase 78 (34-104) Units/L Albumin 3.8 (3.5-5.7) g/dL Consult Discharge Plan - Plan Referrals: Joshua Scott DO [Resident] - 05/23/18 2:00 pm NONE,PCP [Primary Care Provider] -
[2018-04-30] MEDS ORDERED: *HR* LORazepam 0.5 MG TABLET PO PRN (20:10)
[2018-04-30] MEDS: OLANZapine 5 MG TAB.RAPDIS PO SCH (20:42)
[2018-04-30] MEDS ORDERED: Ziprasidone injection 20 MG/ML VIAL IM ONE ×2 (21:23→23:24)
[2018-05-01] MEDS: Nicotine 21 MG PATCH.TD24 TD SCH ×2 (00:02→22:23)
--- NOTE | 2018-05-01 01:00 | Event Note ---
Date of Encounter: 05/01/18 Time of Encounter: 00:56 Call to patient's bedside regarding agitation and as patient is not staying in his room. Ordered 10 mg of Geodon IM. Spoke to patient. He states that he is tired of staying here and wishes to go home. I asked him how he would go home. He stated that he has a bus pass. I told him that there are no buses available at this time and he needs to wait till the morning. Patient has not been pink slipped and therefore cannot be made to stay against his wishes. Was told that he was aggressive towards staff earlier today but at this time he does not appear to be at risk of causing physical harm to staff. He does know that he is at [facility] in [place]. He seemed to understand that he would not be able to go home tonight and will stay to morning. Given his alcohol withdrawal, he will need someone to at least come pick him up if he wishes to leave [facility]. He is not safe to leave the hospital on his own in his current situation. We will also order Librium 50 mg every 6 hours. If he remains agitated, may give Valium 10 mg IM once. Patient has removed his IV and does not want another IV placed at this time. If he does become aggressive towards staff and is at risk of causing physical harm, I will pink slip him here.
[2018-05-01] MEDS: *HR* HYDROcodone/Acet 5/325 mg TABLET PO PRN (03:06)
[2018-05-01] MEDS ORDERED: diazePAM 10 MG/2 ML SYRINGE IM ONE (04:02)
[2018-05-01] MEDS: Folic Acid 1 MG TABLET PO SCH (08:21)
[2018-05-01] MEDS: levETIRAcetam 250 MG TABLET PO SCH ×2 (08:21→22:23)
[2018-05-01] MEDS: Vitamin B Complex/Vit C/Vit E 1 EACH TABLET PO SCH (08:22)
[2018-05-01] MEDS: Thiamine (B-1) 100 MG TABLET PO SCH (08:22)
--- NOTE | 2018-05-01 10:54 | Neurology Progress Note ---
Date of Encounter: 05/01/18 Time of Encounter: 09:00 Assessment and Plan (1) Alcohol withdrawal Current Visit: Yes Status: Acute Patient appears to have progressed to delirium tremens. May benefit from psychiatry evaluation. Continue CIWA protocol with PRN Ativan, as well as scheduled Librium. Continue vitamin supplementation, especially thiamine. Qualifiers: Complication of substance-induced condition: with perceptual disturbance Qualified Code(s): F10.232 - Alcohol dependence with withdrawal with perceptual disturbance (2) Generalized seizure Current Visit: Yes Status: Chronic Seizure in a epileptic, alcoholic patient with a history of noncompliance of antiepileptic medication Recommend continued use of home dose of Keppra. Stressed importance of medication compliance. Recommend outpatient followup with neurology. Subjective Principal diagnosis: Seizure Interval history: Since our evaluation yesterday, the patient is started hallucinating. During our interview the patient asked "do you like some meth out there?" and stated "12 people were killed in the crossfire" while pointing out into the hallway. He is also been wondering the halls naked and defecating himself. There been no further seizures, however. Objective - Constitutional Vitals: Temp Pulse Resp BP Pulse Ox 97.3 F L 106 16 115/75 97 05/01/18 08:12 05/01/18 08:12 05/01/18 08:12 05/01/18 08:12 05/01/18 08:12 - Other Additional findings: CONSTITUTIONAL: Well-developed and well-nourished. Comfortable and in no acute distress. CHEST: Normal work of breathing. NEURO: limited to patient cooperation Mental Status: Alert, but confused and hallucinating. Cranial Nerves: EOMI. Symmetrical facial strength. No dysarthria. Hearing intact. Motor: Moves all 4 extremities without issue. Gait: Ambulating well. Results - Laboratory Findings CBC and BMP: 04/30/18 05:20 04/30/18 05:20 Abnormal lab findings: Abnormal lab results RBC 3.95 M/mcL (4.19-5.50) L 04/30/18 05:20 MCV 102.8 fL (83.0-100.0) H 04/30/18 05:20 MCH 35.7 pg (28.0-33.3) H 04/30/18 05:20 Plt Count 108 K/mcL (140-400) L 04/30/18 05:20 Potassium 3.4 mEq/L (3.5-5.1) L 04/30/18 05:20 BUN 5 mg/dL (6-20) L 04/30/18 05:20 Creatinine 0.66 mg/dL (0.70-1.30) L 04/30/18 05:20 Calculated Osmolality 278 (280-300) L 04/30/18 05:20 AST 45 Units/L (13-39) H 04/30/18 05:20 HDL Cholesterol 87 mg/dL (40-59) H 04/30/18 05:20 Ur Specific [place] > 1.030 (1.010-1.025) H 04/29/18 08:30 Urine Protein 100 mg/dL (Neg-Trace) H 04/29/18 08:30 Urine Ketones 15 mg/dL (Negative) H 04/29/18 08:30 Urine Blood Trace (Negative) H 04/29/18 08:30 Urine Bilirubin Small (Negative) H 04/29/18 08:30 Urine Microscopic RBC 5-15 per hpf (0-3) H 04/29/18 08:30 Urine Microscopic WBC 50-100 per hpf (0-3) H 04/29/18 08:30 Ur Squamous Epith Cells Many per lpf (None-Few) H 04/29/18 08:30 Hyaline Casts Moderate per lpf (None-Few) H 04/29/18 08:30 Urine Mucus Moderate (Few) H 04/29/18 08:30 Acetaminophen < 10 mcg/mL (10-20) L 04/29/18 07:56 Levetiracetam <2 ug/mL (12-46) L 04/29/18 10:16 Consult Discharge Plan - Plan Referrals: Joshua Scott DO [Resident] - 05/23/18 2:00 pm NONE,PCP [Primary Care Provider] -
[2018-05-01] MEDS: *HR* LORazepam 0.5 MG TABLET PO PRN (12:13)
--- NOTE | 2018-05-01 15:03 | Internal Med Progress Note ---
Date of Encounter: 05/01/18 Time of Encounter: 15:00 - Assessment and plan (1) Alcohol withdrawal Current Visit: Yes Status: Acute Assessment and plan: Pt's mentation worsened over the course of the evening 04/30/2018. He is delirious and hallucinating. He does have tremors. Will continue with 24 hour sitter for now. Will initiate Librium taper and contniue CIWA protocol. Qualifiers: Complication of substance-induced condition: with perceptual disturbance Qualified Code(s): F10.232 - Alcohol dependence with withdrawal with perceptual disturbance (2) Alcohol withdrawal seizure Current Visit: Yes Status: Acute Assessment and plan: Pt evaluated by neurology service and states "seizure in a epileptic, alcoholic patient with a history of non-compliance of anti-epileptic medication Recommend continued use of home dose of Keppra. Stressed importance of medication compliance. Recommend outpatient followup with neurology." Qualifiers: Complication of substance-induced condition: uncomplicated Qualified Code(s ): F10.230 - Alcohol dependence with withdrawal, uncomplicated (3) Altered mental status Current Visit: Yes Status: Acute Assessment and plan: Pt's mentation worsened overnight . Will continue CIWA and continue to monitor. 24/06 bedside sitter. Qualifiers: Altered mental status type: delirium Qualified Code(s): R41.0 - Disorientation, unspecified (4) Generalized seizure Current Visit: Yes Status: Chronic Assessment and plan: See above note per neurologist (5) History of aortic valve replacement with bioprosthetic valve Current Visit: No Status: Chronic Assessment and plan: Follow up out pt with PCP. (6) Alcohol abuse Current Visit: No Status: Chronic Assessment and plan: cessation strongly advised. (7) Tobacco abuse counseling Current Visit: No Status: Chronic Assessment and plan: cessation strongly advised. (8) COPD (chronic obstructive pulmonary disease) Current Visit: No Status: Chronic Assessment and plan: not in exacerbation. prn nebs. Qualifiers: COPD type: emphysema Emphysema type: unspecified Qualified Code(s): J43.9 - Emphysema, unspecified - Time Spent With Patient Total time spent is greater than 50% in coordination of care (as documented) at patient's floor/unit and/or counseling patient: - Subjective Interval history: Pt roaming the floor. informed by nurse that pt was walking the unit naked. Pt has been hallucinating per nurse. currently has a sitter. Was defacating on unit floors last evening, 04/30/2018. Requesting to be discharged. States he left his glasses in the ED. Apparently defacated on his jeans upon presentation to the ED, so he has no clean clothes at this time. Stated 04/30/2018 he lives with a 73 year old former vet. He reported that he has a bus pass. 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 " Today 05/01/2018, he is increasing ly confused. HE was started on Librium 50 mg QID by night time hospitalist. WIll pink slip him at this time as he poses a danger to himself. Will place on Librium taper. - Constitutional Vitals: Temp Pulse Resp BP Pulse Ox 97.3 F L 106 16 115/75 97 05/01/18 08:12 05/01/18 08:12 05/01/18 08:12 05/01/18 08:12 05/01/18 08:12 General appearance: Present: cooperative, A&O X 3, no acute distress. Absent: answers questions appropriately - Head Head exam: Present: atraumatic, normocephalic - Eye Eye exam: Present: PERRL, conjuntiva pink, sclera anicteric Pupils: Present: PERRL - Neck Neck exam general surgery: Present: supple, trachea midline. Absent: lymphadenopathy - Respiratory Respiratory exam: Present: CTAB. Absent: accessory muscle use, rales, rhonchi, wheezes - Cardiovascular Cardiovascular exam: Present: RRR, +S1, +S2. Absent: diastolic murmur, gallop, rubs, systolic murmur - GI/Abdominal GI/Abdominal exam: Present: normal bowel sounds, soft, no peritoneal signs. Absent: distended, tenderness - Extremities Exam Extremities exam: Present: warm, radial pulses palpable and symmetrical. Absent : calf tenderness, cyanotic, pedal edema - Neurological Exam Neurological exam: Present: CN II-XII intact, oriented X3, no focal deficits. Absent: pronater drift, facial droop, speech deficit - Skin Skin exam: Present: dry, intact Internal Medicine: Result - Labs CBC & Chem 7: 04/30/18 05:20 04/30/18 05:20 Consult Discharge Plan - Plan Referrals: Joshua Scott DO [Resident] - 05/23/18 2:00 pm NONE,PCP [Primary Care Provider] -
[2018-05-01] MEDS: *HR* LORazepam 2 MG/ML VIAL IVP PRN (16:01)
[2018-05-01] MEDS ORDERED: *HR* LORazepam 2 MG/ML VIAL IVP ONE (16:04)
[2018-05-01] MEDS ORDERED: Ziprasidone injection 20 MG/ML VIAL IM ONE (17:57)
[2018-05-01] MEDS: OLANZapine 5 MG TAB.RAPDIS PO SCH (22:24)
[2018-05-02] MEDS: *HR* LORazepam 0.5 MG TABLET PO PRN (03:52)
[2018-05-02] MEDS: *HR* HYDROcodone/Acet 5/325 mg TABLET PO PRN ×2 (05:37→11:53)
[2018-05-02] MEDS: levETIRAcetam 250 MG TABLET PO SCH ×2 (09:00→20:59)
[2018-05-02] MEDS: Folic Acid 1 MG TABLET PO SCH (09:00)
[2018-05-02] MEDS: Thiamine (B-1) 100 MG TABLET PO SCH (09:00)
[2018-05-02] MEDS: Vitamin B Complex/Vit C/Vit E 1 EACH TABLET PO SCH (09:01)
[2018-05-02] MEDS: Beer can PO SCH ×4 (12:18→20:00)
[2018-05-02] MEDS: *HR* LORazepam 2 MG/ML VIAL IVP PRN (13:55)
[2018-05-02] MEDS: Nicotine 21 MG PATCH.TD24 TD SCH ×2 (13:55→20:58)
--- NOTE | 2018-05-02 15:48 | Internal Med Progress Note ---
Date of Encounter: 05/02/18 Time of Encounter: 15:45 - Assessment and plan (1) Altered mental status Current Visit: Yes Status: Acute Assessment and plan: with intermittent confusion; able to answer some questions appropriate. Baseline mentation unknown but suspect he has some component of cognitive deficit at baseline. Supportive care for now. Continue one-to-one sitter. Patient is pink slipped and may not leave AMA Qualifiers: Altered mental status type: delirium Qualified Code(s): R41.0 - Disorientation, unspecified (2) Generalized seizure Current Visit: Yes Status: Chronic Assessment and plan: secondary to medication noncompliance. Load with Keppra and EGD. No seizure recurrence while inpatient. Evaluated by neurology who recommended continuing Keppra. Seizure precautions (3) Alcohol withdrawal seizure Current Visit: Yes Status: Acute Assessment and plan: known hx etoh abuse. Presented after having seizure. Discussed with emergency contact, Olu garzon; who reports patient drinks everyday and has known withdrawal symptoms without alcohol. Continue monitoring on CIWA, folate and B12. Will allow 2 cans of beer per meal at this time. Qualifiers: Complication of substance-induced condition: uncomplicated Qualified Code(s ): F10.230 - Alcohol dependence with withdrawal, uncomplicated (4) COPD (chronic obstructive pulmonary disease) Current Visit: No Status: Chronic Assessment and plan: per hx. No evidence of exacerbation. Qualifiers: COPD type: emphysema Emphysema type: unspecified Qualified Code(s): J43.9 - Emphysema, unspecified (5) Tobacco abuse Current Visit: No Status: Chronic Assessment and plan: Current smoker. Cessation advised but not likely. Continue NRT (6) History of aortic valve replacement with bioprosthetic valve Current Visit: No Status: Chronic (7) DVT prophylaxis Current Visit: No Status: Acute Assessment and plan: ambulation - Time Spent With Patient Total time spent is greater than 50% in coordination of care (as documented) at patient's floor/unit and/or counseling patient: - Subjective Interval history: Seen and examined at bedside. Information obtained from chart review, patient report (although patient is alert to self only and poor historian) and emergency contact Olu garzon. Alert to self only, he is confused but cooperative. Discussed with patient's friend, Olu Garzon (patient lives with him) tells me that patient is noncompliance with his medication. Says he gets [id number] do well for a couple days but then he reverts back to not taking his medication and drinks on a daily basis. - Constitutional Vitals: Temp Pulse Resp BP Pulse Ox 98.0 F 82 16 113/76 99 05/02/18 11:53 05/02/18 11:53 05/02/18 11:53 05/02/18 11:53 05/02/18 11:53 General appearance: Present: cooperative, A&O X 1, A&O X 3, no acute distress. Absent: answers questions appropriately - Head Head exam: Present: atraumatic, normocephalic - Eye Eye exam: Present: PERRL, conjuntiva pink, sclera anicteric Pupils: Present: PERRL - Neck Neck exam general surgery: Present: supple, trachea midline. Absent: lymphadenopathy - Respiratory Respiratory exam: Present: CTAB. Absent: accessory muscle use, rales, rhonchi, wheezes - Cardiovascular Cardiovascular exam: Present: RRR, +S1, +S2. Absent: diastolic murmur, gallop, rubs, systolic murmur - GI/Abdominal GI/Abdominal exam: Present: normal bowel sounds, soft, no peritoneal signs. Absent: distended, tenderness - Extremities Exam Extremities exam: Present: warm, radial pulses palpable and symmetrical. Absent : calf tenderness, cyanotic, pedal edema - Neurological Exam Neurological exam: Present: CN II-XII intact, no focal deficits. Absent: pronater drift, facial droop, speech deficit - Skin Skin exam: Present: dry, intact Internal Medicine: Result - Labs CBC & Chem 7: 04/30/18 05:20 04/30/18 05:20 Consult Discharge Plan - Plan Referrals: Joshua Scott DO [Resident] - 05/23/18 2:00 pm NONE,PCP [Primary Care Provider] -
[2018-05-02] MEDS: OLANZapine 5 MG TAB.RAPDIS PO SCH (21:00)
[2018-05-03] MEDS: Folic Acid 1 MG TABLET PO SCH (11:21)
[2018-05-03] MEDS: Thiamine (B-1) 100 MG TABLET PO SCH (11:21)
[2018-05-03] MEDS: Vitamin B Complex/Vit C/Vit E 1 EACH TABLET PO SCH (11:21)
[2018-05-03] MEDS: levETIRAcetam 250 MG TABLET PO SCH ×2 (11:21→20:01)
[2018-05-03] MEDS: Beer can PO SCH ×4 (11:22→17:15)
--- NOTE | 2018-05-03 15:48 | Internal Med Progress Note ---
Date of Encounter: 05/03/18 Time of Encounter: 15:46 - Assessment and plan (1) Altered mental status Current Visit: Yes Status: Acute Assessment and plan: with intermittent confusion; able to answer some questions appropriate. Baseline mentation unknown but suspect he has some component of cognitive deficit at baseline. Mentation improved as of 05/03 exam. Previously had a sitter however will stop one-on-one as mentation appears to be improved. Patient remains pink slipped and may not leave AMA. Disposition will be challenging/complex as patient lives with a friend/neighbor who does not feel patient is able to return there as he cannot care for himself. Consult psych for competency evaluation (this may be challenging itself as patient is either on Sever or consuming alcohol to avoid DVTs). If mentation deteriorates or he becomes combative or attempts to leave resume one-to-one sitter Qualifiers: Altered mental status type: delirium Qualified Code(s): R41.0 - Disorientation, unspecified (2) Generalized seizure Current Visit: Yes Status: Chronic Assessment and plan: secondary to medication noncompliance. Load with Keppra and EGD. No seizure recurrence while inpatient. Evaluated by neurology who recommended continuing Keppra. Seizure precautions (3) Alcohol withdrawal seizure Current Visit: Yes Status: Acute Assessment and plan: known hx etoh abuse. Presented after having seizure. Suspect breakthrough seizures are multifactorial with alcohol withdrawal and medication noncompliance Discussed with emergency contact, Olu Cerna; who reports patient drinks everyday and has known withdrawal symptoms without alcohol. Symptoms controlled with allowing 2 cans of beer per meal. Continue to monitor CIWA but stop Ativan. Nursing staff to notify provider if patient is triggering [place]ell for reevaluation. Qualifiers: Complication of substance-induced condition: uncomplicated Qualified Code(s ): F10.230 - Alcohol dependence with withdrawal, uncomplicated (4) COPD (chronic obstructive pulmonary disease) Current Visit: No Status: Chronic Assessment and plan: per hx. No evidence of exacerbation. Qualifiers: COPD type: emphysema Emphysema type: unspecified Qualified Code(s): J43.9 - Emphysema, unspecified (5) Tobacco abuse Current Visit: No Status: Chronic Assessment and plan: Current smoker. Cessation advised but not likely. Continue NRT (6) History of aortic valve replacement with bioprosthetic valve Current Visit: No Status: Chronic (7) DVT prophylaxis Current Visit: No Status: Acute Assessment and plan: ambulation - Time Spent With Patient Total time spent is greater than 50% in coordination of care (as documented) at patient's floor/unit and/or counseling patient: - Subjective Interval history: Seen and examined at bedside. Sitting up on edge of bed eating lunch. Mentation significantly improved. He complains of generalized weakness and malaise. Requesting a shot that he had in this hip a couple days ago. Says he still does not feel well and does not think he is ready for discharge. Discussed case with primary RN, global human resources director and one-to-one sitter at bedside and mentation is significantly improved. We will attempt to manage patient without one-to-one sitter. Utilize bed alarm. - Constitutional Vitals: Temp Pulse Resp BP Pulse Ox 97.5 F L 89 16 102/73 98 05/03/18 11:38 05/03/18 11:38 05/03/18 11:38 05/03/18 11:38 05/03/18 11:38 General appearance: Present: cooperative, A&O X 2, A&O X 3, no acute distress. Absent: answers questions appropriately Exam: LOC X4 but forgetful - Head Head exam: Present: atraumatic, normocephalic - Eye Eye exam: Present: PERRL, conjuntiva pink, sclera anicteric Pupils: Present: PERRL - Neck Neck exam general surgery: Present: supple, trachea midline. Absent: lymphadenopathy - Respiratory Respiratory exam: Present: CTAB. Absent: accessory muscle use, rales, rhonchi, wheezes - Cardiovascular Cardiovascular exam: Present: RRR, +S1, +S2. Absent: diastolic murmur, gallop, rubs, systolic murmur - GI/Abdominal GI/Abdominal exam: Present: normal bowel sounds, soft, no peritoneal signs. Absent: distended, tenderness - Extremities Exam Extremities exam: Present: warm, radial pulses palpable and symmetrical. Absent : calf tenderness, cyanotic, pedal edema - Neurological Exam Neurological exam: Present: CN II-XII intact, oriented X3, no focal deficits. Absent: pronater drift, facial droop, speech deficit - Skin Skin exam: Present: dry, intact Internal Medicine: Result - Labs CBC & Chem 7: 04/30/18 05:04/30/18 05:20 Consult Discharge Plan - Plan Referrals: Joshua Scott DO [Resident] - 05/23/18 2:00 pm NONE,PCP [Primary Care Provider] -
[2018-05-03] MEDS: *HR* HYDROcodone/Acet 5/325 mg TABLET PO PRN (16:00)
[2018-05-03] MEDS: Nicotine 21 MG PATCH.TD24 TD SCH (20:00)
[2018-05-03] MEDS: OLANZapine 5 MG TAB.RAPDIS PO SCH (20:01)
[2018-05-04] MEDS: Beer can PO SCH ×7 (01:24→22:39)
[2018-05-04 07:03] LABS: Mean Corpuscular Hemoglobin 35.4 pg (28.0-33.3); Red Cell Distribution Width 13.1 % (11.5-14.5)
[2018-05-04 07:05] LABS: Hematocrit 38.3 % (37.5-50.1); Hemoglobin 12.7 g/dL (12.9-16.9); Immature Platelets 8.6 % (1.1-6.1); Mean Corpuscular HGB Conc 33.2 g/dL (31.6-35.5); Mean Corpuscular Volume 106.7 fL (83.0-100.0); Mean Platelet Volume 11.4 fL (9.4-12.4); Red Blood Count 3.59 M/mcL (4.19-5.50)
[2018-05-04 08:24] LABS: BUN/Creatinine Ratio 15 (6-26); Blood Urea Nitrogen 11 mg/dL (6-20); Calcium 9.4 mg/dL (8.6-10.3); Carbon Dioxide 14 mEq/L (23-29); Chloride 112 mEq/L (98-107); Glucose 86 mg/dL (70-105); Osmolality,Calculated 283 (280-300); Potassium 4.8 mEq/L (3.5-5.1); Sodium 137 mEq/L (136-145); eGFR For African Americans > 60 (> 60); eGFR For Non-African Americans > 60 (> 60)
[2018-05-04] MEDS: Vitamin B Complex/Vit C/Vit E 1 EACH TABLET PO SCH (09:23)
[2018-05-04] MEDS: Thiamine (B-1) 100 MG TABLET PO SCH (09:23)
[2018-05-04] MEDS: Folic Acid 1 MG TABLET PO SCH (09:23)
[2018-05-04] MEDS: *HR* HYDROcodone/Acet 5/325 mg TABLET PO PRN (09:23)
[2018-05-04] MEDS: levETIRAcetam 250 MG TABLET PO SCH ×2 (09:23→21:57)
--- NOTE | 2018-05-04 15:13 | Internal Med Progress Note ---
Date of Encounter: 05/04/18 Time of Encounter: 15:08 - Assessment and plan (1) Altered mental status Current Visit: Yes Status: Acute Assessment and plan: with intermittent confusion; able to answer some questions appropriate. Baseline mentation unknown but suspect he has some component of cognitive deficit at baseline. Mentation improved as of 05/03 exam. Previously had a sitter however will stop one-on-one as mentation appears to be improved. Patient remains pink slipped and may not leave AMA. Disposition will be challenging/complex as patient lives with a friend/neighbor who does not feel patient is able to return there as he cannot care for himself. Consult psych for competency evaluation (this may be challenging itself as patient is either on CIWA or consuming alcohol to avoid DVTs). Mentation improved as of 05/04 Qualifiers: Altered mental status type: delirium Qualified Code(s): R41.0 - Disorientation, unspecified (2) Generalized seizure Current Visit: Yes Status: Chronic Assessment and plan: secondary to medication noncompliance. Load with Keppra and EGD. No seizure recurrence while inpatient. Evaluated by neurology who recommended continuing Keppra. Seizure precautions (3) Alcohol withdrawal seizure Current Visit: Yes Status: Acute Assessment and plan: known hx etoh abuse. Presented after having seizure. Suspect breakthrough seizures are multifactorial with alcohol withdrawal and medication noncompliance Discussed with emergency contact, Olu Cerna; who reports patient drinks everyday and has known withdrawal symptoms without alcohol. Symptoms controlled with allowing 2 cans of beer per meal. Continue to monitor CIWA but stop Ativan. Nursing staff to notify provider if patient is triggering Se[place]ell for reevaluation. Qualifiers: Complication of substance-induced condition: uncomplicated Qualified Code(s ): F10.230 - Alcohol dependence with withdrawal, uncomplicated (4) COPD (chronic obstructive pulmonary disease) Current Visit: No Status: Chronic Assessment and plan: per hx. No evidence of exacerbation. Qualifiers: COPD type: emphysema Emphysema type: unspecified Qualified Code(s): J43.9 - Emphysema, unspecified (5) Tobacco abuse Current Visit: No Status: Chronic Assessment and plan: Current smoker. Cessation advised but not likely. Continue NRT (6) History of aortic valve replacement with bioprosthetic valve Current Visit: No Status: Chronic (7) DVT prophylaxis Current Visit: No Status: Acute Assessment and plan: ambulation - Time Spent With Patient Total time spent is greater than 50% in coordination of care (as documented) at patient's floor/unit and/or counseling patient: - Subjective Interval history: Seen and examined at bedside. Laying in bed drinking a beer. Says he feels okay. Discussed case with psychiatrist television service engineer regarding competency evaluation and to psychiatrist that is on today does not do inpatient competency evaluation. - Constitutional Vitals: Temp Pulse Resp BP Pulse Ox 97.3 F L 78 16 99/62 95 05/04/18 12:00 05/04/18 12:00 05/04/18 12:00 05/04/18 12:00 05/04/18 12:00 General appearance: Present: cooperative, A&O X 2, A&O X 3, no acute distress. Absent: answers questions appropriately - Head Head exam: Present: atraumatic, normocephalic - Eye Eye exam: Present: PERRL, conjuntiva pink, sclera anicteric Pupils: Present: PERRL - Neck Neck exam general surgery: Present: supple, trachea midline. Absent: lymphadenopathy - Respiratory Respiratory exam: Present: CTAB. Absent: accessory muscle use, rales, rhonchi, wheezes - Cardiovascular Cardiovascular exam: Present: RRR, +S1, +S2. Absent: diastolic murmur, gallop, rubs, systolic murmur - GI/Abdominal GI/Abdominal exam: Present: normal bowel sounds, soft, no peritoneal signs. Absent: distended, tenderness - Extremities Exam Extremities exam: Present: warm, radial pulses palpable and symmetrical. Absent : calf tenderness, cyanotic, pedal edema - Neurological Exam Neurological exam: Present: CN II-XII intact, oriented X3, no focal deficits. Absent: pronater drift, facial droop, speech deficit - Skin Skin exam: Present: dry, intact Internal Medicine: Result - Labs CBC & Chem 7: 05/04/18 06:01 05/04/18 06:01 Labs: Short CBC 05/04/18 Range/Units 06:01 WBC 6.3 (4.3-11.1) K/mcL Hgb 12.7 L (12.9-16.9) g/dL Hct 38.3 (37.5-50.1) % Plt Count 102 L (140-400) K/mcL BMP 05/04/18 06:01 Sodium 137 Potassium 4.8 Chloride 112 H Carbon Dioxide 14 L BUN 11 Creatinine 0.72 Glucose 86 Calcium 9.4 Consult Discharge Plan - Plan Referrals: Joshua Scott DO [Resident] - 05/23/18 2:00 pm NONE,PCP [Primary Care Provider] -
[2018-05-04 18:04] LABS: Adenovirus F 40/41 PCR Not detected (Not detect); Astrovirus PCR Not detected (Not detect); C.difficile Toxin A/B by PCR Not detected (Not detect); Campylobacter by PCR Not detected (Not detect); Cryptosporidium by PCR Not detected (Not detect); Cyclospora cayetanensis PCR Not detected (Not detect); Entamoeba histolytica PCR Not detected (Not detect); Enteroaggregative E.coli(EAEC) Not detected (Not detect); Enteropathogenic E.coli(EPEC) Not detected (Not detect); Enterotoxigenic E.coli (ETEC) Not detected (Not detect); Giardia lamblia PCR Not detected (Not detect); Plesiomonas shigelloides PCR Not detected (Not detect); Salmonella PCR Not detected (Not detect); Shig/EnteroinvasiveE coli EIEC Not detected (Not detect); Shigalike tox-prod E coli STEC Not detected (Not detect); Vibrio PCR Not detected (Not detect); Vibrio cholerae PCR Not detected (Not detect); Yersinia enterocolitica PCR Not detected (Not detect)
[2018-05-04 18:05] LABS: Norovirus GI/GII PCR Not detected (Not detect); Rotavirus A PCR Not detected (Not detect); Sapovirus PCR Not detected (Not detect)
[2018-05-04] MEDS: OLANZapine 5 MG TAB.RAPDIS PO SCH (21:57)
[2018-05-04] MEDS: Nicotine 21 MG PATCH.TD24 TD SCH (21:57)
[2018-05-05] MEDS: Beer can PO SCH ×3 (08:47→17:56)
[2018-05-05] MEDS: Thiamine (B-1) 100 MG TABLET PO SCH (08:48)
[2018-05-05] MEDS: levETIRAcetam 250 MG TABLET PO SCH ×2 (08:48→21:53)
[2018-05-05] MEDS: Folic Acid 1 MG TABLET PO SCH (08:49)
--- NOTE | 2018-05-05 09:42 | EEG/EMG/Oth Biometrics Report ---
EEG Procedure Report Date of procedure: 04/30/18 EEG Procedure: Routine EEG Procedure Note: Routine 21-channel digital EEG was obtained to rule out any seizure activity or focal abnormalities. FINDINGS: Background rhythm during awake stage shows poorly organized, low voltage fast beta activity in the anterior regions. No [id number] discharges or any lateralizing abnormalities are seen. Almost constant EMG artifacts and tremor artifacts are noted making the study suboptimal. Photic stimulation did not produce any abnormalities. Stage II sleep was not observed. The patient was noted by the sterile preparation technician to be restless and moving all the time during the study and having tremors of the mouth and arms. Stage II sleep was not achieved. IMPRESSION: Suboptimal study, no clear paroxysmal activities or epileptiform discharges were seen. Prominent beta activity in the anterior regions could be secondary to anxiety or medication effect.
--- NOTE | 2018-05-05 15:46 | Internal Med Progress Note ---
Date of Encounter: 05/05/18 Time of Encounter: 15:44 - Assessment and plan (1) Altered mental status Current Visit: Yes Status: Acute Assessment and plan: with intermittent confusion; able to answer some questions appropriate. Baseline mentation unknown but suspect he has some component of cognitive deficit at baseline. Mentation improved as of 05/03 exam. Previously had a sitter however will stop one-on-one as mentation appears to be improved. Patient remains pink slipped and may not leave AMA. Disposition will be challenging/complex as patient lives with a friend/neighbor who does not feel patient is able to return there as he cannot care for himself. Consult psych for competency evaluation (this may be challenging itself as patient is either on CIWA or consuming alcohol to avoid DVTs). Mentation improved as of 05/04. Evaluated by PT/OT who is recommending SNF. Qualifiers: Altered mental status type: delirium Qualified Code(s): R41.0 - Disorientation, unspecified (2) Generalized seizure Current Visit: Yes Status: Chronic Assessment and plan: secondary to medication noncompliance. Load with Keppra and EGD. No seizure recurrence while inpatient. Evaluated by neurology who recommended continuing Keppra. Seizure precautions (3) Alcohol withdrawal seizure Current Visit: Yes Status: Acute Assessment and plan: known hx etoh abuse. Presented after having seizure. Suspect breakthrough seizures are multifactorial with alcohol withdrawal and medication noncompliance Discussed with emergency contact, Olu Cerna; who reports patient drinks everyday and has known withdrawal symptoms without alcohol. Symptoms controlled with allowing 2 cans of beer per meal. Continue to monitor CIWA but stop Ativan. Nursing staff to notify provider if patient is triggering [place] for reevaluation. Qualifiers: Complication of substance-induced condition: uncomplicated Qualified Code(s ): F10.230 - Alcohol dependence with withdrawal, uncomplicated (4) COPD (chronic obstructive pulmonary disease) Current Visit: No Status: Chronic Assessment and plan: per hx. No evidence of exacerbation. Qualifiers: COPD type: emphysema Emphysema type: unspecified Qualified Code(s): J43.9 - Emphysema, unspecified (5) Tobacco abuse Current Visit: No Status: Chronic Assessment and plan: Current smoker. Cessation advised but not likely. Continue NRT (6) History of aortic valve replacement with bioprosthetic valve Current Visit: No Status: Chronic (7) DVT prophylaxis Current Visit: No Status: Acute Assessment and plan: ambulation - Time Spent With Patient Total time spent is greater than 50% in coordination of care (as documented) at patient's floor/unit and/or counseling patient: - Subjective Interval history: Seen and examined at bedside. Appears controlled. Initially he said he was not agreeable to snuff however after further discussion he is agreeable. No CP or SOB - Constitutional Vitals: Temp Pulse Resp BP Pulse Ox 98.0 F 89 17 118/73 97 05/05/18 14:59 05/05/18 14:59 05/05/18 14:59 05/05/18 14:59 05/05/18 14:59 General appearance: Present: cooperative, A&O X 2, A&O X 3, no acute distress. Absent: answers questions appropriately - Head Head exam: Present: atraumatic, normocephalic - Eye Eye exam: Present: PERRL, conjuntiva pink, sclera anicteric Pupils: Present: PERRL - Neck Neck exam general surgery: Present: supple, trachea midline. Absent: lymphadenopathy - Respiratory Respiratory exam: Present: CTAB. Absent: accessory muscle use, rales, rhonchi, wheezes - Cardiovascular Cardiovascular exam: Present: RRR, +S1, +S2. Absent: diastolic murmur, gallop, rubs, systolic murmur - GI/Abdominal GI/Abdominal exam: Present: normal bowel sounds, soft, no peritoneal signs. Absent: distended, tenderness - Extremities Exam Extremities exam: Present: warm, radial pulses palpable and symmetrical. Absent : calf tenderness, cyanotic, pedal edema - Neurological Exam Neurological exam: Present: CN II-XII intact, oriented X3, no focal deficits. Absent: pronater drift, facial droop, speech deficit - Skin Skin exam: Present: dry, intact Internal Medicine: Result - Labs CBC & Chem 7: 05/04/18 06:01 05/04/18 06:01 Consult Discharge Plan - Plan Referrals: Joshua Scott DO [Resident] - 05/23/18 2:00 pm NONE,PCP [Primary Care Provider] -
--- NOTE | 2018-05-05 17:00 | Event Note ---
Date of Encounter: 05/05/18 Time of Encounter: 17:00 Mentation appears to be back to baseline. Alert and oriented 4. Denies suicidal ideation. No aggressiveness or combativeness., Cooperative with care. He is agreeable for SNF. Discontinue sitter. No need for pink slipped
[2018-05-05] MEDS: *HR* HYDROcodone/Acet 5/325 mg TABLET PO PRN (21:53)
[2018-05-05] MEDS: OLANZapine 5 MG TAB.RAPDIS PO SCH (21:53)
[2018-05-05] MEDS: Nicotine 21 MG PATCH.TD24 TD SCH (21:54)
[2018-05-06] MEDS: levETIRAcetam 250 MG TABLET PO SCH ×2 (09:01→21:50)
[2018-05-06] MEDS: Beer can PO SCH ×3 (09:01→17:34)
[2018-05-06] MEDS: Thiamine (B-1) 100 MG TABLET PO SCH (09:01)
[2018-05-06] MEDS: Folic Acid 1 MG TABLET PO SCH (09:01)
--- NOTE | 2018-05-06 16:45 | Internal Med Progress Note ---
Date of Encounter: 05/06/18 Time of Encounter: 16:43 - Assessment and plan (1) Altered mental status Current Visit: Yes Status: Acute Assessment and plan: with intermittent confusion; able to answer some questions appropriate. Baseline mentation unknown but suspect he has some component of cognitive deficit at baseline. Mentation improved as of 05/03 exam. Previously had a sitter however will stop one-on-one as mentation appears to be improved. Mentation improved as of 05/04. Evaluated by PT/OT who is recommending SNF. Qualifiers: Altered mental status type: delirium Qualified Code(s): R41.0 - Disorientation, unspecified (2) Generalized seizure Current Visit: Yes Status: Chronic Assessment and plan: secondary to medication noncompliance. Load with Keppra and ED. No seizure recurrence while inpatient. Evaluated by neurology who recommended continuing Keppra. Seizure precautions (3) Alcohol withdrawal seizure Current Visit: Yes Status: Acute Assessment and plan: known hx etoh abuse. Presented after having seizure. Suspect breakthrough seizures are multifactorial with alcohol withdrawal and medication noncompliance Discussed with emergency contact, Olu Cerna; who reports patient drinks everyday and has known withdrawal symptoms without alcohol. Symptoms controlled with allowing 2 cans of beer per meal. Continue to monitor CIWA but stop Ativan. Nursing staff to notify provider if patient is triggering [place] for reevaluation. Qualifiers: Complication of substance-induced condition: uncomplicated Qualified Code(s ): F10.230 - Alcohol dependence with withdrawal, uncomplicated (4) COPD (chronic obstructive pulmonary disease) Current Visit: No Status: Chronic Assessment and plan: per hx. No evidence of exacerbation. Qualifiers: COPD type: emphysema Emphysema type: unspecified Qualified Code(s): J43.9 - Emphysema, unspecified (5) Tobacco abuse Current Visit: No Status: Chronic Assessment and plan: Current smoker. Cessation advised but not likely. Continue NRT (6) History of aortic valve replacement with bioprosthetic valve Current Visit: No Status: Chronic (7) DVT prophylaxis Current Visit: No Status: Acute Assessment and plan: ambulation - Time Spent With Patient Total time spent is greater than 50% in coordination of care (as documented) at patient's floor/unit and/or counseling patient: - Subjective Interval history: Seen and examined at bedside. Sitting up in bed, appears comfortable. He is drinking a beer. He is still agreeable to go to SNF at discharge. He has no complaints besides wanting to leave. - Constitutional Vitals: Temp Pulse Resp BP Pulse Ox 97.7 F 83 15 115/69 97 05/06/18 15:20 05/06/18 15:20 05/06/18 15:20 05/06/18 15:20 05/06/18 15:20 General appearance: Present: cooperative, A&O X 2, A&O X 3, no acute distress. Absent: answers questions appropriately - Head Head exam: Present: atraumatic, normocephalic - Eye Eye exam: Present: PERRL, conjuntiva pink, sclera anicteric Pupils: Present: PERRL - Neck Neck exam general surgery: Present: supple, trachea midline. Absent: lymphadenopathy - Respiratory Respiratory exam: Present: CTAB. Absent: accessory muscle use, rales, rhonchi, wheezes - Cardiovascular Cardiovascular exam: Present: RRR, +S1, +S2. Absent: diastolic murmur, gallop, rubs, systolic murmur - GI/Abdominal GI/Abdominal exam: Present: normal bowel sounds, soft, no peritoneal signs. Absent: distended, tenderness - Extremities Exam Extremities exam: Present: warm, radial pulses palpable and symmetrical. Absent : calf tenderness, cyanotic, pedal edema - Neurological Exam Neurological exam: Present: CN II-XII intact, oriented X3, no focal deficits. Absent: pronater drift, facial droop, speech deficit - Skin Skin exam: Present: dry, intact Internal Medicine: Result - Labs CBC & Chem 7: 05/04/18 06:01 05/04/18 06:01 Consult Discharge Plan - Plan Referrals: Joshua Scott DO [Resident] - 05/23/18 2:00 pm NONE,PCP [Primary Care Provider] -
[2018-05-06] MEDS: OLANZapine 5 MG TAB.RAPDIS PO SCH (21:50)
[2018-05-06] MEDS: Nicotine 21 MG PATCH.TD24 TD SCH (21:51)
[2018-05-06] MEDS: *HR* HYDROcodone/Acet 5/325 mg TABLET PO PRN (22:09)
[2018-05-07 07:07] VITALS: BP 110/69
[2018-05-07] MEDS: levETIRAcetam 250 MG TABLET PO SCH (08:48)
[2018-05-07] MEDS: Thiamine (B-1) 100 MG TABLET PO SCH (08:48)
[2018-05-07] MEDS: Beer can PO SCH ×2 (08:48→12:07)
[2018-05-07] MEDS: Folic Acid 1 MG TABLET PO SCH (08:48)
[2018-05-07] MEDS: *HR* HYDROcodone/Acet 5/325 mg TABLET PO PRN (08:50)
--- NOTE | 2018-05-07 11:16 | Discharge Summary ---
Date of Encounter: 05/07/18 Time of Encounter: 11:16 - Discharge Diagnosis (1) Altered mental status Priority: Primary Status: Acute Assessment and Plan: with intermittent confusion; able to answer some questions appropriate. Baseline mentation unknown but suspect he has some component of cognitive deficit at baseline. Mentation improved as of 05/03 exam. Previously had a sitter however will stop one-on-one as mentation appears to be improved. Mentation improved to baseline as of 05/04. Evaluated by PT/OT who is recommended SNF. Qualifiers: Altered mental status type: delirium Qualified Code(s): R41.0 - Disorientation, unspecified (2) Generalized seizure Priority: Primary Status: Chronic Assessment and Plan: secondary to medication noncompliance. Loaded with Keppra in ED. No seizure recurrence while inpatient. Evaluated by neurology who recommended continuing Keppra (3) Alcohol withdrawal seizure Priority: Primary Status: Acute Assessment and Plan: known hx etoh abuse. Presented after having seizure. Suspect breakthrough seizures are multifactorial with alcohol withdrawal and medication noncompliance Discussed with emergency contact, Olu Cerna; who reports patient drinks everyday and has known withdrawal symptoms without alcohol. Symptoms controlled with allowing 2 cans of beer per meal. Recommend continuing 2 cans of beer per meal at [facility]. Qualifiers: Complication of substance-induced condition: uncomplicated Qualified Code(s ): F10.230 - Alcohol dependence with withdrawal, uncomplicated (4) COPD (chronic obstructive pulmonary disease) Priority: Primary Status: Chronic Assessment and Plan: per hx. No evidence of exacerbation. Qualifiers: COPD type: emphysema Emphysema type: unspecified Qualified Code(s): J43.9 - Emphysema, unspecified (5) Tobacco abuse Priority: Primary Status: Chronic Assessment and Plan: Current smoker. Cessation advised. Continue NRT (6) History of aortic valve replacement with bioprosthetic valve Priority: Secondary Status: Chronic Hospital course: See assessment and plan for Hospital course Discharge discussed with: patient (Seen and examined at bedside at. Says he feels "okay". He has no complaint. He is aware of plan to discharge to [facility] and is agreeable. Alert and oriented 4. Mentation appears to be back to baseline.) - Time Spent with Patient Total time spent providing and/or coordinating discharge services: - Discharge Medications Home Medications: LevETIRAcetam [Keppra] 1,000 mg PO BID #60 tablet 03/15/18 [Rx] Thiamine (B-1) [Vitamin B-1] 100 mg PO DAILY #30 tablet 03/15/18 [Rx] Folic Acid 1 mg PO DAILY tablet 03/20/18 [Rx] Naloxone [Narcan] 0.4 mg IVP Q2MIN PRN inj 03/20/18 [Rx] OLANZapine [Zyprexa Zydis] 5 mg PO HS #0 tab.rapdis 03/20/18 [Rx] Vitamin B Complex/Vit C/Vit E [Stresstab] 1 each PO DAILY tablet 03/20/18 [Rx] Gabapentin [Neurontin] 600 mg PO TID 04/29/18 [History] Lisinopril [Zestril] 10 mg PO DAILY 04/29/18 [History] Nicotine Patch [Nicoderm] 21 mg TD HS patch.td24 05/07/18 [Rx] Allergies/Adverse Reactions: 3 Allergy/AdvReac Type Severity Reaction Status Date / Time No Known Allergies Allergy Verified 03/17/18 05:05 Date of admission: 05/02/18 16:04 Primary care physician: PCP NONE Consults: 05/03/18 15:44 Consult to Physical Therapy [CONS] Routine Comment: Evaluate, develop and implement POC Reason for Consult: Generalized weakness and physical debility. May benefit from SNF Does patient have active BEDREST order?: No Is patient medically & hemodynamically stable?: Yes OT [Consult to Occupational Therapy] [CONS] Routine Comment: Evaluate, develop and implement POC Reason for Consult: Generalized weakness and physical debility. May benefit from SNF Does patient have active BEDREST order?: No Is patient medically & hemodynamically stable?: Yes 05/03/18 15:51 Consult to Psychiatry [CONS] Routine Consulting Provider: Psychiatry Seda Reason for Consult: Competency evaluation Call Completed: Yes Discharging clinician: Loly Espinoza Anticipated date of discharge: 05/07/18 - Constitutional Vitals: Temp Pulse Resp BP Pulse Ox 97.6 F 71 16 110/69 99 05/07/18 07:04 05/07/18 07:04 05/07/18 07:04 05/07/18 07:04 05/07/18 07:04 General appearance: Present: cooperative, A&O X 3, no acute distress. Absent: answers questions appropriately - Head Head exam: Present: atraumatic, normocephalic - Eye Eye exam: Present: PERRL, conjuntiva pink, sclera anicteric Pupils: Present: PERRL - Neck Neck exam general surgery: Present: supple, trachea midline. Absent: lymphadenopathy - Respiratory Respiratory exam: Present: CTAB. Absent: accessory muscle use, rales, rhonchi, wheezes - Cardiovascular Cardiovascular exam: Present: RRR, +S1, +S2. Absent: diastolic murmur, gallop, rubs, systolic murmur - GI/Abdominal GI/Abdominal exam: Present: normal bowel sounds, soft, no peritoneal signs. Absent: distended, tenderness - Extremities Exam Extremities exam: Present: warm, radial pulses palpable and symmetrical. Absent : calf tenderness, cyanotic, pedal edema - Neurological Exam Neurological exam: Present: CN II-XII intact, oriented X3, no focal deficits. Absent: pronater drift, facial droop, speech deficit - Skin Skin exam: Present: dry, intact - Patient Status Disposition: Transfer SNF Condition: Good Functional capacity at discharge: uses cane/walker Overall status at discharge: patient is progressing back to baseline - Discharge Instructions Follow Up With: Joshua Scott DO [Resident] - 05/23/18 2:00 pm NONE,PCP [Primary Care Provider] - - Diet and Activity Activity: as per physical therapy Diet: regular diet
--- NOTE | 2018-05-07 12:07 | Physician Discharge Referral ---
ExtendedCare Referral Info Transfer To: SNF Provider in Charge: Loly Espinoza CNP Provider in Charge after Transfer: PCP Institutional Level of Care: Skilled - Diagnosis (1) Altered mental status Status: Acute (2) Generalized seizure Status: Chronic (3) Alcohol withdrawal seizure Status: Acute (4) COPD (chronic obstructive pulmonary disease) Status: Chronic (5) Tobacco abuse Status: Chronic (6) History of aortic valve replacement with bioprosthetic valve Status: Chronic - Transfer Medications Home Medications: LevETIRAcetam [Keppra] 1,000 mg PO BID #60 tablet 03/15/18 [Rx] Thiamine (B-1) [Vitamin B-1] 100 mg PO DAILY #30 tablet 03/15/18 [Rx] Folic Acid 1 mg PO DAILY tablet 03/20/18 [Rx] Naloxone [Narcan] 0.4 mg IVP Q2MIN PRN inj 03/20/18 [Rx] OLANZapine [Zyprexa Zydis] 5 mg PO HS #0 tab.rapdis 03/20/18 [Rx] Vitamin B Complex/Vit C/Vit E [Stresstab] 1 each PO DAILY tablet 03/20/18 [Rx] Gabapentin [Neurontin] 600 mg PO TID 04/29/18 [History] Lisinopril [Zestril] 10 mg PO DAILY 04/29/18 [History] Nicotine Patch [Nicoderm] 21 mg TD HS patch.td24 05/07/18 [Rx] Allergies/Adverse Reactions: 3 Allergy/AdvReac Type Severity Reaction Status Date / Time No Known Allergies Allergy Verified 03/17/18 05:05 - Respiratory Orders None Smoking Cessation: Smoking cessation has been advised. For more information, call the [place] Tobacco Quit Line at 7-333-CWFY-NOW. - Advance Directives Code Status: Full Code - Mobility Orders Ambulate - Rehabiliation Orders Rehab Orders: Evaluation for Physical Therapy, Evaluation for Occupational Therapy - Diet Orders Regular (Okay to allow 2 beers per meal) CERTIFICATION: I certify that the transfer of the above named patient to an Extended Care Facility is necessary for the continuing treatment of the diagnosis listed. The above information is true and accurate reflection of patient's current condition. Confidential - Redisclosure prohibited without a patient's written consent.
== END 2018-05-07 14:35 | DRG 775 ==
LOC: EMEROO 07:20 → 3BNU 07:20
PROVIDERS: ADMIT Family Medicine; ATTEND Family Medicine

== ENCOUNTER 2018-10-14 13:44 | Inpatient (IN) ==
--- NOTE | 2018-10-14 14:46 | Emergency Department Note ---
Disposition Clinical Impression: Seizure Altered mental status Qualifiers: Altered mental status type: unspecified Qualified Code(s): R41.82 - Altered mental status, unspecified Alcohol intoxication Qualifiers: Complication of substance-induced condition: with unspecified complication Qualified Code(s): F10.929 - Alcohol use, unspecified with intoxication, unspecified Anemia Qualifiers: Anemia type: unspecified type Qualified Code(s): D64.9 - Anemia, unspecified Disposition: Admitted As Inpatient Condition: Fair Referrals: NONE,PCP [Primary Care Provider] - Forms: ED Satisfaction Letter Time of Disposition: 18:16 Altered Mental Status HPI - General Chief Complaint: ED Altered Mental Status Time Seen by Provider: 10/14/18 14:15 Source: EMS Mode of arrival: EMS Limitations: altered mental status Nursing Notes Reviewed: Yes Vital Signs Reviewed: Yes - History of Present Illness HPI Narrative: Patient is a 53-year-old male that presents to the emergency department via EMS. There is reported that he was found hugging a gas can or a gas pump. Patient is not able to provide any other history at this time due to having altered mentation. Patient does smell like alcohol upon initial entry to the room. Patient does have a known seizure disorder as well as being a chronic alcoholic. - Related Data Home Medications Medication Instructions Recorded Confirmed Albuterol Sulfate [Ventolin Hfa] 2 puff IH Q4H PRN 10/14/18 Carvedilol 3.125 mg PO BID 10/14/18 Previous Rx's Medication Instructions Recorded LevETIRAcetam [Keppra] 1,000 mg PO BID #60 tablet 03/15/18 Allergies Allergy/AdvReac Type Severity Reaction Status Date / Time No Known Allergies Allergy Verified 03/17/18 05:05 All systems ED: reviewed and negative except as stated. Limitations: ROS unobtainable due to patients medical condition Past Medical History - Past Medical History Medical history: Reports: cardiomyopathy, CHF, COPD, coronary artery disease, hypertension, liver disease, myocardial infarction, seizures, valvular heart disease, other Surgical history: Reports: heart valve replacement, orthopedic, other Psychiatric history: Reports: no psych history - Social History Smoking Status: Current every day smoker Smokeless Tobacco Status: No Alcohol use: Reports: heavy, recent Drug use: Reports: none Physical Exam - General Limitations: altered mental status General appearance: appears intoxicated - Head Head exam: atraumatic, normocephalic - Eye Eye exam: Present: normal appearance, EOMI - Neck Neck exam: Present: normal inspection, full ROM - Respiratory Respiratory exam: Present: normal lung sounds bilaterally. Absent: respiratory distress, wheezes - Cardiovascular Cardiovascular exam: Present: regular rate, normal rhythm, normal heart sounds, +S1, +S2 - Abdominal Exam Abdominal exam: Present: soft, Non-Tender, normal bowel sounds - Neurological Exam Neurological exam: Absent: alert, oriented X3 - Psychiatric Psychiatric exam: Present: normal affect, normal mood - Skin Skin exam: Present: warm, dry, intact Course Vital Signs Temperature 97.1 F L 10/14/18 14:07 Pulse Rate 94 10/14/18 14:07 Respiratory Rate 20 10/14/18 14:07 Blood Pressure 128/105 10/14/18 14:07 O2 Sat by Pulse Oximetry 92 10/14/18 14:07 Temperature 98.6 F 10/14/18 17:00 Pulse Rate 98 10/14/18 17:00 Respiratory Rate 20 10/14/18 17:00 Blood Pressure 180/88 10/14/18 17:00 O2 Sat by Pulse Oximetry 100 10/14/18 17:00 Oxygen Delivery Oxygen Delivery Non Rebreather Mask Altered Mental Status - MDM Narrative Medical decision making narrative: Due the patient's and into the emergency department with altered mentation we will obtain basic laboratory testing, CT of the head, ammonia, UDS, urinalysis and the patient will be given thiamine. His initial glucose here in the emergency department was 87. CT of the head was negative for acute findings. The patient did have a mildly elevated ammonia at 59. Patient had an elevated AST. Patient does not have an elevated white count at this time. Patient does not have evidence of a urinary tract infection. He does have an elevated ethanol level of 83. Patient's bicarbonate is 18. However this does appear to be intermittently at the patient's baseline. Patient had multiple seizures while here in the emergency department requiring dose of Ativan. Patient was also loaded with 1 g of Keppra. Patient's mentation did improve somewhat while here in the emergency department. I feel the patient is likely postictal from having multiple seizures. The patient will need to be admitted to the hospital for further evaluation and management of his altered mentation and seizures. It is unclear whether or not the patient has been taking his antiseizure medications. I called spoke the admitting hospitalist Dr. Jimenes and she is accepted the patient to their service or patient be admitted to the hospital this time for further evaluation and management. - Medical Records Medical records reviewed: Yes I reviewed the patient's medical records. - Lab Data Lab results reviewed: Yes I reviewed the patient's lab results. Result diagrams: 10/14/18 14:30 10/14/18 15:45 Lab Results 10/14/18 10/14/18 10/14/18 Range/Units 14:30 14:30 14:30 WBC 4.6 (4.3-11.1) K/mcL RBC 4.05 L (4.19-5.50) M/mcL Hgb 12.3 L (12.9-16.9) g/dL Hct 38.0 (37.5-50.1) % MCV 93.8 (83.0-100.0) fL MCH 30.4 (28.0-33.3) pg MCHC 32.4 (31.6-35.5) g/dL RDW 17.6 H (11.5-14.5) % Plt Count 168 (140-400) K/mcL MPV 10.9 (9.4-12.4) fL Immature Gran % 0.2 (0-4) % Seg Neutrophils % 70.1 % Lymphocytes % 20.0 % Monocytes % 7.8 % Eosinophils % 0.4 % Basophils % 1.5 % Neutrophils # 3.2 (1.6-8.9) K/mcL Lymphocytes # 0.9 (0.6-4.6) K/mcL Monocytes # 0.4 (0.0-1.3) K/mcL Eosinophils # 0.0 (0.0-0.6) K/mcL Basophils # 0.1 (0.0-0.2) K/mcL PT 10.9 (9.4-12.1) Seconds INR 1.0 Sodium (136-145) mEq/L Potassium (3.5-5.1) mEq/L Chloride (98-107) mEq/L Carbon Dioxide (23-29) mEq/L BUN (6-20) mg/dL Creatinine (0.70-1.30) mg/dL Est GFR ( Amer) (> 60) Est GFR (Non-Af Amer) (> 60) BUN/Creatinine Ratio (6-26) Glucose (70-105) mg/dL Calculated Osmolality (280-300) Calcium (8.6-10.3) mg/dL Total Bilirubin (0.3-1.0) mg/dL Direct Bilirubin (0.0-0.2) mg/dL Indirect Bilirubin (0.0-1.2) mg/dL AST (13-39) Units/L ALT (7-52) Units/L Alkaline Phosphatase (34-104) Units/L Ammonia (16-53) mcmol/L Troponin I (< 0.04) ng/mL Serum Total Protein (6.4-8.9) g/dL Albumin (3.5-5.7) g/dL Globulin (2.4-3.5) g/dL Albumin/Globulin Ratio (1.1-2.2) Urine Color (Yellow) Urine Clarity (Clear) Urine pH (5.0-8.0) pH Units Ur Specific [place] (1.010-1.025) Urine Protein (Neg-Trace) mg/dL Urine Glucose (UA) (Normal) mg/dL Urine Ketones (Negative) mg/dL Urine Blood (Negative) Urine Nitrite (Negative) Urine Bilirubin (Negative) Urine Urobilinogen (Normal) mg/dL Ur Leukocyte Esterase (Negative) Urine Microscopic RBC (0-3) per hpf Urine Microscopic WBC (0-3) per hpf Ur Squamous Epith Cells (None-Few) per lpf Urine Bacteria (None-Few) per hpf Hyaline Casts (None-Few) per lpf Ur Culture Indicated? (NO) Urine Opiates Screen (Avywmj=577) ng/mL Ur Barbiturates Screen (Agosmk=850) ng/mL Ur Phencyclidine Scrn (Cutoff=25) ng/mL Ur Amphetamines Screen (Edbyvf=9471) ng/mL U Benzodiazepines Scrn (Iunxwk=982) ng/mL Urine Cocaine Screen (Cutoff= 300) ng/mL U Marijuana (THC) Screen (Cutoff = 50) ng/mL Ur Drug Screen Interp Ethyl Alcohol (Less than 10) mg/dL Specimen Rejected Hemolyzed 10/14/18 10/14/18 10/14/18 Range/Units 15:45 15:45 16:07 WBC (4.3-11.1) K/mcL RBC (4.19-5.50) M/mcL Hgb (12.9-16.9) g/dL Hct (37.5-50.1) % MCV (83.0-100.0) fL MCH (28.0-33.3) pg MCHC (31.6-35.5) g/dL RDW (11.5-14.5) % Plt Count (140-400) K/mcL MPV (9.4-12.4) fL Immature Gran % (0-4) % Seg Neutrophils % % Lymphocytes % % Monocytes % % Eosinophils % % Basophils % % Neutrophils # (1.6-8.9) K/mcL Lymphocytes # (0.6-4.6) K/mcL Monocytes # (0.0-1.3) K/mcL Eosinophils # (0.0-0.6) K/mcL Basophils # (0.0-0.2) K/mcL PT (9.4-12.1) Seconds INR Sodium 140 (136-145) mEq/L Potassium 4.2 (3.5-5.1) mEq/L Chloride 104 (98-107) mEq/L Carbon Dioxide 18 L (23-29) mEq/L BUN 5 L (6-20) mg/dL Creatinine 0.68 L (0.70-1.30) mg/dL Est GFR ( Amer) > 60 (> 60) Est GFR (Non-Af Amer) > 60 (> 60) BUN/Creatinine Ratio 7 (6-26) Glucose 86 (70-105) mg/dL Calculated Osmolality 287 (280-300) Calcium 8.8 (8.6-10.3) mg/dL Total Bilirubin 0.4 (0.3-1.0) mg/dL Direct Bilirubin 0.1 (0.0-0.2) mg/dL Indirect Bilirubin 0.3 (0.0-1.2) mg/dL AST 87 H (13-39) Units/L ALT 42 (7-52) Units/L Alkaline Phosphatase 62 (34-104) Units/L Ammonia 59 H (16-53) mcmol/L Troponin I < 0.03 (< 0.04) ng/mL Serum Total Protein 7.3 (6.4-8.9) g/dL Albumin 4.3 (3.5-5.7) g/dL Globulin 3.0 (2.4-3.5) g/dL Albumin/Globulin Ratio 1.4 (1.1-2.2) Urine Color Yellow (Yellow) Urine Clarity Clear (Clear) Urine pH 5.0 (5.0-8.0) pH Units Ur Specific [place] 1.018 (1.010-1.025) Urine Protein 100 H (Neg-Trace) mg/dL Urine Glucose (UA) Normal (Normal) mg/dL Urine Ketones Negative (Negative) mg/dL Urine Blood Trace H (Negative) Urine Nitrite Negative (Negative) Urine Bilirubin Negative (Negative) Urine Urobilinogen Normal (Normal) mg/dL Ur Leukocyte Esterase Negative (Negative) Urine Microscopic RBC 3-5 H (0-3) per hpf Urine Microscopic WBC 0-3 (0-3) per hpf Ur Squamous Epith Cells Moderate H (None-Few) per lpf Urine Bacteria None Seen (None-Few) per hpf Hyaline Casts None Seen (None-Few) per lpf Ur Culture Indicated? NO (NO) Urine Opiates Screen (Emjsth=481) ng/mL Ur Barbiturates Screen (Baignf=284) ng/mL Ur Phencyclidine Scrn (Cutoff=25) ng/mL Ur Amphetamines Screen (Hdchgr=2824) ng/mL U Benzodiazepines Scrn (Flxklq=997) ng/mL Urine Cocaine Screen (Cutoff= 300) ng/mL U Marijuana (THC) Screen (Cutoff = 50) ng/mL Ur Drug Screen Interp Ethyl Alcohol 83 H (Less than 10) mg/dL Specimen Rejected 10/14/18 Range/Units 16:07 WBC (4.3-11.1) K/mcL RBC (4.19-5.50) M/mcL Hgb (12.9-16.9) g/dL Hct (37.5-50.1) % MCV (83.0-100.0) fL MCH (28.0-33.3) pg MCHC (31.6-35.5) g/dL RDW (11.5-14.5) % Plt Count (140-400) K/mcL MPV (9.4-12.4) fL Immature Gran % (0-4) % Seg Neutrophils % % Lymphocytes % % Monocytes % % Eosinophils % % Basophils % % Neutrophils # (1.6-8.9) K/mcL Lymphocytes # (0.6-4.6) K/mcL Monocytes # (0.0-1.3) K/mcL Eosinophils # (0.0-0.6) K/mcL Basophils # (0.0-0.2) K/mcL PT (9.4-12.1) Seconds INR Sodium (136-145) mEq/L Potassium (3.5-5.1) mEq/L Chloride (98-107) mEq/L Carbon Dioxide (23-29) mEq/L BUN (6-20) mg/dL Creatinine (0.70-1.30) mg/dL Est GFR ( Amer) (> 60) Est GFR (Non-Af Amer) (> 60) BUN/Creatinine Ratio (6-26) Glucose (70-105) mg/dL Calculated Osmolality (280-300) Calcium (8.6-10.3) mg/dL Total Bilirubin (0.3-1.0) mg/dL Direct Bilirubin (0.0-0.2) mg/dL Indirect Bilirubin (0.0-1.2) mg/dL AST (13-39) Units/L ALT (7-52) Units/L Alkaline Phosphatase (34-104) Units/L Ammonia (16-53) mcmol/L Troponin I (< 0.04) ng/mL Serum Total Protein (6.4-8.9) g/dL Albumin (3.5-5.7) g/dL Globulin (2.4-3.5) g/dL Albumin/Globulin Ratio (1.1-2.2) Urine Color (Yellow) Urine Clarity (Clear) Urine pH (5.0-8.0) pH Units Ur Specific [place] (1.010-1.025) Urine Protein (Neg-Trace) mg/dL Urine Glucose (UA) (Normal) mg/dL Urine Ketones (Negative) mg/dL Urine Blood (Negative) Urine Nitrite (Negative) Urine Bilirubin (Negative) Urine Urobilinogen (Normal) mg/dL Ur Leukocyte Esterase (Negative) Urine Microscopic RBC (0-3) per hpf Urine Microscopic WBC (0-3) per hpf Ur Squamous Epith Cells (None-Few) per lpf Urine Bacteria (None-Few) per hpf Hyaline Casts (None-Few) per lpf Ur Culture Indicated? (NO) Urine Opiates Screen Negative (Elwplw=237) ng/mL Ur Barbiturates Screen Negative (Fcyzgk=737) ng/mL Ur Phencyclidine Scrn Negative (Cutoff=25) ng/mL Ur Amphetamines Screen Negative (Uqcmcy=0629) ng/mL U Benzodiazepines Scrn Negative (Xyvycu=812) ng/mL Urine Cocaine Screen Negative (Cutoff= 300) ng/mL U Marijuana (THC) Screen Negative (Cutoff = 50) ng/mL Ur Drug Screen Interp See Below Ethyl Alcohol (Less than 10) mg/dL Specimen Rejected - Radiology Data Radiology results reviewed: Yes I reviewed the patient's radiology results. Chest X-Ray 10/14/18 14:16 IMPRESSION: No acute process. D/ / Danis Pollock MD / Danis Pollock MD Interpreting Provider: Danis Pollock MD Head CT 10/14/18 14:49 IMPRESSION: 1. No acute intracranial abnormality. 2. Diffuse cerebral atrophy. D/ / Chau Soot MD / Chau Soto MD Interpreting Provider: Chau Soto MD - EKG Data EKG attestation: Yes I reviewed and interpreted this EKG. EKG results narrative: EKG showed a sinus rhythm at a rate of 91 bpm, CT interval 151, qrs duration of 88, QTc of 477. No evidence of STEMI on EKG. Occasional PVC present TPA Checklist - LKW: 3-4.5 hrs Add. Warnings/Precautions Patient/family understanding: The patient/family members have been counseled and understood the risk, benefit, and alternatives of treatment. Attestation Statement - Attestation Attestation: I examined this patient and my medical decision-making was reviewed with the Resident Physician. I agree with the documented findings, disposition and treatment plan as described except to the extent set forth below. 53-year-old male brought to ED by EMS with altered mental status. Details are o n the situation unclear. He was not speaking to anyone and uncertain as whether was a trauma. Patient is unable to give any information regarding his history of present illness or past medical history. Based on chart review he does have history of seizures and chronic alcohol abuse. Last visit revealed medications including Keppra and thiamine. Poorly kempt male in no apparent distress. He attempts to speak with his words and compresses. He is membranes are dry. Pupils equal react to light. Extraocular movements are intact. He has some midline drift of the right eye when trying to stand lateral gaze. Chest is clear to auscultation bilaterally. Abdomen soft nondistended nontender. Extremities warm and dry. Neurologic exam is nonfocal. He had 2 witnessed seizures in the ED an IV Keppra was administered along with IV Ativan. He was given IV thiamine and multivitamins. CT of his head was negative for any acute process. Alcohol level was 89. He did not exhibit any tachycardia or hyperthermia to suggest this was related to alcohol withdrawal but that would have to be a consideration. Mental status did improve but did not normalize and he will be admitted for further evaluation.
[2018-10-14 14:59] LABS: Basophils # 0.1 K/mcL (0.0-0.2); Basophils % 1.5 %; Eosinophils % 0.4 %; Hemoglobin 12.3 g/dL (12.9-16.9); Immature Granulocytes % 0.2 % (0-4); Lymphocytes # 0.9 K/mcL (0.6-4.6); Mean Corpuscular HGB Conc 32.4 g/dL (31.6-35.5); Mean Corpuscular Hemoglobin 30.4 pg (28.0-33.3); Mean Corpuscular Volume 93.8 fL (83.0-100.0); Mean Platelet Volume 10.9 fL (9.4-12.4); Monocytes # 0.4 K/mcL (0.0-1.3); Monocytes % 7.8 %; Neutrophils # 3.2 K/mcL (1.6-8.9); Platelet Count 168 K/mcL (140-400); Red Blood Count 4.05 M/mcL (4.19-5.50); Red Cell Distribution Width 17.6 % (11.5-14.5); Segmented Neutrophils % 70.1 %
[2018-10-14 15:09] LABS: Prothrombin Time 10.9 Seconds (9.4-12.1)
[2018-10-14] MEDS ORDERED: Thiamine (B-1) 100 MG, Folic Acid 1 MG, MVI, adult with vitamin K 10 ML in 0.9 % Sodi... IVPB STA (15:46)
[2018-10-14] MEDS ORDERED: *HR* LORazepam 2 MG/ML VIAL ONE (15:55)
[2018-10-14] MEDS ORDERED: *HR* LORazepam 2 MG/ML VIAL IVP ONE (15:56)
[2018-10-14] MEDS ORDERED: levETIRAcetam 1,000 MG in 0.9 % Sodium Chloride 100 ML IVPB ONE (15:56)
[2018-10-14 16:17] LABS: Bilirubin,Urine Negative (Negative); Blood,Urine Trace (Negative); Clarity,Urine Clear (Clear); Color,Urine Yellow (Yellow); Glucose,Urine (UA) Normal (Normal); Ketones,Urine Negative (Negative); Leukocyte Esterase,Urine Negative (Negative); Nitrite,Urine Negative (Negative); Protein,Urine 100 mg/dL (Neg-Trace); Specific Gravity,Urine 1.018 (1.010-1.025); Urobilinogen,Urine Normal (Normal)
[2018-10-14 16:20] LABS: Bacteria,Urine None Seen per hpf (None-Few); Hyaline Casts,Urine None Seen per lpf (None-Few); Squamous Epithelial Cell,Urine Moderate per lpf (None-Few); WBC,Urine 0-3 per hpf (0-3)
[2018-10-14 16:27] LABS: Amphetamine Screen,Urine Negative ng/mL (Cutoff=1000); Barbiturate Screen,Urine Negative ng/mL (Cutoff=200); Benzodiazepines Screen,Urine Negative ng/mL (Cutoff=200); Cannabinoid Screen,Urine Negative ng/mL (Cutoff = 50); Cocaine Screen,Urine Negative ng/mL (Cutoff= 300); Opiate Screen,Urine Negative ng/mL (Cutoff=300); Phencyclidine Screen,Urine Negative ng/mL (Cutoff=25)
[2018-10-14 16:45] LABS: Alanine Aminotransferase 42 Units/L (7-52); Albumin 4.3 g/dL (3.5-5.7); Albumin/Globulin Ratio 1.4 (1.1-2.2); Alkaline Phosphatase 62 Units/L (34-104); Aspartate Amino Transferase 87 Units/L (13-39); BUN/Creatinine Ratio 7 (6-26); Bilirubin,Direct 0.1 mg/dL (0.0-0.2); Bilirubin,Indirect 0.3 mg/dL (0.0-1.2); Bilirubin,Total 0.4 mg/dL (0.3-1.0); Blood Urea Nitrogen 5 mg/dL (6-20); Calcium 8.8 mg/dL (8.6-10.3); Carbon Dioxide 18 mEq/L (23-29); Chloride 104 mEq/L (98-107); Ethanol 83 mg/dL (Less than 10); Glucose 86 mg/dL (70-105); Osmolality,Calculated 287 (280-300); Potassium 4.2 mEq/L (3.5-5.1); Sodium 140 mEq/L (136-145); Total Protein 7.3 g/dL (6.4-8.9); eGFR For Non-African Americans > 60 (> 60)
[2018-10-14 16:55] LABS: Troponin I < 0.03 ng/mL (< 0.04)
[2018-10-14] MEDS ORDERED: Ondansetron 4 MG/2 ML VIAL IVP ONE (17:55)
[2018-10-14] MEDS ORDERED: Thiamine (B-1) 100 MG, Folic Acid 1 MG, MVI, adult with vitamin K 10 ML in 0.9 % Sodi... IVPB SCH (18:00)
[2018-10-14] MEDS ORDERED: Acetaminophen 325 MG TABLET PO PRN (19:07)
[2018-10-14] MEDS ORDERED: Naloxone 0.4 MG/ML INJ IVP PRN (19:07)
[2018-10-14] MEDS ORDERED: *HR* LORazepam 2 MG/ML VIAL IVP PRN ×3 (19:08)
--- NOTE | 2018-10-14 19:19 | Internal Med History&Physical ---
Date of Encounter: 10/14/18 Time of Encounter: 19:13 Internal Medicine - H&P: HPI Chief complaint: altered mental status Admitted From: Emergency Dept Plans for Post Hospital Care: Home History of present illness: Mr. Rose is a 53 year old male with history of alcohol abuse and seizure disorder, bioprosthetic aortic valve, hypertension, COPD, who presented to the ED with altered mental status via EMS. Per the ED staff the patient apparently was in some woman's backyard hugging a "gas tank". She called the business intelligence director and was altered to them and he was brought here by EMS. It is suspected the patient had some seizure episodes prior to his arrival in route to here. He has had a couple of seizure episodes in the ED and was given Ativan as well as Keppra. CT head came back with no acute findings. EKG with no acute ST or T-wave changes. The patient is supposedly on Keppra at home but he has a history of noncompl iance. The patient is lethargic and minimal history was obtained. He does know his name and knows that he is in a hospital but otherwise muscles of urine and alcohol. Alcohol level was in the 80s. Labs were mostly unremarkable for mildly elevated AST. Ammonia level was 59. The patient was here back in July for similar presentation due to alcohol withdrawals and seizures. He was evaluated by neurology at the time it was recommended that he stays on his Keppra and no changes were made. An EEG back in April showed no clear epileptiform discharges. Past Med Surg Social Fam HX - Past Medical History Medical history: cardiomyopathy, CHF, COPD, coronary artery disease, hypertension, liver disease, myocardial infarction, seizures, valvular heart disease, other Additional medical history: ETOH abuse Psychiatric history: no psych history - Past Surgical History Surgical History: heart valve replacement, orthopedic, other Additional surgical history: trach - Social History Smoking Status: Current every day smoker Smokeless Tobacco Status: No Alcohol use: heavy, recent Drug use: none - Family History Father Family Member Ethnicity: Non- Living Status: Hx Family Cardiac Disorders: Yes ([place]) Mother Family Member Ethnicity: Non- Living Status: Hx Family Cardiac Disorders: Yes (mother heart atttack) Hx Family Respiratory Disorders: No Hx Family Cancer: No Hx Family GI Disorders: No Hx Family Endocrine Disorder: No Hx Family Neuromuscular Disorders: No Hx Family Neurologic Disorders: No Hx Family HEENT Disorders: No Hx Family Autoimmune Disorders: No Internal Medicine - H&P: Meds LevETIRAcetam [Keppra] 1,000 mg PO BID #60 tablet 03/15/18 [Rx] Albuterol Sulfate [Ventolin Hfa] 2 puff IH Q4H PRN 10/14/18 [History] Carvedilol 3.125 mg PO BID 10/14/18 [History] Allergy/AdvReac Type Severity Reaction Status Date / Time No Known Allergies Allergy Verified 03/17/18 05:05 ROS unobtainable: due to mental status All Systems PM: A 10-system review of systems was performed and is negative for pertinent findings except as documented above in the HPI. - Constitutional Vitals: Temp Pulse Resp BP Pulse Ox 98.6 F 98 20 180/88 100 10/14/18 17:00 10/14/18 17:00 10/14/18 17:00 10/14/18 17:00 10/14/18 17:00 Exam: GEN: NAD HEENT: AT, NC, No cyanosis, oral mucosa is moist, No JVD Lymphatics: No lymphadenoapthy Eyes: Anicteric. Horizontal nystagmus CVS:RRR. S1, S2, No m/r/g RESP: CTAB ABD: Soft, NT, ND, +BS EXT: No edema, No rashes, 2+ DP NEURO: Pupils are equal and reactive. Horizontal nystagmus noted. Otherwise patient is lethargic and follows minimal commands. Alert to self and knows that he is in the hospital. Psych: Lethargic Internal Med - H&P Results - Labs CBC & Chem 7: 10/14/18 14:30 10/14/18 15:45 Labs: Short CBC 10/14/18 Range/Units 14:30 WBC 4.6 (4.3-11.1) K/mcL Hgb 12.3 L (12.9-16.9) g/dL Hct 38.0 (37.5-50.1) % Plt Count 168 (140-400) K/mcL Neutrophils # 3.2 (1.6-8.9) K/mcL BMP 10/14/18 15:45 Sodium 140 Potassium 4.2 Chloride 104 Carbon Dioxide 18 L BUN 5 L Creatinine 0.68 L Glucose 86 Calcium 8.8 Cardiac Enzymes 10/14/18 Range/Units 15:45 Troponin I < 0.03 (< 0.04) ng/mL Liver Function 10/14/18 Range/Units 15:45 Total Bilirubin 0.4 (0.3-1.0) mg/dL Direct Bilirubin 0.1 (0.0-0.2) mg/dL AST 87 H (13-39) Units/L ALT 42 (7-52) Units/L Alkaline Phosphatase 62 (34-104) Units/L Albumin 4.3 (3.5-5.7) g/dL Urine 10/14/18 Range/Units 16:07 Urine Color Yellow (Yellow) Urine Clarity Clear (Clear) Urine pH 5.0 (5.0-8.0) pH Units Ur Specific [place] 1.018 (1.010-1.025) Urine Protein 100 H (Neg-Trace) mg/dL Urine Glucose (UA) Normal (Normal) mg/dL - Impressions ITS Impressions Chest X-Ray 10/14/18 14:16 IMPRESSION: No acute process. D/ / Danis Pollock MD / Danis Pollock MD Interpreting Provider: Danis Pollock MD Head CT 10/14/18 14:49 IMPRESSION: 1. No acute intracranial abnormality. 2. Diffuse cerebral atrophy. D/ / Chau Soto MD / Chau Soto MD Interpreting Provider: Chau Soto MD - Assessment and plan (1) Altered mental status Current Visit: Yes Status: Acute Assessment and plan: Likely due to seizure activities as he is postictal. CT head was negative. Will consult neurology. He does have mildly elevated ammonia level and I will give him some lactulose. Qualifiers: Altered mental status type: unspecified Qualified Code(s): R41.82 - Altered mental status, unspecified (2) Seizure Current Visit: No Status: Acute Assessment and plan: The patient has been given IV Keppra in the ED. We will resume his home Keppra. We will consult neurology. Not sure if Keppra level is informative right now as it was not checked initially. He was given IV Keppra in the ED. (3) Alcohol withdrawal Current Visit: No Status: Acute Assessment and plan: We will place patient on CIWA protocol. Qualifiers: Complication of substance-induced condition: with perceptual disturbance Qualified Code(s): F10.232 - Alcohol dependence with withdrawal with perceptual disturbance (4) Alcohol intoxication Current Visit: Yes Status: Chronic Assessment and plan: guest services associate consult Qualifiers: Complication of substance-induced condition: with unspecified complication Qualified Code(s): F10.929 - Alcohol use, unspecified with intoxication, unspecified (5) Elevated liver enzymes Current Visit: Yes Status: Acute Assessment and plan: Consistent with history of alcohol abuse. Chronic based on previous labs (6) Hyperammonemia Current Visit: Yes Status: Acute Assessment and plan: Will give lactulose x1. (7) Hypertension Current Visit: No Status: Chronic Assessment and plan: Resume home lisinopril. Patient's blood pressure was elevated with a diastolic of 105 initially and his systolic was 180 later in his stay. We will add hydralazine to be used PRN. Qualifiers: Hypertension type: essential hypertension Qualified Code(s): I10 - Essential (primary) hypertension (8) DVT prophylaxis Current Visit: No Status: Acute Assessment and plan: Heparin subcutaneous - Time Spent With Patient Total time spent is greater than 50% in coordination of care (as documented) at patient's floor/unit and/or counseling patient:
[2018-10-14] MEDS ORDERED: Lactulose Oral Soln 20 GM/30 ML UDC PO ONE (19:22)
[2018-10-14] MEDS: *HR* Heparin 5,000 UNIT/ML VIAL SQ SCH (21:57)
[2018-10-15 06:14] LABS: Basophils % 0.5 %; Hematocrit 35.3 % (37.5-50.1); Hemoglobin 11.7 g/dL (12.9-16.9); Immature Granulocytes % 0.2 % (0-4); Lymphocytes # 1.4 K/mcL (0.6-4.6); Lymphocytes % 16.9 %; Mean Corpuscular HGB Conc 33.1 g/dL (31.6-35.5); Mean Corpuscular Hemoglobin 29.9 pg (28.0-33.3); Mean Corpuscular Volume 90.3 fL (83.0-100.0); Mean Platelet Volume 11.4 fL (9.4-12.4); Monocytes # 0.8 K/mcL (0.0-1.3); Monocytes % 10.3 %; Neutrophils # 5.8 K/mcL (1.6-8.9); Platelet Count 169 K/mcL (140-400); Red Blood Count 3.91 M/mcL (4.19-5.50); Red Cell Distribution Width 16.8 % (11.5-14.5); Segmented Neutrophils % 72.1 %
[2018-10-15] MEDS: *HR* Heparin 5,000 UNIT/ML VIAL SQ SCH ×3 (06:14→21:23)
[2018-10-15 07:24] LABS: Thyroid Stimulating Hormone 1.173 mcIU/mL (0.340-5.600)
[2018-10-15 09:38] LABS: Alanine Aminotransferase 35 Units/L (7-52); Albumin 4.2 g/dL (3.5-5.7); Albumin/Globulin Ratio 1.4 (1.1-2.2); Alkaline Phosphatase 59 Units/L (34-104); Aspartate Amino Transferase 65 Units/L (13-39); BUN/Creatinine Ratio 10 (6-26); Bilirubin,Total 0.9 mg/dL (0.3-1.0); Blood Urea Nitrogen 7 mg/dL (6-20); Calcium 9.1 mg/dL (8.6-10.3); Carbon Dioxide 20 mEq/L (23-29); Chloride 103 mEq/L (98-107); Globulin 3.1 g/dL (2.4-3.5); Glucose 78 mg/dL (70-105); Magnesium 1.7 mg/dL (1.6-2.6); Osmolality,Calculated 281 (280-300); Potassium 3.9 mEq/L (3.5-5.1); Sodium 137 mEq/L (136-145); Total Protein 7.3 g/dL (6.4-8.9); eGFR For Non-African Americans > 60 (> 60)
[2018-10-15] MEDS: Lactulose Oral Soln 20 GM/30 ML UDC PO SCH ×2 (09:51→21:36)
--- NOTE | 2018-10-15 10:02 | Neurology - Consult Note ---
<Fredi Hodges - Last Filed: 10/15/18 09:57> Date of Encounter: 10/15/18 Time of Encounter: 09:57 Assessment and Plan (1) Seizure Status: Acute Neurological exam nonfocal, nonlateralizing CT head negative Furthermore patient gave me a completely different history than compared to the emergency department. Looking at the patient's history he has a history of alcohol withdrawal as well as breakthrough seizures due to alcohol withdrawal and noncompliance with medication. Likely this is the case again as he reports he does not take any antiepileptic medication. However during his last hospitalization on July 2018 he was on Keppra 1000 TWICE a day. Likely the seizure episode is secondary to noncompliance with Keppra We recommend continuing Keppra and no further testing is needed. (2) Alcoholic encephalopathy Status: Acute Patient likely his altered mental status from alcohol use. His ethanol level was 83. Patient has a right upper extremity tremor. Currently is alert and oriented 3. Management as per primary. (3) Alcohol withdrawal Status: Acute Qualifiers: Complication of substance-induced condition: with perceptual disturbance Qualified Code(s): F10.232 - Alcohol dependence with withdrawal with perceptual disturbance History of Present Illness Chief complaint: seizure HPI: Mr. Rose is a 53 year old male presents with chief complaint seizures. Currently patient is alert and oriented to self, place, time, situation. The history he gives me is: Patient was watching TV at 3:30 PM with his landlord when he reported falling from the sofa to the floor and started having shaking episode that lasted for 10 minutes. Patient reports she remembers the entire episode and did not have confusion after this shaking ended. He reports he has a history of seizures and according to EMR he takes Keppra however unclear if patient is compliant as he reported that he does not take any seizure medication at home. The patient denied tongue biting, loss of bowel or bladder function. He reports that his previous seizure before this episode was one week ago. He denies any head trauma and reports history of CVA. EMERGENCY department note states that patient was found in a woman's backyard hugging a gas tank and police were called and he was brought by EMS and he was seen to have seizure episodes prior to his arrival and had a couple of seizure episodes in the emergency department where he was given Ativan and Keppra. Pat ient also has a history of alcoholism with previous history of withdrawals. Past Med Surg Social Fam HX - Past Medical History Medical history: cardiomyopathy, CHF, COPD, coronary artery disease, hypertension, liver disease, myocardial infarction, seizures, valvular heart disease, other Additional medical history: ETOH abuse Psychiatric history: no psych history - Past Surgical History Surgical History: heart valve replacement, orthopedic, other Additional surgical history: trach - Social History Smoking Status: Current every day smoker Smokeless Tobacco Status: No Alcohol use: heavy, recent Drug use: none - Family History Father Family Member Ethnicity: Non- Living Status: Hx Family Cardiac Disorders: Yes (DE) Mother Family Member Ethnicity: Non- Living Status: Hx Family Cardiac Disorders: Yes (mother heart atttack) Hx Family Respiratory Disorders: No Hx Family Cancer: No Hx Family GI Disorders: No Hx Family Endocrine Disorder: No Hx Family Neuromuscular Disorders: No Hx Family Neurologic Disorders: No Hx Family HEENT Disorders: No Hx Family Autoimmune Disorders: No Medications and Allergies Albuterol Sulfate [Ventolin Hfa] 2 puff IH Q4H PRN 10/14/18 [History] Carvedilol 3.125 mg PO BID 10/14/18 [History] LevETIRAcetam [Keppra] 1,000 mg PO BID 30 Days #60 tablet 10/16/18 [Rx] Oxazepam 10 mg PO DAILY 2 Days #2 capsule 10/16/18 [Rx] Allergy/AdvReac Type Severity Reaction Status Date / Time No Known Allergies Allergy Verified 10/15/18 13:51 All Systems: The remainder of the systems were reviewed and are negative Review of Systems: Constitutional: Denies fever, chills HEENT: Denies headache, trauma, blurry vision, eye discharge, ear pain, ear discharge neck pain, sore throat, rhinorrhea Heart: Denies chest pain palpitations, LE edema Lungs: Denies shortness of breath cough Abdomen: Denies abdominal pain nausea vomiting diarrhea MSK: Denies back pain, falls, joint pain Kidney: Denies dysuria, hematuria Skin: Denies rash, ulcers Neuro: As per history of present illness Psych: denies axniety, depression Physical Examination - Vital Signs Vital Signs: Initial Vital Signs Temp Pulse Resp BP Pulse Ox 97.1 F L 94 20 128/105 92 10/14/18 14:07 10/14/18 14:07 10/14/18 14:07 10/14/18 14:07 10/14/18 14:07 - Exam Exam: General: pleasant, without distress HEENT: Head atraumatic, normocephalic, EOMI, PERRL, absent ear discharge or trauma, Moist Mucous Membranes, uvula midline Neck: nontender to palpation, absent lymphadenopathy, Cardiovascualr: Regular rate and rhythm with no murmur, absent gallops or rubs, absent pedal edema, radial pulses 2 out of 4 Lungs: Clear to auscultation bilaterally, not in respiratory distress Abdomen: Soft nontender, nondistended positive bowel sounds, absent hepatomegaly Skin: warm and dry, absent rash, absent open wounds and nodules MSK: absent clubbing, cyanosis, joints without swelling Psych: Poor insight, judgment. - Constitutional General appearance: comfortable - Neurologic Sensorimotor examination: intact Detailed motor examination: full strength in all major muscle groups Motor examination - right side: 5/5: deltoids, biceps, triceps, wrist flexion, wrist extension, backbreaker, hip flexors, tibialis Anterior, quadriceps, toe extension (EHL), plantarflexion Motor examination - left side: 5/5: deltoids, biceps, triceps, wrist flexion, wrist extension, hip flexors, backbreaker, quadriceps, tibialis Anterior, toe extension (EHL), plantarflexion Detailed sensory examination: intact Reflex and gait examination: intact Reflexes: Biceps: 2+, Triceps: 2+, Brachioradialis: 2+, Patella: 2+, Achilles: 2+ Mental Status Examination: awake, alert, oriented to person, oriented to place, oriented to time, follows commands appropriately, answers questions appropriately, no agnosia, no aphasia, no aproxia Cranial nerve examination: PERRL, EOMI, visual marr intact, sensory to face intact, mastication intact, no facial asymmetry is present, no dysarthria, hearing is intact symmetrically, soft palate elevates bilaterally upon phonation, flexes SCM and trapezius muscles symmetrically with full power, tongue protrudes midline, no atrophy or facial fasiculations present Cerebellar examination: no dysmetria, performs finger to nose and heel to jeter symmetrically without ataxia, no gait ataxia, no truncal ataxia, no difficulty with rapid alternating movements Tremor: right upper extremity Results - Laboratory Findings CBC and BMP: 11/14/18 05:09 10/15/18 05:09 Abnormal lab findings: Abnormal lab results RBC 3.91 M/mcL (4.19-5.50) L 10/15/18 05:09 Hgb 11.7 g/dL (12.9-16.9) L 10/15/18 05:09 Hct 35.3 % (37.5-50.1) L 10/15/18 05:09 RDW 16.8 % (11.5-14.5) H 10/15/18 05:09 Carbon Dioxide 20 mEq/L (23-29) L 10/15/18 05:09 Creatinine 0.69 mg/dL (0.70-1.30) L 10/15/18 05:09 AST 65 Units/L (13-39) H 10/15/18 05:09 Ammonia 59 mcmol/L (16-53) H 10/14/18 15:45 Urine Protein 100 mg/dL (Neg-Trace) H 10/14/18 16:07 Urine Blood Trace (Negative) H 10/14/18 16:07 Urine Microscopic RBC 3-5 per hpf (0-3) H 10/14/18 16:07 Ur Squamous Epith Cells Moderate per lpf (None-Few) H 10/14/18 16:07 Ethyl Alcohol 83 mg/dL (Less than 10) H 10/14/18 15:45 Consult Discharge Plan - Plan Instructions: Oxazepam (By mouth), Levetiracetam (By mouth), Non-epileptic Seizures (DC), Alcohol Withdrawal (DC) Referrals: NONE,PCP [Primary Care Provider] - Prescriptions: LevETIRAcetam [Keppra] 1,000 mg PO BID 30 Days #60 tablet Oxazepam 10 mg PO DAILY 2 Days #2 capsule <Ayesha Ahmadi I - Last Filed: 10/16/18 12:00> Date of Encounter: 10/15/18 Assessment and Plan (1) Seizure Status: Acute Pt was seen and examined, my medical decision was reviewed with the Resident Physician, I agree with the documented findings, disposition and treatment plas as described except to the extent set forth below. Patient now seems to be back to his baseline no clinical sign and symptoms office stroke neither any sign of meningitis or encephalitis he has been off his medication for more than a week is to drinking heavily off-and-on Emphasized importance of taking the medication regardless if he continued to drinking he may continue to have this seizures or nonconvulsive seizures even if he be taking the medication Probably would benefit from rehabilitation for long-term benefit. Patient should remain on seizure precautions Patient was asked not to drive until seizure-free for 6 months. Patient was asked not to work in close proximity of machines with moving parts, not to swim unsupervised, not to take tub baths or showers with water accumulation, and not to work at high places. , Ayesha Ahmadi MD History of Present Illness HPI: Mr. Rose is a 53 year old male All Systems: The remainder of the systems were reviewed and are negative Physical Examination - Vital Signs Vital Signs: Initial Vital Signs Temp Pulse Resp BP Pulse Ox 97.1 F L 94 20 128/105 92 10/14/18 14:07 10/14/18 14:07 10/14/18 14:07 10/14/18 14:07 10/14/18 14:07 Results - Laboratory Findings CBC and BMP: 10/16/18 06:18 10/16/18 06:18 Abnormal lab findings: Abnormal lab results RBC 3.91 M/mcL (4.19-5.50) L 10/15/18 05:09 Hgb 11.7 g/dL (12.9-16.9) L 10/15/18 05:09 Hct 35.3 % (37.5-50.1) L 10/15/18 05:09 RDW 16.8 % (11.5-14.5) H 10/15/18 05:09 Carbon Dioxide 20 mEq/L (23-29) L 10/15/18 05:09 Creatinine 0.69 mg/dL (0.70-1.30) L 10/15/18 05:09 AST 65 Units/L (13-39) H 10/15/18 05:09 Ammonia 59 mcmol/L (16-53) H 10/14/18 15:45 Urine Protein 100 mg/dL (Neg-Trace) H 10/14/18 16:07 Urine Blood Trace (Negative) H 10/14/18 16:07 Urine Microscopic RBC 3-5 per hpf (0-3) H 10/14/18 16:07 Ur Squamous Epith Cells Moderate per lpf (None-Few) H 10/14/18 16:07 Ethyl Alcohol 83 mg/dL (Less than 10) H 10/14/18 15:45
--- NOTE | 2018-10-15 15:21 | Internal Med Progress Note ---
Hospitalist Progress Note - Encounter Date of Encounter: 10/15/18 Time of Encounter: 15:18 - Subjective Interval History: I've seen and evaluated this patient at bedside. He reports that he has not taken any anti seizure medication for some time because he ran out of them and does not follow with a PCP. reports that his last week was about a week ago? denies visual or auditory hallucination. - Exam Vitals: Temp Pulse Resp BP Pulse Ox 98.1 F 78 15 110/75 96 10/15/18 11:28 10/15/18 11:28 10/15/18 04:36 10/15/18 11:28 10/15/18 11:28 Exam: Vitals: Reviewed. General: Alert and oriented x3. In no distress Skin: Normal color, no rash, no lesions. HEENT: EOM, pupils equal, round and reactive. Cardiovascular: RRR, Normal S1 & S2, no rubs, murmurs or gallops. Lungs: CTA bilaterally, no wheezes or crackles. Abdomen: Soft, non-tender, no rigidity. Extremities: No edema. Neurological: Normal cognition and motor skills. No resting or intentional tremors seem. Rest of the physical exam is non contributory - Assessment and Plan (1) Seizure Current Visit: Yes Status: Acute Assessment and Plan: due to medication non-compliance in the setting of alcohol withdrawal Plan Patient re-started on Levetiracetam 1g/PO BID Neurology evaluated the patient recommended no further interventions. (2) Alcohol withdrawal Current Visit: Yes Status: Acute Assessment and Plan: CIWA score of zero during mu evaluation continue CIWA protocol per pharmacy. (3) Alcoholic encephalopathy Current Visit: Yes Status: Resolved Assessment and Plan: started on lactulose 20mg/PO BID due to elevated ammonia level. DVT Prophylaxis: On heparin subcutaneous - Summary of Assessment and Plan Summary of Assessment and Plan: Will keep patient overnight for monitoring. Potential discharge tomorrow morning. - Time Spent with Patient Total time spent is greater than 50% in coordination of care (as documented) at patient's floor/unit and/or counseling patient: 25 - 35 minutes Plan of Care Discussed with: patient (and the nurse.) Internal Medicine: Result - Labs CBC & Chem 7: 10/15/18 05:09 10/15/18 05:09 Labs: Short CBC 10/15/18 Range/Units 05:09 WBC 8.1 D (4.3-11.1) K/mcL Hgb 11.7 L (12.9-16.9) g/dL Hct 35.3 L (37.5-50.1) % Plt Count 169 (140-400) K/mcL Neutrophils # 5.8 (1.6-8.9) K/mcL BMP 10/14/18 10/15/18 15:45 05:09 Sodium 140 137 Potassium 4.2 3.9 Chloride 104 103 Carbon Dioxide 18 L 20 L BUN 5 L 7 Creatinine 0.68 L 0.69 L Glucose 86 78 Calcium 8.8 9.1 Cardiac Enzymes 10/14/18 Range/Units 15:45 Troponin I < 0.03 (< 0.04) ng/mL Liver Function 10/14/18 10/15/18 Range/Units 15:45 05:09 Total Bilirubin 0.4 0.9 (0.3-1.0) mg/dL Direct Bilirubin 0.1 (0.0-0.2) mg/dL AST 87 H 65 H (13-39) Units/L ALT 42 35 (7-52) Units/L Alkaline Phosphatase 62 59 (34-104) Units/L Albumin 4.3 4.2 (3.5-5.7) g/dL Urine 10/14/18 Range/Units 16:07 Urine Color Yellow (Yellow) Urine Clarity Clear (Clear) Urine pH 5.0 (5.0-8.0) pH Units Ur Specific Stra[place]hn 1.018 (1.010-1.025) Urine Protein 100 H (Neg-Trace) mg/dL Urine Glucose (UA) Normal (Normal) mg/dL - ABG Interpretation ABG results: PT/INR, D-dimer PT 10.9 Seconds (9.4-12.1) 10/14/18 14:30 - Impressions Impressions Chest X-Ray 10/14/18 14:16 IMPRESSION: No acute process. D/ / Danis Pollock MD / Danis Pollock MD Interpreting Provider: Danis Pollock MD Head CT 10/14/18 14:49 IMPRESSION: 1. No acute intracranial abnormality. 2. Diffuse cerebral atrophy. D/ / Chau Soto MD / Chau Soto MD Interpreting Provider: Chau Soto MD Consult Discharge Plan - Plan Referrals: NONE,PCP [Primary Care Provider] - (2) Alcohol withdrawal Qualifiers: Complication of substance-induced condition: with perceptual disturbance Qualified Code(s): F10.232 - Alcohol dependence with withdrawal with perceptual disturbance
[2018-10-15] MEDS: levETIRAcetam 250 MG TABLET PO SCH (17:53)
[2018-10-15] MEDS ORDERED: Thiamine (B-1) 100 MG, Folic Acid 1 MG, MVI, adult with vitamin K 10 ML in 0.9 % Sodi... IVPB SCH (18:00)
--- NOTE | 2018-10-15 18:00 | Electrocardiograph Report ---
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
[2018-10-16] MEDS: *HR* Heparin 5,000 UNIT/ML VIAL SQ SCH (06:02)
[2018-10-16] MEDS: levETIRAcetam 250 MG TABLET PO SCH (06:02)
[2018-10-16 07:16] LABS: Basophils # 0.1 K/mcL (0.0-0.2); Basophils % 1.3 %; Eosinophils # 0.1 K/mcL (0.0-0.6); Eosinophils % 1.3 %; Hematocrit 37.7 % (37.5-50.1); Hemoglobin 12.4 g/dL (12.9-16.9); Immature Granulocytes % 0.2 % (0-4); Lymphocytes # 1.9 K/mcL (0.6-4.6); Lymphocytes % 39.5 %; Mean Corpuscular HGB Conc 32.9 g/dL (31.6-35.5); Mean Corpuscular Hemoglobin 30.1 pg (28.0-33.3); Mean Corpuscular Volume 91.5 fL (83.0-100.0); Mean Platelet Volume 11.5 fL (9.4-12.4); Monocytes # 0.5 K/mcL (0.0-1.3); Monocytes % 10.7 %; Neutrophils # 2.2 K/mcL (1.6-8.9); Platelet Count 131 K/mcL (140-400); Red Blood Count 4.12 M/mcL (4.19-5.50); Red Cell Distribution Width 16.1 % (11.5-14.5)
[2018-10-16 07:38] LABS: BUN/Creatinine Ratio 15 (6-26); Blood Urea Nitrogen 10 mg/dL (6-20); Calcium 9.9 mg/dL (8.6-10.3); Carbon Dioxide 22 mEq/L (23-29); Chloride 104 mEq/L (98-107); Glucose 90 mg/dL (70-105); Magnesium 1.8 mg/dL (1.6-2.6); Osmolality,Calculated 279 (280-300); Potassium 3.8 mEq/L (3.5-5.1); Sodium 135 mEq/L (136-145); eGFR For Non-African Americans > 60 (> 60)
[2018-10-16 08:21] VITALS: BP 132/83
[2018-10-16] MEDS: Lactulose Oral Soln 20 GM/30 ML UDC PO SCH (08:25)
--- NOTE | 2018-10-16 09:07 | Discharge Summary ---
- NOTES TO OUTPATIENT PROVIDER Notes to Outpatient Provider: Follow-up with neurologist within 1-2 weeks of hospital discharge. Orders not resulted at time of discharge: Pending orders 10/14/18 20:04 Keppra (Levetiracetam) Stat Date of Encounter: 10/16/18 Time of Encounter: 09:04 - Discharge Diagnosis (1) Seizure Priority: Primary Status: Acute (2) Alcohol withdrawal Priority: Primary Status: Resolved Qualifiers: Complication of substance-induced condition: with perceptual disturbance Qualified Code(s): F10.232 - Alcohol dependence with withdrawal with perceptual disturbance (3) Alcoholic encephalopathy Priority: Secondary Status: Resolved Hospital course: Mr. Rose is a 53 year old male history of alcohol abuse and seizure disorder, bioprosthetic aortic valve, hypertension, COPD, who presented to the ED with altered mental status via EMS. Patient admitted to the hospital due to alcohol intoxication and Seizures due to medication non-compliance. A Head CT was done with no acute abnormalities. Patient placed on the CIWA protocol. Neurology consulted recommended to resume home dose of keppra and no other interventions. P/TOT evaluated the patient and recommended ECF/SNF but patient refused. Patient acute symptoms resolved, no auditory or visual hallucinations, no resting or intentional tremors, no tachycardia. Hemodynamically stable to be discharged home. Recommended to follow with a neurologist within 1-2 weeks of hospital discharge. Educated about the importance of quitting alcohol abuse. - Time Spent with Patient Total time spent providing and/or coordinating discharge services: Greater than 30 minutes (38) - Discharge Medications Prescriptions: LevETIRAcetam [Keppra] 1,000 mg PO BID 30 Days #60 tablet Oxazepam 10 mg PO DAILY 2 Days #2 capsule Home Medications: Albuterol Sulfate [Ventolin Hfa] 2 puff IH Q4H PRN 10/14/18 [History] Carvedilol 3.125 mg PO BID 10/14/18 [History] LevETIRAcetam [Keppra] 1,000 mg PO BID 30 Days #60 tablet 10/16/18 [Rx] Oxazepam 10 mg PO DAILY 2 Days #2 capsule 10/16/18 [Rx] Allergies/Adverse Reactions: Allergy/AdvReac Type Severity Reaction Status Date / Time No Known Allergies Allergy Verified 10/15/18 13:51 Date of admission: 10/14/18 20:14 Primary care physician: PCP NONE Consults: 10/14/18 19:06 Consult to Occupational Therapy [CONS] Routine Comment: Evaluate, develop and implement POC Reason for Consult: therapy/placement needs Does patient have active BEDREST order?: No Is patient medically & hemodynamically stable?: Yes Consult to Physical Therapy [CONS] Routine Comment: Evaluate, develop and implement POC Reason for Consult: PT eval Does patient have active BEDREST order?: No Is patient medically & hemodynamically stable?: Yes 10/14/18 19:08 Consult to Scrap Stripper Hand [CONS] Routine Reason for SW Consult: alcohol abuse 10/14/18 19:12 Consult to Neurology [CONS] Stat Consulting Provider: Neurology [facility] Reason for Consult: seizures. h/o seizures and alcohol withdrawals Call Completed: No - Constitutional Vitals: Temp Pulse Resp BP Pulse Ox 97.9 F 100 16 132/83 98 10/16/18 08:17 10/16/18 08:17 10/16/18 04:38 10/16/18 08:17 10/16/18 08:17 Exam: Vitals: Reviewed. General: Alert and oriented x3. In no distress Skin: Normal color, no rash, no lesions. HEENT: EOM, pupils equal, round and reactive. Cardiovascular: RRR, Normal S1 & S2, no rubs, murmurs or gallops. Lungs: CTA bilaterally, no wheezes or crackles. Abdomen: Soft, non-tender, no rigidity. NABS in all 4 quadrants. Extremities: No edema. Neurological: Normal cognition. No resting or intentional tremors seem. No visual or Auditory hallucination. Rest of the physical exam is non contributory - Patient Status Disposition: Home Health Service Condition: Good Functional capacity at discharge: independent ambulation Overall status at discharge: patient is progressing back to baseline - Discharge Instructions Follow Up With: NONE,PCP [Primary Care Provider] - - Diet and Activity Activity: resume usual activities as tolerated Diet: low salt diet
--- NOTE | 2018-10-16 09:15 | Physician Discharge Referral ---
Home Health/Hosp Referral Info Transfer to: Home Health - Diagnosis (1) Seizure Priority: Primary Status: Acute (2) Alcohol withdrawal Priority: Secondary Status: Resolved (3) Alcoholic encephalopathy Priority: Secondary Status: Resolved - Respiratory Orders None Smoking Cessation: Smoking cessation has been advised. For more information, call the [place] Tobacco Quit Line at 4-856-MUXX-NOW. - Diet/Nutrition Diet/Nutrition Orders: Regular - Activity Activity Orders: Ambulate - Services Needed Following services are medically necessary services: Home Health Aide, Physical Therapy, Occupational Therapy - Transfer Medications Prescriptions: LevETIRAcetam [Keppra] 1,000 mg PO BID 30 Days #60 tablet Oxazepam 10 mg PO DAILY 2 Days #2 capsule Home Medications: Albuterol Sulfate [Ventolin Hfa] 2 puff IH Q4H PRN 10/14/18 [History] Carvedilol 3.125 mg PO BID 10/14/18 [History] LevETIRAcetam [Keppra] 1,000 mg PO BID 30 Days #60 tablet 10/16/18 [Rx] Oxazepam 10 mg PO DAILY 2 Days #2 capsule 10/16/18 [Rx] Allergies/Adverse Reactions: Allergy/AdvReac Type Severity Reaction Status Date / Time No Known Allergies Allergy Verified 10/15/18 13:51 Certification: Further, I certify that my clinical findings support that this patient is homebound (i.e. absences from home require considerable and taxing effort and are for medical reasons or adventism services or infrequently or short duration when for other reasons) because: Homebound Reason: Patient requires assistance of a person or device to safely leave home Attestation: My signature below is to certify that this patient is under my care and that I, or nurse practitioner, or a physician's intellectual property legal assistant working with me, has a [id number] encounter with this patient.
--- NOTE | 2018-10-16 12:03 | Neurology Progress Note ---
Date of Encounter: 10/16/18 Time of Encounter: 07:20 Assessment and Plan (1) Seizure Status: Acute No further seizures likely combination from all call heavy use as well as from questionable seizure disorder on Keppra suggested to continue emphasized importance of taking the medication and not to drink May benefit from psychiatric consultation as an outpatient at the moment clin ically stable Subjective Interval history: Patient is alert awake and oriented no further seizures denies any other new problems Objective - Constitutional Vitals: Temp Pulse Resp BP Pulse Ox 97.9 F 100 16 132/83 98 10/16/18 08:17 10/16/18 08:17 10/16/18 04:38 10/16/18 08:17 10/16/18 08:17 - Neurological Exam Sensorimotor examination: Present: intact Motor Examination: Present: full strength in all major muscle groups Motor examination - left side: 5/5: deltoids, biceps, triceps, wrist flexion, wrist extension, hip flexors, community development manager, quadriceps, tibialis Anterior, toe extension (EHL), plantarflexion Sensation intact: Present: intact Reflex and gait examination: intact Mental Status Examination: Present: awake, alert, oriented to person, oriented to place, oriented to time, follows commands appropriately, answers questions appropriately, no agnosia, no aphasia, no aproxia Cranial nerve examination: Present: PERRL, EOMI, visual marr intact, sensory to face intact, mastication intact, no facial asymmetry is present, no dysarthria, hearing is intact symmetrically, soft palate elevates bilaterally upon phonation, flexes SCM and trapezius muscles symmetrically with full power, tongue protrudes midline, no atrophy or facial fasiculations present Cerebellar examination: Present: no dysmetria, performs finger to nose and heel to jeter symmetrically without ataxia, no gait ataxia, no truncal ataxia, no difficulty with rapid alternating movements Tremor: right upper extremity Results - Laboratory Findings CBC and BMP: 10/16/18 06:18 10/16/18 06:18 Abnormal lab findings: Abnormal lab results RBC 4.12 M/mcL (4.19-5.50) L 10/16/18 06:18 Hgb 12.4 g/dL (12.9-16.9) L 10/16/18 06:18 RDW 16.1 % (11.5-14.5) H 10/16/18 06:18 Plt Count 131 K/mcL (140-400) L 10/16/18 06:18 Sodium 135 mEq/L (136-145) L 10/16/18 06:18 Carbon Dioxide 22 mEq/L (23-29) L 10/16/18 06:18 Creatinine 0.65 mg/dL (0.70-1.30) L 10/16/18 06:18 Calculated Osmolality 279 (280-300) L 10/16/18 06:18 AST 65 Units/L (13-39) H 10/15/18 05:09 Ammonia 59 mcmol/L (16-53) H 10/14/18 15:45 Urine Protein 100 mg/dL (Neg-Trace) H 10/14/18 16:07 Urine Blood Trace (Negative) H 10/14/18 16:07 Urine Microscopic RBC 3-5 per hpf (0-3) H 10/14/18 16:07 Ur Squamous Epith Cells Moderate per lpf (None-Few) H 10/14/18 16:07 Ethyl Alcohol 83 mg/dL (Less than 10) H 10/14/18 15:45 Consult Discharge Plan - Plan Instructions: Oxazepam (By mouth), Levetiracetam (By mouth), Non-epileptic Seizures (DC), Alcohol Withdrawal (DC) Referrals: NONE,PCP [Primary Care Provider] - Prescriptions: LevETIRAcetam [Keppra] 1,000 mg PO BID 30 Days #60 tablet Oxazepam 10 mg PO DAILY 2 Days #2 capsule
== END 2018-10-16 10:26 | disposition home health service (06) | DRG 775 ==
LOC: EMEROOARM 13:44 → 2NENU 20:14 → SUATTDRO 20:14 → 2NENU 21:00
PROVIDERS: ADMIT Internal Medicine; ATTEND Internal Medicine

== ENCOUNTER 2018-12-01 13:22 | Observation (INO) ==
[2018-12-01] MEDS ORDERED: *HR* LORazepam 2 MG/ML VIAL ONE (13:38)
[2018-12-01] MEDS ORDERED: *HR* LORazepam 2 MG/ML VIAL IM ONE (13:38)
[2018-12-01] MEDS ORDERED: 0.9 % Sodium Chloride 1,000 ML IVC ONE (13:38)
--- NOTE | 2018-12-01 13:47 | Emergency Department Note ---
Disposition Clinical Impression: Generalized seizure, Hypomagnesemia, Hypokalemia, Recurrent seizures, Alcohol abuse Disposition: Admitted As Inpatient Condition: Fair General Adult HPI - General Stated complaint: Seizure Time Seen by Provider: 12/01/18 13:37 - Related Data Home Medications Medication Instructions Recorded Confirmed Albuterol Sulfate [Ventolin Hfa] 2 puff IH Q4H PRN 10/14/18 12/01/18 Carvedilol 3.125 mg PO BID 10/14/18 12/01/18 Previous Rx's Medication Instructions Recorded LevETIRAcetam [Keppra] 1,000 mg PO BID 30 Days #60 tablet 10/16/18 Allergies Allergy/AdvReac Type Severity Reaction Status Date / Time No Known Allergies Allergy Verified 10/15/18 13:51 Past Medical History - Past Medical History Medical history: Reports: cardiomyopathy, CHF, COPD, coronary artery disease, hyperlipidemia, hypertension, liver disease, myocardial infarction, seizures, valvular heart disease, other Surgical history: Reports: heart valve replacement, orthopedic, other Psychiatric history: Reports: anxiety, depression - Social History Smoking Status: Heavy tobacco smoker Smokeless Tobacco Status: No Alcohol use: Reports: heavy, recent Drug use: Reports: none Course Vital Signs Temperature 98.6 F 12/01/18 17:45 Pulse Rate 90 12/01/18 17:45 Respiratory Rate 18 12/01/18 17:45 Blood Pressure 150/90 12/01/18 17:45 O2 Sat by Pulse Oximetry 94 12/01/18 17:45 Temperature 98.3 F 12/01/18 19:01 Pulse Rate 123 12/01/18 19:01 Respiratory Rate 18 12/01/18 19:01 Blood Pressure 159/85 12/01/18 19:01 O2 Sat by Pulse Oximetry 97 12/01/18 19:01 Oxygen Delivery Oxygen Delivery Room Air Medical Decision Making - Lab Data Result diagrams: 12/01/18 13:39 12/01/18 13:39 Lab Results 12/01/18 12/01/18 12/01/18 Range/Units 13:39 13:39 14:15 WBC 9.2 (4.3-11.1) K/mcL RBC 4.13 L (4.19-5.50) M/mcL Hgb 12.3 L (12.9-16.9) g/dL Hct 38.5 (37.5-50.1) % MCV 93.2 (83.0-100.0) fL MCH 29.8 (28.0-33.3) pg MCHC 31.9 (31.6-35.5) g/dL RDW 15.9 H (11.5-14.5) % Plt Count 141 (140-400) K/mcL MPV 10.0 (9.4-12.4) fL Immature Gran % 0.3 (0-4) % Seg Neutrophils % 66.8 % Lymphocytes % 19.6 % Monocytes % 11.9 % Eosinophils % 0.2 % Basophils % 1.2 % Neutrophils # 6.2 (1.6-8.9) K/mcL Lymphocytes # 1.8 (0.6-4.6) K/mcL Monocytes # 1.1 (0.0-1.3) K/mcL Eosinophils # 0.0 (0.0-0.6) K/mcL Basophils # 0.1 (0.0-0.2) K/mcL Sodium 144 (136-145) mEq/L Potassium 2.7 L (3.5-5.1) mEq/L Chloride 117 H (98-107) mEq/L Carbon Dioxide 13 L (23-29) mEq/L BUN 4 L (6-20) mg/dL Creatinine 0.50 L (0.70-1.30) mg/dL Est GFR ( Amer) > 60 (> 60) Est GFR (Non-Af Amer) > 60 (> 60) BUN/Creatinine Ratio 8 (6-26) Glucose 82 (70-105) mg/dL Calculated Osmolality 294 (280-300) Calcium 6.2 L (8.6-10.3) mg/dL Phosphorus 2.8 (2.7-4.5) mg/dL Magnesium 1.1 L (1.6-2.6) mg/dL Total Bilirubin 0.3 (0.3-1.0) mg/dL AST 55 H (13-39) Units/L ALT 20 (7-52) Units/L Alkaline Phosphatase 61 (34-104) Units/L Serum Total Protein 5.2 L (6.4-8.9) g/dL Albumin 3.0 L (3.5-5.7) g/dL Globulin 2.2 L (2.4-3.5) g/dL Albumin/Globulin Ratio 1.4 (1.1-2.2) Urine Color Yellow (Yellow) Urine Clarity Cloudy A (Clear) Urine pH 6.0 (5.0-8.0) pH Units Ur Specific [place] 1.011 (1.010-1.025) Urine Protein 100 H (Neg-Trace) mg/dL Urine Glucose (UA) Normal (Normal) mg/dL Urine Ketones Trace H (Negative) mg/dL Urine Blood Trace H (Negative) Urine Nitrite Negative (Negative) Urine Bilirubin Negative (Negative) Urine Urobilinogen Normal (Normal) mg/dL Ur Leukocyte Esterase Negative (Negative) Urine Microscopic RBC 0-3 (0-3) per hpf Urine Microscopic WBC 0-3 (0-3) per hpf Ur Squamous Epith Cells Few (None-Few) per lpf Amorphous Sediment Many H (Few) Urine Bacteria Few (None-Few) per hpf Hyaline Casts Few (None-Few) per lpf Levetiracetam (6 - 46) mcg/mL 12/01/18 Range/Units 17:59 WBC (4.3-11.1) K/mcL RBC (4.19-5.50) M/mcL Hgb (12.9-16.9) g/dL Hct (37.5-50.1) % MCV (83.0-100.0) fL MCH (28.0-33.3) pg MCHC (31.6-35.5) g/dL RDW (11.5-14.5) % Plt Count (140-400) K/mcL MPV (9.4-12.4) fL Immature Gran % (0-4) % Seg Neutrophils % % Lymphocytes % % Monocytes % % Eosinophils % % Basophils % % Neutrophils # (1.6-8.9) K/mcL Lymphocytes # (0.6-4.6) K/mcL Monocytes # (0.0-1.3) K/mcL Eosinophils # (0.0-0.6) K/mcL Basophils # (0.0-0.2) K/mcL Sodium (136-145) mEq/L Potassium (3.5-5.1) mEq/L Chloride (98-107) mEq/L Carbon Dioxide (23-29) mEq/L BUN (6-20) mg/dL Creatinine (0.70-1.30) mg/dL Est GFR ( Amer) (> 60) Est GFR (Non-Af Amer) (> 60) BUN/Creatinine Ratio (6-26) Glucose (70-105) mg/dL Calculated Osmolality (280-300) Calcium (8.6-10.3) mg/dL Phosphorus (2.7-4.5) mg/dL Magnesium (1.6-2.6) mg/dL Total Bilirubin (0.3-1.0) mg/dL AST (13-39) Units/L ALT (7-52) Units/L Alkaline Phosphatase (34-104) Units/L Serum Total Protein (6.4-8.9) g/dL Albumin (3.5-5.7) g/dL Globulin (2.4-3.5) g/dL Albumin/Globulin Ratio (1.1-2.2) Urine Color (Yellow) Urine Clarity (Clear) Urine pH (5.0-8.0) pH Units Ur Specific [place] (1.010-1.025) Urine Protein (Neg-Trace) mg/dL Urine Glucose (UA) (Normal) mg/dL Urine Ketones (Negative) mg/dL Urine Blood (Negative) Urine Nitrite (Negative) Urine Bilirubin (Negative) Urine Urobilinogen (Normal) mg/dL Ur Leukocyte Esterase (Negative) Urine Microscopic RBC (0-3) per hpf Urine Microscopic WBC (0-3) per hpf Ur Squamous Epith Cells (None-Few) per lpf Amorphous Sediment (Few) Urine Bacteria (None-Few) per hpf Hyaline Casts (None-Few) per lpf Levetiracetam 20 (6 - 46) mcg/mL Attestation Statement - Attestation Attestation: I examined this patient and my medical decision-making was reviewed with the Resident Physician. I agree with the documented findings, disposition and treatment plan as described except to the extent set forth below. Patient to the ED after a witnessed seizure. He was found shaking on a sidewalk and EMS was called. They found him unresponsive. Patient awake and alert on arrival here. He has a history of seizure disorder for which she is noncompliant with his medication and continues to drink copious amount of alcohol. Patient was found with a bottle alcohol in his pocket. On arrival he is awake and alert oriented 2. Abrasion to his hand and forehead. Abdomen soft. No cervical thoracic or lumbar spine tenderness. Full range of motion of the legs and allows logrolling. Plan. Basic labs. We will load with Her. He had another seizure after arrival here. He was given Ativan IM. Labs head CT and admission. Labs reviewed. Patient loaded with Keppra and will be admitted as these had 2 seizures without recovery between. Head CT unremarkable. Head CT 12/01/18 13:38 IMPRESSION: No acute intracranial abnormality. D/ / Alexander Gutierrez MD / Alexander Gutierrez MD Interpreting Provider: Alexander Gutierrez MD
[2018-12-01 14:05] LABS: Basophils # 0.1 K/mcL (0.0-0.2); Basophils % 1.2 %; Eosinophils % 0.2 %; Hematocrit 38.5 % (37.5-50.1); Hemoglobin 12.3 g/dL (12.9-16.9); Immature Granulocytes % 0.3 % (0-4); Lymphocytes # 1.8 K/mcL (0.6-4.6); Lymphocytes % 19.6 %; Mean Corpuscular HGB Conc 31.9 g/dL (31.6-35.5); Mean Corpuscular Hemoglobin 29.8 pg (28.0-33.3); Mean Corpuscular Volume 93.2 fL (83.0-100.0); Monocytes # 1.1 K/mcL (0.0-1.3); Monocytes % 11.9 %; Neutrophils # 6.2 K/mcL (1.6-8.9); Platelet Count 141 K/mcL (140-400); Red Blood Count 4.13 M/mcL (4.19-5.50); Red Cell Distribution Width 15.9 % (11.5-14.5); Segmented Neutrophils % 66.8 %
--- NOTE | 2018-12-01 14:16 | Emergency Department Note ---
Disposition Clinical Impression: Generalized seizure, Hypomagnesemia, Hypokalemia, Recurrent seizures, Alcohol abuse Disposition: Admitted As Inpatient Condition: Fair Time of Disposition: 17:09 Seizure HPI - General Stated Complaint: Seizure Time Seen by Provider: 12/01/18 13:37 Source: patient, EMS Mode of arrival: EMS Limitations: no limitations Nursing Notes Reviewed: Yes Vital Signs Reviewed: Yes - History of Present Illness HPI Narrative: Patient presents ED with a seizure. Patient has known seizure disorder and is known to be noncompliant with his medications. He is alcoholic. Had a seizure today. Did have a fall, but he does not remember. Awake, alert and oriented upon arrival to the ED. Denies any fever, chills, neck pain, chest pain, shortness breath, abdominal pain, nausea, vomiting, diarrhea, pain - Related Data Home Medications Medication Instructions Recorded Confirmed Albuterol Sulfate [Ventolin Hfa] 2 puff IH Q4H PRN 10/14/18 12/01/18 Carvedilol 3.125 mg PO BID 10/14/18 12/01/18 Previous Rx's Medication Instructions Recorded LevETIRAcetam [Keppra] 1,000 mg PO BID 30 Days #60 tablet 10/16/18 Allergies Allergy/AdvReac Type Severity Reaction Status Date / Time No Known Allergies Allergy Verified 10/15/18 13:51 Review of Systems: As reviewed in the HPI. All other systems reviewed are negative or normal. Past Medical History - Past Medical History Attestation: Yes The following information was validated with the patient. Source: patient Medical history: Reports: cardiomyopathy, CHF, COPD, coronary artery disease, hyperlipidemia, hypertension, liver disease, myocardial infarction, seizures, valvular heart disease, other Surgical history: Reports: heart valve replacement, orthopedic, other Psychiatric history: Reports: anxiety, depression - Social History Smoking Status: Heavy tobacco smoker Smokeless Tobacco Status: No Alcohol use: Reports: heavy, recent Drug use: Reports: none Physical Exam CONSTITUTIONAL: [well appearing, alert and in no acute distress] EYES: [EOMI, clear conjunctiva, PERRLA] HENT: [Patient has a hematoma and abrasion to his right forehead, moist mucus membranes, normal oropharynx] NECK: [normal inspection, full ROM, trachea midline, no obvious swelling, nontender] PULMONARY: [normal lung sounds bilaterally, normal chest rise and fall, no respiratory distress or stridor, no wheezes, no rales, no rhonchi CARDIOVASCULAR: [regular rate, regular rhythm, normal heart sounds, no murmurs, distal extremities are warm and well perfused] GASTROINSTESTINAL: [soft, non-tender, non-rigid, non-distended, no guarding, no rebound, normal bowel sounds] GENITOURINARY/RECTAL: [deferred] NEUROLOGIC: [Alert, oriented x3, normal speech, moves all extremities] EXTREMITIES: [Normal inspection, full ROM, no tenderness, no pedal edema, normal capillary refill, abrasion the left hand but no bony tenderness] MUSCULOSKELETAL: [no gross deformities, atraumatic] SKIN: [No cyanosis, no diaphoresis, normal color, warm, no rash] PSYCHIATRIC: [normal mood and affect] Course Course Narrative: Patient presenting with a seizure. Has resolved. He is awake, alert and oriented now. EMS reported he was postictal but is not confused anymore. Patient does admit to being noncompliant with his medications and states that he is not going to start taking them - Reevaluation(s) Reevaluation #1: Patient had a seizure while in the ED. He got 2 mg of IM Ativan. Will load with a gram of Keppra. CT his head and admit. Seizure - Medical Records Medical records reviewed: Yes I reviewed the patient's medical records. - Lab Data Lab results reviewed: Yes I reviewed the patient's lab results. Result diagrams: 12/01/18 13:39 12/01/18 13:39 Lab Results 12/01/18 12/01/18 12/01/18 Range/Units 13:39 13:39 14:15 WBC 9.2 (4.3-11.1) K/mcL RBC 4.13 L (4.19-5.50) M/mcL Hgb 12.3 L (12.9-16.9) g/dL Hct 38.5 (37.5-50.1) % MCV 93.2 (83.0-100.0) fL MCH 29.8 (28.0-33.3) pg MCHC 31.9 (31.6-35.5) g/dL RDW 15.9 H (11.5-14.5) % Plt Count 141 (140-400) K/mcL MPV 10.0 (9.4-12.4) fL Immature Gran % 0.3 (0-4) % Seg Neutrophils % 66.8 % Lymphocytes % 19.6 % Monocytes % 11.9 % Eosinophils % 0.2 % Basophils % 1.2 % Neutrophils # 6.2 (1.6-8.9) K/mcL Lymphocytes # 1.8 (0.6-4.6) K/mcL Monocytes # 1.1 (0.0-1.3) K/mcL Eosinophils # 0.0 (0.0-0.6) K/mcL Basophils # 0.1 (0.0-0.2) K/mcL Sodium 144 (136-145) mEq/L Potassium 2.7 L (3.5-5.1) mEq/L Chloride 117 H (98-107) mEq/L Carbon Dioxide 13 L (23-29) mEq/L BUN 4 L (6-20) mg/dL Creatinine 0.50 L (0.70-1.30) mg/dL Est GFR ( Amer) > 60 (> 60) Est GFR (Non-Af Amer) > 60 (> 60) BUN/Creatinine Ratio 8 (6-26) Glucose 82 (70-105) mg/dL Calculated Osmolality 294 (280-300) Calcium 6.2 L (8.6-10.3) mg/dL Phosphorus 2.8 (2.7-4.5) mg/dL Magnesium 1.1 L (1.6-2.6) mg/dL Total Bilirubin 0.3 (0.3-1.0) mg/dL AST 55 H (13-39) Units/L ALT 20 (7-52) Units/L Alkaline Phosphatase 61 (34-104) Units/L Serum Total Protein 5.2 L (6.4-8.9) g/dL Albumin 3.0 L (3.5-5.7) g/dL Globulin 2.2 L (2.4-3.5) g/dL Albumin/Globulin Ratio 1.4 (1.1-2.2) Urine Color Yellow (Yellow) Urine Clarity Cloudy A (Clear) Urine pH 6.0 (5.0-8.0) pH Units Ur Specific [place] 1.011 (1.010-1.025) Urine Protein 100 H (Neg-Trace) mg/dL Urine Glucose (UA) Normal (Normal) mg/dL Urine Ketones Trace H (Negative) mg/dL Urine Blood Trace H (Negative) Urine Nitrite Negative (Negative) Urine Bilirubin Negative (Negative) Urine Urobilinogen Normal (Normal) mg/dL Ur Leukocyte Esterase Negative (Negative) Urine Microscopic RBC 0-3 (0-3) per hpf Urine Microscopic WBC 0-3 (0-3) per hpf Ur Squamous Epith Cells Few (None-Few) per lpf Amorphous Sediment Many H (Few) Urine Bacteria Few (None-Few) per hpf Hyaline Casts Few (None-Few) per lpf - Radiology Data Radiology results reviewed: Yes I reviewed the patient's radiology results. - EKG Data EKG attestation: Yes I reviewed and interpreted this EKG. EKG results narrative: Sinus tach, rate 119, normal axis, no change from previous. Critical Care Time Critical Care Time: Yes Total Critical Care Time: 35 Attestation: I personally spent ____35__ minutes devoted to the care of this critically ill patien with recurrent seizures requiring IM and IV antiepileptics. This time excludes the time for billable procedures.
[2018-12-01 14:26] LABS: Bilirubin,Urine Negative (Negative); Blood,Urine Trace (Negative); Clarity,Urine Cloudy (Clear); Color,Urine Yellow (Yellow); Glucose,Urine (UA) Normal (Normal); Ketones,Urine Trace mg/dL (Negative); Leukocyte Esterase,Urine Negative (Negative); Nitrite,Urine Negative (Negative); Protein,Urine 100 mg/dL (Neg-Trace); Specific Gravity,Urine 1.011 (1.010-1.025); Urobilinogen,Urine Normal (Normal)
[2018-12-01 14:28] LABS: RBC,Urine 0-3 per hpf (0-3)
[2018-12-01 14:42] LABS: Amorphous Sediment,Urine Many (Few); Hyaline Casts,Urine Few per lpf (None-Few); Squamous Epithelial Cell,Urine Few per lpf (None-Few)
[2018-12-01 14:43] LABS: Bacteria,Urine Few per hpf (None-Few); WBC,Urine 0-3 per hpf (0-3)
[2018-12-01 14:48] LABS: Alanine Aminotransferase 20 Units/L (7-52); Albumin/Globulin Ratio 1.4 (1.1-2.2); Alkaline Phosphatase 61 Units/L (34-104); Aspartate Amino Transferase 55 Units/L (13-39); BUN/Creatinine Ratio 8 (6-26); Bilirubin,Total 0.3 mg/dL (0.3-1.0); Blood Urea Nitrogen 4 mg/dL (6-20); Calcium 6.2 mg/dL (8.6-10.3); Carbon Dioxide 13 mEq/L (23-29); Chloride 117 mEq/L (98-107); Globulin 2.2 g/dL (2.4-3.5); Glucose 82 mg/dL (70-105); Magnesium 1.1 mg/dL (1.6-2.6); Osmolality,Calculated 294 (280-300); Phosphorous 2.8 mg/dL (2.7-4.5); Potassium 2.7 mEq/L (3.5-5.1); Sodium 144 mEq/L (136-145); Total Protein 5.2 g/dL (6.4-8.9); eGFR For Non-African Americans > 60 (> 60)
[2018-12-01] MEDS ORDERED: Potassium Chloride 40 MEQ, Lidocaine 1% 2 ML in D5% in Water 500 ML IVPB ONE (15:36)
[2018-12-01] MEDS: levETIRAcetam 1,000 MG in 0.9 % Sodium Chloride 100 ML IVPB ONE (16:21)
[2018-12-01] MEDS ORDERED: Naloxone 0.4 MG/ML INJ IVP PRN (16:35)
[2018-12-01] MEDS ORDERED: Ibuprofen 400 MG TABLET PO PRN (16:35)
--- NOTE | 2018-12-01 16:35 | Internal Med History&Physical ---
Addendum entered and electronically signed by Kana Roque 12/01/18 19:01: Generalized Seizure disorder : we have resumed home med Keppra 1000 mg BID as he already got loading dose of it in ED and no more seizure after that. We will check blood level of Keppra tomorrow. Chronic alcoholism: We will monitor alcohol withdrawal symptoms, follow CIWA protocol, Lorazepam IV on order Hypomagenesemia; He has low magnessium level 1.1 , it might be due to chronic alcoholism and micro-nutrient deficiency ,we will check Mg level tomorrow. Mg+ supplementation was given in ED today. Original Note: <Kana Roque - Last Filed: 12/01/18 17:53> Date of Encounter: 12/01/18 Time of Encounter: 16:00 Internal Medicine - H&P: HPI Chief complaint: Seizure disorder Admitted From: Emergency Dept Plans for Post Hospital Care: Home History of present illness: Mr. Rose is a 53 year old male with past medical history of seizure disorder, cardiomyopathy, CHF, COPD, CAD, hyperlipidemia, hypertension, liver disease, [place], valvular heart disease was presented to ED for seizure disorder because of non- compliant with his antiseizure medication and drinking alcohol. The patient was not good historian and not interested seizure disorder talk much. The patient has a bottle of alcohol in his pocket while she was in hospital. He was taking Caty 1000 any MG twice a day for his seizure disorder. He has on and off breakthrough seizure disorder and multiple admission. The patient admitted mild cough with slight shortness of breath The headache CT done in ED did not show any acute intracranial abnormality. In ED he was treated with loading dose of IV Keppra and lorazepam, the seizure has been controlled . His latest lab results done in ED was: Potassium 2.7 (K+ supplement was given in ED), sodium 144, white cell count 9.2, hemoglobin 12.3. Urinalysis normal. Past Med Surg Social Fam HX - Past Medical History Medical history: cardiomyopathy, CHF, COPD, coronary artery disease, hyperli pidemia, hypertension, liver disease, myocardial infarction, seizures, valvular heart disease, other Additional medical history: ETOH abuse Psychiatric history: anxiety, depression - Past Surgical History Surgical History: heart valve replacement, orthopedic, other Additional surgical history: trach - Social History Smoking Status: Heavy tobacco smoker Smokeless Tobacco Status: No Alcohol use: heavy, recent Drug use: none - Family History Father Family Member Ethnicity: Non- Living Status: Hx Family Cardiac Disorders: Yes ([place]) Mother Family Member Ethnicity: Non- Living Status: Hx Family Cardiac Disorders: Yes (mother heart atttack) Hx Family Respiratory Disorders: No Hx Family Cancer: No Hx Family GI Disorders: No Hx Family Endocrine Disorder: No Hx Family Neuromuscular Disorders: No Hx Family Neurologic Disorders: No Hx Family HEENT Disorders: No Hx Family Autoimmune Disorders: No Internal Medicine - H&P: Meds RX: Albuterol Sulfate [Ventolin Hfa] 2 puff IH Q4H PRN 10/14/18 [History] RX: Carvedilol 3.125 mg PO BID 10/14/18 [History] RX: LevETIRAcetam [Keppra] 1,000 mg PO BID 30 Days #60 tablet 10/16/18 [Rx] Allergy/AdvReac Type Severity Reaction Status Date / Time No Known Allergies Allergy Verified 10/15/18 13:51 All Systems PM: A 10-system review of systems was performed and is negative for pertinent findings except as documented above in the HPI. - Constitutional Constitutional: falls, lethargy, no anorexia, no chills, no fever(s), no weakness - EENT Eyes: no blurry vision, no decreased night vision, no itchy eyes, no loss of vision Nose, mouth and throat: no bleeding gums, no change in voice, no dental pain, no dry mouth, no lip swelling, no mouth lesions - Cardiovascular Cardiovascular ROS IM: no chest pain, no claudication, no diaphoresis - Respiratory Respiratory: cough, no dyspnea, no hemoptysis, no pain on inspiration, no chest congestion - Gastrointestinal Gastrointestinal: no abdominal pain, no belching, no bloating, no heartburn, no hematemesis, no hematochezia - Genitourinary Genitourinary ROS male: no difficulty urinating, no dysuria - Musculoskeletal Musculoskeletal ROS IM: no arthralgias, no atrophy, no joint swelling, no limited range of motion - Integumentary Integumentary IM: erythema, no pruritus, no rash - Neurological Neurological ROS: confusion, convulsions, dizziness - Psychiatric Psychiatric: confusion - Endocrine Endocrine IM: no cold intolerance, no deeping of the voice, no flushing - Hematologic/Lymphatic Hematologic/Lymphatic: no easy bleeding, no lymphadenopathy - Allergic/Immunologic Allergic/Immunologic: no tongue swelling, no throat swelling, no uticaria, no wheezing - Constitutional General appearance: Present: A&O X 2, no acute distress Exam: Gen: Alert, awake , Oriented to time,place , feeling sleepy. Head : Multiple abrasions present in foreheads. Chest: Diminished BS b/l, No crackles, No rales, No wheezing Heart: S1S2+ RRR No Murmurs Abd: Soft, NT, BS + No organomegaly Ext: No edema, pulses are palpable, no tenderness Neuro: No focal neuro deficits, Psych: Normal mood Skin: No rash Internal Med - H&P Results - Labs CBC & Chem 7: 12/01/18 13:39 12/01/18 13:39 Labs: Short CBC 12/01/18 Range/Units 13:39 WBC 9.2 (4.3-11.1) K/mcL Hgb 12.3 L (12.9-16.9) g/dL Hct 38.5 (37.5-50.1) % Plt Count 141 (140-400) K/mcL Neutrophils # 6.2 (1.6-8.9) K/mcL BMP 12/01/18 13:39 Sodium 144 Potassium 2.7 L Chloride 117 H Carbon Dioxide 13 L BUN 4 L Creatinine 0.50 L Glucose 82 Calcium 6.2 L Liver Function 12/01/18 Range/Units 13:39 Total Bilirubin 0.3 (0.3-1.0) mg/dL AST 55 H (13-39) Units/L ALT 20 (7-52) Units/L Alkaline Phosphatase 61 (34-104) Units/L Albumin 3.0 L (3.5-5.7) g/dL Urine 12/01/18 Range/Units 14:15 Urine Color Yellow (Yellow) Urine Clarity Cloudy A (Clear) Urine pH 6.0 (5.0-8.0) pH Units Ur Specific [place] 1.011 (1.010-1.025) Urine Protein 100 H (Neg-Trace) mg/dL Urine Glucose (UA) Normal (Normal) mg/dL - Impressions ITS Impressions Head CT 12/31/18 13:38 IMPRESSION: No acute intracranial abnormality. D/ / Alexander Gutierrez MD / Alexander Gutierrez MD Interpreting Provider: Alexander Gutierrez MD - Assessment and plan (1) Generalized seizure Current Visit: Yes Status: Chronic Assessment and plan: The patient is chronic patient of seizure disorder, this time presented for tonic clonic seizure. It was due to heavy alcohol consumtion and non compliance of medication. He was on Keppra 1000 twice a day, in ED loading dose of Keppra 1000 IV given to control his seizure.Lorazepam IV has been given. We have resumed the home medication Kapra 100 mg BID. We will monitor his status and an episode of seizure. CT head was negative for acute intracranial abnormality. We will order Neuro consultation W have ordered Keppra blood level. (2) Chronic alcoholism Current Visit: Yes Status: Acute Assessment and plan: The patient is chronic patient of alcoholism, the patient has breakthrough seizure because of heavy all all ingestion and non compliance of medication.. When he was in ED he had alcohol bottle in his pocket. CIWA- Ar for alcohol withdrawl score : 8. (3) Hypokalemia Current Visit: Yes Status: Acute Assessment and plan: The potassium level is 2.7, potassium IV supplementation 40 MCQ has been started, we will monitor his potassium level regularly. (4) Hypomagnesemia Current Visit: Yes Status: Acute Assessment and plan: The patient has illumination level: 1.1, blood glucose of chronic alcoholism, we will monitor and give supplementation. (5) Hypertension Current Visit: Yes Status: Chronic Assessment and plan: The patient is on carvedilol 3.125 by mouth twice a day. Qualifiers: Hypertension type: essential hypertension Qualified Code(s): I10 - Essential (primary) hypertension (6) COPD (chronic obstructive pulmonary disease) Current Visit: Yes Status: Acute Assessment and plan: The patient is chronic patient of COPD and chronic smoker, the patient has cough with mild shortness of breath. We have ordered x-ray chest and we will continue home medication for COPD. We did not see any exacerbation symptom of COPD in this visit Qualifiers: COPD type: unspecified COPD Qualified Code(s): J44.9 - Chronic obstructive pulmonary disease, unspecified - Time Spent With Patient Total time spent is greater than 50% in coordination of care (as documented) at patient's floor/unit and/or counseling patient: <Gildardo Randle - Last Filed: 12/01/18 18:10> Date of Encounter: 12/01/18 Internal Medicine - H&P: HPI History of present illness: Mr. Rose is a 53 year old male All Systems PM: A 10-system review of systems was performed and is negative for pertinent findings except as documented above in the HPI. - Constitutional Vitals: Temp Pulse Resp BP Pulse Ox 98.6 F 90 18 150/90 94 12/01/18 17:45 12/01/18 17:45 12/01/18 17:45 12/01/18 17:45 12/01/18 17:45 Internal Med - H&P Results - Labs CBC & Chem 7: 12/01/18 13:39 12/01/18 13:39 Labs: Short CBC 12/01/18 Range/Units 13:39 WBC 9.2 (4.3-11.1) K/mcL Hgb 12.3 L (12.9-16.9) g/dL Hct 38.5 (37.5-50.1) % Plt Count 141 (140-400) K/mcL Neutrophils # 6.2 (1.6-8.9) K/mcL BMP 12/01/18 13:39 Sodium 144 Potassium 2.7 L Chloride 117 H Carbon Dioxide 13 L BUN 4 L Creatinine 0.50 L Glucose 82 Calcium 6.2 L Liver Function 12/01/18 Range/Units 13:39 Total Bilirubin 0.3 (0.3-1.0) mg/dL AST 55 H (13-39) Units/L ALT 20 (7-52) Units/L Alkaline Phosphatase 61 (34-104) Units/L Albumin 3.0 L (3.5-5.7) g/dL Urine 12/01/18 Range/Units 14:15 Urine Color Yellow (Yellow) Urine Clarity Cloudy A (Clear) Urine pH 6.0 (5.0-8.0) pH Units Ur Specific [place] 1.011 (1.010-1.025) Urine Protein 100 H (Neg-Trace) mg/dL Urine Glucose (UA) Normal (Normal) mg/dL - Impressions ITS Impressions Head CT 12/01/18 13:38 IMPRESSION: No acute intracranial abnormality. D/ / Alexander Gutierrez MD / Alexander Gutierrez MD Interpreting Provider: Alexander Gutierrez MD Chest X-Ray 12/01/18 16:40 IMPRESSION: Stable portable study. D/ / Anusha Malin Cha, MD / Anusha Malin Cha, MD Interpreting Provider: Anusha Malin Cha, MD - Time Spent With Patient Total time spent is greater than 50% in coordination of care (as documented) at patient's floor/unit and/or counseling patient: - Attending Attestation I have seen and examined the patient with Dr. Roque and agree with his/her assessment and plan. Patient with known history of seizure disorder on Keppra complicated by noncompliance, chronic alcoholism, is admitted with breakthrough seizure. Multiple admissions in the past with similar issues noted. Exam is grossly nonfocal. Labwork significant for hypokalemia and hypomagnesemia. CT head negative for acute intracranial abnormality. Resume home meds, and follow with neurology. Thiamine, folic acid, and place on CIWA protocol with when necessary Ativan. Gildardo Randle MD
[2018-12-01] MEDS ORDERED: *HR* LORazepam 2 MG/ML VIAL IVP PRN ×4 (16:42→17:39)
[2018-12-01] MEDS ORDERED: Thiamine (B-1) 100 MG, Folic Acid 1 MG, MVI, adult with vitamin K 10 ML in 0.9 % Sodi... IVPB SCH (18:00)
[2018-12-01] MEDS: levETIRAcetam 250 MG TABLET PO SCH (22:55)
[2018-12-02 04:33] LABS: Hematocrit 38.1 % (37.5-50.1); Hemoglobin 12.4 g/dL (12.9-16.9); Mean Corpuscular HGB Conc 32.5 g/dL (31.6-35.5); Mean Corpuscular Hemoglobin 29.5 pg (28.0-33.3); Mean Corpuscular Volume 90.5 fL (83.0-100.0); Mean Platelet Volume 11.6 fL (9.4-12.4); Platelet Count 139 K/mcL (140-400); Red Blood Count 4.21 M/mcL (4.19-5.50); Red Cell Distribution Width 15.4 % (11.5-14.5)
[2018-12-02 04:37] LABS: Prothrombin Time 11.8 Seconds (9.4-12.1)
[2018-12-02 04:40] LABS: Activated Partial Thrombo Time 32.1 Seconds (26.0-36.0)
[2018-12-02 04:51] LABS: Chol/HDL Ratio 1.6 (0-4.9); Cholesterol 200 mg/dL (< 200); HDL Cholesterol 125 mg/dL (40-59); LDL Cholesterol,Calculated 62 mg/dL (0-99); Magnesium 2.1 mg/dL (1.6-2.6); Triglycerides 67 mg/dL (< 150)
[2018-12-02] MEDS: levETIRAcetam 1,000 MG in 0.9 % Sodium Chloride 100 ML IVPB ONE (06:30)
[2018-12-02] MEDS: levETIRAcetam 250 MG TABLET PO SCH (08:27)
[2018-12-02 08:55] LABS: Alanine Aminotransferase 24 Units/L (7-52); Albumin 4.4 g/dL (3.5-5.7); Albumin/Globulin Ratio 1.3 (1.1-2.2); Alkaline Phosphatase 86 Units/L (34-104); Aspartate Amino Transferase 55 Units/L (13-39); BUN/Creatinine Ratio 13 (6-26); Bilirubin,Total 0.7 mg/dL (0.3-1.0); Blood Urea Nitrogen 9 mg/dL (6-20); Calcium 9.3 mg/dL (8.6-10.3); Carbon Dioxide 19 mEq/L (23-29); Chloride 103 mEq/L (98-107); Globulin 3.5 g/dL (2.4-3.5); Glucose 117 mg/dL (70-105); Osmolality,Calculated 280 (280-300); Potassium 4.2 mEq/L (3.5-5.1); Sodium 135 mEq/L (136-145); Total Protein 7.9 g/dL (6.4-8.9); eGFR For Non-African Americans > 60 (> 60)
[2018-12-02 10:11] LABS: Adenovirus Not Detected (Not Detect); Bordetella Pertussis Not Detected (Not Detect); Chlamydophila pneumoniae Not Detected (Not Detect); Coronavirus 229E Not Detected (Not Detect); Coronavirus HKU1 Not Detected (Not Detect); Coronavirus NL63 Not Detected (Not Detect); Coronavirus OC43 Not Detected (Not Detect); Human Metapneumovirus Not Detected (Not Detect); Human Rhinovirus/Enterovirus Not Detected (Not Detect); Influenza A Subtype 2009 H1 Not Detected (Not Detect); Influenza A Untypeable Not Detected (Not Detect); Influenza B Not Detected (Not Detect); Parainfluenza Virus 1 Not Detected (Not Detect); Parainfluenza Virus 2 Not Detected (Not Detect); Parainfluenza Virus 3 Not Detected (Not Detect); Parainfluenza Virus 4 Not Detected (Not Detect); Respiratory Syncytial Virus Not Detected (Not Detect)
[2018-12-02 10:12] LABS: Mycoplasma pneumoniae DETECTED (Not Detect)
[2018-12-02 10:50] VITALS: BP 132/81
[2018-12-02] MEDS ORDERED: Azithromycin 250 MG TABLET PO SCH (12:15)
--- NOTE | 2018-12-02 13:42 | Neurology - Consult Note ---
Date of Encounter: 12/02/18 Time of Encounter: 13:22 Assessment and Plan (1) Breakthrough seizure Current Visit: No Status: Acute Patient has had urinary breakthrough seizure due to medical noncompliance. He was loaded with 1000 mg of Keppra while in the ED. His Keppra level is now within the therapeutic range. He has had no further seizures since admission. I would recommend maintaining him at 1000 mg twice a day. I do not feel any other testing is necessary. I did speak to patient about the ramifications of his life choices which include alcohol abuse and medical noncompliance. I also tried explained to him that this could cost of his life. He seems very disinterested in whatever I had the say. Recommend discharge home on Keppra 1000 mg twice a day. I will reevaluate him at your request. History of Present Illness HPI: The chart was reviewed, the patient was seen and examined. This is the most recent admission for Mr. Rose, a 53-year-old gentleman with a long history of epilepsy, alcohol abuse, and medical noncompliance. He is apparently found outside on the ground having a seizure. He was brought to the ED and given 2 mg of Ativan. Apparently had a subsequent seizure while in the ED and he was loaded on levetiracetam. Apparently the levetiracetam level was drawn some time after he was loaded in the ED. He is been back to his normal baseline status since admission. He seems somewhat aloof. This is despite me having a series conversation with him about the importance of medical compliance. Past Med Surg Social Fam HX - Past Medical History Medical history: cardiomyopathy, CHF, COPD, coronary artery disease, hyperlipidemia, hypertension, liver disease, myocardial infarction, seizures, valvular heart disease, other Additional medical history: ETOH abuse Psychiatric history: anxiety, depression - Past Surgical History Surgical History: heart valve replacement, orthopedic, other Additional surgical history: trach - Social History Smoking Status: Heavy tobacco smoker Smokeless Tobacco Status: No Alcohol use: heavy, recent Drug use: none - Family History Father Family Member Ethnicity: Non- Living Status: Hx Family Cardiac Disorders: Yes (DC) Mother Family Member Ethnicity: Non- Living Status: Hx Family Cardiac Disorders: Yes (mother heart atttack) Hx Family Respiratory Disorders: No Hx Family Cancer: No Hx Family GI Disorders: No Hx Family Endocrine Disorder: No Hx Family Neuromuscular Disorders: No Hx Family Neurologic Disorders: No Hx Family HEENT Disorders: No Hx Family Autoimmune Disorders: No Medications and Allergies Albuterol Sulfate [Ventolin Hfa] 2 puff IH Q4H PRN 10/14/18 [History] Carvedilol 3.125 mg PO BID 10/14/18 [History] LevETIRAcetam [Keppra] 1,000 mg PO BID 30 Days #60 tablet 10/16/18 [Rx] Allergy/AdvReac Type Severity Reaction Status Date / Time No Known Allergies Allergy Verified 10/15/18 13:51 All Systems: The remainder of the systems were reviewed and are negative Review of Systems: The balance of the systems review is negative. Physical Examination - Vital Signs Vital Signs: Initial Vital Signs Temp Pulse Resp BP Pulse Ox 98.6 F 90 18 150/90 94 12/01/18 17:45 12/01/18 17:45 12/01/18 17:45 12/01/18 17:45 12/01/18 17:45 - Exam Exam: General Examination: *CONSTITUTIONAL: Normal *GENERAL APPEARANCE OF PATIENT Appears disheveled, has bruises on his hands. *EYES: pupils equal, round, reactive to light and accommodation, conjunctiva clear without masses or ulcerations, fundi normal. *CARDIOVASCULAR no peripheral edema, distal temperature normal, dorsalis pedis pulses normal. Refer to vital signs Musculoskeletal: *GAIT AND STATION normal, with normal Romberg testing, no abnormalities such as broad base gait or spasticity *ASSESSMENT OF MUSCLE STRENGTH IN THE UPPER AND LOWER EXTREMITIES deltoid, bicep, tricep, supply chain director strength, hip flexors ,anterior tibialis, dorsoflexion of the foot normal. *MUSCLE TONE IN THE UPPER AND LOWER EXTREMITIES normal. No abnormal mov ements, fasciculations or atrophy identified. Neurological: *ORIENTATION to time and place *RECURRENT AND REMOTE MEMORY intact *ATTENTION AND CONCENTRATION are normal *LANGUAGE FUNCTION no significant aphasia or dysarthia was noted. *FUND OF KNOWLEDGE is poor. Based on his past experience he seems not to understand the gravity of his noncompliance. *MENTAL concentration is poor patient seems to be virtually disinterested in my assessment.. *CN II optic fundi were normal, no papilledema noted. *CN III,IV, PERRLA extraocular eye movements were full, no nystagmus and no ptosis noted. *CN V shows normal sensation and jaw opens symmetrically. *CN VII shows normal facial movement symmetrically, upper and lower jigar aterally. *CN VIII shows no significant hearing loss on examination in the office. *CN IX,,X palate elevated symmetrically and normal gag reflex was noted. *CN XI normal strength in the sternocleidomastoid muscles, symmetrical shoulder shrugging. *CN XII tongue protruded in the midline, with normal strength and movement. *SENSORY EXAMINATION pinprick sensation intact, and light touch(vibration sense). *REFLEXES: deep tendon reflexes were normal and symmetrical , grade 2/4 diffusely, no pathological reflexes were noted. *CEREBELLAR TESTING normal finger to nose, heel/knee/jeter, and tandem walk. *PAIN LEVEL Results - Laboratory Findings CBC and BMP: 12/02/18 04:06 12/02/18 04:06 Abnormal lab findings: Abnormal lab results Hgb 12.4 g/dL (12.9-16.9) L 12/02/18 04:06 RDW 15.4 % (11.5-14.5) H 12/02/18 04:06 Plt Count 139 K/mcL (140-400) L 12/02/18 04:06 Sodium 135 mEq/L (136-145) L D 12/02/18 04:06 Carbon Dioxide 19 mEq/L (23-29) L 12/02/18 04:06 Glucose 117 mg/dL (70-105) H 12/02/18 04:06 AST 55 Units/L (13-39) H 12/02/18 04:06 Cholesterol 200 mg/dL (< 200) H 12/02/18 04:06 HDL Cholesterol 125 mg/dL (40-59) H 12/02/18 04:06 Urine Clarity Cloudy (Clear) A 12/01/18 14:15 Urine Protein 100 mg/dL (Neg-Trace) H 12/01/18 14:15 Urine Ketones Trace mg/dL (Negative) H 12/01/18 14:15 Urine Blood Trace (Negative) H 12/01/18 14:15 Amorphous Sediment Many (Few) H 12/01/18 14:15 M.pneumoniae DNA (PCR) DETECTED (Not Detect) A 12/02/18 08:31 Consult Discharge Plan - Plan Referrals: NONE,PCP [Primary Care Provider] -
--- NOTE | 2018-12-02 14:00 | Discharge Summary ---
- NOTES TO OUTPATIENT PROVIDER Notes to Outpatient Provider: Patient with history of known seizure disorder complicated by medication noncompliance as well as ongoing EtOH abuse is admitted with breakthrough seizure. Workup unremarkable. Medication compliance as well as lifestyle modifications emphasized to the patient but patient did not seem very interested in the advice. High risk for readmission due to poor insight to his disease and compliance to medication. Patient is also treated for mycoplasma pneumonia bronchitis with a course of PO Azithromycin. Date of Encounter: 12/02/18 Time of Encounter: 12:00 - Discharge Diagnosis (1) Alcohol abuse Priority: Secondary Status: Acute (2) Chronic alcoholism Priority: Secondary Status: Acute (3) Hypokalemia Priority: Secondary Status: Acute (4) Hypomagnesemia Priority: Secondary Status: Acute (5) Generalized seizure Priority: Primary Status: Chronic Hospital course: Mr. Rose is a 53 year old male with history of known seizure disorder complicated by medication noncompliance as well as ongoing EtOH abuse who was admitted with breakthrough seizure. Workup unremarkable. Medication compliance as well as lifestyle modifications emphasized to the patient but patient did not seem very interested in the advice. High risk for readmission due to poor insight to his disease and compliance to medication. Patient is also treated for mycoplasma pneumonia bronchitis with a course of PO Azithromycin. Discharge discussed with: patient, nurse - Time Spent with Patient Total time spent providing and/or coordinating discharge services: 25 mins - Discharge Medications Prescriptions: Azithromycin [Zithromax] 500 mg PO DAILY 7 Days #14 tablet Home Medications: Albuterol Sulfate [Ventolin Hfa] 2 puff IH Q4H PRN 10/14/18 [History] Carvedilol 3.125 mg PO BID 10/14/18 [History] LevETIRAcetam [Keppra] 1,000 mg PO BID 30 Days #60 tablet 10/16/18 [Rx] Azithromycin [Zithromax] 500 mg PO DAILY 7 Days #14 tablet 12/02/18 [Rx] Allergies/Adverse Reactions: Allergy/AdvReac Type Severity Reaction Status Date / Time No Known Allergies Allergy Verified 10/15/18 13:51 Date of admission: 12/01/18 18:11 Primary care physician: PCP NONE Consults: 12/01/18 16:45 Consult to Neurology [CONS] Routine Consulting Provider: Neurology [facility] Reason for Consult: breakthrough seizure, alcoholic. Called in the ED Call Completed: Yes 12/01/18 17:40 Consult to Seismograph Recorder [CONS] Routine Reason for SW Consult: alcohol cessation - Constitutional Vitals: Temp Pulse Resp BP Pulse Ox 97.8 F 84 16 132/81 95 12/02/18 10:49 12/02/18 10:49 12/02/18 10:49 12/02/18 10:49 12/02/18 10:49 General appearance: Present: A&O X 2, no acute distress Exam: General: Alert and oriented, not in acute distress. No tremor Cardiovascular:Normal S1 & S2, No JVD. Pulse regular. Lungs: clear to auscultation, no wheezes/rales Abdomen:Soft, non-tender, no rigidity. Neurological: CN II-XII intact, power and sensation fully intact in all 4 limbs. No cerebellar signs, pronator drift -ve, Babinski downgoing bilaterally - Patient Status Disposition: Home, Self-Care Condition: Fair Overall status at discharge: patient is progressing back to baseline - Discharge Instructions Follow Up With: NONE,PCP [Primary Care Provider] - Additional Instructions: Continue keppra 1000mg BID Complete a course of Azithromycin Alcohol cessation emphasized - Diet and Activity Activity: resume usual activities as tolerated Diet: regular diet
--- NOTE | 2018-12-03 16:25 | Electrocardiograph Report ---
[address] [place], [place] [address] Test Date: 2018-12-01 Pat Name: Iban Rose Department: EXAM4 Room: 3B41 Gender: M Vice President Of Compliance: : 1965 Requested By: Ubaldo Garcia Order Number: [id number] Reading MD: Trevor Lua Measurements Intervals Greig Rate: 119 P: 74 WV: 137 QRS: 89 QRSD: 87 T: 63 QT: 313 QTc: 441 Interpretive Statements Sinus tachycardia Anteroseptal infarct, old Electronically Signed On 12-03-2018 16:24:30 EST by Trevor Lua
== END 2018-12-02 15:58 | disposition home or self-care (01) ==
LOC: 3BNU 13:22 → EMEROOARM 13:22 → 3BNU 18:30
PROVIDERS: ADMIT Internal Medicine; ATTEND Internal Medicine

== ENCOUNTER 2018-12-29 11:56 | Inpatient (IN) ==
[2018-12-29] MEDS ORDERED: levETIRAcetam 1,000 MG in 0.9 % Sodium Chloride 100 ML IVPB ONE (13:15)
[2018-12-29] MEDS ORDERED: 0.9 % Sodium Chloride 1,000 ML IVC ONE (13:15)
[2018-12-29] MEDS ORDERED: MVI, adult with vitamin K 10 ML in 0.9 % Sodium Chloride 1,000 ML IVC ONE (13:27)
--- NOTE | 2018-12-29 13:30 | Emergency Department Note ---
Disposition Clinical Impression: ETOH abuse, Seizure Disposition: Still a Patient Instructions: Recurrent Seizures in Adults (ED) Referrals: NONE,PCP [Primary Care Provider] - Forms: ED Satisfaction Letter Seizure HPI - General Chief Complaint: ED Seizure Stated Complaint: seizure Time Seen by Provider: 12/29/18 13:05 Source: family - History of Present Illness HPI Narrative: 53 y/o M hx CAD and seizure presents after loss of consciousness with increased fatigue. He left house this morning around 11 am and next thing he knew was in ED. He denies any injury but is unable to provide history from today. Patient is poor historian who denies urinary incontinence despite covered in urine He admits to diarrhea with out change in color for two days. Hx COPD with increased productive cough and shortness of breath for one week with intermittent feverish feeling and chills. He admits to past EtOH abuse to says lately he has only been drinking two 12 oz beers daily Pt Subjective Complaint: seizure - Related Data Home Medications Medication Instructions Recorded Confirmed Albuterol Sulfate [Ventolin Hfa] 2 puff IH Q4H PRN 10/14/18 12/01/18 Carvedilol 3.125 mg PO BID 10/14/18 12/01/18 Allergies Allergy/AdvReac Type Severity Reaction Status Date / Time No Known Allergies Allergy Verified 10/15/18 13:51 All systems ED: reviewed and negative except as stated. Limitations: ROS unobtainable due to patients medical condition Constitutional: Reports: fever, chills Eyes: Denies: vision change ENT ED: Reports: congestion Cardiovascular: Reports: palpitations. Denies: chest pain Respiratory: Reports: cough, dyspnea, sputum production. Denies: wheezes Gastrointestinal: Reports: diarrhea, constipation. Denies: abdominal pain, nausea, vomiting Genitourinary: Reports: testicular pain (chronic). Denies: urgency, dysuria, f requency Musculoskeletal: Denies: back pain, neck pain, arthralgia Integumentary: Denies: rash, abrasion Neurological: Reports: confusion. Denies: headache Endocrine: Reports: fatigue Past Medical History - Past Medical History Medical history: Reports: cardiomyopathy, CHF, COPD, coronary artery disease, hyperlipidemia, hypertension, liver disease, myocardial infarction, seizures, valvular heart disease, other Surgical history: Reports: heart valve replacement, orthopedic, other Psychiatric history: Reports: anxiety, depression - Social History Smoking Status: Heavy tobacco smoker Smokeless Tobacco Status: No Alcohol use: Reports: heavy, recent Drug use: Reports: none Physical Exam - General General appearance: alert, in no apparent distress - Head Head exam: atraumatic, normocephalic, normal inspection - Expanded Head Exam Head exam physicial: Absent: abrasion, contusion - Eye Eye exam: Present: normal appearance, PERRL, EOMI - ENT ENT exam: normal exam, mucous membranes dry, TM's normal bilaterally, normal external ear exam - Neck Neck exam: Present: normal inspection, full ROM. Absent: tenderness - Chest Chest inspection: Present: normal inspection, symmetric chest wall rise - Respiratory Respiratory exam: Absent: normal lung sounds bilaterally (coarse breath sounds), respiratory distress, accessory muscle use - Cardiovascular Cardiovascular exam: Present: regular rate, normal rhythm, normal heart sounds - Abdominal Exam Abdominal exam: Present: soft, Non-Tender, normal bowel sounds - Extremities Exam Extremities exam: Present: normal inspection, full ROM. Absent: tenderness, pedal edema - Back Exam Back exam: Present: normal inspection, full ROM. Absent: tenderness, paraspinal tenderness - Neurological Exam Neurological exam: Present: alert, oriented X3, CN II-XII intact - Psychiatric Psychiatric exam: Present: normal affect, normal mood - Skin Skin exam: Present: warm, dry, intact. Absent: rash, erythema Course Course Narrative: 53 y/o M well known to ED for seizure and EtOH withdrawl presents after syncopal episode with amnesia concerning for seizure. We will work up with routine labs for syncope UA, UDS, CBC, BMP and et [place] level. As patient has no memeory of today and may have experience injury we will obtain CT head and neck. Also increased shortness of breath and productive cough with coarse breath sounds on exam will be treated with duoneb and evaluate with XR. - Reevaluation(s) Reevaluation #1: Patient has suspicious episode of AMS witnessed by RN was given ativan and will be monitors for withdrawal. EtOH elevated at 93 similar to past presentations. His lung sounds improved after douneb. Time: 14:26 Reevaluation #2: Patient reports continued fatigue but improvement in breathing. He says he needs to get up for cigarette but agrees to try patch as we do not have gum in ED. He remained drowsy with slurred speech and disagreeable. Reevaluation #3: CT head and neck without acute procress. Chest XR with out infiltrate. Called nela taylor to add on CMP. Time: 15:47 Additional Reevaluation(s): CMP resulted and hospitalist paged - Consultations Consultation #1: Case discussed with hospitalist DR Torres and accepted for admision Vital Signs Temperature 97.9 F 12/29/18 12:02 Pulse Rate 99 12/29/18 12:02 Respiratory Rate 16 12/29/18 12:02 Blood Pressure 133/89 12/29/18 12:02 O2 Sat by Pulse Oximetry 96 12/29/18 12:02 Temperature 97.9 F 12/29/18 12:02 Pulse Rate 99 12/29/18 12:02 Respiratory Rate 16 12/29/18 13:44 Blood Pressure 133/89 12/29/18 12:02 O2 Sat by Pulse Oximetry 96 12/29/18 13:44 Oxygen Delivery Oxygen Delivery Room Air Seizure - Medical Records Medical records reviewed: Yes I reviewed the patient's medical records. - Lab Data Lab results reviewed: Yes I reviewed the patient's lab results. Result diagrams: 12/29/18 13:44 12/29/18 13:44 Lab Results 12/29/18 12/29/18 12/29/18 Range/Units 13:44 13:44 15:50 WBC 5.4 (4.3-11.1) K/mcL RBC 4.35 (4.19-5.50) M/mcL Hgb 13.0 (12.9-16.9) g/dL Hct 38.9 (37.5-50.1) % MCV 89.4 (83.0-100.0) fL MCH 29.9 (28.0-33.3) pg MCHC 33.4 (31.6-35.5) g/dL RDW 16.6 H (11.5-14.5) % Plt Count 178 (140-400) K/mcL MPV 10.7 (9.4-12.4) fL Immature Gran % 0.6 (0-4) % Seg Neutrophils % 75.5 % Lymphocytes % 12.7 % Monocytes % 8.4 % Eosinophils % 1.1 % Basophils % 1.7 % Neutrophils # 4.1 (1.6-8.9) K/mcL Lymphocytes # 0.7 (0.6-4.6) K/mcL Monocytes # 0.5 (0.0-1.3) K/mcL Eosinophils # 0.1 (0.0-0.6) K/mcL Basophils # 0.1 (0.0-0.2) K/mcL Sodium 140 (136-145) mEq/L Potassium 4.4 (3.5-5.1) mEq/L Chloride 105 (98-107) mEq/L Carbon Dioxide 22 L (23-29) mEq/L BUN 5 L (6-20) mg/dL Creatinine 0.75 (0.70-1.30) mg/dL Est GFR ( Amer) > 60 (> 60) Est GFR (Non-Af Amer) > 60 (> 60) BUN/Creatinine Ratio 7 (6-26) Glucose 79 (70-105) mg/dL Calculated Osmolality 286 (280-300) Calcium 9.9 (8.6-10.3) mg/dL Phosphorus 3.5 (2.7-4.5) mg/dL Magnesium 1.6 (1.6-2.6) mg/dL Total Bilirubin 0.5 (0.3-1.0) mg/dL AST 65 H (13-39) Units/L ALT 32 (7-52) Units/L Alkaline Phosphatase 72 (34-104) Units/L Serum Total Protein 7.9 (6.4-8.9) g/dL Albumin 4.7 (3.5-5.7) g/dL Globulin 3.2 (2.4-3.5) g/dL Albumin/Globulin Ratio 1.5 (1.1-2.2) Urine Color Yellow (Yellow) Urine Clarity Clear (Clear) Urine pH 6.0 (5.0-8.0) pH Units Ur Specific [place] 1.018 (1.010-1.025) Urine Protein 30 H (Neg-Trace) mg/dL Urine Glucose (UA) Normal (Normal) mg/dL Urine Ketones Negative (Negative) mg/dL Urine Blood Negative (Negative) Urine Nitrite Negative (Negative) Urine Bilirubin Negative (Negative) Urine Urobilinogen Normal (Normal) mg/dL Ur Leukocyte Esterase Negative (Negative) Urine Microscopic RBC 0-3 (0-3) per hpf Urine Microscopic WBC 0-3 (0-3) per hpf Ur Squamous Epith Cells None Seen (None-Few) per lpf Urine Bacteria None Seen (None-Few) per hpf Hyaline Casts None Seen (None-Few) per lpf Salicylates < 2.5 L (15.0-30.0) mg/dL Urine Opiates Screen (Trppnf=410) ng/mL Acetaminophen < 10 L (10-20) mcg/mL Ur Barbiturates Screen (Hloxzo=541) ng/mL Ur Phencyclidine Scrn (Cutoff=25) ng/mL Ur Amphetamines Screen (Ngzvrn=2071) ng/mL U Benzodiazepines Scrn (Idwfdq=593) ng/mL Urine Cocaine Screen (Cutoff= 300) ng/mL U Marijuana (THC) Screen (Cutoff = 50) ng/mL Ur Drug Screen Interp Ethyl Alcohol 92 H (Less than 10) mg/dL 12/29/18 Range/Units 15:50 WBC (4.3-11.1) K/mcL RBC (4.19-5.50) M/mcL Hgb (12.9-16.9) g/dL Hct (37.5-50.1) % MCV (83.0-100.0) fL MCH (28.0-33.3) pg MCHC (31.6-35.5) g/dL RDW (11.5-14.5) % Plt Count (140-400) K/mcL MPV (9.4-12.4) fL Immature Gran % (0-4) % Seg Neutrophils % % Lymphocytes % % Monocytes % % Eosinophils % % Basophils % % Neutrophils # (1.6-8.9) K/mcL Lymphocytes # (0.6-4.6) K/mcL Monocytes # (0.0-1.3) K/mcL Eosinophils # (0.0-0.6) K/mcL Basophils # (0.0-0.2) K/mcL Sodium (136-145) mEq/L Potassium (3.5-5.1) mEq/L Chloride (98-107) mEq/L Carbon Dioxide (23-29) mEq/L BUN (6-20) mg/dL Creatinine (0.70-1.30) mg/dL Est GFR ( Amer) (> 60) Est GFR (Non-Af Amer) (> 60) BUN/Creatinine Ratio (6-26) Glucose (70-105) mg/dL Calculated Osmolality (280-300) Calcium (8.6-10.3) mg/dL Phosphorus (2.7-4.5) mg/dL Magnesium (1.6-2.6) mg/dL Total Bilirubin (0.3-1.0) mg/dL AST (13-39) Units/L ALT (7-52) Units/L Alkaline Phosphatase (34-104) Units/L Serum Total Protein (6.4-8.9) g/dL Albumin (3.5-5.7) g/dL Globulin (2.4-3.5) g/dL Albumin/Globulin Ratio (1.1-2.2) Urine Color (Yellow) Urine Clarity (Clear) Urine pH (5.0-8.0) pH Units Ur Specific [place] (1.010-1.025) Urine Protein (Neg-Trace) mg/dL Urine Glucose (UA) (Normal) mg/dL Urine Ketones (Negative) mg/dL Urine Blood (Negative) Urine Nitrite (Negative) Urine Bilirubin (Negative) Urine Urobilinogen (Normal) mg/dL Ur Leukocyte Esterase (Negative) Urine Microscopic RBC (0-3) per hpf Urine Microscopic WBC (0-3) per hpf Ur Squamous Epith Cells (None-Few) per lpf Urine Bacteria (None-Few) per hpf Hyaline Casts (None-Few) per lpf Salicylates (15.0-30.0) mg/dL Urine Opiates Screen Negative (Onwimq=452) ng/mL Acetaminophen (10-20) mcg/mL Ur Barbiturates Screen Negative (Kktvqc=365) ng/mL Ur Phencyclidine Scrn Negative (Cutoff=25) ng/mL Ur Amphetamines Screen Negative (Nxogyx=8101) ng/mL U Benzodiazepines Scrn Negative (Tsdufl=417) ng/mL Urine Cocaine Screen Negative (Cutoff= 300) ng/mL U Marijuana (THC) Screen Negative (Cutoff = 50) ng/mL Ur Drug Screen Interp See Below Ethyl Alcohol (Less than 10) mg/dL - Radiology Data Radiology results reviewed: Yes I reviewed the patient's radiology results. Cervical Spine CT 12/29/18 13:15 IMPRESSION: No acute intracranial abnormality. Cerebral atrophy. No acute traumatic injury of the cervical spine. D/ / Julio Cesar Moraes MD / Julio Cesar Moraes MD Interpreting Provider: Julio Cesar Moraes MD Head CT 12/29/18 13:15 IMPRESSION: No acute intracranial abnormality. Cerebral atrophy. No acute traumatic injury of the cervical spine. D/ / Julio Cesar Moraes MD / Julio Cesar Moraes MD Interpreting Provider: Julio Cesar Moraes MD Chest X-Ray 12/29/18 13:31 IMPRESSION: No acute findings. D/ / Keven Xiong MD / Keven Xiong MD Interpreting Provider: Keven Xiong MD
[2018-12-29] MEDS ORDERED: Ipratropium/Albuterol Neb 3 ML IH ONE (13:31)
[2018-12-29] MEDS: *HR* LORazepam 2 MG/ML VIAL IVP ONE ×2 (13:42→13:51)
[2018-12-29 14:00] LABS: Basophils # 0.1 K/mcL (0.0-0.2); Basophils % 1.7 %; Eosinophils # 0.1 K/mcL (0.0-0.6); Eosinophils % 1.1 %; Hematocrit 38.9 % (37.5-50.1); Immature Granulocytes % 0.6 % (0-4); Lymphocytes # 0.7 K/mcL (0.6-4.6); Lymphocytes % 12.7 %; Mean Corpuscular HGB Conc 33.4 g/dL (31.6-35.5); Mean Corpuscular Hemoglobin 29.9 pg (28.0-33.3); Mean Corpuscular Volume 89.4 fL (83.0-100.0); Mean Platelet Volume 10.7 fL (9.4-12.4); Monocytes # 0.5 K/mcL (0.0-1.3); Monocytes % 8.4 %; Neutrophils # 4.1 K/mcL (1.6-8.9); Platelet Count 178 K/mcL (140-400); Red Blood Count 4.35 M/mcL (4.19-5.50); Red Cell Distribution Width 16.6 % (11.5-14.5); Segmented Neutrophils % 75.5 %
[2018-12-29 14:19] LABS: Acetaminophen < 10 mcg/mL (10-20); Ethanol 92 mg/dL (Less than 10); Magnesium 1.6 mg/dL (1.6-2.6); Phosphorous 3.5 mg/dL (2.7-4.5); Salicylate < 2.5 mg/dL (15.0-30.0)
[2018-12-29] MEDS ORDERED: Nicotine 2 MG GUM BC PRN (15:32)
[2018-12-29] MEDS ORDERED: Nicotine 21 MG PATCH.TD24 TD ONE (15:32)
[2018-12-29 16:00] LABS: Bilirubin,Urine Negative (Negative); Blood,Urine Negative (Negative); Clarity,Urine Clear (Clear); Color,Urine Yellow (Yellow); Glucose,Urine (UA) Normal (Normal); Ketones,Urine Negative (Negative); Leukocyte Esterase,Urine Negative (Negative); Nitrite,Urine Negative (Negative); Protein,Urine 30 mg/dL (Neg-Trace); Specific Gravity,Urine 1.018 (1.010-1.025); Urobilinogen,Urine Normal (Normal)
[2018-12-29 16:02] LABS: Bacteria,Urine None Seen per hpf (None-Few); Hyaline Casts,Urine None Seen per lpf (None-Few); RBC,Urine 0-3 per hpf (0-3); Squamous Epithelial Cell,Urine None Seen per lpf (None-Few); WBC,Urine 0-3 per hpf (0-3)
[2018-12-29 16:08] LABS: Alanine Aminotransferase 32 Units/L (7-52); Albumin 4.7 g/dL (3.5-5.7); Albumin/Globulin Ratio 1.5 (1.1-2.2); Alkaline Phosphatase 72 Units/L (34-104); Aspartate Amino Transferase 65 Units/L (13-39); BUN/Creatinine Ratio 7 (6-26); Bilirubin,Total 0.5 mg/dL (0.3-1.0); Blood Urea Nitrogen 5 mg/dL (6-20); Calcium 9.9 mg/dL (8.6-10.3); Carbon Dioxide 22 mEq/L (23-29); Chloride 105 mEq/L (98-107); Globulin 3.2 g/dL (2.4-3.5); Glucose 79 mg/dL (70-105); Osmolality,Calculated 286 (280-300); Potassium 4.4 mEq/L (3.5-5.1); Sodium 140 mEq/L (136-145); Total Protein 7.9 g/dL (6.4-8.9); eGFR For Non-African Americans > 60 (> 60)
[2018-12-29 16:11] LABS: Amphetamine Screen,Urine Negative ng/mL (Cutoff=1000); Barbiturate Screen,Urine Negative ng/mL (Cutoff=200); Benzodiazepines Screen,Urine Negative ng/mL (Cutoff=200); Cannabinoid Screen,Urine Negative ng/mL (Cutoff = 50); Cocaine Screen,Urine Negative ng/mL (Cutoff= 300); Opiate Screen,Urine Negative ng/mL (Cutoff=300); Phencyclidine Screen,Urine Negative ng/mL (Cutoff=25)
--- NOTE | 2018-12-29 16:14 | Emergency Department Note ---
Disposition Clinical Impression: ETOH abuse, Seizure Disposition: Admitted As Inpatient Instructions: Recurrent Seizures in Adults (ED) Referrals: NONE,PCP [Primary Care Provider] - Forms: ED Satisfaction Letter General Adult HPI - General Chief complaint: ED Seizure Stated complaint: seizure Time Seen by Provider: 12/29/18 13:05 Source: family - History of Present Illness Pain Scale: 8 - Related Data Home Medications Medication Instructions Recorded Confirmed Albuterol Sulfate [Ventolin Hfa] 2 puff IH Q4H PRN 10/14/18 12/01/18 Carvedilol 3.125 mg PO BID 10/14/18 12/01/18 Allergies Allergy/AdvReac Type Severity Reaction Status Date / Time No Known Allergies Allergy Verified 10/15/18 13:51 Constitutional: Reports: fever, chills Eyes: Denies: vision change ENT ED: Reports: congestion Cardiovascular: Reports: palpitations. Denies: chest pain Respiratory: Reports: cough, dyspnea, sputum production. Denies: wheezes Gastrointestinal: Reports: diarrhea, constipation. Denies: abdominal pain, nausea, vomiting Genitourinary: Reports: testicular pain (chronic). Denies: urgency, dysuria, frequency Musculoskeletal: Denies: back pain, neck pain, arthralgia Integumentary: Denies: rash, abrasion Neurological: Reports: confusion. Denies: headache Endocrine: Reports: fatigue Past Medical History - Past Medical History Medical history: Reports: cardiomyopathy, CHF, COPD, coronary artery disease, hyperlipidemia, hypertension, liver disease, myocardial infarction, seizures, valvular heart disease, other Surgical history: Reports: heart valve replacement, orthopedic, other Psychiatric history: Reports: anxiety, depression - Social History Smoking Status: Heavy tobacco smoker Smokeless Tobacco Status: No Alcohol use: Reports: heavy, recent Drug use: Reports: none Physical Exam - General General appearance: alert, in no apparent distress Course Vital Signs Temperature 97.9 F 12/29/18 12:02 Pulse Rate 99 12/29/18 12:02 Respiratory Rate 16 12/29/18 12:02 Blood Pressure 133/89 12/29/18 12:02 O2 Sat by Pulse Oximetry 96 12/29/18 12:02 Temperature 97.9 F 12/29/18 12:02 Pulse Rate 99 12/29/18 12:02 Respiratory Rate 16 12/29/18 13:44 Blood Pressure 133/89 12/29/18 12:02 O2 Sat by Pulse Oximetry 96 12/29/18 13:44 Oxygen Delivery Oxygen Delivery Room Air Medical Decision Making - Lab Data Result diagrams: 12/29/18 13:44 12/29/18 13:44 Lab Results 12/29/18 12/29/18 12/29/18 Range/Units 13:44 13:44 15:50 WBC 5.4 (4.3-11.1) K/mcL RBC 4.35 (4.19-5.50) M/mcL Hgb 13.0 (12.9-16.9) g/dL Hct 38.9 (37.5-50.1) % MCV 89.4 (83.0-100.0) fL MCH 29.9 (28.0-33.3) pg MCHC 33.4 (31.6-35.5) g/dL RDW 16.6 H (11.5-14.5) % Plt Count 178 (140-400) K/mcL MPV 10.7 (9.4-12.4) fL Immature Gran % 0.6 (0-4) % Seg Neutrophils % 75.5 % Lymphocytes % 12.7 % Monocytes % 8.4 % Eosinophils % 1.1 % Basophils % 1.7 % Neutrophils # 4.1 (1.6-8.9) K/mcL Lymphocytes # 0.7 (0.6-4.6) K/mcL Monocytes # 0.5 (0.0-1.3) K/mcL Eosinophils # 0.1 (0.0-0.6) K/mcL Basophils # 0.1 (0.0-0.2) K/mcL Sodium 140 (136-145) mEq/L Potassium 4.4 (3.5-5.1) mEq/L Chloride 105 (98-107) mEq/L Carbon Dioxide 22 L (23-29) mEq/L BUN 5 L (6-20) mg/dL Creatinine 0.75 (0.70-1.30) mg/dL Est GFR ( Amer) > 60 (> 60) Est GFR (Non-Af Amer) > 60 (> 60) BUN/Creatinine Ratio 7 (6-26) Glucose 79 (70-105) mg/dL Calculated Osmolality 286 (280-300) Calcium 9.9 (8.6-10.3) mg/dL Phosphorus 3.5 (2.7-4.5) mg/dL Magnesium 1.6 (1.6-2.6) mg/dL Total Bilirubin 0.5 (0.3-1.0) mg/dL AST 65 H (13-39) Units/L ALT 32 (7-52) Units/L Alkaline Phosphatase 72 (34-104) Units/L Serum Total Protein 7.9 (6.4-8.9) g/dL Albumin 4.7 (3.5-5.7) g/dL Globulin 3.2 (2.4-3.5) g/dL Albumin/Globulin Ratio 1.5 (1.1-2.2) Urine Color Yellow (Yellow) Urine Clarity Clear (Clear) Urine pH 6.0 (5.0-8.0) pH Units Ur Specific [place] 1.018 (1.010-1.025) Urine Protein 30 H (Neg-Trace) mg/dL Urine Glucose (UA) Normal (Normal) mg/dL Urine Ketones Negative (Negative) mg/dL Urine Blood Negative (Negative) Urine Nitrite Negative (Negative) Urine Bilirubin Negative (Negative) Urine Urobilinogen Normal (Normal) mg/dL Ur Leukocyte Esterase Negative (Negative) Urine Microscopic RBC 0-3 (0-3) per hpf Urine Microscopic WBC 0-3 (0-3) per hpf Ur Squamous Epith Cells None Seen (None-Few) per lpf Urine Bacteria None Seen (None-Few) per hpf Hyaline Casts None Seen (None-Few) per lpf Salicylates < 2.5 L (15.0-30.0) mg/dL Urine Opiates Screen (Wpysqe=089) ng/mL Acetaminophen < 10 L (10-20) mcg/mL Ur Barbiturates Screen (Kexbjh=259) ng/mL Ur Phencyclidine Scrn (Cutoff=25) ng/mL Ur Amphetamines Screen (Likuds=8234) ng/mL U Benzodiazepines Scrn (Mpdttd=748) ng/mL Urine Cocaine Screen (Cutoff= 300) ng/mL U Marijuana (THC) Screen (Cutoff = 50) ng/mL Ur Drug Screen Interp Ethyl Alcohol 92 H (Less than 10) mg/dL 12/29/18 Range/Units 15:50 WBC (4.3-11.1) K/mcL RBC (4.19-5.50) M/mcL Hgb (12.9-16.9) g/dL Hct (37.5-50.1) % MCV (83.0-100.0) fL MCH (28.0-33.3) pg MCHC (31.6-35.5) g/dL RDW (11.5-14.5) % Plt Count (140-400) K/mcL MPV (9.4-12.4) fL Immature Gran % (0-4) % Seg Neutrophils % % Lymphocytes % % Monocytes % % Eosinophils % % Basophils % % Neutrophils # (1.6-8.9) K/mcL Lymphocytes # (0.6-4.6) K/mcL Monocytes # (0.0-1.3) K/mcL Eosinophils # (0.0-0.6) K/mcL Basophils # (0.0-0.2) K/mcL Sodium (136-145) mEq/L Potassium (3.5-5.1) mEq/L Chloride (98-107) mEq/L Carbon Dioxide (23-29) mEq/L BUN (6-20) mg/dL Creatinine (0.70-1.30) mg/dL Est GFR ( Amer) (> 60) Est GFR (Non-Af Amer) (> 60) BUN/Creatinine Ratio (6-26) Glucose (70-105) mg/dL Calculated Osmolality (280-300) Calcium (8.6-10.3) mg/dL Phosphorus (2.7-4.5) mg/dL Magnesium (1.6-2.6) mg/dL Total Bilirubin (0.3-1.0) mg/dL AST (13-39) Units/L ALT (7-52) Units/L Alkaline Phosphatase (34-104) Units/L Serum Total Protein (6.4-8.9) g/dL Albumin (3.5-5.7) g/dL Globulin (2.4-3.5) g/dL Albumin/Globulin Ratio (1.1-2.2) Urine Color (Yellow) Urine Clarity (Clear) Urine pH (5.0-8.0) pH Units Ur Specific [place] (1.010-1.025) Urine Protein (Neg-Trace) mg/dL Urine Glucose (UA) (Normal) mg/dL Urine Ketones (Negative) mg/dL Urine Blood (Negative) Urine Nitrite (Negative) Urine Bilirubin (Negative) Urine Urobilinogen (Normal) mg/dL Ur Leukocyte Esterase (Negative) Urine Microscopic RBC (0-3) per hpf Urine Microscopic WBC (0-3) per hpf Ur Squamous Epith Cells (None-Few) per lpf Urine Bacteria (None-Few) per hpf Hyaline Casts (None-Few) per lpf Salicylates (15.0-30.0) mg/dL Urine Opiates Screen Negative (Dnwmrn=497) ng/mL Acetaminophen (10-20) mcg/mL Ur Barbiturates Screen Negative (Olpprc=205) ng/mL Ur Phencyclidine Scrn Negative (Cutoff=25) ng/mL Ur Amphetamines Screen Negative (Bugcxt=8825) ng/mL U Benzodiazepines Scrn Negative (Yarcjx=040) ng/mL Urine Cocaine Screen Negative (Cutoff= 300) ng/mL U Marijuana (THC) Screen Negative (Cutoff = 50) ng/mL Ur Drug Screen Interp See Below Ethyl Alcohol (Less than 10) mg/dL Attestation Statement - Attestation Attestation: I examined this patient and my medical decision-making was reviewed with the Resident Physician. I agree with the documented findings, disposition and treatment plan as described except to the extent set forth below. 53 year old male presents to the ED with complaints of seizure and is a noncompliant with medications for his seizure in addition to being an alcoholic. Mana current ETOH is 92 and he had a witnessed seizure at bedside. Mana is well known to our facility and is often admitted for seizures and alcohol withdrawl. Mana is typically loaded with keppra and ativan and we will admit to [facility] as well for furhter observation
[2018-12-29] MEDS ORDERED: traMADol 50 MG TABLET PO PRN (16:27)
[2018-12-29] MEDS ORDERED: Naloxone 0.4 MG/ML INJ IVP PRN (16:27)
[2018-12-29] MEDS ORDERED: *HR* LORazepam 1 MG TABLET PO SCH (16:30)
--- NOTE | 2018-12-29 17:11 | Internal Med History&Physical ---
Date of Encounter: 12/29/18 Time of Encounter: 16:59 Internal Medicine - H&P: HPI Chief complaint: blacked out. possible seizures. Alcohol withdrawl. Admitted From: Home Plans for Post Hospital Care: Home History of present illness: Mr. Rose is a 53 year old male PMH of alcohol abuse, Seizures, CAD and HTN. Patient was brought to the ED after losing consciousness. Patient reports that he left his house today morning and after he walked about 1 block he passed out, the only next thing he remembered is waking up in the ED. He denies urinary or bowel incontinence but reports biting his tongue. He reports that before losing consciousness he felt like light headed, and his heart was beating fast. He reports drinking 2, 12 ounces beers a day, last drink yesterday. He denies chest pain, nausea, vomiting or abdominal pain. In the ED patient was found to have intentional and resting tremors for which hospitalist team was called for admission for possible alcohol withdrawal. He denies visual or auditory hallucination. Past Med Surg Social Fam HX - Past Medical History Medical history: cardiomyopathy, CHF, COPD, coronary artery disease, hyperli pidemia, hypertension, liver disease, myocardial infarction, seizures, valvular heart disease, other Additional medical history: ETOH abuse Psychiatric history: anxiety, depression - Past Surgical History Surgical History: heart valve replacement, orthopedic, other Additional surgical history: trach - Social History Smoking Status: Heavy tobacco smoker Smokeless Tobacco Status: No Alcohol use: heavy, recent Drug use: none - Family History Father Family Member Ethnicity: Non- Living Status: Hx Family Cardiac Disorders: Yes (MD) Mother Family Member Ethnicity: Non- Living Status: Hx Family Cardiac Disorders: Yes (mother heart atttack) Hx Family Respiratory Disorders: No Hx Family Cancer: No Hx Family GI Disorders: No Hx Family Endocrine Disorder: No Hx Family Neuromuscular Disorders: No Hx Family Neurologic Disorders: No Hx Family HEENT Disorders: No Hx Family Autoimmune Disorders: No Internal Medicine - H&P: Meds Albuterol Sulfate [Ventolin Hfa] 2 puff IH Q4H PRN 10/14/18 [History] Carvedilol 3.125 mg PO BID 10/14/18 [History] Allergy/AdvReac Type Severity Reaction Status Date / Time No Known Allergies Allergy Verified 10/15/18 13:51 All Systems PM: A 10-system review of systems was performed and is negative for pertinent find ings except as documented above in the HPI. - Constitutional Constitutional: no chills, no fever(s), no weakness - EENT Eyes: no change in vision - Cardiovascular Cardiovascular ROS IM: lightheadedness, syncope, no chest pain, no dyspnea, no edema, no irregular heart rhythm, no palpitations, no paroxysmal nocturnal dyspnea - Respiratory Respiratory: no cough, no dyspnea, no dyspnea on exertion, no excessive phlegm production, no change in phlegm color - Gastrointestinal Gastrointestinal: no abdominal pain - Genitourinary Genitourinary ROS male: scrotal swelling (chronic due to an scrotal hernia. ), no nocturia - Musculoskeletal Musculoskeletal ROS IM: no arthralgias - Integumentary Integumentary IM: no skin ulcer, no sores - Neurological Neurological ROS: weakness - Psychiatric Psychiatric: no hallucinations, no hopelessness - Endocrine Endocrine IM: no excessive sweating - Hematologic/Lymphatic Hematologic/Lymphatic: no lymphadenopathy - Allergic/Immunologic Allergic/Immunologic: no GI upset with certain foods - Constitutional Vitals: Temp Pulse Resp BP Pulse Ox 97.9 F 99 16 133/89 96 12/29/18 12:02 12/29/18 12:02 12/29/18 13:44 12/29/18 12:02 12/29/18 13:44 Exam: Vitals: Reviewed. General: Alert and oriented x3. In no acute distress. Skin: Normal color, no rash, no lesions. HEENT: EOM, pupils equal, round and reactive. Cardiovascular: RRR, normal S1 & S2, no rubs, murmurs or gallops. Lungs: CTA b/l, no wheezes or crackles. Abdomen: Soft, non-tender, no rigidity. : scrotal hernia Extremities: No deformity, no edema or tenderness, no joint swelling or clubbing. Neurological: Intentional tremors Rest of the physical exam is non contributory Internal Med - H&P Results - Labs CBC & Chem 7: 12/29/18 13:44 12/29/18 13:44 Labs: Short CBC 12/29/18 Range/Units 13:44 WBC 5.4 (4.3-11.1) K/mcL Hgb 13.0 (12.9-16.9) g/dL Hct 38.9 (37.5-50.1) % Plt Count 178 (140-400) K/mcL Neutrophils # 4.1 (1.6-8.9) K/mcL BMP 12/29/18 13:44 Sodium 140 Potassium 4.4 Chloride 105 Carbon Dioxide 22 L BUN 5 L Creatinine 0.75 Glucose 79 Calcium 9.9 Liver Function 12/29/18 Range/Units 13:44 Total Bilirubin 0.5 (0.3-1.0) mg/dL AST 65 H (13-39) Units/L ALT 32 (7-52) Units/L Alkaline Phosphatase 72 (34-104) Units/L Albumin 4.7 (3.5-5.7) g/dL Urine 12/29/18 Range/Units 15:50 Urine Color Yellow (Yellow) Urine Clarity Clear (Clear) Urine pH 6.0 (5.0-8.0) pH Units Ur Specific [place] 1.018 (1.010-1.025) Urine Protein 30 H (Neg-Trace) mg/dL Urine Glucose (UA) Normal (Normal) mg/dL - Impressions ITS Impressions Cervical Spine CT 12/29/18 13:15 IMPRESSION: No acute intracranial abnormality. Cerebral atrophy. No acute traumatic injury of the cervical spine. D/ / Julio Cesar Moraes MD / Julio Cesar Moraes MD Interpreting Provider: Julio Cesar Moraes MD Head CT 12/29/18 13:15 IMPRESSION: No acute intracranial abnormality. Cerebral atrophy. No acute traumatic injury of the cervical spine. D/ / Julio Cesar Moraes MD / Julio Cesar Moraes MD Interpreting Provider: Julio Cesar Moraes MD Chest X-Ray 12/29/18 13:31 IMPRESSION: No acute findings. D/ / Keven Xiong MD / Keven Xiong MD Interpreting Provider: Keven Xiong MD - Diagnostic Studies Chest x-ray Status: image reviewed by me (No acute findings ) - Assessment and plan (1) Seizure Current Visit: Yes Status: Acute Assessment and plan: Patient reports loosing consciousness. No bowel or urinary incontinence. reports biting his tongue. Possible seizure Plan Neurology has been consulted started on Keppra 1000mg/PO BID on lorazepam per [facility] protocol. Head CT unremarkable (2) Alcohol withdrawal Current Visit: No Status: Acute Assessment and plan: patient with intentional and resting tremors. Plan started on [facility] protocol telemetry monitoring banana bag x1. Qualifiers: Complication of substance-induced condition: with unspecified complication Qualified Code(s): F10.239 - Alcohol dependence with withdrawal, unspecified (3) COPD (chronic obstructive pulmonary disease) Current Visit: No Status: Chronic Assessment and plan: not on acute exacerbation. bronchodilators Q4RT PRN. Qualifiers: COPD type: unspecified COPD Qualified Code(s): J44.9 - Chronic obstructive pulmonary disease, unspecified (4) DVT prophylaxis Current Visit: No Status: Acute Assessment and plan: Heparin 5000 mg SubQ Q8HRs (5) Hypertension Current Visit: No Status: Chronic Assessment and plan: patient on carvedilol 3.125mg/PO BID. Qualifiers: Hypertension type: essential hypertension Qualified Code(s): I10 - Essential (primary) hypertension (6) CAD (coronary artery disease) Current Visit: Yes Status: Chronic Assessment and plan: patient reports Hx of open heart surgery. will start low dose aspirin 81mg/PO daily. Lipid panel ordered. Qualifiers: Coronary Disease-Associated Artery/Lesion type: unspecified vessel or lesion type [place] vs. transplanted heart: unspecified whether [place] or transplanted heart Associated angina: angina presence unspecified Qualified Code(s): I25.10 - Atherosclerotic heart disease of [place] coronary artery without angina pectoris - Time Spent With Patient Total time spent is greater than 50% in coordination of care (as documented) at patient's floor/unit and/or counseling patient: Greater than 35 minutes (45)
[2018-12-29] MEDS ORDERED: Ipratropium/Albuterol Neb 3 ML IH PRN (17:15)
[2018-12-29] MEDS: levETIRAcetam 250 MG TABLET PO SCH (18:33)
[2018-12-29] MEDS ORDERED: *HR* LORazepam 2 MG/ML VIAL IVP PRN (18:57)
[2018-12-29] MEDS: *HR* Heparin 5,000 UNIT/ML VIAL SQ SCH (20:31)
[2018-12-30] MEDS: *HR* LORazepam 2 MG/ML VIAL IVP PRN ×7 (00:05→22:11)
[2018-12-30] MEDS: *HR* Heparin 5,000 UNIT/ML VIAL SQ SCH ×3 (03:25→20:38)
[2018-12-30] MEDS: levETIRAcetam 250 MG TABLET PO SCH ×2 (03:25→21:25)
[2018-12-30 05:01] LABS: Hematocrit 37.1 % (37.5-50.1); Hemoglobin 12.2 g/dL (12.9-16.9); Mean Corpuscular HGB Conc 32.9 g/dL (31.6-35.5); Mean Corpuscular Volume 91.4 fL (83.0-100.0); Mean Platelet Volume 11.1 fL (9.4-12.4); Platelet Count 157 K/mcL (140-400); Red Blood Count 4.06 M/mcL (4.19-5.50); Red Cell Distribution Width 16.4 % (11.5-14.5)
[2018-12-30 05:10] LABS: BUN/Creatinine Ratio 8 (6-26); Blood Urea Nitrogen 5 mg/dL (6-20); Calcium 8.9 mg/dL (8.6-10.3); Carbon Dioxide 23 mEq/L (23-29); Chloride 101 mEq/L (98-107); Glucose 111 mg/dL (70-105); Magnesium 1.6 mg/dL (1.6-2.6); Osmolality,Calculated 272 (280-300); Phosphorous 3.4 mg/dL (2.7-4.5); Potassium 3.8 mEq/L (3.5-5.1); Sodium 132 mEq/L (136-145); eGFR For Non-African Americans > 60 (> 60)
[2018-12-30] MEDS ORDERED: Folic Acid 1 MG TABLET PO SCH (09:00)
[2018-12-30] MEDS ORDERED: Thiamine (B-1) 100 MG TABLET PO SCH (09:00)
[2018-12-30] MEDS ORDERED: Aspirin Enteric Coated 81 MG Tablet PO SCH (09:00)
--- NOTE | 2018-12-30 10:15 | EEG/EMG/Oth Biometrics Report ---
EEG Procedure Report Date of procedure: 12/30/18 EEG Procedure: Routine EEG Procedure Note: This EEG was acquired with standard international 10-20 system with EKG recording. The background EEG activity was replaced by low amplitude, fast activity resembling excessive Beta activity. The background activity was reactive to eye openings. Sleep stages were not identified during this tracing. Drowsiness was characterized by drop off of posterior dominant alpha rhythm. There are no electrographic seizures identified during this tracing. There are no epileptiform discharges and focal slowing noted during this recording. Photic stimulation produced and produced no abnormalities. Hyperventilation procedure not performed. EKG tracing showed no significant cardiac dysrhythmia. Extensive beta activity seen diffusely during the study. Impression: This is essentially a normal awake and drowsy EEG. Extensive beta can be the results of medication effects including those from benzodiazepam and phenobarbital. Clinical Correlation: Normal EEGs, however, do not exclude epilepsy. Clinical correlation is advised.
--- NOTE | 2018-12-30 10:51 | Neurology - Consult Note ---
Addendum entered and electronically signed by Charisma Euceda MD 12/30/18 16:43: Patient seen and examined in the presence of ADULT BASIC EDUCATION MANAGER Rajiv Muniz and i agree with his history taking, physical examination, assessment and plan. This is a 53 year old man with alcoholism and seizure disorder known to us with recurrent seizures may or may not be associated with alcohol withdrawal who has been non-compliant with antiepleptic therapy. He apparently developed another seizure and was admitted for further management for seizure as well as DT prophylaxis. He certainly needs social service due to his alcoholism and noncompliance. Has had work up in the past and this time CT of head was reported no acute intracranial abnormality. Will keep him on Keppra 500mg bid. DT prophylaxis. EEG completed and should excessive beta activity consistent with bendodiazepam use. 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 Please continue medical and supportive care Original Note: Date of Encounter: 12/30/18 Time of Encounter: 10:28 Assessment and Plan (1) Breakthrough seizure Current Visit: Yes Status: Acute history of seizures;Presented yesterday with concerns for seizures. He has a history of alcohol abuse which is likely contributing. Recently admitted 12/02/18 with breakthrough seizure 2/2 medication non compliance and continue ETOH abuse. He continues to be non compliant to date 2/2 "financial constraints" and cont inued ETOH abuse EEG obtained and did not identify any epileptiform activity CT head did not identify any organic cause CT neck without acute abnormality He was given a loading dose of Keppra in the ED and Keppra has been restarted at a dose of 1000mg BID He has not had any return of seizure activity since admission He has had not acute change in condition and remains stable clinically His exam is non focal and non lateralizing without any acute neurological findings Plan/Recommendations continue keppra; will need a new Rx at d/c discussed medication compliance and strongly encouraged alcohol cessation He can follow up outpatient in the clinic for further monitoring continue seizure precautions and ativan PRN for seizures I discussed that he cannot drive, operate heavy machinery or power equipment until he has been seizure free for 6 months Additionally, I discussed that noncompliance could be life threatening History of Present Illness Chief complaint: seizures HPI: Mr. Rose is a 53 year old male with a PMH of alcohol abuse, and seizures. Neurology has been consulted with concern for seizures. All information obtained from chart review and patient report. As per patient, " I was found in the middle of the street shaking around". He notes that he was walking to the bank yesterday morning when he began to feel dizzy, numb all over, and was having blurred vision and a fast heart rate. He doesn't remember anything from that point; the next thing he remembers is waking up on the way to the Hospital. He does admit to biting his tongue, and loss of bladder function and a post ictal state with lethargy and confusion. He does have a history of seizures and was most recently treated for this on 2018. He denies any head trauma, recent ill contacts, stiff neck, fevers, chills, chest pain, nausea, or vomiting. He admits to medication noncompliance with antiepelliptic medications. During this 12/02/18 visit he was diagnosed with breakthrough seizures and prescribed Keppra which he did not have filled due to financial constraints. He is unclear when his seizure first began but his first encounter at [facility] occurred on 09/25/15. He does have a history of daily alcohol abuse and reports that he continues to drink regularly. Per my review of his labs and vitals he is afebrile, hemodynamically stable and without leukocytosis. He does have a mild hyponatremia but I doubt that this is causing his seizures; the hyponatremia is most likely cause by his daily alcohol use. The CT of the head and neck showed no acute findings or organic pathology. He has had an EEG which did not show any obvious epileptiform activity. Past Med Surg Social Fam HX - Past Medical History Medical history: cardiomyopathy, CHF, COPD, coronary artery disease, hyperlipidemia, hypertension, liver disease, myocardial infarction, seizures, va lvular heart disease, other Additional medical history: ETOH abuse Psychiatric history: anxiety, depression - Past Surgical History Surgical History: heart valve replacement, orthopedic, other Additional surgical history: trach - Social History Smoking Status: Heavy tobacco smoker Smokeless Tobacco Status: No Alcohol use: heavy, recent Drug use: none - Family History Father Family Member Ethnicity: Non- Living Status: Hx Family Cardiac Disorders: Yes ([place]) Mother Family Member Ethnicity: Non- Living Status: Hx Family Cardiac Disorders: Yes (mother heart atttack) Hx Family Respiratory Disorders: No Hx Family Cancer: No Hx Family GI Disorders: No Hx Family Endocrine Disorder: No Hx Family Neuromuscular Disorders: No Hx Family Neurologic Disorders: No Hx Family HEENT Disorders: No Hx Family Autoimmune Disorders: No Medications and Allergies Albuterol Sulfate [Ventolin Hfa] 2 puff IH Q4H PRN 10/14/18 [History] Carvedilol 3.125 mg PO BID 10/14/18 [History] Allergy/AdvReac Type Severity Reaction Status Date / Time No Known Allergies Allergy Verified 10/15/18 13:51 All Systems: The remainder of the systems were reviewed and are negative Review of Systems: REVIEW OF SYSTEMS GENERAL: Negative for any nausea, vomiting, fevers, chills, or weight loss NEUROLOGIC: NEGATIVE: for any blurry vision, blind spots, double vision, facial asymmetry, dysphagia, dysarthria, hemiparesis, hemisensory deficits, language dysfunction, ataxia, seizures, hallucinations, disorientation - - POSITIVE: For blurred vision (has now resolved) dizziness, total body numbness and tingling (not focal parasthesias), and convulsions concerning for seizures. He does have tremors and is currently having auditory hallucinations. PSYCH: NEGATIVE: SI/HI HEENT: Negative for any head trauma, neck trauma, neck stiffness tinnitus, de creased hearing CARDIAC: Negative for any chest pain, dyspnea on exertion, HTN, VTE, claudication, paroxysmal nocturnal dyspnea, peripheral edema. PULMONARY: Negative for any shortness of breath, wheezing MUSCULOSKELETAL: Joint pain, stiffness, loss of strengt (bilateral/unilateral), arthritis (mono or poly) Joint swelling (mono or poly), muscle pain/swelling, limitations to motor activity or tolerance INTEGUMENTARY: Negative for any rashes, eruptions, dryness, changes in skin/hair, nails Physical Examination - Vital Signs Vital Signs: Initial Vital Signs Temp Pulse Resp BP Pulse Ox 97.9 F 99 16 133/89 96 12/29/18 12:02 12/29/18 12:02 12/29/18 12:02 12/29/18 12:02 12/29/18 12:02 - Exam Exam: Examination: General Examination: *CONSTITUTIONAL: lethargic, resting comfortably and in on acute distress *GENERAL APPEARANCE OF PATIENT poor hygiene, appears ill and older than stated age *EYES: pupils equal, round, reactive to light and accommodation, conjunctiva clear without masses or ulcerations, fundi normal. *CARDIOVASCULAR RRR, S1, S2, no mumurs, rubs, or gallops, no peripheral edema, distal temperature normal, dorsalis pedis pulses normal. 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 No abnormal movements, fasciculations or atrophy identified. Neurological: *ORIENTATION to person, place month and situation *RECURRENT AND REMOTE MEMORY intact *ATTENTION AND CONCENTRATION are normal *LANGUAGE FUNCTION no significant aphasia or dysarthia was noted. *FUND OF KNOWLEDGE aware of current events, past history, vocabulary appropriate *MENTAL attention span and concentration normal mildly altered with lethar gy. *CN II optic fundi were normal, no papilledema noted. *CN III,IV, PERRLA extraocular eye movements were full, no nystagmus and no ptosis noted. *CN V shows normal sensation and jaw opens symmetrically. *CN VII shows normal facial movement symmetrically, upper and lower bilaterally. *CN VIII shows no significant hearing loss on examination in the office. *CN IX,,X palate elevated symmetrically and normal gag reflex was noted. *CN XI normal strength in the sternocleidomastoid muscles, symmetrical shoulder shrugging. *CN XII tongue protruded in the midline, with normal strength and movement. *SENSORY EXAMINATION intact light touch *REFLEXES: deep tendon reflexes were normal and symmetrical , grade 2/4 diffusely, no pathological reflexes were noted. *CEREBELLAR TESTING normal finger to nose *PAIN LEVEL 8/10 headache; pain out of proportion to exam findings Results - Laboratory Findings CBC and BMP: 12/30/18 04:25 12/30/18 04:25 Abnormal lab findings: Abnormal lab results RBC 4.06 M/mcL (4.19-5.50) L 12/30/18 04:25 Hgb 12.2 g/dL (12.9-16.9) L 12/30/18 04:25 Hct 37.1 % (37.5-50.1) L 12/30/18 04:25 RDW 16.4 % (11.5-14.5) H 12/30/18 04:25 Sodium 132 mEq/L (136-145) L 12/30/18 04:25 BUN 5 mg/dL (6-20) L 12/30/18 04:25 Creatinine 0.64 mg/dL (0.70-1.30) L 12/30/18 04:25 Glucose 111 mg/dL (70-105) H 12/30/18 04:25 Calculated Osmolality 272 (280-300) L 12/30/18 04:25 AST 65 Units/L (13-39) H 12/29/18 13:44 Urine Protein 30 mg/dL (Neg-Trace) H 12/29/18 15:50 Salicylates < 2.5 mg/dL (15.0-30.0) L 12/29/18 13:44 Acetaminophen < 10 mcg/mL (10-20) L 12/29/18 13:44 Ethyl Alcohol 92 mg/dL (Less than 10) H 12/29/18 13:44 Consult Discharge Plan - Plan Referrals: NONE,PCP [Primary Care Provider] -
--- NOTE | 2018-12-30 11:23 | Internal Med Progress Note ---
Hospitalist Progress Note - Encounter Date of Encounter: 12/30/18 Time of Encounter: 11:22 - Subjective Interval History: 53 year old male PMH of alcohol abuse, Seizures, CAD and HTN, medication noncompliance, recurrent amdissions for Alcohol withdrawal and seizures admitted s/p episode of syncope Pt seen and examined at bedside. Pt states he still feels crapy denies, chest nava, dizziness, SOB. No events o/n. Per RN last CIWA was 22. - Exam Vitals: Temp Pulse Resp BP Pulse Ox 97.6 F 68 16 142/90 99 12/30/18 10:48 12/30/18 10:48 12/30/18 10:48 12/30/18 10:48 12/30/18 10:48 Exam: General: Alert and oriented x3, but mildly drowsy. In no acute distress. Skin: Normal color, no rash, no lesions. HEENT: EOM, pupils equal, round and reactive. Cardiovascular: RRR, normal S1 & S2, no rubs, murmurs or gallops. Lungs: CTA b/l, no wheezes or crackles. Abdomen: Soft, non-tender, no rigidity. : scrotal hernia Extremities: No deformity, no edema or tenderness, no joint swelling or clubbing. Neurological: Intentional tremors Rest of the physical exam is non contributory - Summary of Assessment and Plan Summary of Assessment and Plan: 53 year old male PMH of alcohol abuse, Seizures, CAD and HTN, medication noncompliance, recurrent amdissions for Alcohol withdrawal and seizures admitted s/p episode of syncope Seizure - CT head - Appreicate Neurology's consult - EEG neg - c/w Keppra - pt counselled on complaince Alcohol withdrawal - last drink 3 days ago - patient with intentional and resting tremors. - c/w CIWA protocol - c/w telemetry monitoring - s/p banana bag x1. c/w IV, c/w thiamine and folate Hypertension - c/w carvedilol 3.125mg/PO BID. CAD (coronary artery disease) - c/w dose aspirin 81mg/PO daily - f/u lipid panel COPD (chronic obstructive pulmonary disease) - stable - c/w nebs Q4RT PRN. DVT prophylaxis Heparin 5000 mg SubQ Q8HRs - Time Spent with Patient Total time spent is greater than 50% in coordination of care (as documented) at patient's floor/unit and/or counseling patient: less than 15 minutes Plan of Care Discussed with: patient Internal Medicine: Result - Labs CBC & Chem 7: 12/30/18 04:25 12/30/18 04:25 Labs: Short CBC 12/29/18 12/30/18 Range/Units 13:44 04:25 WBC 5.4 6.7 (4.3-11.1) K/mcL Hgb 13.0 12.2 L (12.9-16.9) g/dL Hct 38.9 37.1 L (37.5-50.1) % Plt Count 178 157 (140-400) K/mcL Neutrophils # 4.1 (1.6-8.9) K/mcL BMP 12/29/18 12/30/18 13:44 04:25 Sodium 140 132 L Potassium 4.4 3.8 Chloride 105 101 Carbon Dioxide 22 L 23 BUN 5 L 5 L Creatinine 0.75 0.64 L Glucose 79 111 H Calcium 9.9 8.9 Liver Function 12/29/18 Range/Units 13:44 Total Bilirubin 0.5 (0.3-1.0) mg/dL AST 65 H (13-39) Units/L ALT 32 (7-52) Units/L Alkaline Phosphatase 72 (34-104) Units/L Albumin 4.7 (3.5-5.7) g/dL Urine 12/29/18 Range/Units 15:50 Urine Color Yellow (Yellow) Urine Clarity Clear (Clear) Urine pH 6.0 (5.0-8.0) pH Units Ur Specific [place] 1.018 (1.010-1.025) Urine Protein 30 H (Neg-Trace) mg/dL Urine Glucose (UA) Normal (Normal) mg/dL - Impressions Impressions Cervical Spine CT 12/29/18 13:15 IMPRESSION: No acute intracranial abnormality. Cerebral atrophy. No acute traumatic injury of the cervical spine. D/ / Julio Cesar Moraes MD / Julio Cesar Moraes MD Interpreting Provider: Julio Cesar Moraes MD Head CT 12/29/18 13:15 IMPRESSION: No acute intracranial abnormality. Cerebral atrophy. No acute traumatic injury of the cervical spine. D/ / Julio Cesar Moraes MD / Julio Cesar Moraes MD Interpreting Provider: Julio Cesar Moraes MD Chest X-Ray 12/29/18 13:31 IMPRESSION: No acute findings. D/ / Keven Xiong MD / Keven Xiong MD Interpreting Provider: Keven Xiong MD Consult Discharge Plan - Plan Referrals: NONE,PCP [Primary Care Provider] -
[2018-12-30] MEDS ORDERED: 0.9 % Sodium Chloride 1,000 ML IVC SCH ×2 (12:45→20:00)
[2018-12-30] MEDS ORDERED: Haloperidol Lactate 5 MG/ML VIAL IVP ONE (15:59)
[2018-12-30] MEDS ORDERED: diazePAM 10 MG/2 ML SYRINGE IVP ONE (16:00)
[2018-12-30] MEDS ORDERED: Dexmedetomidine HCl 400 MCG/100 ML MLS IVC SCH (16:45)
--- NOTE | 2018-12-30 18:44 | Event Note ---
Date of Encounter: 12/30/18 Time of Encounter: 18:43 Informed by RN, pt showing signs of early DTs, will transfer to and place on precedex drip overnight - cont to monitor
--- NOTE | 2018-12-30 19:04 | Electrocardiograph Report ---
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
[2018-12-30] MEDS ORDERED: Ipratropium/Albuterol Neb 3 ML IH PRN (20:00)
[2018-12-30] MEDS ORDERED: Naloxone 0.4 MG/ML INJ IVP PRN (20:00)
[2018-12-30] MEDS: Dexmedetomidine HCl 400 MCG/100 ML MLS IVC SCH (20:39)
[2018-12-31] MEDS: *HR* LORazepam 2 MG/ML VIAL IVP PRN ×5 (03:20→18:06)
[2018-12-31] MEDS: *HR* Heparin 5,000 UNIT/ML VIAL SQ SCH ×3 (05:02→21:34)
[2018-12-31 05:04] LABS: Eosinophils # 0.1 K/mcL (0.0-0.6); Eosinophils % 3.2 %; Hematocrit 40.7 % (37.5-50.1); Hemoglobin 13.5 g/dL (12.9-16.9); Immature Granulocytes % 0.2 % (0-4); Lymphocytes # 1.2 K/mcL (0.6-4.6); Lymphocytes % 30.3 %; Mean Corpuscular HGB Conc 33.2 g/dL (31.6-35.5); Mean Corpuscular Hemoglobin 30.1 pg (28.0-33.3); Mean Corpuscular Volume 90.6 fL (83.0-100.0); Monocytes # 0.6 K/mcL (0.0-1.3); Monocytes % 13.7 %; Neutrophils # 2.1 K/mcL (1.6-8.9); Platelet Count 151 K/mcL (140-400); Red Blood Count 4.49 M/mcL (4.19-5.50); Red Cell Distribution Width 16.1 % (11.5-14.5); Segmented Neutrophils % 51.6 %
[2018-12-31 05:23] LABS: BUN/Creatinine Ratio 12 (6-26); Blood Urea Nitrogen 10 mg/dL (6-20); Calcium 9.6 mg/dL (8.6-10.3); Carbon Dioxide 23 mEq/L (23-29); Chloride 107 mEq/L (98-107); Cholesterol 187 mg/dL (< 200); Glucose 128 mg/dL (70-105); HDL Cholesterol 94 mg/dL (40-59); LDL Cholesterol,Calculated 79 mg/dL (0-99); Magnesium 1.7 mg/dL (1.6-2.6); Osmolality,Calculated 289 (280-300); Phosphorous 3.7 mg/dL (2.7-4.5); Potassium 3.7 mEq/L (3.5-5.1); Sodium 139 mEq/L (136-145); Triglycerides 71 mg/dL (< 150); eGFR For Non-African Americans > 60 (> 60)
[2018-12-31] MEDS ORDERED: levETIRAcetam 250 MG TABLET PO SCH (06:00)
[2018-12-31] MEDS ORDERED: 0.9 % Sodium Chloride 1,000 ML ONE (07:56)
[2018-12-31] MEDS: Dexmedetomidine HCl 400 MCG/100 ML MLS IVC SCH ×2 (10:03→22:49)
--- NOTE | 2018-12-31 10:06 | Internal Med Progress Note ---
Hospitalist Progress Note - Encounter Date of Encounter: 12/31/18 Time of Encounter: 10:05 - Subjective Interval History: 53 year old male PMH of alcohol abuse, Seizures, CAD and HTN, medication noncompliance, recurrent admissions for Alcohol withdrawal and seizures admitted s/p episode of syncope Pt seen and examined at bedside. Pt essentially somnolent but arousable, falls back asleep. O/N pt tried urinating on the nurses and on the floor. Precedex currently at .3mcg - Exam Vitals: Temp Pulse Resp BP Pulse Ox 98.0 F 70 18 109/85 100 12/31/18 07:19 12/31/18 10:00 12/31/18 10:00 12/31/18 10:00 12/31/18 10:00 Exam: General: Somnolent but arousable, In no acute distress. Skin: Normal color, no rash, no lesions. HEENT: PERRLA Cardiovascular: RRR, normal S1 & S2 Lungs: CTA b/l, no wheezes or crackles. Abdomen: Soft, non-tender, no rigidity. Extremities: No deformity, no edema or tenderness, no joint swelling Neurological: Pt somnolent but arousable - Summary of Assessment and Plan Summary of Assessment and Plan: 53 year old male PMH of alcohol abuse, Seizures, CAD and HTN, medication noncompliance, recurrent admissions for Alcohol withdrawal and seizures admitted s/p episode of syncope Seizure - CT head - Appreciate Neurology's consult - EEG neg - c/w Keppra dec to 500mg BID, changed to IV to ensure pt gets everytime. - pt counselled on compliance Alcohol withdrawal w/ early DTs - last drink 4 days prior to admission - pt started on Precedex yesterday - c/w CIWA protocol, needed additional ativan on top of precedex last night - c/w telemetry monitoring - s/p banana bag x1. c/w IV, c/w thiamine and folate Hypertension - c/w carvedilol 3.125mg BID. CAD (coronary artery disease) - c/w dose aspirin 81mg/PO daily COPD (chronic obstructive pulmonary disease) - stable - c/w nebs Q4RT PRN. DVT prophylaxis Heparin 5000 mg SubQ Q8HRs - Time Spent with Patient Total time spent is greater than 50% in coordination of care (as documented) at patient's floor/unit and/or counseling patient: Internal Medicine: Result - Labs CBC & Chem 7: 12/31/18 04:19 12/31/18 04:19 Labs: Short CBC 12/31/18 Range/Units 04:19 WBC 4.1 L (4.3-11.1) K/mcL Hgb 13.5 (12.9-16.9) g/dL Hct 40.7 (37.5-50.1) % Plt Count 151 (140-400) K/mcL Neutrophils # 2.1 (1.6-8.9) K/mcL BMP 12/31/18 04:19 Sodium 139 Potassium 3.7 Chloride 107 Carbon Dioxide 23 BUN 10 Creatinine 0.85 Glucose 128 H Calcium 9.6 Consult Discharge Plan - Plan Referrals: Alireza Campbell [Resident] - 01/02/19 3:00 am (patient needs to show up at 2:30 and bring Ins card and drivers license. Residency clinic at [facility])
[2018-12-31] MEDS: Aspirin Enteric Coated 81 MG Tablet PO SCH (11:05)
[2018-12-31] MEDS: Folic Acid 1 MG TABLET PO SCH (11:06)
[2018-12-31] MEDS: Thiamine (B-1) 100 MG TABLET PO SCH (11:06)
[2018-12-31] MEDS: traMADol 50 MG TABLET PO PRN (14:11)
[2018-12-31] MEDS: levETIRAcetam 1,000 MG in 0.9 % Sodium Chloride 100 ML IVPB SCH (21:23)
[2019-01-01] MEDS: *HR* LORazepam 2 MG/ML VIAL IVP PRN (03:20)
[2019-01-01 04:47] LABS: Basophils % 0.8 %; Eosinophils # 0.2 K/mcL (0.0-0.6); Eosinophils % 3.1 %; Hematocrit 38.2 % (37.5-50.1); Hemoglobin 12.5 g/dL (12.9-16.9); Immature Granulocytes % 0.4 % (0-4); Lymphocytes # 1.4 K/mcL (0.6-4.6); Lymphocytes % 26.3 %; Mean Corpuscular HGB Conc 32.7 g/dL (31.6-35.5); Mean Corpuscular Volume 91.8 fL (83.0-100.0); Mean Platelet Volume 11.5 fL (9.4-12.4); Monocytes # 0.8 K/mcL (0.0-1.3); Neutrophils # 2.8 K/mcL (1.6-8.9); Platelet Count 162 K/mcL (140-400); Red Blood Count 4.16 M/mcL (4.19-5.50); Red Cell Distribution Width 16.4 % (11.5-14.5); Segmented Neutrophils % 54.4 %
[2019-01-01 05:08] LABS: BUN/Creatinine Ratio 11 (6-26); Blood Urea Nitrogen 8 mg/dL (6-20); Calcium 9.6 mg/dL (8.6-10.3); Carbon Dioxide 22 mEq/L (23-29); Chloride 109 mEq/L (98-107); Glucose 110 mg/dL (70-105); Magnesium 1.6 mg/dL (1.6-2.6); Osmolality,Calculated 289 (280-300); Phosphorous 3.9 mg/dL (2.7-4.5); Potassium 3.9 mEq/L (3.5-5.1); Sodium 140 mEq/L (136-145); eGFR For Non-African Americans > 60 (> 60)
[2019-01-01] MEDS: *HR* Heparin 5,000 UNIT/ML VIAL SQ SCH ×3 (05:20→20:44)
[2019-01-01] MEDS: Dexmedetomidine HCl 400 MCG/100 ML MLS IVC SCH ×2 (08:06→20:05)
[2019-01-01] MEDS: Thiamine (B-1) 100 MG TABLET PO SCH (08:07)
[2019-01-01] MEDS: Folic Acid 1 MG TABLET PO SCH (08:07)
[2019-01-01] MEDS: Aspirin Enteric Coated 81 MG Tablet PO SCH (08:07)
[2019-01-01] MEDS: levETIRAcetam 1,000 MG in 0.9 % Sodium Chloride 100 ML IVPB SCH ×2 (08:07→20:06)
--- NOTE | 2019-01-01 14:07 | Internal Med Progress Note ---
Hospitalist Progress Note - Encounter Date of Encounter: 01/01/19 Time of Encounter: 14:07 - Subjective Interval History: 53 year old male PMH of alcohol abuse, Seizures, CAD and HTN, medication noncompliance, recurrent admissions for Alcohol withdrawal and seizures admitted s/p episode of syncope Pt seen and examined at bedside. Pt more awake and alert, oriented x 4. Pt only required 1 dose of Ativan o/n. No episode of hallucinations o/n however later in the morning pt began to hallucinate. Precedex currently at .4mcg - Exam Vitals: Temp Pulse Resp BP Pulse Ox 97.5 F L 76 18 137/93 98 01/01/19 11:01 01/01/19 12:42 01/01/19 11:01 01/01/19 12:32 01/01/19 11:02 Exam: General: Pt more awake and alert, oriented x 4, In no acute distress. Skin: Normal color, no rash, no lesions. HEENT: PERRLA Cardiovascular: RRR, normal S1 & S2 Lungs: CTA b/l, no wheezes or crackles. Abdomen: Soft, non-tender, no rigidity. Extremities: No deformity, no edema or tenderness, no joint swelling Neurological: AAO X 4, no focal deficits - Summary of Assessment and Plan Summary of Assessment and Plan: 53 year old male PMH of alcohol abuse, Seizures, CAD and HTN, medication noncompliance, recurrent admissions for Alcohol withdrawal and seizures admitted s/p episode of syncope Seizure - CT head - Appreciate Neurology's consult - EEG neg - c/w Keppra dec to 1000mg BID, changed to IV to ensure pt gets everytime. - pt counselled on compliance Alcohol withdrawal w/ early DTs - last drink 4 days prior to admission - c/w Precedex cont to titrate as needed - c/w CIWA protocol - c/w telemetry monitoring - s/p banana bag x1. c/w IVF, c/w thiamine and folate Hypertension - c/w carvedilol 3.125mg BID. CAD (coronary artery disease) - c/w dose aspirin 81mg/PO daily COPD (chronic obstructive pulmonary disease) - stable - c/w nebs Q4RT PRN. DVT prophylaxis Heparin 5000 mg SubQ Q8HRs - Time Spent with Patient Total time spent is greater than 50% in coordination of care (as documented) at patient's floor/unit and/or counseling patient: Internal Medicine: Result - Labs CBC & Chem 7: 01/01/19 04:18 01/01/19 04:18 Labs: Short CBC 01/01/19 Range/Units 04:18 WBC 5.2 (4.3-11.1) K/mcL Hgb 12.5 L (12.9-16.9) g/dL Hct 38.2 (37.5-50.1) % Plt Count 162 (140-400) K/mcL Neutrophils # 2.8 (1.6-8.9) K/mcL BMP 01/01/19 04:18 Sodium 140 Potassium 3.9 Chloride 109 H Carbon Dioxide 22 L BUN 8 Creatinine 0.73 Glucose 110 H Calcium 9.6 Consult Discharge Plan - Plan Referrals: Alireza Campbell [Resident] - 01/02/19 3:00 am (patient needs to show up at 2:30 and bring Ins card and drivers license. Residency clinic at [facility] Sent web request to cancel and reschedule this appointment on 01-01-19 @[id number])
[2019-01-02 04:55] LABS: Basophils # 0.1 K/mcL (0.0-0.2); Basophils % 1.7 %; Eosinophils # 0.2 K/mcL (0.0-0.6); Eosinophils % 3.9 %; Hematocrit 35.4 % (37.5-50.1); Hemoglobin 11.5 g/dL (12.9-16.9); Immature Granulocytes % 0.2 % (0-4); Lymphocytes # 1.7 K/mcL (0.6-4.6); Lymphocytes % 31.3 %; Mean Corpuscular HGB Conc 32.5 g/dL (31.6-35.5); Mean Corpuscular Hemoglobin 30.2 pg (28.0-33.3); Mean Corpuscular Volume 92.9 fL (83.0-100.0); Mean Platelet Volume 11.1 fL (9.4-12.4); Monocytes # 0.9 K/mcL (0.0-1.3); Monocytes % 16.9 %; Neutrophils # 2.5 K/mcL (1.6-8.9); Platelet Count 149 K/mcL (140-400); Red Blood Count 3.81 M/mcL (4.19-5.50); Red Cell Distribution Width 16.1 % (11.5-14.5)
[2019-01-02 05:13] LABS: BUN/Creatinine Ratio 16 (6-26); Blood Urea Nitrogen 12 mg/dL (6-20); Calcium 9.4 mg/dL (8.6-10.3); Carbon Dioxide 23 mEq/L (23-29); Chloride 105 mEq/L (98-107); Glucose 94 mg/dL (70-105); Magnesium 1.5 mg/dL (1.6-2.6); Osmolality,Calculated 278 (280-300); Phosphorous 4.5 mg/dL (2.7-4.5); Potassium 3.9 mEq/L (3.5-5.1); Sodium 134 mEq/L (136-145); eGFR For Non-African Americans > 60 (> 60)
[2019-01-02] MEDS: *HR* Heparin 5,000 UNIT/ML VIAL SQ SCH ×3 (05:30→21:16)
[2019-01-02] MEDS: Thiamine (B-1) 100 MG TABLET PO SCH (07:44)
[2019-01-02] MEDS: Folic Acid 1 MG TABLET PO SCH (07:44)
[2019-01-02] MEDS: Aspirin Enteric Coated 81 MG Tablet PO SCH (07:44)
[2019-01-02] MEDS: levETIRAcetam 1,000 MG in 0.9 % Sodium Chloride 100 ML IVPB SCH ×2 (08:21→21:40)
[2019-01-02] MEDS: Cyanocobalamin (B-12) 1,000 MCG TABLET PO SCH (10:50)
[2019-01-02] MEDS ORDERED: Isovue-370 500 ML BOTTLE IVP ONE (13:09)
--- NOTE | 2019-01-02 13:17 | General Surgery Consult Note ---
<Akila Gonzalez - Last Filed: 01/02/19 15:33> Date of Encounter: 01/02/19 Time of Encounter: 13:13 Assessment and Plan (1) Right groin hernia Current Visit: Yes Status: Acute patient reports known right groin hernia for approximately 3 years but that has recently gotten larger and today began hurting and has associated reddened scrotum. He states he hurts and his scrotum and his groin. He reports having difficulty initiating a urine stream. He states "when you push on my groin at sounds like water trickling." CT and July 2018 noted no bowel obstruction, right inguinal hernia containing a portion of the distal small bowel without evidence of strangulation or incarceration. Scrotal ultrasound in 2015 noted bowel containing right inguinal hernia which extended into the right scrotal sac We will obtain a current CT of the abdomen and pelvis with PO and IV contrast to evaluate any changes in the right inguinal hernia. Further recommendations (urgent versus elective herniorrhaphy) pending. History of Present Illness Consult date: 01/02/19 (Dr. Libby Spaulding) Reason for consult: hernia Requesting physician: Kimmy Tucker History of present illness: Surgery has been consulted for recommendations regarding right inguinal hernia PAtient's past medical, surgical, social, and family history has been written r eviewed with the patient at bedside and updated in the electronic medical record where indicated. He was admitted on 12/29/2018 1st seizure/alcohol withdrawal. On 01/02/2019 he began complaining of right groin and scrotal pain. The patient admits to a three-year history of her right inguinal hernia which he has not sought further treatment. He states that not been painful before today. He reports a difficulty urinating but states after the stream is initiated he does not have difficulty continuing. He denies difficulty with bowel movements. He endorses swelling in the scrotum and in the right groin. He states when you push on the groin at "sounds like water." He denies fever, chills, chest pain, shortness of breath, abdominal pain except as described, black, bloody, or tarry stool. Past Med Surg Social Fam HX - Past Medical History Source: patient, old records reviewed Medical history: cardiomyopathy, CHF, COPD, coronary artery disease, hyperlipidemia, hypertension, liver disease, myocardial infarction, seizures, valvular heart disease, other (Right groin hernia) Additional medical history: ETOH abuse Psychiatric history: anxiety, depression - Past Surgical History Surgical History: heart valve replacement, orthopedic, other Additional surgical history: trach - Social History Smoking Status: Heavy tobacco smoker Smokeless Tobacco Status: No Alcohol use: heavy, recent Drug use: none Occupational status: unemployed - Family History Father Family Member Ethnicity: Non- Living Status: Hx Family Cardiac Disorders: Yes ([place]) Mother Family Member Ethnicity: Non- Living Status: Hx Family Cardiac Disorders: Yes (mother heart atttack) Hx Family Respiratory Disorders: No Hx Family Cancer: No Hx Family GI Disorders: No Hx Family Endocrine Disorder: No Hx Family Neuromuscular Disorders: No Hx Family Neurologic Disorders: No Hx Family HEENT Disorders: No Hx Family Autoimmune Disorders: No Medications and Allergies RX: Albuterol Sulfate [Ventolin Hfa] 2 puff IH Q4H PRN 10/14/18 [History] RX: Carvedilol 3.125 mg PO BID 10/14/18 [History] levETIRAcetam [Levetiracetam] 1,000 mg PO BID 12/30/18 [History] Allergy/AdvReac Type Severity Reaction Status Date / Time No Known Allergies Allergy Verified 12/30/18 14:32 Review of Systems All systems PM: reviewed and no additional remarkable complaints except as stated All systems PM: The remainder of the systems were reviewed and are negative General Surgery Exam Initial Vital Signs Temp Pulse Resp BP Pulse Ox 97.9 F 99 16 133/89 96 12/29/18 12:02 12/29/18 12:02 12/29/18 12:02 12/29/18 12:02 12/29/18 12:02 - General physical appearance no distress, moderate pain (With palpation of the groin and scrotum) - Eyes other (Classes noted) - ENT normal nares, normal mucosa, poor assisted, atraumatic, normocephalic - Respiratory other (Decreased) - Cardiovascular Cardiovascular exam: Present: RRR - Abdomen Abdomen general surgery: Present: bowel sounds present, soft, tender Abdominal Tenderness: Present: RLQ Hernia: Present: reducible (Reducible in the groin), scrotal - Genitourinary Present: other (Large scrotum, approximately large grapefruit size) - Integumentary Integumentary general surgery: Present: warm and dry - Neurologic Present: normal sensation - Musculoskeletal Present: normal posture - Psychiatric Psychiatric general surgery: Present: A&Ox3 Exam Initial Vital Signs Temp Pulse Resp BP Pulse Ox 97.9 F 99 16 133/89 96 12/29/18 12:02 12/29/18 12:02 12/29/18 12:02 12/29/18 12:02 12/29/18 12:02 Results - Labs 01/02/19 04:07 01/02/19 04:07 Abnormal lab results RBC 3.81 M/mcL (4.19-5.50) L 01/02/19 04:07 Hgb 11.5 g/dL (12.9-16.9) L 01/02/19 04:07 Hct 35.4 % (37.5-50.1) L 01/02/19 04:07 RDW 16.1 % (11.5-14.5) H 01/02/19 04:07 Sodium 134 mEq/L (136-145) L 01/02/19 04:07 Calculated Osmolality 278 (280-300) L 01/02/19 04:07 Magnesium 1.5 mg/dL (1.6-2.6) L 01/02/19 04:07 AST 65 Units/L (13-39) H 12/29/18 13:44 HDL Cholesterol 94 mg/dL (40-59) H 12/31/18 04:19 Urine Protein 30 mg/dL (Neg-Trace) H 12/29/18 15:50 Salicylates < 2.5 mg/dL (15.0-30.0) L 12/29/18 13:44 Acetaminophen < 10 mcg/mL (10-20) L 12/29/18 13:44 Ethyl Alcohol 92 mg/dL (Less than 10) H 12/29/18 13:44 Diabetes panel 01/02/19 Range/Units 04:07 Sodium 134 L (136-145) mEq/L Potassium 3.9 (3.5-5.1) mEq/L Chloride 105 (98-107) mEq/L Carbon Dioxide 23 (23-29) mEq/L BUN 12 (6-20) mg/dL Creatinine 0.76 (0.70-1.30) mg/dL Glucose 94 (70-105) mg/dL Calcium 9.4 (8.6-10.3) mg/dL Calcium panel 01/02/19 Range/Units 04:07 Calcium 9.4 (8.6-10.3) mg/dL Phosphorus 4.5 (2.7-4.5) mg/dL Pituitary panel 01/02/19 Range/Units 04:07 Sodium 134 L (136-145) mEq/L Potassium 3.9 (3.5-5.1) mEq/L Chloride 105 (98-107) mEq/L Carbon Dioxide 23 (23-29) mEq/L BUN 12 (6-20) mg/dL Creatinine 0.76 (0.70-1.30) mg/dL Glucose 94 (70-105) mg/dL Calcium 9.4 (8.6-10.3) mg/dL Adrenal panel 01/02/19 Range/Units 04:07 Sodium 134 L (136-145) mEq/L Potassium 3.9 (3.5-5.1) mEq/L Chloride 105 (98-107) mEq/L Carbon Dioxide 23 (23-29) mEq/L BUN 12 (6-20) mg/dL Creatinine 0.76 (0.70-1.30) mg/dL Glucose 94 (70-105) mg/dL Calcium 9.4 (8.6-10.3) mg/dL All other labs normal. Consult Discharge Plan - Plan Referrals: Prasanth Bonilla [Resident] - 01/13/19 4:00 pm <Sancho Spaulding E - Last Filed: 01/02/19 17:04> Date of Encounter: 01/02/19 Assessment and Plan (1) Right groin hernia Current Visit: Yes Status: Acute Review of Systems All systems PM: The remainder of the systems were reviewed and are negative General Surgery Exam Initial Vital Signs Temp Pulse Resp BP Pulse Ox 97.9 F 99 16 133/89 96 12/29/18 12:02 12/29/18 12:02 12/29/18 12:02 12/29/18 12:02 12/29/18 12:02 Exam Initial Vital Signs Temp Pulse Resp BP Pulse Ox 97.9 F 99 16 133/89 96 12/29/18 12:02 12/29/18 12:02 12/29/18 12:02 12/29/18 12:02 12/29/18 12:02 Results - Labs 01/02/19 04:07 01/02/19 04:07 Abnormal lab results RBC 3.81 M/mcL (4.19-5.50) L 01/02/19 04:07 Hgb 11.5 g/dL (12.9-16.9) L 01/02/19 04:07 Hct 35.4 % (37.5-50.1) L 01/02/19 04:07 RDW 16.1 % (11.5-14.5) H 01/02/19 04:07 Sodium 134 mEq/L (136-145) L 01/02/19 04:07 Calculated Osmolality 278 (280-300) L 01/02/19 04:07 Magnesium 1.5 mg/dL (1.6-2.6) L 01/02/19 04:07 AST 65 Units/L (13-39) H 12/29/18 13:44 HDL Cholesterol 94 mg/dL (40-59) H 12/31/18 04:19 Urine Protein 30 mg/dL (Neg-Trace) H 12/29/18 15:50 Salicylates < 2.5 mg/dL (15.0-30.0) L 12/29/18 13:44 Acetaminophen < 10 mcg/mL (10-20) L 12/29/18 13:44 Ethyl Alcohol 92 mg/dL (Less than 10) H 12/29/18 13:44 Diabetes panel 01/02/19 Range/Units 04:07 Sodium 134 L (136-145) mEq/L Potassium 3.9 (3.5-5.1) mEq/L Chloride 105 (98-107) mEq/L Carbon Dioxide 23 (23-29) mEq/L BUN 12 (6-20) mg/dL Creatinine 0.76 (0.70-1.30) mg/dL Glucose 94 (70-105) mg/dL Calcium 9.4 (8.6-10.3) mg/dL Calcium panel 01/02/19 Range/Units 04:07 Calcium 9.4 (8.6-10.3) mg/dL Phosphorus 4.5 (2.7-4.5) mg/dL Pituitary panel 01/02/19 Range/Units 04:07 Sodium 134 L (136-145) mEq/L Potassium 3.9 (3.5-5.1) mEq/L Chloride 105 (98-107) mEq/L Carbon Dioxide 23 (23-29) mEq/L BUN 12 (6-20) mg/dL Creatinine 0.76 (0.70-1.30) mg/dL Glucose 94 (70-105) mg/dL Calcium 9.4 (8.6-10.3) mg/dL Adrenal panel 01/02/19 Range/Units 04:07 Sodium 134 L (136-145) mEq/L Potassium 3.9 (3.5-5.1) mEq/L Chloride 105 (98-107) mEq/L Carbon Dioxide 23 (23-29) mEq/L BUN 12 (6-20) mg/dL Creatinine 0.76 (0.70-1.30) mg/dL Glucose 94 (70-105) mg/dL Calcium 9.4 (8.6-10.3) mg/dL All other labs normal. - Attending Attestation Patient was seen and examined. Case was discussed with Akila Goznalez. I agree with her impression and plan. Patient has a reducible inguinal hernia. Going to order a CT to further delineate if there is a hydrocele component.
--- NOTE | 2019-01-02 15:05 | Internal Med Progress Note ---
Hospitalist Progress Note - Encounter Date of Encounter: 01/02/19 Time of Encounter: 15:03 - Subjective Interval History: Patient was admitted for alcohol withdrawal. He still complaining of active hallucination, seeing animals in the room. He complains to me about his right inguinal hernia, it is getting bigger over last few weeks, denies any pain, na usea vomiting. I examined the hernia it is not soft, nontender, will consult surgery - Exam Vitals: Temp Pulse Resp BP Pulse Ox 98.9 F 82 20 120/59 100 01/02/19 11:10 01/02/19 12:37 01/02/19 11:10 01/02/19 12:37 01/02/19 12:37 Exam: General: Pt more awake and alert, oriented x 4, In no acute distress. Skin: Normal color, no rash, no lesions. HEENT: PERRLA Cardiovascular: RRR, normal S1 & S2 Lungs: CTA b/l, no wheezes or crackles. Abdomen: Soft, non-tender, no rigidity. right inguinal hernia Extremities: No deformity, no edema or tenderness, no joint swelling Neurological: AAO X 4, no focal deficits DVT Prophylaxis: heparin SC - Summary of Assessment and Plan Summary of Assessment and Plan: 53 year old male PMH of alcohol abuse, Seizures, CAD and HTN, medication nonc ompliance, recurrent admissions for Alcohol withdrawal and seizures admitted s/p episode of syncope Seizure, no re current seizure - CT head - Appreciate Neurology's consult - EEG neg - c/w Keppra 1000mg BID, Alcohol withdrawal w/ early DTs, active hallucination. - last drink 5 days prior to admission - weaned off Precedex, he has low CIWA score: Not able to get Ativan from CIWA protocol. add scheduled diazepam - c/w CIWA protocol - c/w telemetry monitoring - s/p banana bag x1. c/w IVF, c/w thiamine and folate Hypertension - c/w carvedilol 3.125mg BID. CAD (coronary artery disease) - c/w dose aspirin 81mg/PO daily COPD (chronic obstructive pulmonary disease) - stable - c/w nebs Q4RT PRN. Left inguinal hernia, consult surgery. Hypomagnesmeia, IV replaced 2 gm, follow up am DVT prophylaxis Heparin 5000 mg SubQ Q8HRs - Time Spent with Patient Total time spent is greater than 50% in coordination of care (as documented) at patient's floor/unit and/or counseling patient: 25 - 35 minutes Internal Medicine: Result - Labs CBC & Chem 7: 01/02/19 04:07 01/02/19 04:07 Labs: Short CBC 01/02/19 Range/Units 04:07 WBC 5.4 (4.3-11.1) K/mcL Hgb 11.5 L (12.9-16.9) g/dL Hct 35.4 L (37.5-50.1) % Plt Count 149 (140-400) K/mcL Neutrophils # 2.5 (1.6-8.9) K/mcL BMP 01/02/19 04:07 Sodium 134 L Potassium 3.9 Chloride 105 Carbon Dioxide 23 BUN 12 Creatinine 0.76 Glucose 94 Calcium 9.4 Consult Discharge Plan - Plan Referrals: Prasanth Bonilal [Resident] - 01/13/19 4:00 pm
[2019-01-02] MEDS ORDERED: Isovue-370 500 ML BOTTLE PO ONE (16:59)
[2019-01-02] MEDS: diazePAM 10 MG TABLET PO SCH ×2 (17:53→21:15)
[2019-01-02] MEDS ORDERED: OLANZapine 5 MG TAB.RAPDIS PO SCH (21:00)
[2019-01-03 05:02] LABS: Basophils # 0.1 K/mcL (0.0-0.2); Basophils % 1.1 %; Eosinophils # 0.1 K/mcL (0.0-0.6); Eosinophils % 2.1 %; Hematocrit 39.3 % (37.5-50.1); Hemoglobin 12.6 g/dL (12.9-16.9); Immature Granulocytes % 0.2 % (0-4); Lymphocytes # 1.9 K/mcL (0.6-4.6); Lymphocytes % 33.8 %; Mean Corpuscular HGB Conc 32.1 g/dL (31.6-35.5); Mean Corpuscular Hemoglobin 29.4 pg (28.0-33.3); Mean Corpuscular Volume 91.6 fL (83.0-100.0); Mean Platelet Volume 11.1 fL (9.4-12.4); Monocytes # 0.9 K/mcL (0.0-1.3); Monocytes % 16.1 %; Neutrophils # 2.7 K/mcL (1.6-8.9); Platelet Count 171 K/mcL (140-400); Red Blood Count 4.29 M/mcL (4.19-5.50); Red Cell Distribution Width 16.2 % (11.5-14.5); Segmented Neutrophils % 46.7 %
[2019-01-03 05:23] LABS: BUN/Creatinine Ratio 16 (6-26); Blood Urea Nitrogen 14 mg/dL (6-20); Calcium 9.6 mg/dL (8.6-10.3); Carbon Dioxide 24 mEq/L (23-29); Chloride 106 mEq/L (98-107); Glucose 113 mg/dL (70-105); Osmolality,Calculated 285 (280-300); Phosphorous 3.5 mg/dL (2.7-4.5); Potassium 3.4 mEq/L (3.5-5.1); Sodium 137 mEq/L (136-145); eGFR For Non-African Americans > 60 (> 60)
[2019-01-03] MEDS: *HR* Heparin 5,000 UNIT/ML VIAL SQ SCH ×3 (06:05→20:04)
--- NOTE | 2019-01-03 07:36 | Internal Med Progress Note ---
Hospitalist Progress Note - Encounter Date of Encounter: 01/03/19 Time of Encounter: 07:43 - Subjective Interval History: Patient was admitted for alcohol withdrawal and seizure on 12/29 . his hallucination is better, only at night, he is not seeing animals in the room at this time, he feels tired after zyprexa. I will reduce zyrexa to 2.5 mg. No recurrent seizure - Exam Vitals: Temp Pulse Resp BP Pulse Ox 98.1 F 80 19 101/76 98 01/03/19 04:34 01/03/19 04:34 01/03/19 04:34 01/03/19 04:34 01/03/19 04:34 Exam: General: Pt more awake and alert, oriented x 4, In no acute distress. Skin: Normal color, no rash, no lesions. HEENT: PERRLA Cardiovascular: RRR, normal S1 & S2 Lungs: CTA b/l, no wheezes or crackles. Abdomen: Soft, non-tender, no rigidity. right inguinal hernia Extremities: No deformity, no edema or tenderness, no joint swelling Neurological: AAO X 4, no focal deficits DVT Prophylaxis: heparin SC - Summary of Assessment and Plan Summary of Assessment and Plan: 53 year old male PMH of alcohol abuse, Seizures, CAD and HTN, medication noncompliance, recurrent admissions for Alcohol withdrawal and seizures admitted s/p episode of seizure Breakthrough Seizure from noncompliant with AED, no re current seizure - CT head - Appreciate Neurology's consult - EEG neg - c/w Keppra 1000mg BID, Alcohol withdrawal w/ early DTs, active hallucination. - last drink 5 days prior to admission - weaned off Precedex, he has low CIWA score: Not able to get Ativan from CIWA protocol. continue scheduled diazepam, EKG showed normal Q-T, reduced zyprexa to 2.5 mg at HS for hallucination - c/w CIWA protocol - c/w telemetry monitoring - s/p banana bag x1. c/w IVF, c/w thiamine and folate Hypertension - c/w carvedilol 3.125mg BID. CAD (coronary artery disease) - c/w dose aspirin 81mg/PO daily COPD (chronic obstructive pulmonary disease) - stable - c/w nebs Q4RT PRN. Left inguinal hernia, CT abdomen reviewed, appreciate surgery consult, pending final recommendation Hypomagnesmeia, replaced and resolved Hypokalemia, replaced and follow up Am Weakness and ataxia , pending PT and OT, hemant need SNF, discussed with patient he agrees DVT prophylaxis Heparin 5000 mg SubQ Q8HRs Disposition: likely SNF pending pT and OT , surgery theodore - Time Spent with Patient Total time spent is greater than 50% in coordination of care (as documented) at patient's floor/unit and/or counseling patient: Internal Medicine: Result - Labs CBC & Chem 7: 01/03/19 04:48 01/03/19 04:48 Labs: Short CBC 01/03/19 Range/Units 04:48 WBC 5.7 (4.3-11.1) K/mcL Hgb 12.6 L (12.9-16.9) g/dL Hct 39.3 (37.5-50.1) % Plt Count 171 (140-400) K/mcL Neutrophils # 2.7 (1.6-8.9) K/mcL BMP 01/03/19 04:48 Sodium 137 Potassium 3.4 L Chloride 106 Carbon Dioxide 24 BUN 14 Creatinine 0.87 Glucose 113 H Calcium 9.6 - Impressions Impressions Abdomen/Pelvis CT 01/02/19 16:30 IMPRESSION: 1. Large right inguinal hernia containing nonobstructed loops of small bowel. 2. No other acute abdominal or pelvic abnormality. D/ / 01/02/2019 17:29:16 Ambika Quach MD / [email or web address] Interpreting Provider: Ambika Quach MD Consult Discharge Plan - Plan Referrals: Prasanth Bonilla [Resident] - 01/13/19 4:00 pm
[2019-01-03] MEDS: Thiamine (B-1) 100 MG TABLET PO SCH (07:52)
[2019-01-03] MEDS: diazePAM 10 MG TABLET PO SCH ×3 (07:52→20:03)
[2019-01-03] MEDS: Folic Acid 1 MG TABLET PO SCH (07:53)
[2019-01-03] MEDS: Aspirin Enteric Coated 81 MG Tablet PO SCH (07:53)
[2019-01-03] MEDS: Cyanocobalamin (B-12) 1,000 MCG TABLET PO SCH (07:53)
[2019-01-03] MEDS: traMADol 50 MG TABLET PO PRN (07:56)
[2019-01-03] MEDS: levETIRAcetam 250 MG TABLET PO SCH ×2 (08:32→17:55)
--- NOTE | 2019-01-03 15:44 | General Surgery Progress Note ---
Date of Encounter: 01/03/19 Time of Encounter: 15:42 - Assessment and Plan (1) Right groin hernia Current Visit: Yes Status: Acute Incarcerated non-strangulated right inguinal hernia. We will plan for repair electively. Subjective Narrative: This a 53-year-old male complains of discomfort in his right groin. Associated with his incarcerated non-strangulated right inguinal hernia Objective Vital Signs - Last 8 Hours Temp Pulse Resp BP Pulse Ox 01/03/19 11:35 98.0 F 69 16 99/73 99 Intake and Output 01/02/19 01/03/19 01/03/19 23:59 07:59 15:59 Intake Total 350 / 350 1080 / 1080 Output Total 1100 / 1100 420 / 420 150 / 150 Balance -750 / -750 -420 / -420 930 / 930 Intake: IV Fluids 110 / 110 Keppra 1,000 MG In 0.9 % Sodium 110 / 110 Chloride 100 ML @ 400 mls/hr IVPB BID YESSENIA Rx#:[id number] Oral 240 / 240 1080 / 1080 Output: Urine 1100 / 1100 420 / 420 150 / 150 Other: Meal Dinner Lunch Percent of Meal Consumed 100% 100% Stool Size Small Moderate Stool Consistency formed soft Stool Characteristics Normal for Patient Stool Color Brown Brown # Voids 0 1 # Bowel Movements 1 0 1 Weight 61.7 kg Patient Weight 01/03/19 23:59 Weight 61.7 kg - General physical appearance well developed, well nourished - Eyes PERRL - ENT normal mucosa - Neck Neck exam: trachea midline - Respiratory normal expansion - Abdomen Abdomen: Present: soft - Genitourinary tender: right, scrotal mass/hydrocele: right (Small bowel loops) - Labs 01/03/19 04:48 01/03/19 04:48 Diabetes panel 01/03/19 Range/Units 04:48 Sodium 137 (136-145) mEq/L Potassium 3.4 L (3.5-5.1) mEq/L Chloride 106 (98-107) mEq/L Carbon Dioxide 24 (23-29) mEq/L BUN 14 (6-20) mg/dL Creatinine 0.87 (0.70-1.30) mg/dL Glucose 113 H (70-105) mg/dL Calcium 9.6 (8.6-10.3) mg/dL Calcium panel 01/03/19 Range/Units 04:48 Calcium 9.6 (8.6-10.3) mg/dL Phosphorus 3.5 (2.7-4.5) mg/dL Pituitary panel 01/03/19 Range/Units 04:48 Sodium 137 (136-145) mEq/L Potassium 3.4 L (3.5-5.1) mEq/L Chloride 106 (98-107) mEq/L Carbon Dioxide 24 (23-29) mEq/L BUN 14 (6-20) mg/dL Creatinine 0.87 (0.70-1.30) mg/dL Glucose 113 H (70-105) mg/dL Calcium 9.6 (8.6-10.3) mg/dL Adrenal panel 01/03/19 Range/Units 04:48 Sodium 137 (136-145) mEq/L Potassium 3.4 L (3.5-5.1) mEq/L Chloride 106 (98-107) mEq/L Carbon Dioxide 24 (23-29) mEq/L BUN 14 (6-20) mg/dL Creatinine 0.87 (0.70-1.30) mg/dL Glucose 113 H (70-105) mg/dL Calcium 9.6 (8.6-10.3) mg/dL Consult Discharge Plan - Plan Referrals: Prasanth Bonilla [Resident] - 01/13/19 4:00 pm
[2019-01-03] MEDS ORDERED: OLANZapine 5 MG TAB.RAPDIS PO SCH (21:00)
[2019-01-04] MEDS: *HR* Heparin 5,000 UNIT/ML VIAL SQ SCH ×3 (05:31→20:29)
[2019-01-04] MEDS: levETIRAcetam 250 MG TABLET PO SCH ×2 (05:31→17:26)
[2019-01-04] MEDS: Thiamine (B-1) 100 MG TABLET PO SCH (07:29)
[2019-01-04] MEDS: Aspirin Enteric Coated 81 MG Tablet PO SCH (07:29)
[2019-01-04] MEDS: diazePAM 10 MG TABLET PO SCH ×3 (07:30→20:28)
[2019-01-04] MEDS: Cyanocobalamin (B-12) 1,000 MCG TABLET PO SCH (07:30)
[2019-01-04] MEDS: Folic Acid 1 MG TABLET PO SCH (07:30)
[2019-01-04 12:14] LABS: BUN/Creatinine Ratio 13 (6-26); Blood Urea Nitrogen 11 mg/dL (6-20); Calcium 9.7 mg/dL (8.6-10.3); Carbon Dioxide 21 mEq/L (23-29); Chloride 106 mEq/L (98-107); Glucose 88 mg/dL (70-105); Osmolality,Calculated 277 (280-300); Potassium 3.9 mEq/L (3.5-5.1); Sodium 134 mEq/L (136-145); eGFR For Non-African Americans > 60 (> 60)
--- NOTE | 2019-01-04 13:03 | Internal Med Progress Note ---
Hospitalist Progress Note - Encounter Date of Encounter: 01/04/19 Time of Encounter: 13:01 - Subjective Interval History: Patient was admitted for alcohol withdrawal and seizure on 12/29 . He has been seeing animals in the room, he said it on and off during day and night. 5 mg zyprexa made him too tired, increase to zyrexa to 2.5 mg BID. continue diazem 10 mg TID patient ambulated by himsef independently, he wants to have surgery done while he is here. - Exam Vitals: Temp Pulse Resp BP Pulse Ox 98.9 F 72 18 117/76 97 01/04/19 11:00 01/04/19 11:00 01/04/19 11:01/04/19 11:01/04/19 07:16 Exam: General: Pt more awake and alert, oriented x 4, In no acute distress. Skin: Normal color, no rash, no lesions. HEENT: PERRLA Cardiovascular: RRR, normal S1 & S2 Lungs: CTA b/l, no wheezes or crackles. Abdomen: Soft, non-tender, no rigidity. right inguinal hernia Extremities: No deformity, no edema or tenderness, no joint swelling Neurological: AAO X 4, no focal deficits DVT Prophylaxis: heparin SC - Summary of Assessment and Plan Summary of Assessment and Plan: 53 year old male PMH of alcohol abuse, Seizures, CAD and HTN, medication noncompliance, recurrent admissions for Alcohol withdrawal and seizures admitted s/p episode of seizure Breakthrough Seizure from noncompliant with AED, no re current seizure - CT head - Appreciate Neurology's consult - EEG neg - c/w Keppra 1000mg BID, will need new script for keppra at discharge per neurology. Alcohol withdrawal w/ early DTs, still has hallucination, will ,increase zyprexa to 2.5 mg BID - last drink 5 days prior to admission - weaned off Precedex, he has low CIWA score: Not able to get Ativan from CIWA protocol. continue scheduled diazepam, EKG showed normal Q-T, - c/w CIWA protocol - c/w telemetry monitoring - s/p banana bag x1. c/w IVF, c/w thiamine and folate Hypertension - c/w carvedilol 3.125mg BID. CAD (coronary artery disease) - c/w dose aspirin 81mg/PO daily COPD (chronic obstructive pulmonary disease) - stable - c/w nebs Q4RT PRN. Right inguinal hernia, CT abdomen reviewed, appreciate surgery consult, pending surgery final recommendation Hypomagnesmeia, replaced and resolved Hypokalemia, Weakness and ataxia. resolved DVT prophylaxis Heparin 5000 mg SubQ Q8HRs Disposition: Pending surgery final recommendation, patient wants to have surgery during this admission. - Time Spent with Patient Total time spent is greater than 50% in coordination of care (as documented) at patient's floor/unit and/or counseling patient: 25 - 35 minutes Plan of Care Discussed with: patient Internal Medicine: Result - Labs CBC & Chem 7: 01/03/19 04:48 01/04/19 11:18 Labs: BMP 01/04/19 11:18 Sodium 134 L Potassium 3.9 Chloride 106 Carbon Dioxide 21 L BUN 11 Creatinine 0.88 Glucose 88 Calcium 9.7 - Impressions Impressions Abdomen/Pelvis CT 01/02/19 16:30 IMPRESSION: 1. Large right inguinal hernia containing nonobstructed loops of small bowel. 2. No other acute abdominal or pelvic abnormality. D/ / 01/02/2019 17:29:16 Ambika Quach MD / [email or web address] Interpreting Provider: Ambika Quach MD Consult Discharge Plan - Plan Referrals: Prasanth Bonilla [Resident] - 01/13/19 4:00 pm
[2019-01-04] MEDS ORDERED: Piperacillin/Tazobactam 3.375 GM in 0.9 % Sodium Chloride Mini Bag 100 ML IVPB SCH (13:30)
[2019-01-04] MEDS ORDERED: levoFLOXacin 750 MG TABLET PO SCH (13:45)
[2019-01-04] MEDS: OLANZapine 5 MG TAB.RAPDIS PO SCH ×2 (14:14→20:28)
[2019-01-05 05:07] LABS: Basophils # 0.1 K/mcL (0.0-0.2); Hematocrit 37.8 % (37.5-50.1); Mean Corpuscular HGB Conc 31.7 g/dL (31.6-35.5); Mean Corpuscular Hemoglobin 29.5 pg (28.0-33.3); Mean Corpuscular Volume 92.9 fL (83.0-100.0); Platelet Count 204 K/mcL (140-400); Red Blood Count 4.07 M/mcL (4.19-5.50); Red Cell Distribution Width 16.1 % (11.5-14.5)
[2019-01-05 05:24] LABS: BUN/Creatinine Ratio 17 (6-26); Blood Urea Nitrogen 15 mg/dL (6-20); Calcium 9.3 mg/dL (8.6-10.3); Carbon Dioxide 22 mEq/L (23-29); Chloride 108 mEq/L (98-107); Glucose 134 mg/dL (70-105); Osmolality,Calculated 287 (280-300); Potassium 4.3 mEq/L (3.5-5.1); Sodium 137 mEq/L (136-145); eGFR For Non-African Americans > 60 (> 60)
[2019-01-05 05:30] LABS: Lymphocytes # 2.1 K/mcL (0.6-4.6); Monocytes # 1.7 K/mcL (0.0-1.3); Platelet Estimate Normal (Normal)
[2019-01-05] MEDS: levETIRAcetam 250 MG TABLET PO SCH ×2 (05:30→18:11)
[2019-01-05] MEDS: *HR* Heparin 5,000 UNIT/ML VIAL SQ SCH ×3 (05:31→20:28)
[2019-01-05] MEDS: Cyanocobalamin (B-12) 1,000 MCG TABLET PO SCH (09:36)
[2019-01-05] MEDS: Aspirin Enteric Coated 81 MG Tablet PO SCH (09:36)
[2019-01-05] MEDS: OLANZapine 5 MG TAB.RAPDIS PO SCH ×2 (09:36→20:28)
[2019-01-05] MEDS: Folic Acid 1 MG TABLET PO SCH (09:36)
[2019-01-05] MEDS: Thiamine (B-1) 100 MG TABLET PO SCH (09:36)
[2019-01-05] MEDS: diazePAM 10 MG TABLET PO SCH ×3 (09:36→20:28)
[2019-01-05] MEDS: traMADol 50 MG TABLET PO PRN ×2 (09:49→20:28)
--- NOTE | 2019-01-05 12:20 | Event Note ---
Date of Encounter: 01/05/19 Time of Encounter: 12:18 No acute surgical intervention indicated. Patient can follow-up in the office in approximately 2 weeks (01/27/2019 at 10:[address] Spaulding) for surgical planning of right inguinal hernia. - Patient Status Disposition: Still a Patient - Discharge Instructions Follow Up With: Prasanth Bonilla [Resident] - 01/13/19 4:00 pm Sancho Spaulding DO [Partnered Physician] - 01/27/19 10:50 am
--- NOTE | 2019-01-05 16:23 | Electrocardiograph Report ---
[address] [address] Test Date: 2019-01-02 Pat Name: Iban Rose Department: 110 Room: [facility] Gender: M [employer]or: DOUG : 1965 Requested By: Kimmy Tucker Order Number: [id number] Reading MD: Saravanan Tejada Measurements Intervals Volin Rate: 68 P: 63 PA: 168 QRS: 69 QRSD: 87 T: 32 QT: 411 QTc: 427 Interpretive Statements SINUS RHYTHM Electronically Signed On 01-05-2019 16:22:12 EST by Saravanan Tejada
--- NOTE | 2019-01-05 22:41 | Internal Med Progress Note ---
Hospitalist Progress Note - Encounter Date of Encounter: 01/05/19 Time of Encounter: 22:39 - Subjective Interval History: Pt denies chest pain or SOB. He denies fever, chills, N/V or diarrhea. He denies constipation. - Exam Vitals: Temp Pulse Resp BP Pulse Ox 97.6 F 83 18 122/78 99 01/05/19 19:38 01/05/19 19:38 01/05/19 19:38 01/05/19 19:38 01/05/19 19:38 Exam: General: Pt more awake and alert, oriented x 4, In no acute distress. Skin: Normal color, no rash, no lesions. HEENT: PERRLA Cardiovascular: RRR, normal S1 & S2 Lungs: CTA b/l, no wheezes or crackles. Abdomen: Soft, non-tender, no rigidity. right inguinal hernia Extremities: No deformity, no edema or tenderness, no joint swelling Neurological: AAO X 4, no focal deficits - Assessment and Plan (1) Seizure Current Visit: Yes Status: Acute Assessment and Plan: - Breakthrough Seizure from noncompliant with AED, no re current seizure - CT head - Seen by Neurology's - EEG neg - c/w Keppra 1000mg BID, will need new script for keppra at discharge per neurology. (2) Alcohol withdrawal Current Visit: No Status: Acute Assessment and Plan: patient with intentional and resting tremors on admission. No noted tremors on exam 01/05/19 Started on CIWA protocol on admission telemetry monitoring banana bag x1. (3) Hypertension Current Visit: No Status: Chronic Assessment and Plan: patient on carvedilol 3.125mg PO BID. (4) COPD (chronic obstructive pulmonary disease) Current Visit: No Status: Chronic Assessment and Plan: not on acute exacerbation. bronchodilators Q4RT PRN. (5) CAD (coronary artery disease) Current Visit: Yes Status: Chronic Assessment and Plan: On aspirin 81mg PO daily. Adding Zocor 20 mg PO QHS Lipid panel ordered. Issues of medical non-compliance. (6) Medical non-compliance Current Visit: Yes Status: Acute Assessment and Plan: Pt has not been taking his medications as prescribed. He has been drinking ETOH instead. Cessation of ETOH strongly recommended. (7) Electrolyte imbalance Current Visit: Yes Status: Acute Assessment and Plan: likely due to ETOH abuse. 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 Rose is a 53 year old male PMH of alcohol abuse, Seizures, CAD and HTN. Patient was brought to the ED after losing consciousness. Patient reports that he left his house today morning and after he walked about 1 block he passed out, the only next thing he remembered is waking up in the ED. He denies urinary or bowel incontinence but reports biting his tongue. He reports that before losing consciousness he felt like light headed, and his heart was beating fast. He rep orts drinking 2, 12 ounces beers a day, last drink yesterday. He denies chest pain, nausea, vomiting or abdominal pain. In the ED patient was found to have intentional and resting tremors for which h ospitalist team was called for admission for possible alcohol withdrawal. He denies visual or auditory hallucination. - Time Spent with Patient Total time spent is greater than 50% in coordination of care (as documented) at patient's floor/unit and/or counseling patient: less than 15 minutes Plan of Care Discussed with: patient Internal Medicine: Result - Labs CBC & Chem 7: 01/05/19 04:46 01/05/19 04:46 Labs: Short CBC 01/05/19 Range/Units 04:46 WBC 6.9 (4.3-11.1) K/mcL Hgb 12.0 L (12.9-16.9) g/dL Hct 37.8 (37.5-50.1) % Plt Count 204 (140-400) K/mcL Neutrophils # 3.0 (1.6-8.9) K/mcL BMP 01/05/19 04:46 Sodium 137 Potassium 4.3 Chloride 108 H Carbon Dioxide 22 L BUN 15 Creatinine 0.90 Glucose 134 H Calcium 9.3 Consult Discharge Plan - Plan Referrals: Sancho Spaulding DO [Partnered Physician] - 01/27/19 10:50 am Prasanth Bonilla [Resident] - 01/13/19 4:00 pm (2) Alcohol withdrawal Qualifiers: Complication of substance-induced condition: with unspecified complication Qualified Code(s): F10.239 - Alcohol dependence with withdrawal, unspecified (3) Hypertension Qualifiers: Hypertension type: essential hypertension Qualified Code(s): I10 - Essential (primary) hypertension (4) COPD (chronic obstructive pulmonary disease) Qualifiers: COPD type: unspecified COPD Qualified Code(s): J44.9 - Chronic obstructive pulmonary disease, unspecified (5) CAD (coronary artery disease) Qualifiers: Coronary Disease-Associated Artery/Lesion type: unspecified vessel or lesion type [place] vs. transplanted heart: unspecified whether [place] or transplanted heart Associated angina: angina presence unspecified Qualified Code(s): I25.10 - Atherosclerotic heart disease of [place] coronary artery without angina pectoris
[2019-01-06] MEDS: traMADol 50 MG TABLET PO PRN (04:27)
[2019-01-06] MEDS: *HR* Heparin 5,000 UNIT/ML VIAL SQ SCH ×2 (06:43→14:04)
[2019-01-06] MEDS: levETIRAcetam 250 MG TABLET PO SCH (06:43)
[2019-01-06] MEDS: Aspirin Enteric Coated 81 MG Tablet PO SCH (07:50)
[2019-01-06] MEDS: Thiamine (B-1) 100 MG TABLET PO SCH (07:50)
[2019-01-06] MEDS: diazePAM 10 MG TABLET PO SCH ×2 (07:50→14:04)
[2019-01-06] MEDS: Folic Acid 1 MG TABLET PO SCH (07:50)
[2019-01-06] MEDS: Cyanocobalamin (B-12) 1,000 MCG TABLET PO SCH (07:51)
[2019-01-06] MEDS: OLANZapine 5 MG TAB.RAPDIS PO SCH (07:52)
[2019-01-06 11:48] VITALS: BP 105/76
[2019-01-06 14:07] LABS: Chol/HDL Ratio 2.2 (0-4.9)
--- NOTE | 2019-01-06 14:12 | Discharge Summary ---
- NOTES TO OUTPATIENT PROVIDER Notes to Outpatient Provider: PCP in 5 to 7 days Date of Encounter: 01/06/19 Time of Encounter: 14:09 - Discharge Diagnosis (1) Seizure Priority: Primary Status: Acute Assessment and Plan: - Breakthrough Seizure from noncompliant with AED, no re current seizure - CT head negative fro acute abnormality - Seen by Neurology's - EEG neg - c/w Keppra 1000mg BID, will need new script for keppra at discharge per neurology. (2) Alcohol withdrawal Priority: Primary Status: Acute Assessment and Plan: patient with intentional and resting tremors on admission. No noted tremors on exam 01/05/19 Started on CIWA protocol on admission Cessation of ETOH strongly advised. Pt not forthcoming about exactly how much he drinks banana bag x1. Qualifiers: Complication of substance-induced condition: with unspecified complication Qualified Code(s): F10.239 - Alcohol dependence with withdrawal, unspecified (3) Hypertension Priority: Secondary Status: Chronic Assessment and Plan: Carvedilol 3.125mg PO BID. Qualifiers: Hypertension type: essential hypertension Qualified Code(s): I10 - Essential (primary) hypertension (4) COPD (chronic obstructive pulmonary disease) Priority: Secondary Status: Chronic Assessment and Plan: not on acute exacerbation. bronchodilators Q4RT PRN. Qualifiers: COPD type: unspecified COPD Qualified Code(s): J44.9 - Chronic obstructive pulmonary disease, unspecified (5) CAD (coronary artery disease) Priority: Secondary Status: Chronic Assessment and Plan: On aspirin 81mg PO daily. Adding Zocor 20 mg PO QHS Lipid panel showed triglycerides 156, LDL 63, HDL 81, VDL 31. Issues of medical non-compliance. Qualifiers: Coronary Disease-Associated Artery/Lesion type: unspecified vessel or lesion type [place] vs. transplanted heart: unspecified whether [place] or transplanted heart Associated angina: angina presence unspecified Qualified Code(s): I25.10 - Atherosclerotic heart disease of [place] coronary artery without angina pectoris (6) Medical non-compliance Priority: Secondary Status: Chronic Assessment and Plan: Pt has not been taking his medications as prescribed. He has been drinking ETOH instead. Cessation of ETOH strongly recommended. Pt given paper scripts for Coreg, Zocor, Keppra, and ASA (7) Electrolyte imbalance Priority: Secondary Status: Acute Assessment and Plan: likely due to ETOH abuse. 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 Rose is a 53 year old male PMH of alcohol abuse, Seizures, CAD and HTN. Patient was brought to the ED after losing consciousness. Patient reports that he left his house today morning and after he walked about 1 block he passed out, the only next thing he remembered is waking up in the ED. He denies urinary or bowel incontinence but reports biting his tongue. He reports that before losing consciousness he felt like light headed, and his heart was beating fast. He reports drinking 2, 12 ounces beers a day, last drink yesterday. He denies chest pain, nausea, vomiting or abdominal pain. In the ED patient was found to have intentional and resting tremors for which hospitalist team was called for admission for possible alcohol withdrawal. He denies visual or auditory hallucination. Discharge discussed with: patient - Time Spent with Patient Total time spent providing and/or coordinating discharge services: Greater than 30 minutes - Discharge Medications Prescriptions: Carvedilol 3.125 mg PO BID 30 Days #60 tablet levETIRAcetam [Levetiracetam] 1,000 mg PO BID 30 Days #60 tablet Simvastatin [Zocor] 20 mg PO HS 30 Days #30 tablet Home Medications: Albuterol Sulfate [Ventolin Hfa] 2 puff IH Q4H PRN 10/14/18 [History] Aspirin Enteric Coated [Aspirin EC] 81 mg PO DAILY tablet. 01/06/19 [Rx] Carvedilol 3.125 mg PO BID 30 Days #60 tablet 01/06/19 [Rx] Cyanocobalamin (B-12) [Vitamin B12] 1,000 mcg PO DAILY tablet 01/06/19 [Rx] Folic Acid 1 mg PO DAILY tablet 01/06/19 [Rx] OLANZapine [Zyprexa Zydis] 2.5 mg PO BID tab.rapdis 01/06/19 [Rx] Simvastatin [Zocor] 20 mg PO HS 30 Days #30 tablet 01/06/19 [Rx] Thiamine (B-1) [Vitamin B-1] 100 mg PO DAILY tablet 01/06/19 [Rx] levETIRAcetam [Levetiracetam] 1,000 mg PO BID 30 Days #60 tablet 01/06/19 [Rx] Allergies/Adverse Reactions: Allergy/AdvReac Type Severity Reaction Status Date / Time No Known Allergies Allergy Verified 12/30/18 14:32 Date of admission: 12/30/18 18:55 Primary care physician: PCP NONE Consults: 12/30/18 10:16 Consult to Interpret Exam [CONS] Routine Consulting Provider: Charisma Euceda Consult to Interpret Exam: Interpret EEG 01/01/19 08:24 Consult to Nurse Navigator [CONS] Routine Comment: COPD 01/02/19 08:50 Consult to Surgery [CONS] Routine Consulting Provider: [facility] Reason for Consult: right inguinal hernia Call Completed: Yes 01/02/19 15:11 Consult to Physical Therapy [CONS] Routine Comment: Evaluate, develop and implement POC Reason for Consult: weakness Does patient have active BEDREST order?: No Is patient medically & hemodynamically stable?: Yes Patient assessed for mobility or mobilized this visit?: Yes 01/04/19 13:31 Consult to Nurse Navigator [CONS] Routine Comment: Discharging clinician: Karley Lion Anticipated date of discharge: 01/06/19 - Constitutional Vitals: Temp Pulse Resp BP Pulse Ox 97.4 F L 78 16 105/76 91 01/06/19 11:44 01/06/19 11:44 01/06/19 11:44 01/06/19 11:44 01/06/19 11:44 Exam: General: Pt more awake and alert, oriented x 4, In no acute distress. Skin: Normal color, no rash, no lesions. HEENT: PERRLA Cardiovascular: RRR, normal S1 & S2 Lungs: CTA b/l, no wheezes or crackles. Abdomen: Soft, non-tender, no rigidity. right inguinal hernia Extremities: No deformity, no edema or tenderness, no joint swelling Neurological: AAO X 4, no focal deficits - Patient Status Disposition: Home, Self-Care Condition: Good Overall status at discharge: patient is back to baseline - Discharge Instructions Follow Up With: Sancho Spaulding DO [Partnered Physician] - 01/27/19 10:50 am Prasanth Bonilla [Resident] - 02/12/19 4:00 pm - Diet and Activity Activity: increase activity as tolerated Diet: low fat, low cholesterol, low salt diet
== END 2019-01-06 16:20 | disposition home or self-care (01) | DRG 775 ==
LOC: EMEROOARM 11:56 → 2NENU 11:56 → SUATTDRO 16:43 → 2NENU 17:24 → SUATTDRO 12-30 18:55 → 2NNU 12-30 19:57 → 3NENU 01-04 15:21 → 2SOUTHHOLD 01-05 11:19
PROVIDERS: ADMIT Internal Medicine; ATTEND Hospitalist